=== PATIENT | male | born 1990 | race Caucasian/White ===

== ENCOUNTER → 2022-12-14 15:25 | Outpatient (BNVA) | payer OTHER, SELFPAY | PROVIDERS: PCP Internal Medicine; Visit Provider Physician Assistant Surgical ==

== ENCOUNTER 2023-01-20 13:54 | Outpatient (AMB) | payer OTHER, SELFPAY ==
--- NOTE | 2023-01-20 14:01 | A.OFFVIS_ITS ---
Intake VS Expanded 01/20/23 14:07 Height 5 ft 11 in Weight 618 lb 1.6 oz BMI 86.2 BP 170/102 H Blood Pressure Location Lt radial Blood Pressure Position Sitting Pulse 88 Pulse Source Pulse Oximeter Temp 98.2 F Temperature Source Temporal Artery Scan Pulse Oximetry 95 Oxygen Delivery Method Room Air Intake Visit Reasons: (OV) [employer] SWL BMI 86.9 Allergies diphenhydramine [From Benadryl] Allergy (Intermediate, Verified 01/20/23 14:13) UNKNOWN Medication List - Last Reconciled 01/20/23 by Cari Infante PA-C albuterol sulfate 90 mcg/actuation 2 inhalations inhalation Q6H PRN melatonin mg PO BEDTIME PRN omeprazole mg PO HPI HPI Comments History of Present Illness Details This is a 33 year old man who is here to start SWL program with SWL classes. His goal is to be to have a more active life. He reports first being concerned about her weight since childhood. He has tried multiple methods of weight loss including WW, [facility] SWL prgoram- lost weight with meds and then family issues had to stop program. He has a firend who just completed LSG with us. He lives with his mother. He works 5 days per week, 6 - 2:30 pm. Patient was seen at [facility] about 4 months ago due to excructing pain had CT - told he has umbillical hernia - which drain yellow fluid and blood at times. He wakes at: 5:15 am bed at 11pm - 12 am. Breakfast: Might have a Gatorade in the morning. 11:30 am - turkey and cheese wrap with cranberry juice. Lunch: 7-8 pm - no one at home cooks food. Chicken terriaki with mashed potatoes. Raw vegetables 2-3 d/ week. Clear Americans - 0 calorie seltzer. After dinner:pop tarts or granola Other snacks: states none Liquids: Soda off and on, Gatorade, Pineapple Cranberry juice, Energy drinks Alcohol intake: 2-3 times per week, sweetened seltzers 4-5, tobacco: none, marijuana: vapes throughout the day Exercise: has a foot stepper. no membership JARVIS: 1 ESS:5 GERD:9 QOL: 101 PFSH Surgical History H/O oral surgery Family History (Updated 12/14/22 @ 15:36 by Thuy Eid MA) Mother No problems noted. Father Diabetes Social History (Updated 12/14/22 @ 15:35 by Thuy Eid MA) Alcohol intake: current Alcohol intake frequency: a few times a month Patient Tobacco Use Status: Never used Tobacco Physical Exam Const General: cooperative, no acute distress and well developed Nutritional Appearance: obese Orientation/consciousness: patient oriented x3 HEENT Head: Yes normal to inspection Neck Neck: Yes normal visual inspection Thyroid: Thyroid normal Resp Effort & Inspection: normal respiratory effort Auscultation: clear to auscultation bilaterally Cardio Rate: regular rate Rhythm: regular rhythm Heart sounds: S1 normal heart sound present, S2 normal heart sound present and no murmurs GI Inspection: No distended, Yes Abdominal panniculus present and Yes obesity Palpation (GI): Soft to palpation, nontender, no guarding and Hernia present (umbillical hernia, draining yellow fluid on paper towel ) Skin General skin exam: no rashes or lesions noted and other (warm and dry) Wounds: no wounds Hair: normal Neuro General: patient oriented x3 Extrem General: Yes no pedal edema and Yes no calf tenderness Psych Attitude: cooperative Thought process: Normal thought process present Thought content: Normal thought content present Insight: Good insight present (Psych) Judgement: Good judgement present (Psych) Assessment & Plan Assessment & Plan (1) Morbid obesity: Code(s): E66.01 - Morbid (severe) obesity due to excess calories Plan: This is a 33 yo man with super morbid obesity, elevated BP and draining umbilliical hernia who will start SWL program to prepare for bariatric surgery. Blood work has been ordered. He is being scheduled for RD and BH initial consultations. He will start SWL classes and watch at 3 classes before her next appt with Nilda. Repeat BP 136/[address] chi also examined patient and will see him in follow up to discuss treatment for draining umbillical hernia once we have CT report [facility]. Sleep study for titration ordered, patient is not presently using his CPAP machine. 1. Adequate sleep of 7-8 hours per night discussed -MUST use CPAP nightly 2. Healthy meal plan - stop skipping meals and stop all sweetened drinks All meals/MR's need to take 20 minutes to complete 8am - 30 gram shake 11 am - 30 gram shake 2 pm- bar or yogurt 5pm -shake 7 pm- dinner of 6 oz lean protein, 8 oz vegetable, 1 serving fruit 10 pm - yogurt or bar Exercise - start with walking 15 minutes bid and PE sitting videos 4 d/ week. Pt will purchase body composition analyzer (recommended list given to patient) and weight herself weekly. Next appt with me in 3 weeks. Text me with any questions and weekly weights. Patient is morbidly obese and is not considered stable at this time.?I spent a total of 60 minutes reviewing/updating records, examining the patient and counse ling the patient on weight management as detailed above. (2) Asthma: Code(s): J45.909 - Unspecified asthma, uncomplicated (3) GERD (gastroesophageal reflux disease): Code(s): K21.9 - Gastro-esophageal reflux disease without esophagitis (4) Insomnia: Code(s): G47.00 - Insomnia, unspecified Orders: Orders Vitamin B12 and Folate Today E66.01 - Morbid (severe) obesity due to excess calories, K21.9 - Gastro-esophageal reflux disease without esophagitis, K42.9 - Umbilical hernia without obstruction or gangrene, R03.0 - Elevated blood- pressure reading, without diagnosis of hypertension Comprehensive Met. Panel Today E66.01 - Morbid (severe) obesity due to excess calories, K21.9 - Gastro-esophageal reflux disease without esophagitis, K42.9 - Umbilical hernia without obstruction or gangrene, R03.0 - Elevated blood- pressure reading, without diagnosis of hypertension C Reactive Protein Today E66.01 - Morbid (severe) obesity due to excess calories, K21.9 - Gastro-esophageal reflux disease without esophagitis, K42.9 - Umbilical hernia without obstruction or gangrene, R03.0 - Elevated blood-p ressure reading, without diagnosis of hypertension Ferritin Today E66.01 - Morbid (severe) obesity due to excess calories, K21.9 - Gastro-esophageal reflux disease without esophagitis, K42.9 - Umbilical hernia without obstruction or gangrene, R03.0 - Elevated blood-pressure reading, without diagnosis of hypertension Hemoglobin A1c Today E66.01 - Morbid (severe) obesity due to excess calories, K21.9 - Gastro-esophageal reflux disease without esophagitis, K42.9 - Umbilical hernia without obstruction or gangrene, R03.0 - Elevated blood-pressure reading, without diagnosis of hypertension Insulin Today E66.01 - Morbid (severe) obesity due to excess calories, K21.9 - Gastro-esophageal reflux disease without esophagitis, K42.9 - Umbilical hernia without obstruction or gangrene, R03.0 - Elevated blood-pressure reading, without diagnosis of hypertension IRON PROFILE Today E66.01 - Morbid (severe) obesity due to excess calories, K21.9 - Gastro-esophageal reflux disease without esophagitis, K42.9 - Umbilical hernia without obstruction or gangrene, R03.0 - Elevated blood-pressure reading, without diagnosis of hypertension Lipid Panel Today E66.01 - Morbid (severe) obesity due to excess calories, K21.9 - Gastro-esophageal reflux disease without esophagitis, K42.9 - Umbilical hernia without obstruction or gangrene, R03.0 - Elevated blood-pressure reading, without diagnosis of hypertension PTHI Today E66.01 - Morbid (severe) obesity due to excess calories, K21.9 - Gastro-esophageal reflux disease without esophagitis, K42.9 - Umbilical hernia without obstruction or gangrene, R03.0 - Elevated blood-pressure reading, without diagnosis of hypertension TSH reflex Free T4 Today E66.01 - Morbid (severe) obesity due to excess calories, K21.9 - Gastro-esophageal reflux disease without esophagitis, K42.9 - Umbilical hernia without obstruction or gangrene, R03.0 - Elevated blood- pressure reading, without diagnosis of hypertension Vitamin A Today E66.01 - Morbid (severe) obesity due to excess calories, K21.9 - Gastro-esophageal reflux disease without esophagitis, K42.9 - Umbilical hernia without obstruction or gangrene, R03.0 - Elevated blood-pressure reading, without diagnosis of hypertension Vitamin B1 Today E66.01 - Morbid (severe) obesity due to excess calories, K21.9 - Gastro-esophageal reflux disease without esophagitis, K42.9 - Umbilical hernia without obstruction or gangrene, R03.0 - Elevated blood-pressure reading, without diagnosis of hypertension Vitamin D 25-OH Total Today E66.01 - Morbid (severe) obesity due to excess calories, K21.9 - Gastro-esophageal reflux disease without esophagitis, K42.9 - Umbilical hernia without obstruction or gangrene, R03.0 - Elevated blood- pressure reading, without diagnosis of hypertension Zinc Today E66.01 - Morbid (severe) obesity due to excess calories, K21.9 - Gastro-esophageal reflux disease without esophagitis, K42.9 - Umbilical hernia without obstruction or gangrene, R03.0 - Elevated blood-pressure reading, without diagnosis of hypertension Complete Blood Count Auto Diff Today E66.01 - Morbid (severe) obesity due to excess calories, K21.9 - Gastro-esophageal reflux disease without esophagitis, K42.9 - Umbilical hernia without obstruction or gangrene, R03.0 - Elevated blood-pressure reading, without diagnosis of hypertension H Pylori Breath Test Today E66.01 - Morbid (severe) obesity due to excess calories, K21.9 - Gastro-esophageal reflux disease without esophagitis, K42.9 - Umbilical hernia without obstruction or gangrene, R03.0 - Elevated blood- pressure reading, without diagnosis of hypertension RT PSG in-lab sleep titration Today E66.01 - Morbid (severe) obesity due to excess calories, G47.30 - Sleep apnea, unspecified, K21.9 - Gastro-esophageal reflux disease without esophagitis, R03.0 - Elevated blood-pressure reading, without diagnosis of hypertension Referrals Behavioral Health Referral E66.01 - Morbid (severe) obesity due to excess calories, K21.9 - Gastro-esophageal reflux disease without esophagitis, K42.9 - Umbilical hernia without obstruction or gangrene, R03.0 - Elevated blood- pressure reading, without diagnosis of hypertension Nutrition/Dietitian Referral E66.01 - Morbid (severe) obesity due to excess calories, K21.9 - Gastro-esophageal reflux disease without esophagitis, K42.9 - Umbilical hernia without obstruction or gangrene, R03.0 - Elevated blood- pressure reading, without diagnosis of hypertension Coding Level of Care Code New Pt Level 5 (21604) Diagnoses Morbid obesity E66.01 Asthma J45.909 GERD (gastroesophageal reflux disease) K21.9 Insomnia G47.00
[2023-01-20 14:07] VITALS: BP 170/102; PULSE 88; TEMP 36.8; O2SAT 95; BMI 86.2
== END 2023-01-20 15:12 | disposition home or self-care (01) ==
PROVIDERS: PCP Internal Medicine; Visit Provider Physician Assistant
DX: E66.01 Morbid (severe) obesity due to excess calories (principal); Z68.45 Body mass index [BMI] 70 or greater, adult
CPT/HCPCS: 99205

== ENCOUNTER → 2023-01-20 13:54 | Outpatient (BNVA) | payer OTHER, SELFPAY | PROVIDERS: PCP Internal Medicine; Visit Provider Physician Assistant | DX: E66.01 Morbid (severe) obesity due to excess calories (principal); Z68.45 Body mass index [BMI] 70 or greater, adult; J45.909 Unspecified asthma, uncomplicated; K21.9 Gastro-esophageal reflux disease without esophagitis; G47.00 Insomnia, unspecified | CPT/HCPCS: 99202 ==

== ENCOUNTER 2023-02-08 14:48 | Outpatient (REF) | payer OTHER, SELFPAY ==
[2023-02-08 15:17] LABS: MANUAL DIFF FLAG NO
[2023-02-08 16:44] LABS: Basophils Absolute Auto 0.1 X10*3/uL (0.0-0.2); Basophils Percent Auto 0.7 % (0-2); Eosinophils Absolute Auto 0.3 X10*3/uL (0.0-0.4); Eosinophils Percent Auto 3.9 % (0-4); Hematocrit 46.5 % (42.0-52.0); Hemoglobin 15.5 g/dl (14.0-18.0); Imm Gran Abs Auto 0.01 X10*3/uL (0.00-0.03); Imm Gran Pct Auto 0.1 % (0.0-0.4); Lymphocytes Absolute Auto 2.1 X10*3/uL (1.2-4.9); Lymphocytes Percent Auto 29.3 % (20-40); Mean Corpuscular HGB Conc 33.3 g/dl (31.0-36.0); Mean Corpuscular Volume 90.1 fL (80.0-98.0); Monocytes Absolute Auto 0.8 X10*3/uL (0.1-1.2); Monocytes Percent Auto 10.5 % (2-11); Neutrophils Percent Auto 55.5 % (45-73); Platelet Count 372 X10*3/uL (160-400); Red Blood Count 5.16 X10*6/uL (4.60-5.80); Red Cell Distribution Width 13.9 % (11.0-16.0); White Blood Count 7.2 X10*3/uL (4.8-10.8)
[2023-02-08 16:56] LABS: Estimated Average Glucose 91 mg/dL; Hemoglobin A1c % 4.8 % (<6.0)
[2023-02-08 17:34] LABS: Alanine Aminotransferase 56 U/L (0-40); Albumin Level 4.3 g/dL (3.5-5.0); Alkaline Phosphatase 55 U/L (39-117); Anion Gap 14 (12-20); Aspartate Amino Transferase 38 U/L (5-37); Bilirubin Total 0.6 mg/dL (0.0-1.0); Blood Urea Nitrogen 15 mg/dL (9-16); C Reactive Protein 2.16 mg/dL (< or = 0.50); Calcium 9.9 mg/dL (8.4-10.2); Carbon Dioxide 25 mmol/L (22-29); Chloride 104 mmol/L (96-108); Cholesterol 120 mg/dL (<200); Estimated Glomerular Filt Rate > 60; Glucose Random 80 mg/dL (60-115); HDL Cholesterol 29 mg/dL (>40); Iron 47 mcg/dL (45-160); LDL Cholesterol Calculated 78 mg/dL (<100); Percent Iron Saturation 16 % (15-50); Potassium 4.1 mmol/L (3.3-5.1); Sodium 139 mmol/L (135-145); Total Iron Binding Capacity 289 mcg/dL (228-428); Total Protein 8.3 g/dL (6.5-8.0); Triglycerides 67 mg/dL (<150); Unsaturated Iron Binding 242 ug/dL
[2023-02-08 17:38] LABS: Ferritin 169 ng/mL (20-250); TSH reflex Free T4 3.03 uIU/mL (0.32-4.0); Vitamin D 25-OH Total 12.1 ng/mL (>30)
[2023-02-08 17:47] LABS: Folate 10.3 ng/mL (> or = 4.0); Vitamin B12 921 pg/mL (200-900)
[2023-02-08 19:07] LABS: Insulin 17 uU/mL (2-29)
[2023-02-09 16:14] LABS: Calcium (PTHI) 9.8 mg/dL (8.6-10.3); PTHI 52 pg/mL (16-77)
[2023-02-12 01:29] LABS: Zinc 72 mcg/dL (60-130)
[2023-02-13 20:15] LABS: Vitamin A 25 mcg/dL (38-98)
[2023-02-14 12:02] LABS: Vitamin B1 8 nmol/L (8-30)
== END 2023-02-08 14:49 | disposition home or self-care (01) ==
LOC: HO.LAB 14:48
PROVIDERS: Visit Provider Physician Assistant
DX: E66.01 Morbid (severe) obesity due to excess calories (principal); R03.0 Elevated blood-pressure reading, without diagnosis of hypertension; K42.9 Umbilical hernia without obstruction or gangrene; K21.9 Gastro-esophageal reflux disease without esophagitis
CPT/HCPCS: 36415; 80053; 80061; 82306; 82607; 82728; 82746; 83036; 83525; 83540; 83970; 84425; 84443; 84590; 84630; 85025; 86140

== ENCOUNTER 2023-02-25 13:58 | Outpatient (AMB) | payer OTHER, SELFPAY ==
--- NOTE | 2023-02-25 12:50 | MHC.OFFVISWM ---
Intake VS Expanded 02/25/23 14:12 BP 177/94 H Blood Pressure Location Rt brachial Blood Pressure Position Sitting Pulse 93 Pulse Source Pulse Oximeter Temp 96.1 F L Temperature Source Temporal Artery Scan Pulse Oximetry 96 Oxygen Delivery Method Room Air Height 5 ft 11 in Weight 560 lb BMI 78.1 Intake Visit Reasons: (OV) F/U SWL Allergies diphenhydramine [From Benadryl] Allergy (Intermediate, Verified 02/25/23 14:15) UNKNOWN HPI HPI Comments History of Present Illness Details This is the patients second appt for SWL. Starting weight was 618.1 lbs on 01/20/23. TBWL is 58.1 lbs or 9.4 % TBWL. Had exacerbation of his hernia pain - last week, emesis, had a wrap and was sick. Has not eaten solid food in 6 days. Has been having 2 shakes per day and water only. Leaking minimally now - but this is intermittent - leaked a lot a few days ago - not worse. Meal plan:before he was sick. 8:30 - Pure protein or Farilife or [employer] or Atkins 11:30 - another shake 2pm - Pure protein or Zone or Atkins bars or a yogurt. 5pm - shake or meal - 6 oz steak or chicken and 8 oz vegetables 10 pm -yogurt and a kiwi. Exercise plan: Tristan Ascencio - videos 3 d/ week. Walking Pre op work up completed as follows: SWL classes - 07/29 appts - 03/04 appts - follow up on 03/05 H pylori - not done yet - still taking omeprazole at [facility] Labs - vit A and D deficiencies CXR and ECG - not done yet ULS and UGI - not scheduled yet - 03/[address] report from [facility] - scanned on 01/28. Large abdominal wall hernia 15 x 9 cms, fascial defect about 5 cms. Fat containing hernia only. Reviewed with Dr Gatica and will obtain CD of the CT for his review. [facility] Surgical History H/O oral surgery Family History (Updated 12/14/22 @ 15:36 by Thuy Eid MA) Mother No problems noted. Father Diabetes Social History (Updated 12/14/22 @ 15:35 by Thuy Eid MA) Alcohol intake: current Alcohol intake frequency: a few times a month Patient Tobacco Use Status: Never used Tobacco Physical Exam GI Inspection: Yes visible herniation (non tender, not incarceration, no discoloration ) and Yes other (scant serous fluid on toilet tissue in umbillicus) Palpation (GI): Soft to palpation and nontender Assessment & Plan Assessment & Plan (1) Morbid obesity: Code(s): E66.01 - Morbid (severe) obesity due to excess calories Plan: Excellent weight loss of 58 lbs so far, stopped all sweetened drinks. He had another episode of what seems to be intermittent bowel obstruction, now resolved. We reviewed that if this occurs again to ONLY HAVE LIQUIDs (shakes and water until symptoms resolve), call our office or text me to let us know. IF he needs to come to ED - come to [facility] ED and let them know to contact us. Patient will obtain CD of the abd CT from [facility] and bring it with him to his appt with Dr Gatica on 03/29. meal plan: 3 shakes 1 meal 2 bars or yogurt per day. Exercise - 6 d/week - Tristan Ascencio alternate 30 and 45 minute videos. All upcoming appts reveiwed with patient. Will order ULS and UGI when approaching 500 lbs. Needs to get CXR and ECG now. Next appt with me in 3 weeks. I have encouraged patient to text me with questions and concerns. (can not weight himself at home) Patient is morbidly obese and is not considered stable at this time. I spent 45 minutes in total with patient reviewing/updating records, examining the patient and counseling the patient on weight management as detailed above. (2) Sleep apnea: Code(s): G47.30 - Sleep apnea, unspecified (3) Umbilical hernia: Code(s): K42.9 - Umbilical hernia without obstruction or gangrene Coding Level of Care Code Est Pt Level 4 (87805) Diagnoses Morbid obesity E66.01 Sleep apnea G47.30 Umbilical hernia K42.9
[2023-02-25 14:12] VITALS: BP 177/94; PULSE 93; TEMP 35.6; O2SAT 96; BMI 78.1
== END 2023-02-25 14:53 | disposition home or self-care (01) ==
PROVIDERS: PCP Internal Medicine; Visit Provider Physician Assistant
DX: E66.01 Morbid (severe) obesity due to excess calories (principal); Z68.45 Body mass index [BMI] 70 or greater, adult; G47.30 Sleep apnea, unspecified; K42.9 Umbilical hernia without obstruction or gangrene
CPT/HCPCS: 99214

== ENCOUNTER → 2023-02-25 13:58 | Outpatient (BNVA) | payer OTHER, SELFPAY | PROVIDERS: PCP Internal Medicine; Visit Provider Physician Assistant | DX: E66.01 Morbid (severe) obesity due to excess calories (principal); Z68.45 Body mass index [BMI] 70 or greater, adult; G47.30 Sleep apnea, unspecified; K42.9 Umbilical hernia without obstruction or gangrene | CPT/HCPCS: 99212 ==

== ENCOUNTER 2023-03-04 15:06 | Outpatient (AMB) | payer OTHER, SELFPAY ==
--- NOTE | 2023-03-04 15:05 | MHC.WMTHER ---
Intake Intake Visit Reasons: VIDEO BH Intake Allergies diphenhydramine [From Benadryl] Allergy (Intermediate, Verified 02/25/23 14:15) UNKNOWN [facility] Surgical History H/O oral surgery Family History Mother No problems noted. Father Diabetes Social History Alcohol intake: current Alcohol intake frequency: a few times a month Patient Tobacco Use Status: Never used Tobacco Behavioral Health Assessment Weight Management Therapy Therapy Notes Details Pt stated that he recently broke his foot falling through a deck that broke from under him. He then realized that he needed to do something about his weight. He is looking to have weight loss surgery to help improve his health and quality of life. Pt stated that he started therapy in 2014 at the [facility] in [place] however not currently since his therapist left the practice. Pt stated that he was seeking treatment for anxiety and depression. He reported being hospitalized in 2011 at [facility] for psychiatric reasons due to depression from a loss and breakup. Pt stated that he has never had a serious problem with drugs or alcohol however had used drugs and alcohol in the past. He reported that in middle school and high school he struggled with suicidal thoughts. Presenting Concerns Referral Source provider Reason for referral weight loss surgery evaluation Precipitating Event obesity Living Situation Current Living Situation Relative's/Guardian's Сергей At risk of losing current housing? No Satisfied with current living situation? Yes Comments Pt lives with his mother. Food/Weight/Diet Expectations of change weight loss and maintenance History/Relationship with food Pt stated that he would not eat all day but would drink soda and juices. Around 3 to 4 cans a day. He would eat around 7pm, pizza, microwavable food, fast food 2-3x's a month. History/Relationship with weight Pt stated that he has been overweight all of his life. He stated that it was just him and his mom growing up and he got to eat whatever he wanted. History/Relationship with dieting [facility] in 2015/2016 but then had significant family health issues in his immediate family. Binge Eating Do you frequently eat large amounts of food in short periods of time, not feeling physically hungry? Yes Do you feel out of control when you eat a large amount of food in a short period of time? No Do you eat large amounts of food rapidly and typically alone? No Night Eating Do you wake up at least once during the night to eat? No If you wake up in the night, do you find that it is necessary to eat something in order to fall back asleep? No Do you have little or no appetite in the morning and feel very hungry in the evening, often overeating between dinner and when you go to bed? Yes Social History Family history and relationship Pt was raised by his mother and stated that his father was never in his life. He has two sisters from his dad side. 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 2015 on probation for falsifying prescriptions Education Highest grade completed high school Preferred learning style Auditory, Verbal, Written, Learn by doing and Visual Currently enrolled in educational program? No Interested in further educational program? 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 No Meaningful activities some exercise, socializing with friends, watching football, games Financial Situation Describe current financial situation Occasional struggle Financial assistance? None Service Service? No Mental Health and Addiction Treatment Current/Past substance abuse? No Current/Past addictive behavior concerns? No Medical and Physical Health Summary Physical exam in the last year? Yes Pain Screening Current pain? No Pain in the last few months? No Medications Is the patient compliant with medications? Yes Does the patient have Schwartz Guardian in place? Not applicable Does the patient use complimentary health approaches? No Trauma/Abuse History History of trauma? Yes Questionnaires PHQ-9 Over the last 2 weeks, how often have you been bothered by any of the following problems? 1. Little interest or pleasure in doing things: not at all 2. Feeling down, depressed, or hopeless: not at all 3. Trouble falling or staying asleep, or sleeping too much: more than half the days 4. Feeling tired or having little energy: several days 5. Poor appetite or overeating: several days 6. Feeling bad about yourself - or that you are a failure or have let yourself or your family down: not at all 7. Trouble concentrating on things, such as reading the newspaper or watching television: not at all 8. Moving or speaking so slowly that other people could have noticed. Or the opposite - being so fidgety or restless that you have been moving around a lot more than usual: not at all 9. Thoughts that you would be better off or of hurting yourself in some way: not at all Total score: 4 Source: Developed by Drs. Hayden Thayer, Liat Grace, Uriel Chavis and colleagues, with an educational lisa from [employer]. Binge Eating Scale Group 1 A. I don't feel self-conscious about my wt. or body size when I'm with others. B. I feel concerned about how I look to others, but it normally does not make me fell disappointed with myself C. I do get self-conscious about my appearance and wt. which makes me feel disappointed in myself. D. I feel very self-conscious about my wt. and frequently I feel intense shame and disgust for myself. I try to avoid social contacts because of my self-consciousness. Response Group 1: D Group 2 A. I don't have any difficulty eating slowly in the proper manner. B. Although I seem to gobble down foods, I don't end up feeling stuffed because of eating to much. C. At times, I tend to eat quickly and then, I feel uncomfortably full afterwards. D. I have the habit of bolting down my food, without really chewing it. When this happens I usually feel uncomfortably stuffed because I've eaten to much. Response Group 2: A Group 3 A. I feel capable to control my eating urges when I want to. B. I feel like I have failed to control my eating more than the average person. C. I feel utterly helpless when it comes to feeling in control of my eating urges. D. Because I feel so helpless about controlling my eating I have become very desperate about trying to get control. Response Group 3: B Group 4 A. I don't have the habit of eating when I'm bored. B. I sometimes eat when I'm bored, but often I'm able to get busy and get my mind off food. C. I have a regular habit of eating when I'm bored, but occasionally, I can use some other activity to get my mind off eating. D. I have a strong habit of eating when I'm bored. Nothing seems to help me breath the habit. Response Group 4: C Group 5 A. I'm usually physically hungry when I eat something. B. Occasionally, I eat something on impulse even though I really am not hungry. C. I have the regular habit of eating foods, that I might not really enjoy, to satisfy a hungry feeling even though physically, I don't need the food. D. Although I'm not physically hungry, I get a hungry feeling in my mouth that only seems to be satisfied when I eat a food, like sandwich, that fills my mouth. Sometimes, when I eat the food to satisfy my mouth hunger, I then spit the food out so I won't gain weight. Response Group 5: B Group 6 A. I don't feel any guilt or self-hate after I overeat. B. After I overeat, occasionally I feel guilt or self-hate. C. Almost all the time I experience strong guilt or self-hate after I overeat. Response Group 6: B Group 7 A. I don't lose total control of my eating when dieting even after periods when I overeat. B. Sometimes when I eat a forbidden food on a diet, I feel like I blew it and eat even more. C. Frequently, I have the habit of saying to myself, I've blown it now, why not go all the way, when I overeat on a diet. When that happens I eat more. D. I have a regular habit of starting a strict diets for myself but I break the diets by going on an eating binge. My life seems to be either a feast or famine. Response Group 7: C Group 8 A. I rarely eat so much food that I feel uncomfortably stuffed afterwards. B. Usually about once a month, I each such a quantity of food, I end up feeling very stuffed. C. I have regular periods during the month when I eat large amounts of food, either at mealtime or at snacks. D. I eat so much food that I regularly feel quite uncomfortable after eating and sometimes a bit nauseous. Response Group 8: C Group 9 A. My level of calorie intake does not go up very high or go down very low on a regular basis. B. Sometimes after I overeat, I will try to reduce my caloric intake to almost nothing to compensate for the excess calories I've eaten. C. I have a regular habit of overeating during the night. It seems that my routine is not to be hungry in the morning but overeat in the evening. D. In my adult years, I have had week-long periods where I practically starve myself. This follows periods when I overeat. It seems I live a life of either feast or famine. Response Group 9: D Group 10 A. I usually am able to stop eating when I want to. I know when enough is enough. B. Every so often, I experience a compulsion to eat which I can't seem to control. C. Frequently, I experience strong urges to eat which I seem unable to control, but at other times I can control my eating urges. D. I feel incapable of controlling urges to eat. I have a fear of not being able to stop eating voluntarily. Response Group 10: C Group 11 A. I don't have any problem stopping eating when I feel full. B. I usually can stop eating when I feel full but occasionally overeat leaving me feeling uncomfortably stuffed. C. I have a problem stopping eating once I start and usually I feel uncomfortably stuffed after I eat a meal. D. Because I have a problem not being able to stop eating when I want, I sometimes have to induce vomiting to relieve my stuffed feeling. Response Group 11: B Group 12 A. I seem to eat just as much when I'm with others, Family social gatherings as when I'm by myself. B. Sometimes, when I'm with other persons, I don't eat as much as I want to eat because I'm self-conscious about my eating. C. Frequently, I eat only a small amount of food when others are present, because I'm very embarrassed about my eating. D. I feel so ashamed about overeating that I pick times to overeat when I know no one will see me. I feel like a closet eater. Response Group 12: C Group 13 A. I eat three meals a day with only an occasional between meal snack. B. I eat 3 meals a day, but I also normally snack between meals. C. When I am snacking heavily, I get in the habit of skipping regular meals. D. There are regular periods when I seem to be continually eating, with no planned meals. Response Group 13: D Group 14 A. I don't think much about trying to control unwanted eating urges. B. At least some of the time, I feel my thoughts are pre-occupied with trying to control my eating urges. C. I feel that frequently I spend much time thinking about how much I ate or about trying not to eat anymore. D. It seems to me that most of my waking hours are pre-occupied by thoughts about eating or not eating. I feel like I'm constantly struggling not to eat. Response Group 14: C Group 15 A. I don't think about food a great deal. B. I have strong craving for food but they last only for brief periods of time. C. I have days when I can't seem to think about anything else but food. D. Most of my days seem to be pre-occupied with thoughts about food. I feel like I live to eat. Response Group 15: A Group 16 A. I usually know whether or not I'm physically hungry. I take the right portion of food to satisfy me. B. Occasionally, I feel uncertain about knowing whether or not I'm physically hungry. A these times it's hard to know how much food I should take to satisfy me. C. Even though I might know how many calories I should eat, I don't have any idea what is a normal amount of food for me. Response Group 16: B Binge Eating Score: 26 Score less than 17 Minimal Risk Score between 18-26 Moderate Risk Score between 27-46 High Risk Assessment & Plan Assessment & Plan (1) SARIKA (generalized anxiety disorder): Code(s): F41.1 - Generalized anxiety disorder (2) Morbid obesity: Code(s): E66.01 - Morbid (severe) obesity due to excess calories Plan Pt is a pleasant 33 year old male who presents for evaluation due to seeking weight loss surgery. he reported some mental health struggles related to multiple losses in his life, his mother's ongoing medical concerns and never having his father in his life. Patient was in outpatient (and inpatient) treatment in the past but not currently. He will be seen again in office. Telehealth Telehealth Location of provider rendering services: other Location of patient: address on file Patient Identification confirmed using: Name, : Yes Telehealth method: voice only Patient verbally consented to treatment: Yes Patient verbally consented to billing insurance company: Yes Patient informed of any privacy concerns related to visit: Yes Minutes spent on Phone/Video with Pt.: 45 Coding Level of Care Code Tele Psy Diag Eval (51198) Diagnoses SARIKA (generalized anxiety disorder) F41.1 Morbid obesity E66.01 Time Spent (min) 45
== END 2023-03-04 15:31 | disposition home or self-care (01) ==
LOC: HO.HBST 15:06
PROVIDERS: PCP Internal Medicine; Referring Provider Physician Assistant; Visit Provider Counselor Mental Health
DX: F41.1 Generalized anxiety disorder (principal); E66.01 Morbid (severe) obesity due to excess calories
CPT/HCPCS: 90791

== ENCOUNTER → 2023-03-04 19:30 | Outpatient (REF) | payer OTHER, SELFPAY | LOC: HO.SL 19:30 | PROVIDERS: PCP Internal Medicine; Visit Provider Physician Assistant | DX: G47.33 Obstructive sleep apnea (adult) (pediatric) (principal); R06.83 Snoring | CPT/HCPCS: 95811 ==

== ENCOUNTER → 2023-03-04 22:48 | Outpatient (BNV) | payer OTHER, SELFPAY | PROVIDERS: PCP Internal Medicine; Visit Provider Internal Medicine | DX: G47.33 Obstructive sleep apnea (adult) (pediatric) (principal) | CPT/HCPCS: 95811 ==

== ENCOUNTER 2023-03-05 14:38 | Outpatient (AMB) | payer OTHER, SELFPAY ==
--- NOTE | 2023-03-05 14:35 | A.OFFVIS_ITS ---
Intake Intake Visit Reasons: VIDEO Initial Nutrition [facility] Piece Goods Clerk Required: No Allergies diphenhydramine [From Benadryl] Allergy (Intermediate, Verified 02/25/23 14:15) UNKNOWN HPI Nutrition Presentation Details Starting weight was 618.1 lbs on 01/20/23. Reason for consult elevated BMI Unstable SDH Reports use of SNAP (mother has) Diet Assmnt Details 3 shakes 1 meal - protein and veg, asking about a dding in rice, barley etc. 2 bars or yogurt per day. Prior to the above, had GI issues related to pre-existing condition. He was on an all liquid diet per Cari. When his symptoms resolved he resumed the above plan. [facility] online classes: his mother has been through 3 surgeries on her neck in 1 year. She did most of the cooking at home Previous weight loss methods attempted high school played football and went to the gym, was very active Dietary counseling reduction Who buys your food self and parent Who prepares/cooks your food self and parent Meal frequency regular: dinner (7pm ) and snacks, irregular: lunch and never: breakfast Lifestyle Eating out 1-3 times/week Food frequency Dairy: daily, Fruit: several times weekly, Vegetables: never (learning to eat more vegetables ), Grains/pasta/breads/cereal (carbs): daily, Meats/poultry/fish (protein): daily (usually avoids fish and seafood ), Processed foods/meats: several times weekly and Restaurants/fast foods: several times weekly Most Recent Diabetes Results: Cholesterol 120 mg/dL (<200) 02/08/23 HDL Cholesterol 29 mg/dL (>40) L 02/08/23 Triglycerides 67 mg/dL (<150) 02/08/23 Creatinine 0.85 mg/dL (0.5-1.4) 02/08/23 Blood Urea Nitrogen 15 mg/dL (9-16) 02/08/23 Sodium 139 mmol/L (135-145) 02/08/23 Potassium 4.1 mmol/L (3.3-5.1) 02/08/23 Chloride 104 mmol/L (96-108) 02/08/23 Carbon Dioxide 25 mmol/L (22-29) 02/08/23 Calcium 9.9 mg/dL (8.4-10.2) 02/08/23 AST 38 U/L (5-37) H 02/08/23 ALT 56 U/L (0-40) H 02/08/23 Total Protein 8.3 g/dL (6.5-8.0) H 02/08/23 Albumin 4.3 g/dL (3.5-5.0) 02/08/23 PFSH Surgical History H/O oral surgery Family History Mother No problems noted. Father Diabetes Social History Alcohol intake: current Alcohol intake frequency: a few times a month Patient Tobacco Use Status: Never used Tobacco Assessment & Plan Assessment & Plan (1) Morbid obesity: Code(s): E66.01 - Morbid (severe) obesity due to excess calories Patient Instructions: continue nutrition plan. educated on rationale for plan and post op nutrition. Patient will complete online classes and follow-up with me 04/07 at 02:30 Telehealth Telehealth Location of provider rendering services: practice address Location of patient: address on file Patient Identification confirmed using: Name, : Yes Telehealth method: video Patient verbally consented to treatment: Yes Patient verbally consented to billing insurance company: Yes Patient informed of any privacy concerns related to visit: Yes Minutes spent on Phone/Video with Pt.: 20 Coding Level of Care Code Nutr Indiv Intake (64649) Diagnoses Morbid obesity E66.01 Time Spent (min) 20
== END 2023-03-05 14:55 | disposition home or self-care (01) ==
LOC: HO.HBS 14:38
PROVIDERS: PCP Internal Medicine; Visit Provider Dietitian, Registered
DX: E66.01 Morbid (severe) obesity due to excess calories (principal)

== ENCOUNTER → 2023-03-05 14:38 | Outpatient (BNVA) | payer OTHER, SELFPAY | PROVIDERS: PCP Internal Medicine; Visit Provider Dietitian, Registered | DX: E66.01 Morbid (severe) obesity due to excess calories (principal) | CPT/HCPCS: 97802 ==

== ENCOUNTER 2023-03-29 14:02 | Outpatient (AMB) | payer OTHER, SELFPAY ==
--- NOTE | 2023-03-29 14:05 | A.OFFVIS_ITS ---
Intake VS Expanded 03/29/23 14:18 BP 178/87 H Blood Pressure Location Rt brachial Blood Pressure Position Sitting Pulse 81 Pulse Source Pulse Oximeter Temp 96.8 F Temperature Source Tympanic Pulse Oximetry 97 Oxygen Delivery Method Room Air Height 5 ft 11 in Weight 544 lb BMI 75.9 Body Fat % 56.7 Body Fat Mass 308.4 Fat Free Mass 235.4 Body Water % 34.6 Body Water Mass 188.2 Muscle Mass/Score 224.0 Basal Metabolic Rate/Score 3,728 Intake Visit Reasons: (OV) SWL (transfer [facility]) Machine Former Required: No Marine Operations Coordinator: Marine Operations Coordinator Present Allergies diphenhydramine [From Benadryl] Allergy (Intermediate, Verified 02/25/23 14:15) UNKNOWN Medication List - Last Reconciled 03/29/23 by Austin Gatica MD, FACS, FASS albuterol sulfate 90 mcg/actuation 2 inhalations inhalation Q6H PRN cholecalciferol (vitamin D3) 50 mcg PO DAILY melatonin mg PO BEDTIME PRN omeprazole mg PO vitamin A palmitate 3,000 mcg PO DAILY 2 weeks HPI HPI Comments History of Present Illness Details This is the patients second appt for SWL. Starting weight was 618.1 lbs on 01/20/23. TBWL is 58.1 lbs or 9.4 % TBWL. He is congratulated on his interval weight loss to 544.0/BMI 75.9 on today's visit. He is accompanied by his aunt and gave permission to discuss his health care in be examined in front of her. Patient reports interval improvement regarding the umbilical drainage and has been using a tissue to catch any fluid. He reports that the cramping has improved since losing weight. He denies any signs or symptoms of obstruction or incarceration and denies any abdominal operations. Meal plan:before he was sick. 8:30 - Pure protein or Farilife or Quest or Atkins 11:30 - another shake 2pm - Pure protein or Zone or Atkins bar s or a yogurt. 5pm - shake or meal - 6 oz steak or chi cken and 8 oz vegetables 10 pm -yogurt and a kiwi. Exercise plan: Tristan Ascencio - videos 3 d/ week. Walking Pre op work up completed as follows: SWL classes - 07/29 appts - 03/04 appts - follow up on 03/05 H pylori - not done yet - still taking omeprazole at [facility] Labs - vit A and D deficiencies CXR and ECG - not done yet ULS and UGI - not scheduled yet SS - 03/[address] report from [facility] - scanned on 11/27/21. Large abdominal wall hernia 15 x 9 cms, fascial defect about 5 cms. Fat containing hernia only. Images are unavailable. [facility] Surgical History H/O oral surgery Family History Mother No problems noted. Father Diabetes Social History Alcohol intake: current Alcohol intake frequency: a few times a month Patient Tobacco Use Status: Never used Tobacco Review of Systems Const All systems reviewed & are unremarkable except as noted in HPI and below Physical Exam Vital Signs: Last Vital Signs Temp 96.8 F 03/29/23 14:18 Pulse 81 03/29/23 14:18 BP 178/87 H 03/29/23 14:18 Pulse Ox 97 03/29/23 14:18 Oxygen Delivery Method Room Air 03/29/23 14:18 BMI result Body Mass Index 75.9 On exam, the patient is nontoxic He is in no respiratory distress Abdomen is obese and soft. Tissue was packed in around the umbilicus and there is no erythema, purulence, tenderness. Some general thickening in the subcutaneous tissue is noted. Results Reviewed Results Reviewed: CT report dated 11/27/2021 is reviewed and an umbilical hernia is noted. Labs dated 02/08/2023 Hemoglobin 15.5 with normochromic/normocytic indices; white blood cell count 7.2 with normal differential, platelet count 372 K TBili 0.6, AST elevated at 38, ALT elevated at 56 HbA1C 4.8, BUN 15, Cr 0.85 HDL low at 29, Vit A low at 25 Assessment & Plan Assessment & Plan (1) Umbilical hernia: Code(s): K42.9 - Umbilical hernia without obstruction or gangrene (2) Morbid obesity: Code(s): E66.01 - Morbid (severe) obesity due to excess calories (3) Asthma: Code(s): J45.909 - Unspecified asthma, uncomplicated (4) GERD (gastroesophageal reflux disease): Code(s): K21.9 - Gastro-esophageal reflux disease without esophagitis (5) Sleep apnea: Code(s): G47.30 - Sleep apnea, unspecified (6) SARIKA (generalized anxiety disorder): Code(s): F41.1 - Generalized anxiety disorder Plan The patient's physical exam is complicated by his body habitus and it is unclear whether not there is an open cutaneous fistula to the hernia sac which would require urgent intervention verses distortion of the umbilical skin, trapping of debris that is chronically becoming infected. A CT of the abdomen and pelvis has been ordered to help direct the patient's care. It is possible the patient has detritus/debris that is getting trapped in his umbilicus due to skin folds and causing a local cellulitis with malodorous drainage. We discussed the possibility then exam under anesthesia may be required but definitive treatment of the hernia would ideally be proceeded with weight loss. We also discussed that a chronically infected field would preclude placement of a mesh. We will have a greater, in-depth discussion after the CT is performed. No changes made to the patient's meal plan today. He has a follow-up with Cari Infante PA-C this week & will see me after the CT is performed. The pt's weight will require his CT be performed OSH since our table limit is 500 lbs & his current weight is 544 lbs. Orders: Orders CT abdomen pelvis wo IV con Today E66.01 - Morbid (severe) obesity due to excess calories, F41.1 - Generalized anxiety disorder, G47.30 - Sleep apnea, unspecified, J45.909 - Unspecified asthma, uncomplicated, K21.9 - Gastro- esophageal reflux disease without esophagitis, K42.9 - Umbilical hernia without obstruction or gangrene Coding Level of Care Code Est Pt Level 4 (44175) Diagnoses Umbilical hernia K42.9 Morbid obesity E66.01 Asthma J45.909 GERD (gastroesophageal reflux disease) K21.9 Sleep apnea G47.30 SARIKA (generalized anxiety disorder) F41.1
[2023-03-29 14:18] VITALS: BP 178/87; PULSE 81; TEMP 36; O2SAT 97; BMI 75.9
== END 2023-03-29 14:38 | disposition home or self-care (01) ==
PROVIDERS: PCP Internal Medicine; Visit Provider Surgery
DX: E66.01 Morbid (severe) obesity due to excess calories (principal); Z68.45 Body mass index [BMI] 70 or greater, adult; K42.9 Umbilical hernia without obstruction or gangrene; J45.909 Unspecified asthma, uncomplicated; K21.9 Gastro-esophageal reflux disease without esophagitis; G47.30 Sleep apnea, unspecified; F41.1 Generalized anxiety disorder
CPT/HCPCS: 99214

== ENCOUNTER → 2023-03-29 14:02 | Outpatient (BNVA) | payer OTHER, SELFPAY | PROVIDERS: PCP Internal Medicine; Visit Provider Counselor Mental Health | DX: E66.01 Morbid (severe) obesity due to excess calories (principal); Z68.45 Body mass index [BMI] 70 or greater, adult; K42.9 Umbilical hernia without obstruction or gangrene; K21.9 Gastro-esophageal reflux disease without esophagitis; J45.909 Unspecified asthma, uncomplicated; F41.1 Generalized anxiety disorder; G47.30 Sleep apnea, unspecified | CPT/HCPCS: 99212 ==

== ENCOUNTER 2023-03-31 15:00 | Outpatient (AMB) | payer OTHER, SELFPAY ==
--- NOTE | 2023-03-31 15:01 | A.OFFVIS_ITS ---
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 Affairs Required: No Director Sanitation Bureau: Director Sanitation Bureau offered & declined Accompanied by: Self / Same As Patient Allergies diphenhydramine [From Benadryl] Allergy (Intermediate, Verified 04/01/23 15:38) UNKNOWN Medication List - Last Reconciled 03/31/23 by Elissa Murrieta LPN albuterol sulfate 90 mcg/actuation 2 inhalations inhalation Q6H PRN cholecalciferol (vitamin D3) 50 mcg PO DAILY melatonin mg PO BEDTIME PRN omeprazole mg PO vitamin A palmitate 3,000 mcg PO DAILY 2 weeks HPI Obstructive sleep apnea 2 HPI0 Details Garo is a very pleasant 33 year old male, never smoker, with underlying history of asthma, GERD, and BMI 75. He was referred after sleep study revealed severe obstructive sleep apnea. He reported symptoms of morning headache, witnessed apneas, daytime fatigue and loud snoring. Sleep study revealed AHI of 52. He was previously on CPAP therapy years ago and would like to restart therapy. At this time, he denies any respiratory symptoms and states his asthma is well controlled with albuterol MDI. He denies any pertinent family history. Of note, he is currently under the care of medical weight management and has been doing well working towards weight loss. [facility] Medical History (Updated 03/30/23 @ 15:22 by Marcia Rothman PA-C) Obstructive sleep apnea (~2012) Morbid obesity Asthma GERD (gastroesophageal reflux disease) SARIKA (generalized anxiety disorder) Surgical History History of dental surgery (~1998) Family History Mother No problems noted. Father Diabetes Social History Alcohol intake: current Alcohol intake frequency: a few times a month Patient Tobacco Use Status: Never used Tobacco e-Cigarette/Vaping Use: Currently Using Review of Systems Const Denies chills, Denies excessive sweating, Denies fever(s) and Denies night sweats Eyes Denies dry eyes, Denies irritation and Denies itchy eyes ENT Reports Normal hearing present, Denies nasal congestion, Denies nasal discharge, Denies post nasal drip and Denies sore throat Card Denies chest pain, Denies chest pain at rest, Denies chest pain with activity, Denies claudication, Denies dyspnea, Denies dyspnea on exertion and Denies orthopnea Resp Denies chest congestion, Denies cough, Denies excessive phlegm production, Denies pain on inspiration, Denies pain with cough, Denies dyspnea, Denies dyspnea on exertion, Denies stridor and Denies wheezing Musc Denies myalgias Neuro Reports Normal hearing present Endo Denies excessive sweating Singh/Lymph Denies lymphadenopathy Aller/Immun Denies itchy eyes, Denies seasonal rhinorrhea and Denies wheezing Physical Exam Vital Signs: Last Vital Signs Pulse 85 03/31/23 15:05 BP 140/80 H 03/31/23 15:05 Pulse Ox 96 03/31/23 15:05 Const General: cooperative, healthy appearing, comfortable, no acute distress, well developed and alert Nutritional Appearance: obese Orientation/consciousness: patient oriented x3 Limitations: no limitations HEENT Head: Yes normal to inspection, Yes normocephalic and Yes atraumatic Ears: hearing grossly normal bilaterally and external ears normal Eyes General: appearance normal, both eyes and all related structures Eyelids: Yes eyelids normal Sclerae: sclerae normal EOM: EOMs intact bilaterally Neck Neck: Yes normal visual inspection and Yes no lymphadenopathy Lymphatic: no lymphadenopathy noted Chest Chest palpation & inspection: normal inspection of the chest Resp Effort & Inspection: normal respiratory effort, able to speak in complete sentences, no audible wheezes, no cough, no stridor, not tachypneic, no tripod positioning and no use of accessory muscles Auscultation: clear to auscultation bilaterally Cardio Jugular venous distension: no JVD Rate: regular rate Rhythm: regular rhythm Skin Other: warm, dry General skin exam: no rashes or lesions noted Neuro General: patient oriented x3 Cranial nerves: Yes Normal hearing present Cognition (Neuro): normal cognition Gait exam (Neuro): Normal gait present Extrem General: Yes normal to inspection, Yes capillary refill normal, Yes no clubbing, cyanosis or edema and Yes no pedal edema Psych Appearance: grossly normal and well kempt Speech and movement: Normal speech and movement present and Clear speech present Affect: normal affect Attitude: cooperative Thought process: Normal thought process present Thought content: Normal thought content present Insight: Good insight present (Psych) Judgement: Good judgement present (Psych) Results Reviewed Results Reviewed: Assessment & Plan Assessment & Plan (1) Obstructive sleep apnea: Onset Date: Comment: (Sleep Study: AHI 49.4 on 05/11/13; AHI 52.8 on 03/04/23) Code(s): G47.33 - Obstructive sleep apnea (adult) (pediatric) (2) Morbid obesity: Code(s): E66.01 - Morbid (severe) obesity due to excess calories (3) Asthma: Code(s): J45.909 - Unspecified asthma, uncomplicated Plan Reviewed sleep study results with patient which revealed an AHI of 52. Since patient is quite symptomatic, will start CPAP therapy. Will send in prescription for CPAP mode and pressure settings of 16 cm with close monitoring for compliance and benefits. Sleep hygiene education reviewed. He is aware if there are any issues with the mask or CPAP machine, he will call the office. All questions were answered and patient is in agreement of plan. Will follow up in 8 weeks. Coding Level of Care Code New Pt Level 3 (56480) Diagnoses Obstructive sleep apnea G47.33 Morbid obesity E66.01 Asthma J45.909
[2023-03-31 15:05] VITALS: BP 140/80; PULSE 85; O2SAT 96
== END 2023-03-31 15:34 | disposition home or self-care (01) ==
PROVIDERS: PCP Internal Medicine; Referring Provider Physician Assistant; Visit Provider Nurse Practitioner Family
DX: G47.33 Obstructive sleep apnea (adult) (pediatric) (principal); E66.01 Morbid (severe) obesity due to excess calories; J45.909 Unspecified asthma, uncomplicated
CPT/HCPCS: 99203

== ENCOUNTER → 2023-03-31 15:00 | Outpatient (BNVA) | payer OTHER, SELFPAY | PROVIDERS: PCP Internal Medicine; Referring Provider Physician Assistant; Visit Provider Nurse Practitioner Family | DX: G47.33 Obstructive sleep apnea (adult) (pediatric) (principal); J45.909 Unspecified asthma, uncomplicated; E66.01 Morbid (severe) obesity due to excess calories | CPT/HCPCS: 99202 ==

== ENCOUNTER 2023-04-01 | Outpatient (REF) | payer OTHER, SELFPAY ==
[2023-04-08 09:44] LABS: H Pylori Breath Test Negative (Negative)
== END 2023-04-01 00:01 | disposition home or self-care (01) ==
LOC: HO.LNP
PROVIDERS: Visit Provider Physician Assistant
DX: Z01.818 Encounter for other preprocedural examination (principal); E66.01 Morbid (severe) obesity due to excess calories; Z11.0 Encounter for screening for intestinal infectious diseases
CPT/HCPCS: 83013

== ENCOUNTER → 2023-04-01 14:25 | Outpatient (REF) | payer OTHER, SELFPAY ==
--- NOTE | ~2023-04-01 | XR_ITS ---
EXAMINATION: XR CHEST 2 VIEWS CLINICAL INFORMATION: Morbid obesity. COMPARISON: None. TECHNIQUE: Frontal and lateral views of the chest were obtained. FINDINGS: The heart, great vessels, pulmonary vasculature and mediastinum are normal. The lungs show no focal infiltrate, effusion or pneumothorax. There is no acute osseous abnormality. XR/XR chest 2V IMPRESSION: No active cardiopulmonary disease.
--- NOTE | 2023-04-01 14:30 | ECG_ITS ---
Test Reason : e66.01 Blood Pressure : / mmHG Vent. Rate : 076 BPM Atrial Rate : 076 BPM P-R Int : 118 ms QRS Dur : 094 ms QT Int : 372 ms P-R-T Axes : 011 010 023 degrees QTc Int : 418 ms Normal sinus rhythm Normal ECG No previous ECGs available Referred By: Jonah Nichols Electronically Signed By:
== END ==
LOC: HO.CARD 14:25
PROVIDERS: Visit Provider Physician Assistant Surgical
DX: Z01.818 Encounter for other preprocedural examination (principal); E66.01 Morbid (severe) obesity due to excess calories
CPT/HCPCS: 71046; 93005; 99211; 99212

== ENCOUNTER 2023-04-01 15:27 | Outpatient (AMB) | payer OTHER, SELFPAY ==
--- NOTE | 2023-04-01 14:04 | A.OFFVIS_ITS ---
Intake VS Expanded 04/01/23 15:35 BP 162/81 H Blood Pressure Location Rt brachial Blood Pressure Position Sitting Pulse 93 Pulse Source Pulse Oximeter Temp 96.5 F L Temperature Source Tympanic Pulse Oximetry 96 Oxygen Delivery Method Room Air Height 5 ft 11 in Weight 539 lb 9.6 oz BMI 75.3 Body Fat % 56.3 Body Fat Mass 308.8 Fat Free Mass 235.6 Body Water % 34.9 Body Water Mass 188.4 Muscle Mass/Score 224.2 Basal Metabolic Rate/Score 3,724 Intake Visit Reasons: (OV) F/U SWL Allergies diphenhydramine [From Benadryl] Allergy (Intermediate, Verified 04/01/23 15:38) UNKNOWN Medication List - Last Reconciled 04/01/23 by Cari Infante PA-C albuterol sulfate 90 mcg/actuation 2 inhalations inhalation Q6H PRN cholecalciferol (vitamin D3) 50 mcg PO DAILY melatonin mg PO BEDTIME PRN vitamin A palmitate 3,000 mcg PO DAILY 2 weeks HPI HPI Comments History of Present Illness Details [facility] followup, [employer] weight of 618.1, TBWL is 78.5 lbs or 12.7%. Pt had appt with Dr Gatica earlier this week regarding his umbillical drainage, C T abdoemn has been ordered to help determine if this is a draining fistula or chronically infected umbillicus. Schedudled for 04/08. CT from [facility] show 15 x 9 cm abd wall defect. Exercise - walks more at work no, enjoys it now. [place] 3-4 d/week. Beleives it over 1 mile - about an hour. Hernandez Ascencio sitting videos 2d/ week. TEam body project videos - 30 minutes Meal plan 8am - Fair[employer] or Pure protein shakes 11 am -shake 2pm - bar or yogurt with fresh fruit -1/ 4 cup 5pm -shake 7pm - cauliflower rice and turkey burger cottage cheese with fresh fruit Pre op work up completed as follows: [facility] classes - 12/29 appts - 03/04, needs to be scheduled RD appts - follow up on 04/07 H pylori - stopped omeprazole over 2 weeks ago - will do today Labs - vit A and D deficiencies CXR and ECG - both done today.ECG normal ULS and UGI - not scheduled yet SS - 03/04, severe RAMIRO, had pulm appt yesterday for CPAP, [employer] should becallinghim to set it up. [facility] Medical History (Updated 03/30/23 @ 15:22 by Marcia Rothman PA-C) Obstructive sleep apnea (~2012) Morbid obesity Asthma GERD (gastroesophageal reflux disease) SARIKA (generalized anxiety disorder) Surgical History History of dental surgery (~1998) Family History Mother No problems noted. Father Diabetes Social History Alcohol intake: current Alcohol intake frequency: a few times a month Patient Tobacco Use Status: Never used Tobacco e-Cigarette/Vaping Use: Currently Using Physical Exam Vital Signs: Last Vital Signs Temp 96.5 F L 04/01/23 15:35 Pulse 93 04/01/23 15:35 BP 162/81 H 04/01/23 15:35 Pulse Ox 96 04/01/23 15:35 Oxygen Delivery Method Room Air 04/01/23 15:35 BMI result Body Mass Index 75.3 Assessment & Plan Assessment & Plan (1) Morbid obesity: Code(s): E66.01 - Morbid (severe) obesity due to excess calories Plan: Excellent weight loss so far- will continue present meal plan and have followup with Annia later this month for more ideas. Will also have follow up with Gracia. No meal changes made today Exercise changes --TBP videos every other day. Alternate days - walk - and PE videos. Will text me infor on calroes and time for each of these by next week. h pylori today Will order UGI and ULS to do at [facility] when under 500 lbs. Next appt with me in 3 weeks in office. Patient is morbidly obese and is not considered stable at this time. I spent 30 minutes in total with patient reviewing/updating records, examining the patient and counseling the patient on weight management as detailed above. (2) Obstructive sleep apnea: Onset Date: ~2012 Comment: (Sleep Study: AHI 49.4 on 05/11/13; AHI 52.8 on 03/04/23) Code(s): G47.33 - Obstructive sleep apnea (adult) (pediatric) (3) GERD (gastroesophageal reflux disease): Code(s): K21.9 - Gastro-esophageal reflux disease without esophagitis (4) Umbilical hernia: Code(s): K42.9 - Umbilical hernia without obstruction or gangrene Coding Level of Care Code Est Pt Level 4 (93670) Diagnoses Morbid obesity E66.01 Obstructive sleep apnea G47.33 GERD (gastroesophageal reflux disease) K21.9 Umbilical hernia K42.9
[2023-04-01 15:35] VITALS: BP 162/81; PULSE 93; TEMP 35.8; O2SAT 96; BMI 75.3
== END 2023-04-01 16:06 | disposition home or self-care (01) ==
PROVIDERS: PCP Internal Medicine; Visit Provider Physician Assistant
DX: E66.01 Morbid (severe) obesity due to excess calories (principal); Z68.45 Body mass index [BMI] 70 or greater, adult; K21.9 Gastro-esophageal reflux disease without esophagitis; K42.9 Umbilical hernia without obstruction or gangrene
CPT/HCPCS: 99213

== ENCOUNTER 2023-04-07 15:07 | Outpatient (AMB) | payer OTHER, SELFPAY ==
--- NOTE | 2023-04-07 14:37 | MHC.AMNUTRGE ---
Intake Intake Visit Reasons: VIDEO F/U SWL Allergies diphenhydramine [From Benadryl] Allergy (Intermediate, Verified 04/01/23 15:38) UNKNOWN HPI Nutrition Presentation Details Starting weight was 618.1 lbs on 01/20/23. Current weight 539# = 79# lost Reason for consult elevated BMI Unstable SDH Reports use of SNAP (mother has) Diet Assmnt Details pt states he has been doing very well with his plan . We talked about the holidays and his plan . we tlked about recipes and preparing food. [facility] online classes: 12/29 reviewed shares his mother has been through 3 surgeries on her neck in 1 year. She did most of the cooking at home Previous weight loss methods attempted high school played football and went to the gym, was very active Dietary counseling reduction Diagnosis Nutrition problem #1 overweight/obesity As related to (etiology) #1 excess energy intake and physical inactivity As evidenced by (sign/symptom) #1 high BMI Monitoring/Goals Nutrition problem monitoring total energy intake, level of knowledge/skill, total PRO intake, total CHO intake and weight Outcome progress progressing Learning/Education Readiness to learn excellent Stages of change action Educational materials provided Yes Most Recent Diabetes Results: No Data to Display [facility] Medical History (Updated 03/30/23 @ 15:22 by Marcia Rothman PA-C) Obstructive sleep apnea (~2012) Morbid obesity Asthma GERD (gastroesophageal reflux disease) SARIKA (generalized anxiety disorder) Surgical History History of dental surgery (~1998) Family History Mother No problems noted. Father Diabetes Social History Alcohol intake: current Alcohol intake frequency: a few times a month Patient Tobacco Use Status: Never used Tobacco e-Cigarette/Vaping Use: Currently Using Assessment & Plan Assessment & Plan (1) Morbid obesity: Code(s): E66.01 - Morbid (severe) obesity due to excess calories Patient Instructions: Patient is cleared from a nutrition standpoint for bariatric surgery. Educational requirements have been completed. Reviewed vitamin supplementation and commitment to protein shake for several months post surgery. Encouraged communication with office as needed Telehealth Telehealth Location of provider rendering services: practice address Location of patient: address on file Patient Identification confirmed using: Name, : Yes Telehealth method: voice only Patient verbally consented to treatment: Yes Patient verbally consented to billing insurance company: Yes Patient informed of any privacy concerns related to visit: Yes Minutes spent on Phone/Video with Pt.: 20 Coding Level of Care Code Nutr Indiv Subseq (68612) Diagnoses Morbid obesity E66.01 Time Spent (min) 20
== END 2023-04-07 15:12 | disposition home or self-care (01) ==
LOC: HO.HBS 15:07
PROVIDERS: PCP Internal Medicine; Visit Provider Dietitian, Registered
DX: E66.01 Morbid (severe) obesity due to excess calories (principal)

== ENCOUNTER → 2023-04-07 15:07 | Outpatient (BNVA) | payer OTHER, SELFPAY | PROVIDERS: PCP Internal Medicine; Visit Provider Dietitian, Registered | DX: E66.01 Morbid (severe) obesity due to excess calories (principal) | CPT/HCPCS: 97803 ==

== ENCOUNTER 2023-04-28 13:49 | Outpatient (AMB) | payer OTHER, SELFPAY ==
--- NOTE | 2023-04-28 15:16 | A.OFFWM_ITS ---
Intake Intake Visit Reasons: (OV) F/U SWL Allergies diphenhydramine [From Benadryl] Allergy (Intermediate, Verified 04/28/23 14:03) UNKNOWN [facility] Medical History (Updated 03/30/23 @ 15:22 by Marcia Rothman PA-C) Obstructive sleep apnea (~2012) Morbid obesity Asthma GERD (gastroesophageal reflux disease) SARIKA (generalized anxiety disorder) Surgical History History of dental surgery (~1998) Family History Mother No problems noted. Father Diabetes Social History Alcohol intake: current Alcohol intake frequency: a few times a month Patient Tobacco Use Status: Never used Tobacco e-Cigarette/Vaping Use: Currently Using Behavioral Health Assessment Weight Management Therapy Therapy Notes Details He reported struggling with going through a stall. Patient talked about his relationship with his partner who lives with her childrens father, talked about his immediate family, work, struggles with transportation. Pt stated that he recently broke his foot falling through a deck that broke from under him. He then realized that he needed to do something about his weight. He is looking to have weight loss surgery to help improve his health and quality of life. Pt stated that he started therapy in 2014 at the [facility] in [place] however not currently since his therapist left the practice. Pt stated that he was seeking treatment for anxiety and depression. He reported being hospitalized in 2011 at [facility] for psychiatric reasons due to depression from a loss and breakup. Pt stated that he has never had a serious problem with drugs or alcohol however had used drugs and alcohol in the past. He reported that in middle school and high school he struggled with suicidal thoughts. Presenting Concerns Referral Source provider Reason for referral weight loss surgery evaluation Precipitating Event obesity Living Situation Current Living Situation Relative's/Guardian's Сергей At risk of losing current housing? No Satisfied with current living situation? Yes Comments Pt lives with his mother. Food/Weight/Diet Expectations of change weight loss and maintenance History/Relationship with food Pt stated that he would not eat all day but would drink soda and juices. Around 3 to 4 cans a day. He would eat around 7pm, pizza, microwavable food, fast food 2-3x's a month. History/Relationship with weight Pt stated that he has been overweight all of his life. He stated that it was just him and his mom growing up and he got to eat whatever he wanted. History/Relationship with dieting [facility] in 2015/2016 but then had significant family health issues in his immediate family. Binge Eating Do you frequently eat large amounts of food in short periods of time, not feeling physically hungry? Yes Do you feel out of control when you eat a large amount of food in a short period of time? No Do you eat large amounts of food rapidly and typically alone? No Night Eating Do you wake up at least once during the night to eat? No If you wake up in the night, do you find that it is necessary to eat something in order to fall back asleep? No Do you have little or no appetite in the morning and feel very hungry in the evening, often overeating between dinner and when you go to bed? Yes Social History Family history and relationship Pt was raised by his mother and stated that his father was never in his life. He has two sisters from his dad side. 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 2015 on probation for falsifying prescriptions Education Highest grade completed high school Preferred learning style Auditory, Verbal, Written, Learn by doing and Visual Currently enrolled in educational program? No Interested in further educational program? 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 No Meaningful activities some exercise, socializing with friends, watching football, games Financial Situation Describe current financial situation Occasional struggle Financial assistance? None Service Service? No Mental Health and Addiction Treatment Current/Past substance abuse? No Current/Past addictive behavior concerns? No Medical and Physical Health Summary Physical exam in the last year? Yes Pain Screening Current pain? No Pain in the last few months? No Medications Is the patient compliant with medications? Yes Does the patient have Schwartz Guardian in place? Not applicable Does the patient use complimentary health approaches? No Trauma/Abuse History History of trauma? Yes Questionnaires PHQ-9 Over the last 2 weeks, how often have you been bothered by any of the following problems? 1. Little interest or pleasure in doing things: not at all 2. Feeling down, depressed, or hopeless: not at all 3. Trouble falling or staying asleep, or sleeping too much: several days 4. Feeling tired or having little energy: not at all 5. Poor appetite or overeating: not at all 6. Feeling bad about yourself - or that you are a failure or have let yourself or your family down: not at all 7. Trouble concentrating on things, such as reading the newspaper or watching television: not at all 8. Moving or speaking so slowly that other people could have noticed. Or the opposite - being so fidgety or restless that you have been moving around a lot more than usual: not at all 9. Thoughts that you would be better off or of hurting yourself in some way: not at all Total score: 1 Source: Developed by Drs. Hayden Thayer, Liat Grace, Uriel Chavis and colleagues, with an educational lisa from [employer]. Assessment & Plan Assessment & Plan (1) SARIKA (generalized anxiety disorder): Code(s): F41.1 - Generalized anxiety disorder (2) Morbid obesity: Code(s): E66.01 - Morbid (severe) obesity due to excess calories Plan Pt is a pleasant 33 year old male who presents for evaluation due to seeking weight loss surgery. he reported some mental health struggles related to multiple losses in his life, his mother's ongoing medical concerns and never having his father in his life. Patient was in outpatient (and inpatient) treatment in the past but not currently. He is cleared for surgery when ready. Coding Level of Care Code Psytx 45 mins (17965) Diagnoses SARIKA (generalized anxiety disorder) F41.1 Morbid obesity E66.01 Time Spent (min) 40
--- NOTE | 2023-05-13 14:37 | MHC.WMTHER ---
Intake Intake Visit Reasons: (OV) F/U SWL Allergies diphenhydramine [From Benadryl] Allergy (Intermediate, Verified 06/02/23 15:55) UNKNOWN [facility] Medical History (Updated 03/30/23 @ 15:22 by Marcia Rothman PA-C) Obstructive sleep apnea (~2012) Morbid obesity Asthma GERD (gastroesophageal reflux disease) SARIKA (generalized anxiety disorder) Surgical History History of dental surgery (~1998) Family History Mother No problems noted. Father Diabetes Social History (Updated 06/02/23 @ 15:56 by Elissa Murrieta LPN) Alcohol intake: current Alcohol intake frequency: a few times a month Patient Tobacco Use Status: Never used Tobacco e-Cigarette/Vaping Use: Currently Using Behavioral Health Assessment Weight Management Therapy Therapy Notes Details He reported struggling with going through a stall. Patient talked about his relationship with his partner who lives with her childrens father, talked about his immediate family, work, struggles with transportation. Pt stated that he recently broke his foot falling through a deck that broke from under him. He then realized that he needed to do something about his weight. He is looking to have weight loss surgery to help improve his health and quality of life. Pt stated that he started therapy in 2014 at the [facility] in [place] however not currently since his therapist left the practice. Pt stated that he was seeking treatment for anxiety and depression. He reported being hospitalized in 2011 at [facility] for psychiatric reasons due to depression from a loss and breakup. Pt stated that he has never had a serious problem with drugs or alcohol however had used drugs and alcohol in the past. He reported that in middle school and high school he struggled with suicidal thoughts. Presenting Concerns Referral Source provider Reason for referral weight loss surgery evaluation Precipitating Event obesity Living Situation Current Living Situation Relative's/Guardian's Сергей At risk of losing current housing? No Satisfied with current living situation? Yes Comments Pt lives with his mother. Food/Weight/Diet Expectations of change weight loss and maintenance History/Relationship with food Pt stated that he would not eat all day but would drink soda and juices. Around 3 to 4 cans a day. He would eat around 7pm, pizza, microwavable food, fast food 2-3x's a month. History/Relationship with weight Pt stated that he has been overweight all of his life. He stated that it was just him and his mom growing up and he got to eat whatever he wanted. History/Relationship with dieting [facility] in 2015/2016 but then had significant family health issues in his immediate family. Binge Eating Do you frequently eat large amounts of food in short periods of time, not feeling physically hungry? Yes Do you feel out of control when you eat a large amount of food in a short period of time? No Do you eat large amounts of food rapidly and typically alone? No Night Eating Do you wake up at least once during the night to eat? No If you wake up in the night, do you find that it is necessary to eat something in order to fall back asleep? No Do you have little or no appetite in the morning and feel very hungry in the evening, often overeating between dinner and when you go to bed? Yes Social History Family history and relationship Pt was raised by his mother and stated that his father was never in his life. He has two sisters from his dad side. 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 2015 on probation for falsifying prescriptions Education Highest grade completed high school Preferred learning style Auditory, Verbal, Written, Learn by doing and Visual Currently enrolled in educational program? No Interested in further educational program? 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 No Meaningful activities some exercise, socializing with friends, watching football, games Financial Situation Describe current financial situation Occasional struggle Financial assistance? None Service Service? No Mental Health and Addiction Treatment Current/Past substance abuse? No Current/Past addictive behavior concerns? No Medical and Physical Health Summary Physical exam in the last year? Yes Pain Screening Current pain? No Pain in the last few months? No Medications Is the patient compliant with medications? Yes Does the patient have Schwartz Guardian in place? Not applicable Does the patient use complimentary health approaches? No Trauma/Abuse History History of trauma? Yes Questionnaires PHQ-9 Over the last 2 weeks, how often have you been bothered by any of the following problems? 1. Little interest or pleasure in doing things: not at all 2. Feeling down, depressed, or hopeless: not at all 3. Trouble falling or staying asleep, or sleeping too much: several days 4. Feeling tired or having little energy: not at all 5. Poor appetite or overeating: not at all 6. Feeling bad about yourself - or that you are a failure or have let yourself or your family down: not at all 7. Trouble concentrating on things, such as reading the newspaper or watching television: not at all 8. Moving or speaking so slowly that other people could have noticed. Or the opposite - being so fidgety or restless that you have been moving around a lot more than usual: not at all 9. Thoughts that you would be better off or of hurting yourself in some way: not at all Total score: 1 Source: Developed by Drs. Hayden Thayer, Liat Grace, Uriel Chavis and colleagues, with an educational lisa from [employer]. Assessment & Plan Assessment & Plan (1) SARIKA (generalized anxiety disorder): Code(s): F41.1 - Generalized anxiety disorder (2) Morbid obesity: Code(s): E66.01 - Morbid (severe) obesity due to excess calories Plan Pt is a pleasant 33 year old male who presents for evaluation due to seeking weight loss surgery. he reported some mental health struggles related to multiple losses in his life, his mother's ongoing medical concerns and never having his father in his life. Patient was in outpatient (and inpatient) treatment in the past but not currently. He is cleared for surgery when ready. Coding Level of Care Code Tele Psytx 45 mins (00672) Diagnoses SARIKA (generalized anxiety disorder) F41.1 Morbid obesity E66.01 Time Spent (min) 45
== END 2023-04-28 15:54 | disposition home or self-care (01) ==
PROVIDERS: PCP Internal Medicine; Visit Provider Counselor Mental Health
DX: F41.1 Generalized anxiety disorder (principal); E66.01 Morbid (severe) obesity due to excess calories
CPT/HCPCS: 90834

== ENCOUNTER 2023-04-28 13:49 | Outpatient (AMB) | payer OTHER, SELFPAY ==
--- NOTE | 2023-04-28 12:51 | A.OFFVIS_ITS ---
Intake VS Expanded 04/28/23 14:00 BP 148/70 H Blood Pressure Location Rt radial Blood Pressure Position Sitting Pulse 93 Pulse Source Pulse Oximeter Temp 96.5 F L Temperature Source Tympanic Pulse Oximetry 95 Oxygen Delivery Method Room Air Height 5 ft 11 in Weight 537 lb 12.8 oz BMI 75.0 Body Fat % 56.4 Body Fat Mass 303.4 Fat Free Mass 234.4 Body Water % 34.9 Body Water Mass 187.4 Muscle Mass/Score 223.2 Basal Metabolic Rate/Score 3,702 Intake Visit Reasons: (OV) F/U SWL Allergies diphenhydramine [From Benadryl] Allergy (Intermediate, Verified 04/28/23 14:03) UNKNOWN HPI HPI Comments History of Present Illness Details [facility] follow up, [employer] weight 618.1 01/20/23, TBWL is 80.3 lbs. Exercise - goes to gym with a friend, will have his own membership after the holidays. 3 d/week - treadmill - 70 calories fro 2 9 minutes. speed 2.2, incline 0 - 1.5. TBP - stand or sit - 2 d/ week Meal plan: 8am - [email or web address] shake 11 am - [employer] shake 2pm - yogurt or cottage cheese or bars 5pm - [employer] shake 7pm - cauliflower rice - 12 forks and 12 forks chicken and green beans 10pm - yogurt or cup of fruit Pre op work up completed as follows: [facility] classes - 12/29 appts - 03/04, follow up today RD appts - follow up, needs to be scheduled H pylori - negative Labs - vit A and D deficiencies CXR and ECG - both normal ULS and UGI - ordered today - david likely need to be done at [facility] - 03/04, severe RAMIRO, has CPAP now - will start tonight CT abd ordered by Dr Gatica on 04/09 -still waiting for appt to be scheduled. [facility] Medical History (Updated 03/30/23 @ 15:22 by Marcia Rothman PA-C) Obstructive sleep apnea (~2012) Morbid obesity Asthma GERD (gastroesophageal reflux disease) SARIKA (generalized anxiety disorder) Surgical History History of dental surgery (~1998) Family History Mother No problems noted. Father Diabetes Social History Alcohol intake: current Alcohol intake frequency: a few times a month Patient Tobacco Use Status: Never used Tobacco e-Cigarette/Vaping Use: Currently Using Assessment & Plan Assessment & Plan (1) Morbid obesity: Code(s): E66.01 - Morbid (severe) obesity due to excess calories Plan: Exercise - 7 days per week, goal 2,000 micheal/week 3 d/week - treadmill - speed 2.2, incline 1 - 5, change every 3 minutes - 300 calories TBP 4/d week- stand or sit Meal plan:stop and switch to powder 8am - shake - water or UAM 11 am - powdered shake 2pm - bars 5pm - powdered shake 7pm - cauliflower rice - 12 forks and 12 forks chicken and green beans, fruit with meal 10pm - bar UGI and ULs orderd, pt will call [facility] about CT scan scheduling. Still can not weigh himself at home, weight checks in office every 2 weeks. Appt with me in office in 3 weeks. Patient is morbidly obese and is not considered stable at this time. I spent 30 minutes in total with patient reviewing/updating records, examining the patient and counseling the patient on weight management as detailed above. (2) Obstructive sleep apnea: Onset Date: ~2012 Comment: (Sleep Study: AHI 49.4 on 05/11/13; AHI 52.8 on 03/04/23) Code(s): G47.33 - Obstructive sleep apnea (adult) (pediatric) Plan see above Orders: Orders US abdomen comp w elastography Today E66.01 - Morbid (severe) obesity due to excess calories, Z01.818 - Encounter for other preprocedural examination [place] upper GI series Today E66.01 - Morbid (severe) obesity due to excess calories , Z01.818 - Encounter for other preprocedural examination Coding Level of Care Code Est Pt Level 4 (44975) Diagnoses Morbid obesity E66.01 Obstructive sleep apnea G47.33
[2023-04-28 14:00] VITALS: BP 148/70; PULSE 93; TEMP 35.8; O2SAT 95; BMI 75.0
== END 2023-04-28 14:25 | disposition home or self-care (01) ==
PROVIDERS: PCP Internal Medicine; Visit Provider Physician Assistant
DX: E66.01 Morbid (severe) obesity due to excess calories (principal); Z68.45 Body mass index [BMI] 70 or greater, adult; G47.33 Obstructive sleep apnea (adult) (pediatric)
CPT/HCPCS: 99214

== ENCOUNTER → 2023-04-28 13:49 | Outpatient (BNVA) | payer OTHER, SELFPAY | PROVIDERS: PCP Internal Medicine; Visit Provider Physician Assistant | DX: E66.01 Morbid (severe) obesity due to excess calories (principal); F41.1 Generalized anxiety disorder; G47.33 Obstructive sleep apnea (adult) (pediatric); Z68.45 Body mass index [BMI] 70 or greater, adult | CPT/HCPCS: 99212 ==

== ENCOUNTER 2023-05-05 15:09 | Outpatient (AMB) | payer OTHER, SELFPAY ==
--- NOTE | 2023-05-05 15:03 | A.OFFVIS_ITS ---
Intake Intake Visit Reasons: VIDEO F/U SWL Allergies diphenhydramine [From Benadryl] Allergy (Intermediate, Verified 04/28/23 14:03) UNKNOWN HPI Nutrition Presentation Details Starting weight was 618.1 lbs on 01/20/23. Current weight 537# = 81# lost Reason for consult elevated BMI Unstable SDH Reports use of SNAP (mother has) Diet Assmnt Details Pt states he is doing great with his nutrition plan, likes the shakes plan . not hungry at all. Notices the desire to eat of out boredom but being mindful and doing great 8am -Celebrate or Premier powder shake - water or UAM 11 am - powdered shake 2pm - bars 5pm - powdered shake 7pm - cauliflower rice - 12 forks and 12 forks chicken and green beans, fruit with meal 10pm - bar SWL online classes: 12/29 reviewed shares his mother has been through 3 surgeries on her neck in 1 year. She did most of the cooking at home Exercise: going to the gym with his cousin. But due to time conflicts, he is planning to purchase his own membership Previous weight loss methods attempted high school played football and went to the gym, was very active Dietary counseling reduction Diagnosis Nutrition problem #1 overweight/obesity As related to (etiology) #1 excess energy intake and physical inactivity As evidenced by (sign/symptom) #1 high BMI Monitoring/Goals Nutrition problem monitoring total energy intake, level of knowledge/skill, total PRO intake, total CHO intake and weight Outcome progress progressing Learning/Education Readiness to learn excellent Stages of change action Educational materials provided Yes Most Recent Diabetes Results: No Data to Display [facility] Medical History (Updated 03/30/23 @ 15:22 by Marcia Rothman PA-C) Obstructive sleep apnea (~2012) Morbid obesity Asthma GERD (gastroesophageal reflux disease) SARIKA (generalized anxiety disorder) Surgical History History of dental surgery (~1998) Family History Mother No problems noted. Father Diabetes Social History Alcohol intake: current Alcohol intake frequency: a few times a month Patient Tobacco Use Status: Never used Tobacco e-Cigarette/Vaping Use: Currently Using Assessment & Plan Assessment & Plan (1) Morbid obesity: Code(s): E66.01 - Morbid (severe) obesity due to excess calories Plan Patient is cleared from a nutrition standpoint for bariatric surgery. Pt seems to be very engaged and committed to change. Telehealth Telehealth Location of provider rendering services: practice address Location of patient: other (in his car, parked) Patient Identification confirmed using: Name, : Yes Telehealth method: video Patient verbally consented to treatment: Yes Patient verbally consented to billing insurance company: Yes Patient informed of any privacy concerns related to visit: Yes Minutes spent on Phone/Video with Pt.: 10 Coding Level of Care Code Nutr Indiv Subseq (42083) Diagnoses Morbid obesity E66.01 Time Spent (min) 10
== END 2023-05-05 15:12 | disposition home or self-care (01) ==
LOC: HO.HBS 15:09
PROVIDERS: PCP Internal Medicine; Visit Provider Dietitian, Registered
DX: E66.01 Morbid (severe) obesity due to excess calories (principal)

== ENCOUNTER → 2023-05-05 15:09 | Outpatient (BNVA) | payer OTHER, SELFPAY | PROVIDERS: PCP Internal Medicine; Visit Provider Dietitian, Registered | DX: E66.01 Morbid (severe) obesity due to excess calories (principal) | CPT/HCPCS: 97803 ==

== ENCOUNTER 2023-06-02 15:40 | Outpatient (AMB) | payer OTHER, SELFPAY ==
[2023-06-02 15:49] VITALS: BP 140/70; PULSE 74; O2SAT 97
--- NOTE | 2023-06-02 15:49 | A.OFFVIS_ITS ---
Intake Vital Signs 06/02/23 15:49 Height 5 ft 11 in BP 140/70 H Blood Pressure Location Lt radial Position Sitting Pulse 74 Pulse Source Pulse Oximeter Pulse Oximetry (%) 97 Oxygen Delivery Method Room Air Intake Visit Reasons: lve : 8 week f/u Copy Cutter Required: Yes Manager Convention: Manager Convention offered & declined Accompanied by: Self / Same As Patient Allergies diphenhydramine [From Benadryl] Allergy (Intermediate, Verified 06/02/23 15:55) UNKNOWN Medication List - Last Reconciled 06/02/23 by Elissa Murrieta LPN albuterol sulfate 90 mcg/actuation 2 inhalations inhalation Q6H PRN cholecalciferol (vitamin D3) 50 mcg PO DAILY melatonin mg PO BEDTIME PRN vitamin A palmitate 3,000 mcg PO DAILY 2 weeks HPI lve : 8 week f/u HPI Details Garo is a very pleasant 33 year old male, never smoker, with underlying history of asthma, GERD, and BMI 75. He was referred after sleep study revealed severe obstructive sleep apnea, AHI of 52. At the last visit, he was started on CPAP therapy which he receives from [facility]. He has had some difficulties adjusting but is motivated to be more compliant. He recently had an exacerbation of asthma secondary to a viral infection so did not use for a week or two. At this time, he denies any respiratory symptoms and states his asthma controlled on current regimen. [facility] Medical History (Updated 03/30/23 @ 15:22 by Marcia Rothman PA-C) Obstructive sleep apnea (~2012) Morbid obesity Asthma GERD (gastroesophageal reflux disease) SARIKA (generalized anxiety disorder) Surgical History History of dental surgery (~1998) Family History Mother No problems noted. Father Diabetes Social History (Updated 06/02/23 @ 15:56 by Elissa Murrieta LPN) Alcohol intake: current Alcohol intake frequency: a few times a month Patient Tobacco Use Status: Never used Tobacco e-Cigarette/Vaping Use: Currently Using Review of Systems Const Denies chills, Denies excessive sweating, Denies fever(s) and Denies night sweats Eyes Denies dry eyes, Denies irritation and Denies itchy eyes ENT Reports Normal hearing present, Denies nasal congestion, Denies nasal discharge, Denies post nasal drip and Denies sore throat Card Denies chest pain, Denies chest pain at rest, Denies chest pain with activity, Denies claudication, Denies dyspnea, Denies dyspnea on exertion and Denies orthopnea Resp Denies chest congestion, Denies cough, Denies excessive phlegm production, Denies pain on inspiration, Denies pain with cough, Denies dyspnea, Denies dys pnea on exertion, Denies stridor and Denies wheezing Musc Denies myalgias Neuro Reports Normal hearing present Endo Denies excessive sweating Singh/Lymph Denies lymphadenopathy Aller/Immun Denies itchy eyes, Denies seasonal rhinorrhea and Denies wheezing Physical Exam Vital Signs: Last Vital Signs Pulse 74 06/02/23 15:49 BP 140/70 H 06/02/23 15:49 Pulse Ox 97 06/02/23 15:49 Oxygen Delivery Method Room Air 06/02/23 15:49 Const General: cooperative, healthy appearing, comfortable, no acute distress, well developed and alert Nutritional Appearance: obese Orientation/consciousness: patient oriented x3 Limitations: no limitations HEENT Head: Yes normal to inspection, Yes normocephalic and Yes atraumatic Ears: hearing grossly normal bilaterally and external ears normal Eyes General: appearance normal, both eyes and all related structures Eyelids: Yes eyelids normal Sclerae: sclerae normal EOM: EOMs intact bilaterally Neck Neck: Yes normal visual inspection and Yes no lymphadenopathy Lymphatic: no lymphadenopathy noted Chest Chest palpation & inspection: normal inspection of the chest Resp Effort & Inspection: normal respiratory effort, able to speak in complete sentences, no audible wheezes, no cough, no stridor, not tachypneic, no tripod positioning and no use of accessory muscles Auscultation: clear to auscultation bilaterally Cardio Jugular venous distension: no JVD Rate: regular rate Rhythm: regular rhythm Skin Other: warm, dry General skin exam: no rashes or lesions noted Neuro General: patient oriented x3 Cranial nerves: Yes Normal hearing present Cognition (Neuro): normal cognition Gait exam (Neuro): Normal gait present Extrem General: Yes normal to inspection, Yes capillary refill normal, Yes no clubbing, cyanosis or edema and Yes no pedal edema Psych Appearance: grossly normal and well kempt Speech and movement: Normal speech and movement present and Clear speech present Affect: normal affect Attitude: cooperative Thought process: Normal thought process present Thought content: Normal thought content present Insight: Good insight present (Psych) Judgement: Good judgement present (Psych) Assessment & Plan Assessment & Plan (1) Obstructive sleep apnea: Onset Date: ~2012 Comment: (Sleep Study: AHI 49.4 on 05/11/13; AHI 52.8 on 03/04/23) Code(s): G47.33 - Obstructive sleep apnea (adult) (pediatric) (2) Morbid obesity: Code(s): E66.01 - Morbid (severe) obesity due to excess calories (3) Asthma: Code(s): J45.909 - Unspecified asthma, uncomplicated Plan Discussed need for compliance and patient is agreeable. Unable to obtain compliance report today. Will reach out to Lilian to gain access. He is aware if there are any issues with the mask or CPAP machine, he will call the office. All questions were answered and patient is in agreement of plan. Will follow up in 2-3 months to review compliance or sooner if needed. Coding Level of Care Code Est Pt Level 3 (79606) Diagnoses Obstructive sleep apnea G47.33 Morbid obesity E66.01 Asthma J45.909
== END 2023-06-02 16:29 | disposition home or self-care (01) ==
PROVIDERS: PCP Internal Medicine; Visit Provider Nurse Practitioner Family
DX: G47.33 Obstructive sleep apnea (adult) (pediatric) (principal); E66.01 Morbid (severe) obesity due to excess calories; J45.909 Unspecified asthma, uncomplicated
CPT/HCPCS: 99213

== ENCOUNTER → 2023-06-02 15:40 | Outpatient (BNVA) | payer OTHER, SELFPAY | PROVIDERS: PCP Internal Medicine; Visit Provider Nurse Practitioner Family | DX: G47.33 Obstructive sleep apnea (adult) (pediatric) (principal); J45.909 Unspecified asthma, uncomplicated; E66.01 Morbid (severe) obesity due to excess calories | CPT/HCPCS: 99212 ==

== ENCOUNTER 2023-06-04 14:00 | Outpatient (AMB) | payer OTHER, SELFPAY ==
--- NOTE | 2023-06-04 13:56 | MHC.OFFVISWM ---
Intake Intake Visit Reasons: VIDEO F/U SWL Allergies diphenhydramine [From Benadryl] Allergy (Intermediate, Verified 06/02/23 15:55) UNKNOWN HPI HPI Comments History of Present Illness Details SWL follow up. 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 Has been ill an d not eating well. Has not notified by [facility] yet about s cheduling CT, UGI or ULS. Just finis hed antibiotics fo r URI after COVID. Meal plan - 8 am - REbuild with UAM 11 am - REbuil d or Premeir 2pm- PP or Zone bar 5pm - Rebuild shake 6 :30 pm - 12 forks each of mashed cau liflower and grill ed chicken 9pm - 2 -3 baby carrots E xercise -Treadmill - incline 6 ->0 c hanging 5 minutes, speed 2.2 - 200 c alories in 32 min utes. Pre op wor k up completed as follows: SWL class es - 12/29 appts - 03/04, follow up Jun 07 appts - follow up , cleared H pylori - negative Labs - vit A and D defic iencies CXR and EC G - both normal U LS and UGI - , david like ly need to be done at [facility] SS - 03/04 , severe RAMIRO, has CPAP now CT abd o rdered by Dr Gatica on 04/09 -still w aiting for appt to be scheduled. [facility] Medical History (Updated 03/30/23 @ 15:22 by Marcia Rothman PA-C) Obstructive sleep apnea (~2012) Morbid obesity Asthma GERD (gastroesophageal reflux disease) SARIKA (generalized anxiety disorder) Surgical History History of dental surgery (~1998) Family History Mother No problems noted. Father Diabetes Social History (Updated 06/02/23 @ 15:56 by Elissa Murrieta LPN) Alcohol intake: current Alcohol intake frequency: a few times a month Patient Tobacco Use Status: Never used Tobacco e-Cigarette/Vaping Use: Currently Using Assessment & Plan Assessment & Plan (1) Morbid obesity: Code(s): E66.01 - Morbid (severe) obesity due to excess calories Plan: No weight today - will come in for weight check on 06/07 . I will text him any changes at that time. No change to meal plan. Treadmill speed 2.5, incline 2 - 7 (change 3 minutes) until courtney 350 calories 6 days per week at 3:30 pm Will discuss adding weights once he has a better cardio routine. He is being scheduled for UGI, ULS and CT scans at [facility]. Next appt with me in 3 weeks. Patient is still morbidly obese and is not considered stable at this time. I spent 28 minutes in total speaking with the patient via video conference counseling , reviewing records and charting in patients chart. . (2) Obstructive sleep apnea: Onset Date: ~2012 Comment: (Sleep Study: AHI 49.4 on 05/11/13; AHI 52.8 on 03/04/23) Code(s): G47.33 - Obstructive sleep apnea (adult) (pediatric) Plan: now using CPAP (3) Umbilical hernia: Code(s): K42.9 - Umbilical hernia without obstruction or gangrene Plan: CT scan ordered Telehealth Telehealth Location of provider rendering services: practice address Location of patient: address on file Patient Identification confirmed using: Name, : Yes Telehealth method: video Patient verbally consented to treatment: Yes Patient verbally consented to billing insurance company: Yes Patient informed of any privacy concerns related to visit: Yes Coding Level of Care Code Tele Est Pt Level 4 (02805) Diagnoses Morbid obesity E66.01 Obstructive sleep apnea G47.33 Umbilical hernia K42.9
== END 2023-06-04 14:40 | disposition home or self-care (01) ==
LOC: HO.HBS 14:29
PROVIDERS: PCP Internal Medicine; Visit Provider Physician Assistant
DX: E66.01 Morbid (severe) obesity due to excess calories (principal); G47.33 Obstructive sleep apnea (adult) (pediatric); K42.9 Umbilical hernia without obstruction or gangrene
CPT/HCPCS: 99214

== ENCOUNTER → 2023-06-04 14:00 | Outpatient (BNVA) | payer OTHER, SELFPAY | PROVIDERS: PCP Internal Medicine; Visit Provider Physician Assistant | DX: E66.01 Morbid (severe) obesity due to excess calories (principal); Z01.818 Encounter for other preprocedural examination; G47.33 Obstructive sleep apnea (adult) (pediatric); K42.9 Umbilical hernia without obstruction or gangrene ==

== ENCOUNTER 2023-06-07 13:54 | Outpatient (AMB) | payer OTHER, SELFPAY ==
--- NOTE | 2023-06-07 14:33 | A.OFFWM_ITS ---
Intake Intake Visit Reasons: (OV) F/U SWL Allergies diphenhydramine [From Benadryl] Allergy (Intermediate, Verified 06/02/23 15:55) UNKNOWN [facility] Medical History (Updated 03/30/23 @ 15:22 by Marcia Rothman PA-C) Obstructive sleep apnea (~2012) Morbid obesity Asthma GERD (gastroesophageal reflux disease) SARIKA (generalized anxiety disorder) Surgical History History of dental surgery (~1998) Family History Mother No problems noted. Father Diabetes Social History (Updated 06/02/23 @ 15:56 by Elissa Murrieta LPN) Alcohol intake: current Alcohol intake frequency: a few times a month Patient Tobacco Use Status: Never used Tobacco e-Cigarette/Vaping Use: Currently Using Behavioral Health Assessment Weight Management Therapy Therapy Notes Details Patient reported having difficulty past two months, He was sick for a few weeks however did not fall off track completely. He also spoke with his PCP who has started him on anxiety medication. motivational interviewing, positive reinforcement, challenge questions and cognitive restructuring all used. Pt stated that he recently broke his foot falling through a deck that broke from under him. He then realized that he needed to do something about his weight. He is looking to have weight loss surgery to help improve his health and quality of life. Pt stated that he started therapy in 2014 at the [facility] in [place] however not currently since his therapist left the practice. Pt stated that he was seeking treatment for anxiety and depression. He reported being hospitalized in 2011 at [facility] for psychiatric reasons due to depression from a loss and breakup. Pt stated that he has never had a serious problem with drugs or alcohol however had used drugs and alcohol in the past. He reported that in middle school and high school he struggled with suicidal thoughts. Presenting Concerns Referral Source provider Reason for referral weight loss surgery evaluation Precipitating Event obesity Living Situation Current Living Situation Relative's/Guardian's Сергей At risk of losing current housing? No Satisfied with current living situation? Yes Comments Pt lives with his mother. Food/Weight/Diet Expectations of change weight loss and maintenance History/Relationship with food Pt stated that he would not eat all day but would drink soda and juices. Around 3 to 4 cans a day. He would eat around 7pm, pizza, microwavable food, fast food 2-3x's a month. History/Relationship with weight Pt stated that he has been overweight all of his life. He stated that it was just him and his mom growing up and he got to eat whatever he wanted. History/Relationship with dieting [facility] in 2015/2016 but then had significant family health issues in his immediate family. Binge Eating Do you frequently eat large amounts of food in short periods of time, not feeli ng physically hungry? Yes Do you feel out of control when you eat a large amount of food in a short period of time? No Do you eat large amounts of food rapidly and typically alone? No Night Eating Do you wake up at least once during the night to eat? No If you wake up in the night, do you find that it is necessary to eat something in order to fall back asleep? No Do you have little or no appetite in the morning and feel very hungry in the evening, often overeating between dinner and when you go to bed? Yes Social History Family history and relationship Pt was raised by his mother and stated that his father was never in his life. He has two sisters from his dad side. Parental/Familial polygraph examiner obligations no issues Developmental history and status no issues Social support best friend who recently had weight loss surgery Cultural/Ethnic information Legal Involvement and History Current or historical involvement with the legal system? 2015 on probation for falsifying prescriptions Education Highest grade completed high school Preferred learning style Auditory, Verbal, Written, Learn by doing and Visual Currently enrolled in educational program? No Interested in further educational program? 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 Employment Employment Status [employer] Wants help to find employment? No Meaningful activities some exercise, socializing with friends, watching football, games Financial Situation Describe current financial situation Occasional struggle Financial assistance? None Service Service? No Mental Health and Addiction Treatment Current/Past substance abuse? No Current/Past addictive behavior concerns? No Medical and Physical Health Summary Physical exam in the last year? Yes Pain Screening Current pain? No Pain in the last few months? No Medications Is the patient compliant with medications? Yes Does the patient have Schwartz Guardian in place? Not applicable Does the patient use complimentary health approaches? No Trauma/Abuse History History of trauma? Yes Questionnaires PHQ-9 Over the last 2 weeks, how often have you been bothered by any of the following problems? 1. Little interest or pleasure in doing things: not at all 2. Feeling down, depressed, or hopeless: not at all 3. Trouble falling or staying asleep, or sleeping too much: several days 4. Feeling tired or having little energy: several days 5. Poor appetite or overeating: several days 6. Feeling bad about yourself - or that you are a failure or have let yourself or your family down: not at all 7. Trouble concentrating on things, such as reading the newspaper or watching television: not at all 8. Moving or speaking so slowly that other people could have noticed. Or the opposite - being so fidgety or restless that you have been moving around a lot more than usual: not at all 9. Thoughts that you would be better off or of hurting yourself in some way: not at all Total score: 3 Depression Screening Interpretation: Negative Depression Screening Done: Yes Source: Developed by Drs. Hayden Thayer, Liat Grace, Uriel Chavis and colleagues, with an educational lisa from [employer]. Assessment & Plan Assessment & Plan (1) SARIKA (generalized anxiety disorder): Code(s): F41.1 - Generalized anxiety disorder (2) Morbid obesity: Code(s): E66.01 - Morbid (severe) obesity due to excess calories Plan Pt is a pleasant 33 year old male who presents for evaluation due to seeking weight loss surgery. he reported some mental health struggles related to multiple losses in his life, his mother's ongoing medical concerns and never having his father in his life. Patient was in outpatient (and inpatient) treatment in the past but not currently. He is cleared for surgery when ready. He was recently started on anxiety medication by his PCP, started 3 days ago. Coding Level of Care Code Psytx 45 mins (97624) Diagnoses SARIKA (generalized anxiety disorder) F41.1 Morbid obesity E66.01 Time Spent (min) 40
== END 2023-06-07 16:25 | disposition home or self-care (01) ==
PROVIDERS: PCP Internal Medicine; Visit Provider Counselor Mental Health
DX: F41.1 Generalized anxiety disorder (principal); E66.01 Morbid (severe) obesity due to excess calories
CPT/HCPCS: 90834

== ENCOUNTER → 2023-06-07 13:54 | Outpatient (BNVA) | payer OTHER, SELFPAY | PROVIDERS: PCP Internal Medicine; Visit Provider Counselor Mental Health ==

== ENCOUNTER 2023-06-24 15:30 | Outpatient (AMB) | payer OTHER, SELFPAY ==
--- NOTE | 2023-06-24 14:57 | MHC.OFFVISWM ---
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 TBWL is 103 lbs or 16,7 %. [place] [facility] [place]. Meal plan - 8am - REbuild with UAM 11 am - REbuild or Premeir 2pm- PP or Zone bar 5pm - Rebuild shake 6:30 pm - 12 forks each of mashed cauliflower and grilled chicken 9pm - 2-3 baby carrots or proten bar Exercise - 6d/ week. Treadmill - incline 2.5 -8 changing 5 minutes, speed 2.5 - 2. 400 calories in 32 minutes. Then free weights Pre op work up completed as follows: SWL classes - 12/29 [facility] appts - 03/04, follow up Jun 07, cleared RD appts - follow up, cleared H pylori - negative Labs - vit A and D deficiencies CXR and ECG - both normal ULS and UGI -Still trying to ambreen authorization from his insurance SS - 03/04, severe RAMIRO, has CPAP now CT abd ordered by Dr Gatica on 04/09 -will not schedule for now [facility] Medical History (Updated 03/30/23 @ 15:22 by Marcia Rothman PA-C) Obstructive sleep apnea (~2012) Morbid obesity Asthma GERD (gastroesophageal reflux disease) SARIKA (generalized anxiety disorder) Surgical History History of dental surgery (~1998) Family History Mother No problems noted. Father Diabetes Social History (Updated 06/02/23 @ 15:56 by Elissa Murrieta LPN) Alcohol intake: current Alcohol intake frequency: a few times a month Patient Tobacco Use Status: Never used Tobacco e-Cigarette/Vaping Use: Currently Using Assessment & Plan Assessment & Plan (1) Morbid obesity: Code(s): E66.01 - Morbid (severe) obesity due to excess calories Plan: Great weight loss of 100 lbs so far. 16%, [place] [facility] [place] 500 [place]. Willl have weigh in on 2/ in office. Recommended he purchase Donna Touch scale now. No changes to meal plan Treadmill 6 d/week - speed 2.8, incline 1 - 9 (every 3 minutes) - 450 calories. Weights- UE - 3 machine - 40 lbs 3 sets of 15, ABd -40 lbs, 2 machines. Next appt with me in 3 weeks. Patient is still morbidly obese and is not considered stable at this time. I spent 24 minutes in total speaking with the patient via video conference counseling , reviewing records and charting in patients chart. . (2) Obstructive sleep apnea: Onset Date: ~2012 Comment: (Sleep Study: AHI 49.4 on 05/11/13; AHI 52.8 on 03/04/23) Code(s): G47.33 - Obstructive sleep apnea (adult) (pediatric) Plan see above Coding Level of Care Code Tele Est Pt Level 4 (69024) Diagnoses Morbid obesity E66.01 Obstructive sleep apnea G47.33
== END 2023-06-24 15:51 | disposition home or self-care (01) ==
LOC: HO.HBS 15:51
PROVIDERS: PCP Internal Medicine; Visit Provider Physician Assistant
DX: E66.01 Morbid (severe) obesity due to excess calories (principal); G47.33 Obstructive sleep apnea (adult) (pediatric)
CPT/HCPCS: 99214

== ENCOUNTER → 2023-06-24 15:30 | Outpatient (BNVA) | payer OTHER, SELFPAY | PROVIDERS: PCP Internal Medicine; Visit Provider Physician Assistant | DX: E66.01 Morbid (severe) obesity due to excess calories (principal); Z01.818 Encounter for other preprocedural examination; G47.33 Obstructive sleep apnea (adult) (pediatric); K42.9 Umbilical hernia without obstruction or gangrene ==

== ENCOUNTER 2023-06-28 14:15 | Outpatient (AMB) | payer OTHER, SELFPAY ==
--- NOTE | 2023-06-28 14:33 | A.OFFWM_ITS ---
Intake Intake Visit Reasons: VIDEO F/U SWL Allergies diphenhydramine [From Benadryl] Allergy (Intermediate, Verified 06/02/23 15:55) UNKNOWN [facility] Medical History (Updated 03/30/23 @ 15:22 by Marcia Rothman PA-C) Obstructive sleep apnea (~2012) Morbid obesity Asthma GERD (gastroesophageal reflux disease) SARIKA (generalized anxiety disorder) Surgical History History of dental surgery (~1998) Family History Mother No problems noted. Father Diabetes Social History (Updated 06/02/23 @ 15:56 by Elissa Murrieta LPN) Alcohol intake: current Alcohol intake frequency: a few times a month Patient Tobacco Use Status: Never used Tobacco e-Cigarette/Vaping Use: Currently Using Behavioral Health Assessment Weight Management Therapy Therapy Notes Details Patient is doing well, has lost over 100lbs. Struggles with thoughts of not being able to continue or failing. Also does not see any physical changes in his body however does have more energy and can do more at the gym. Assessment & Plan Assessment & Plan (1) SARIKA (generalized anxiety disorder): Code(s): F41.1 - Generalized anxiety disorder (2) Morbid obesity: Code(s): E66.01 - Morbid (severe) obesity due to excess calories Plan Pt is a pleasant 33 year old male who presents for evaluation due to seeking weight loss surgery. he reported some mental health struggles related to multiple losses in his life, his mother's ongoing medical concerns and never having his father in his life. Patient was in outpatient (and inpatient) treatment in the past but not currently. He is cleared for surgery when ready. He was recently started on anxiety medication by his PCP.. Telehealth Telehealth Location of provider rendering services: other Location of patient: other Patient Identification confirmed using: Name, : Yes Telehealth method: voice only Patient verbally consented to treatment: Yes Patient verbally consented to billing insurance company: Yes Patient informed of any privacy concerns related to visit: Yes Minutes spent on Phone/Video with Pt.: 25 Coding Level of Care Code Tele Psytx 30 mins (83836) Diagnoses SARIKA (generalized anxiety disorder) F41.1 Morbid obesity E66.01 Time Spent (min) 25
== END 2023-06-28 14:32 | disposition home or self-care (01) ==
LOC: HO.HBST 14:15
PROVIDERS: PCP Internal Medicine; Visit Provider Counselor Mental Health
DX: F41.1 Generalized anxiety disorder (principal); E66.01 Morbid (severe) obesity due to excess calories
CPT/HCPCS: 90832

== ENCOUNTER → 2023-06-28 14:15 | Outpatient (BNVA) | payer OTHER, SELFPAY | PROVIDERS: PCP Internal Medicine; Visit Provider Counselor Mental Health ==

== ENCOUNTER 2023-07-19 13:58 | Outpatient (AMB) | payer OTHER, SELFPAY ==
--- NOTE | 2023-07-19 13:17 | A.OFFVIS_ITS ---
Intake VS Expanded 07/19/23 14:13 BP 163/82 H Blood Pressure Location Lt brachial Blood Pressure Position Sitting Pulse 66 Pulse Source Pulse Oximeter Temp 97.6 F Temperature Source Tympanic Pulse Oximetry 95 Oxygen Delivery Method Room Air Height 5 ft 11 in Weight 507 lb 3.2 oz BMI 70.7 Body Fat % 54.6 Body Fat Mass 277.0 Fat Free Mass 230.2 Visceral Fat Rating 50.0 Body Water % 36.3 Body Water Mass 184.0 Muscle Mass/Score 219.2 Basal Metabolic Rate/Score 3,589 Intake Visit Reasons: (OV) F/U SWL Allergies diphenhydramine [From Benadryl] Allergy (Intermediate, Verified 07/19/23 14:16) UNKNOWN HPI HPI Comments History of Present Illness 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 Meal plan: wakes at 5- 5:30am 7:30 - Rebuild with UAM 11 am - another shake 2pm - Premier or Celebrate bars 5pm - dinner - has been eating 12 forks breaded fish and 6 forks cauliflower rice and 6 forks another vegetable 9pm - bar Feels hungrier on weekends when not at work. Exercise - gym 6 d/wk. treadmill - 2.5 with asthma, normally 2.8, incline 1 -11 (3 minutes) 450 calories in 24 minutes. Pre op work up completed as follows: [facility] classes - 12/29 appts - 03/04, follow up Jun 07, cleared RD appts - follow up, cleared H pylori - negative Labs - vit A and D deficiencies CXR and ECG - both normal ULS and UGI -Still trying to ambreen authorization from his insurance SS - 03/04, severe RAMIRO, has CPAP now CT abd ordered by Dr Gatica regarding drainage from umbilical hernia on 04/09 - will not schedule for now [facility] Medical History (Updated 03/30/23 @ 15:22 by Marcia Rothman PA-C) Obstructive sleep apnea (~2012) Morbid obesity Asthma GERD (gastroesophageal reflux disease) SARIKA (generalized anxiety disorder) Surgical History History of dental surgery (~1998) Family History Mother No problems noted. Father Diabetes Social History Alcohol intake: current Alcohol intake frequency: a few times a month Patient Tobacco Use Status: Never used Tobacco e-Cigarette/Vaping Use: Currently Using Physical Exam Vital Signs: Last Vital Signs Temp 97.6 F 07/19/23 14:13 Pulse 66 07/19/23 14:13 BP 163/82 H 07/19/23 14:13 Pulse Ox 95 07/19/23 14:13 Oxygen Delivery Method Room Air 07/19/23 14:13 BMI result Body Mass Index 70.7 Assessment & Plan Assessment & Plan (1) Morbid obesity: Code(s): E66.01 - Morbid (severe) obesity due to excess calories Plan: SWL follow up with 1110 lb weight loss so far. Exercise - Treadmill for 550 calories, 3d/week. And treadmill 450 calories with rowing machine for 200 calories 3d/week. Add another bar or shake on weekends. Will schedule ULS and UGI now. Next appt with me in 3 weeks. Patient is morbidly obese and is not considered stable at this time. I spent 30 minutes in total with patient reviewing/updating records, examining the patient and counseling the patient on weight management as detailed above. Coding Level of Care Code Est Pt Level 4 (86234) Diagnoses Morbid obesity E66.01
[2023-07-19 14:13] VITALS: BP 163/82; PULSE 66; TEMP 36.4; O2SAT 95; BMI 70.7
== END 2023-07-19 15:06 | disposition home or self-care (01) ==
PROVIDERS: PCP Internal Medicine; Visit Provider Physician Assistant
DX: E66.01 Morbid (severe) obesity due to excess calories (principal)
CPT/HCPCS: 99214

== ENCOUNTER 2023-07-19 13:58 | Outpatient (AMB) | payer OTHER, SELFPAY ==
--- NOTE | 2023-07-19 14:47 | MHC.WMTHER ---
Intake Intake Visit Reasons: (OV) F/U SWL Allergies diphenhydramine [From Benadryl] Allergy (Intermediate, Verified 07/19/23 14:16) UNKNOWN COUNTS INCLUDE 234 BEDS AT THE [facility] Medical History (Updated 03/30/23 @ 15:22 by Marcia Rothman PA-C) Obstructive sleep apnea (~2012) Morbid obesity Asthma GERD (gastroesophageal reflux disease) SARIKA (generalized anxiety disorder) Surgical History History of dental surgery (~1998) Family History Mother No problems noted. Father Diabetes Social History Alcohol intake: current Alcohol intake frequency: a few times a month Patient Tobacco Use Status: Never used Tobacco e-Cigarette/Vaping Use: Currently Using Behavioral Health Assessment Weight Management Therapy Therapy Notes Details Patient is doing well, has lost over 100lbs. Struggles with thoughts of not being able to continue or failing. Also does not see any physical changes in his body however does have more energy and can do more at the gym. Feeling defeated this past month due to not loosing more weight. He was sick for some time and did not work out. Has his best friend for support who had surgery here and doing well. Assessment & Plan Assessment & Plan (1) SARIKA (generalized anxiety disorder): Code(s): F41.1 - Generalized anxiety disorder (2) Morbid obesity: Code(s): E66.01 - Morbid (severe) obesity due to excess calories Plan Pt is a pleasant 33 year old male who presents for evaluation due to seeking weight loss surgery. he reported some mental health struggles related to multiple losses in his life, his mother's ongoing medical concerns and never having his father in his life. Patient was in outpatient (and inpatient) treatment in the past but not currently. He is cleared for surgery when ready. He was recently started on anxiety medication by his PCP.. Coding Level of Care Code Psytx 30 mins (31673) Diagnoses SARIKA (generalized anxiety disorder) F41.1 Morbid obesity E66.01 Time Spent (min) 30
== END 2023-07-19 14:46 | disposition home or self-care (01) ==
PROVIDERS: PCP Internal Medicine; Visit Provider Counselor Mental Health
DX: F41.1 Generalized anxiety disorder (principal); E66.01 Morbid (severe) obesity due to excess calories
CPT/HCPCS: 90832

== ENCOUNTER → 2023-07-19 13:58 | Outpatient (BNVA) | payer OTHER, SELFPAY | PROVIDERS: PCP Internal Medicine; Visit Provider Counselor Mental Health | DX: E66.01 Morbid (severe) obesity due to excess calories (principal); Z68.45 Body mass index [BMI] 70 or greater, adult | CPT/HCPCS: 99212 ==

== ENCOUNTER 2023-08-09 13:29 | Outpatient (AMB) | payer OTHER, SELFPAY ==
--- NOTE | 2023-12-22 15:15 | MHC.WMTHER ---
Intake Intake Visit Reasons: (OV) F/U BH Allergies diphenhydramine [From Benadryl] Allergy (Intermediate, Verified 12/08/23 14:59) UNKNOWN doxycycline Allergy (Verified 12/08/23 14:59) Itching PFSH Medical History Obstructive sleep apnea (~2012) Morbid obesity Asthma GERD (gastroesophageal reflux disease) SARIKA (generalized anxiety disorder) Surgical History History of dental surgery (~1998) Family History Mother No problems noted. Father Diabetes Social History Alcohol intake: current Alcohol intake frequency: a few times a month Patient Tobacco Use Status: Never used Tobacco e-Cigarette/Vaping Use: Currently Using Behavioral Health Assessment Weight Management Therapy Therapy Notes Details Patient is doing well, has lost over 100lbs. Dealing with family loss. Continues to try and push himself in the gym. Assessment & Plan Assessment & Plan (1) SARIKA (generalized anxiety disorder): Code(s): F41.1 - Generalized anxiety disorder (2) Morbid obesity: Code(s): E66.01 - Morbid (severe) obesity due to excess calories Plan Pt is a pleasant 33 year old male who presents for evaluation due to seeking weight loss surgery. he reported some mental health struggles related to multiple losses in his life, his mother's ongoing medical concerns and never having his father in his life. Patient was in outpatient (and inpatient) treatment in the past but not currently. He is cleared for surgery when ready. He was recently started on anxiety medication by his PCP.. Coding Level of Care Code Psytx 45 mins (27394) Diagnoses SARIKA (generalized anxiety disorder) F41.1 Morbid obesity E66.01 Time Spent (min) 45
== END 2023-08-09 14:30 | disposition home or self-care (01) ==
PROVIDERS: PCP Internal Medicine; Visit Provider Counselor Mental Health
DX: F41.1 Generalized anxiety disorder (principal); E66.01 Morbid (severe) obesity due to excess calories
CPT/HCPCS: 99499

== ENCOUNTER 2023-08-09 13:29 | Outpatient (AMB) | payer OTHER, SELFPAY ==
--- NOTE | 2023-08-09 13:31 | MHC.OFFVISWM ---
Intake VS Expanded 08/09/23 13:42 BP 161/86 H Blood Pressure Location Rt brachial Blood Pressure Position Sitting Pulse 75 Pulse Source Pulse Oximeter Temp 97.7 F Temperature Source Temporal Artery Scan Pulse Oximetry 96 Oxygen Delivery Method Room Air Height 5 ft 11 in Weight 499 lb 9.6 oz BMI 69.7 Body Fat % 49.4 Body Fat Mass 246.6 Fat Free Mass 252.8 Body Water % 36.3 Body Water Mass 181.2 Muscle Mass/Score 240.4 Basal Metabolic Rate/Score 3,912 Intake Visit Reasons: (OV) F/U SWL Allergies diphenhydramine [From Benadryl] Allergy (Intermediate, Verified 08/09/23 13:36) UNKNOWN HPI HPI Comments History of Present Illness Details 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 Pt had some significant stressors in his life recently and chose exercise to deal with this effectively. Will need to find new insurance by September 13. Occasional clear drainage only from umbilicus. Exercise - 6 d/week gym. 550 calories treadmill daily. Speed 2.5 - 2.8, incline 12 and then goes down. incline Abds daily. Chest press, weights - 3d/wk. Meal plan: 8am - REbuild with UAm 11 am- same shake 2pm - Celebrate, Quest or PP bar 5pm -another bar 6:30 - meal of 12 forks of protein and vegetable. 1 serving fruit 9:30 pm - another bar - skips it 3-4 d Pre op work up completed as follows: SW classes - 12/29 appts - 03/04, follow up Jun 07, cleared RD appts - follow up, cleared H pylori - negative Labs - vit A and D deficiencies CXR and ECG - both normal ULS and UGI - 09/13 and 09/15 SS - 03/04, severe RAMIRO, has CPAP now CT abd ordered by Dr Gatica regarding drainage from umbilical hernia on 04/09 -will not schedule for now [facility] Medical History (Updated 03/30/23 @ 15:22 by Marcia Rothman PA-C) Obstructive sleep apnea (~2012) Morbid obesity Asthma GERD (gastroesophageal reflux disease) SARIKA (generalized anxiety disorder) Surgical History History of dental surgery (~1998) Family History Mother No problems noted. Father Diabetes Social History Alcohol intake: current Alcohol intake frequency: a few times a month Patient Tobacco Use Status: Never used Tobacco e-Cigarette/Vaping Use: Currently Using Assessment & Plan Assessment & Plan (1) Morbid obesity: Code(s): E66.01 - Morbid (severe) obesity due to excess calories Plan: Make sure to have 2 shakes per day, even if wakes up late. No other changes. Exercise - treadmill alternate 3d of speed 2.8 - incline 6- 12 (3min) and 3d speed 3.0 incline - 3-8. Calories 550- 650. ST each body 3d/wk Has UGI and ULS scheduled at [facility] in August Next appt with Dr Harrison in 3 weeks, Mariela made aware. Patient is morbidly obese and is not considered stable at this time. I spent 30 minutes in total with patient reviewing/updating records, examining the patient and counseling the patient on weight management as detailed above. (2) Umbilical hernia: Code(s): K42.9 - Umbilical hernia without obstruction or gangrene Plan: Pt understands that this is not causing him difficultly now and will be addressed further by bariatric surgeons. Coding Level of Care Code Est Pt Level 4 (20156) Diagnoses Morbid obesity E66.01 Umbilical hernia K42.9
[2023-08-09 13:42] VITALS: BP 161/86; PULSE 75; TEMP 36.5; O2SAT 96; BMI 69.7
== END 2023-08-09 14:07 | disposition home or self-care (01) ==
PROVIDERS: PCP Internal Medicine; Visit Provider Physician Assistant
DX: E66.01 Morbid (severe) obesity due to excess calories (principal); Z68.44 Body mass index [BMI] 60.0-69.9, adult; K42.9 Umbilical hernia without obstruction or gangrene
CPT/HCPCS: 99214

== ENCOUNTER → 2023-08-09 13:29 | Outpatient (BNVA) | payer OTHER, SELFPAY | PROVIDERS: PCP Internal Medicine; Visit Provider Physician Assistant | DX: E66.01 Morbid (severe) obesity due to excess calories (principal); K42.9 Umbilical hernia without obstruction or gangrene | CPT/HCPCS: 99212 ==

== ENCOUNTER 2023-08-11 15:32 | Outpatient (AMB) | payer OTHER, SELFPAY ==
--- NOTE | 2023-08-11 15:36 | A.OFFVIS_ITS ---
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 Educational Sign Language Interpreter: Educational Sign Language Interpreter offered & declined Accompanied by: Self / Same As Patient Allergies diphenhydramine [From Benadryl] Allergy (Intermediate, Verified 08/11/23 15:38) UNKNOWN Medication List - Last Reconciled 08/11/23 by Elissa Murrieta LPN albuterol sulfate 90 mcg/actuation 2 inhalations inhalation Q6H PRN cholecalciferol (vitamin D3) 50 mcg PO DAILY melatonin mg PO BEDTIME PRN vitamin A palmitate 3,000 mcg PO DAILY 2 weeks HPI lev: 3 month f/u HPI Details Garo is a very pleasant 33 year old male, never smoker, with underlying history of asthma, GERD, and BMI 69. He was referred after sleep study revealed severe obstructive sleep apnea, AHI of 52. He was started on CPAP therapy but has had issues with compliance. Prior he had an exacerbation of asthma secondary to a viral infection so did not use for a week or two. Recently, he has developed a significant dental infection and could not tolerate the mask due to pain. He has a dentist appointment tomorrow for evaluation. He is motivated to be compliant after his dental pain resolves.At this time, he denies any respiratory symptoms and states his asthma controlled on current regimen [facility] Medical History (Updated 03/30/23 @ 15:22 by Marcia Rothman PA-C) Obstructive sleep apnea (~2012) Morbid obesity Asthma GERD (gastroesophageal reflux disease) SARIKA (generalized anxiety disorder) Surgical History History of dental surgery (~1998) Family History Mother No problems noted. Father Diabetes Social History (Updated 08/11/23 @ 15:39 by Elissa Murrieta LPN) Alcohol intake: current Alcohol intake frequency: a few times a month Patient Tobacco Use Status: Never used Tobacco e-Cigarette/Vaping Use: Currently Using Review of Systems Const Denies chills, Denies excessive sweating, Denies fever(s) and Denies night sweats Eyes Denies dry eyes, Denies irritation and Denies itchy eyes ENT Reports Normal hearing present, Denies nasal congestion, Denies nasal discharge, Denies post nasal drip and Denies sore throat Card Denies chest pain, Denies chest pain at rest, Denies chest pain with activity, Denies claudication, Denies dyspnea, Denies dyspnea on exertion and Denies orthopnea Resp Denies chest congestion, Denies cough, Denies excessive phlegm production, Denies pain on inspiration, Denies pain with cough, Denies dyspnea, Denies dyspnea on exertion, Denies stridor and Denies wheezing Musc Denies myalgias Neuro Reports Normal hearing present Endo Denies excessive sweating Singh/Lymph Denies lymphadenopathy Aller/Immun Denies itchy eyes, Denies seasonal rhinorrhea and Denies wheezing Physical Exam Vital Signs: Last Vital Signs Pulse 68 08/11/23 15:37 BP 146/80 H 08/11/23 15:37 Pulse Ox 98 08/11/23 15:37 Oxygen Delivery Method Room Air 08/11/23 15:37 Const General: cooperative, healthy appearing, no acute distress, well developed and alert Nutritional Appearance: obese Orientation/consciousness: patient oriented x3 Limitations: no limitations HEENT Other: left sided facial swelling Head: Yes normal to inspection, Yes normocephalic and Yes atraumatic Ears: hearing grossly normal bilaterally and external ears normal Eyes General: appearance normal, both eyes and all related structures Eyelids: Yes eyelids normal Sclerae: sclerae normal EOM: EOMs intact bilaterally Neck Neck: Yes normal visual inspection and Yes no lymphadenopathy Lymphatic: no lymphadenopathy noted Chest Chest palpation & inspection: normal inspection of the chest Resp Effort & Inspection: normal respiratory effort, able to speak in complete sentences, no audible wheezes, no cough, no stridor, not tachypneic, no tripod positioning and no use of accessory muscles Auscultation: clear to auscultation bilaterally Cardio Jugular venous distension: no JVD Rate: regular rate Rhythm: regular rhythm Skin Other: warm, dry General skin exam: no rashes or lesions noted Neuro General: patient oriented x3 Cranial nerves: Yes Normal hearing present Cognition (Neuro): normal cognition Gait exam (Neuro): Normal gait present Extrem General: Yes normal to inspection, Yes capillary refill normal, Yes no clubbing, cyanosis or edema and Yes no pedal edema Psych Appearance: grossly normal and well kempt Speech and movement: Normal speech and movement present and Clear speech present Affect: normal affect Attitude: cooperative Thought process: Normal thought process present Thought content: Normal thought content present Insight: Good insight present (Psych) Judgement: Good judgement present (Psych) Assessment & Plan Assessment & Plan (1) Obstructive sleep apnea: Onset Date: ~2012 Comment: (Sleep Study: AHI 49.4 on 05/11/13; AHI 52.8 on 03/04/23) Code(s): G47.33 - Obstructive sleep apnea (adult) (pediatric) (2) Morbid obesity: Code(s): E66.01 - Morbid (severe) obesity due to excess calories (3) Asthma: Code(s): J45.909 - Unspecified asthma, uncomplicated Plan Discussed need for compliance and patient is agreeable, once dental pain resolves. Compliance report reviewed today with minimal adherence. He is aware if there are any issues with the mask or CPAP machine, he will reach out to [employer] or call the office. All questions were answered and patient is in agreement of plan. Will follow up in 6 months or sooner if needed. Coding Level of Care Code Est Pt Level 3 (23199) Diagnoses Obstructive sleep apnea G47.33 Morbid obesity E66.01 Asthma J45.909
[2023-08-11 15:37] VITALS: BP 146/80; PULSE 68; O2SAT 98
== END 2023-08-11 15:51 | disposition home or self-care (01) ==
PROVIDERS: PCP Internal Medicine; Visit Provider Nurse Practitioner Family
DX: G47.33 Obstructive sleep apnea (adult) (pediatric) (principal); E66.01 Morbid (severe) obesity due to excess calories; J45.909 Unspecified asthma, uncomplicated
CPT/HCPCS: 99213

== ENCOUNTER → 2023-08-11 15:32 | Outpatient (BNVA) | payer OTHER, SELFPAY | PROVIDERS: PCP Internal Medicine; Visit Provider Nurse Practitioner Family | DX: G47.33 Obstructive sleep apnea (adult) (pediatric) (principal); J45.909 Unspecified asthma, uncomplicated; E66.01 Morbid (severe) obesity due to excess calories; Z68.44 Body mass index [BMI] 60.0-69.9, adult | CPT/HCPCS: 99212 ==

== ENCOUNTER 2023-08-30 13:56 | Emergency (ER) | payer OTHER, SELFPAY ==
--- NOTE | ~2023-08-30 | CT_ITS ---
EXAMINATION: CT ABDOMEN AND PELVIS WITH CONTRAST CLINICAL INFORMATION: Incarcerated hernia COMPARISON: None available. TECHNIQUE: Multidetector volumetric images were obtained from the superior aspect of the liver through the pubic symphysis following administration 100 mL of Omnipaque 350 intravenous contrast. Sagittal and coronal reformatted images were obtained on the technologist's workstation. Oral contrast: No This CT examination was performed using dose optimization techniques as appropriate, variously including the following: *Automated exposure control *Adjustment of mA and/or kV according to patient size (this includes techniques or standardized protocols for targeted exams where dose is matched to indication/reason for exam; i.e. extremities or head) *Use of iterative reconstruction technique DLP: 1783 mGy-cm FINDINGS: LUNG BASES: The visualized lung bases are unremarkable. LIVER, GALLBLADDER, AND BILIARY TREE: The liver is normal in size, shape, and attenuation. No focal hepatic lesion or biliary ductal dilatation is present. The gallbladder is unremarkable with no evidence of radiopaque gallstones, gallbladder wall thickening, or obvious pericholecystic inflammatory changes. PANCREAS: Unremarkable. SPLEEN: Unremarkable. ADRENAL GLANDS: Unremarkable. KIDNEYS AND URETERS: The kidneys are normal in size, shape, and attenuation. No hydronephrosis, hydroureter, or calculi seen. No perinephric stranding. BLADDER: Unremarkable. GASTROINTESTINAL TRACT: The stomach is unremarkable. A loop of distal small bowel is contained in an anterior abdominal wall hernia. There is wall thickening and free fluid surrounding this loop of bowel. No obstruction at this point given that there is air and stool distally within the terminal ileum and colon. ABDOMINAL WALL: There is a lower anterior abdominal wall hernia containing a loop of distal small bowel which is thickened and has surrounding inflammatory changes/free fluid. There is also mesenteric fat within the hernia. The hernia sac itself measures approximately 14 x 7 x 9.8 x 8.0 cm. The hernia neck measures 5.6 cm. LYMPH NODES: Multiple prominent periportal lymph nodes and mesenteric lymph nodes. VASCULAR: Unremarkable. PELVIC VISCERA: Unremarkable. OSSEOUS STRUCTURES: Unremarkable. CT/CT abdomen pelvis w IV con IMPRESSION: 1. Lower anterior abdominal wall incarcerated and strangulated hernia containing a loop of distal small bowel which is thickened and has surrounding inflammatory changes/free fluid. The hernia sac itself measures 7 x 9.8 x 8.0 cm. The hernia neck measures 5.6 cm. 2. Multiple prominent periportal and mesenteric lymph nodes may be reactive. Fleischner guidelines were followed. Findings were discussed with Dr. Nichols at 8:50pm.
[2023-08-30 14:38] VITALS: BP 149/72; PULSE 89; RESP 20; TEMP 36.6; O2SAT 97; BMI 69.4
--- NOTE | 2023-08-30 14:47 | ED.GENADULT ---
HPI - General Adult General Chief complaint: Abdominal Pain Stated complaint: hernia pain Time Seen by Provider: 08/30/23 19:44 Source: patient, family and old records reviewed Mode of arrival: ambulatory Limitations: no limitations History of Present Illness HPI narrative: 33 yo male with PMH of severe obesity, anxiety, RAMIRO who is seeing Cari Ayala from bariatric surgery has known ventral hernia reports it has become harder and will not go back in since Wednesday. He has been having n/v abd increased pain. He has no flatus but states he is just passing liquids from his rectum but no flatus. He came today due to severe pain and unable to tolerate anything by mouth. MD complaint: n/v and pain. Onset (ago): day(s) (several) Location: abdomen Severity: severe Quality: aching and constant Pain Consistency: constant Relieving factors: none Exacerbating factors: eating and movement Associated symptoms: loss of appetite, malaise and nausea/vomiting Treatments prior to arrival: none Related Data Home Medications ?Medication ?Instructions ?Recorded ?Confirmed albuterol sulfate 90 mcg/actuation 2 inh inhalation Q6H PRN 01/20/23 08/11/23 breath activated powder inhaler melatonin 5 mg capsule mg PO BEDTIME PRN 01/20/23 08/11/23 Previous Rx's ?Medication ?Instructions ?Recorded cholecalciferol (vitamin D3) 50 50 mcg PO DAILY #30 caps 02/09/23 mcg (2,000 unit) capsule vitamin A palmitate 3,000 mcg 3,000 mcg PO DAILY 2 weeks #14 tabs 02/15/23 (10,000 unit) tablet Allergies Allergy/AdvReac Type Severity Reaction Status Date / Time diphenhydramine Allergy Intermediate UNKNOWN Verified 08/30/23 14:44 [From Benadryl] doxycycline Allergy Itching Verified 08/30/23 14:44 Review of Systems Review of Systems: Constitutional : No Weight loss, No Fever, No Chills ENT/Mouth : No sore throat, No Rhinorrhea Eyes: No Swelling, No Redness Cardiovascular : No Chest Pain, No SOB, NoEdema Respiratory : No Cough, No Sputum, No Wheezing Gastrointestinal : Positive Nausea, Positive Vomiting, no Diarrhea, positive abdominal Pain, No Hematochezia, No Melena Genitourinary : No Dysuria, No Urinary Frequency, No Hematuria, No Urgency Musculoskeletal : No joint pain, No Myalgias, No Joint Swelling Skin : No Skin Lesions, No rash Neuro : No Weakness, No Numbness, No Dizziness, No Headache Psych : No Anxiety/Panic, No Depression All other systems reviewed and are negative. [facility] Past Medical History Attestation statement: The following information was validated with the patient. Source: old records reviewed Medical History Obstructive sleep apnea (~2012) Morbid obesity Asthma GERD (gastroesophageal reflux disease) SARIKA (generalized anxiety disorder) Surgical History History of dental surgery (~1998) Family History Family History Mother No problems noted. Father Diabetes Social History Social History Alcohol intake: current Alcohol intake frequency: a few times a month Patient Tobacco Use Status: Never used Tobacco Smoked in Last 30 Days: No e-Cigarette/Vaping Use: Currently Using Use of substances other than those prescribed or required for medical reasons: No Advance Directives: No Advance Directives Information Provided: No Physical Exam ED Vital Signs: Vital Signs - 24 hr 08/30/23 14:38 08/30/23 19:49 08/30/23 21:57 Temperature 97.8 F 98.3 F 97.9 F Pulse Rate 89 80 82 Respiratory Rate 20 16 14 Blood Pressure 149/72 H 143/83 H 144/82 H Pulse Oximetry 97 95 97 Oxygen Delivery Method Room Air Room Air Room Air BMI result Body Mass Index 69.4 Appearance: Alert. Oriented X3. No acute distress. Eyes: Pupils equal, round and reactive to light. ENT: Pharynx normal. Neck: Normal inspection. Neck supple. CVS: Normal heart rate and rhythm. Pulses normal. Respiratory: No respiratory distress. Breath sounds normal. Abdomen: Soft but ventral hernia noted and very ttp feels firm and I cannot reduce it with gentle pressure Skin: Skin warm and dry. Normal skin color. Normal skin turgor. Extremities: No lower extremity edema. No calf ttp Neuro: Oriented X 3. No motor deficit. No sensory deficit. Course Course Course Narrative: RME: 33-year-old male presents to the ED for abdominal pain due to hernia. Positive for umbilcal hernia labs, lactic acid, and cT scan abdomen ordered Reevaluation(s) Reevaluation #1: Magdalena SOLIS involved - following up repeat calls and conversation pending review of radiology as well 845pm Medications Administered Discontinued Medications Generic Name Dose Route Start Last Admin Trade Name Lila PRN Reason Stop Dose Admin Sodium Chloride 1,000 mls @ 999 mls/hr 08/30/23 20:00 08/30/23 21:10 Ns IV 08/30/23 21:00 Infused .Q1H1M MIGDALIA Infusion Iohexol 100 ml 08/30/23 19:28 08/30/23 19:29 Iohexol 350 Mg/Ml 100 Ml Infus..Btl IV 08/30/23 19:29 100 ml ONCE ONE Administration Morphine Sulfate 4 mg 08/30/23 19:48 08/30/23 20:07 Morphine Sulfate 4 Mg/Ml Cartridge IVPUSH 08/30/23 19:49 4 mg ONCE ONE Administration Protocol Ondansetron HCl 4 mg 08/30/23 19:48 08/30/23 20:08 Ondansetron Hcl 4 Mg/2 Ml Vial IVPUSH 08/30/23 19:49 4 mg ONCE ONE Administration Medical Decision Making Medical Decision Making [facility] Narrative: 33 yo male with PMH of severe obesity, anxiety, RAMIRO here with c/o hernia feels bigger n/v and no flatus and just passing liquid from rectum at this time labs, IVF, IV morphine for pain. CT scan for obstruction/incarceration ordered. I cannot reduce hernia at bedside with patient allowing significant pressure and attempts. Differential Diagnosis Differential Diagnoses: The differential diagnosis associated with the presentation includes hernia, incarcerated hernia, enteritis, obstruction Admission/Observation Consideration of admission/observation: Escalation of care including admission/observation considered needs surgery attempting to find appropriate center given his co-morbidity Consult Healthcare Provider Management of the patient was discussed with: Skoog Machine Operator 807pm message sent to Magdalena SOILS would refer to general surgery both general surgery and bariatric surgery refer out and state patient needs to be transferred [facility] will try to make a spot for patient he reports pain is controlled on morphine at this time if no bed will call [facility] Lab Attestation statement: I reviewed the patient's lab results. 08/30/23 15:05 08/30/23 15:05 Labs: Lab Results 08/30/23 Range/Units 15:05 WBC 9.6 (4.8-10.8) X10*3/uL RBC 5.61 (4.60-5.80) X10*6/uL Hgb 16.8 (14.0-18.0) g/dl Hct 49.9 (42.0-52.0) % MCV 88.9 (80.0-98.0) fL MCH 29.9 (27.0-33.0) pg MCHC 33.7 (31.0-36.0) g/dl RDW 13.5 (11.0-16.0) % Plt Count 351 (160-400) X10*3/uL MPV 9.7 (9.4-12.4) fL Immature Gran % (Auto) 0.3 (0.0-0.4) % Neut % (Auto) 68.9 (45-73) % Lymph % (Auto) 20.9 (20-40) % Rains % (Auto) 7.7 (2-11) % Eos % (Auto) 1.6 (0-4) % Baso % (Auto) 0.6 (0-2) % Lymph # (Auto) 2.0 (1.2-4.9) X10*3/uL Rains # (Auto) 0.7 (0.1-1.2) X10*3/uL Eos # (Auto) 0.2 (0.0-0.4) X10*3/uL Baso # (Auto) 0.1 (0.0-0.2) X10*3/uL Abs Immat Gran (auto) 0.03 (0.00-0.03) X10*3/uL Absolute Neuts (auto) 6.6 (2.0-8.3) x10*3/uL Absolute Nucleated RBC 0.000 (0.0-0.012) X10*3/uL Nucleated RBC % (auto) 0.0 (0.0-0.2) /100WBC Sodium 141 (135-145) mmol/L Potassium 4.6 (3.3-5.1) mmol/L Chloride 104 (96-108) mmol/L Carbon Dioxide 28 (22-29) mmol/L Anion Gap 14 (12-20) BUN 18 H (9-16) mg/dL Creatinine 0.99 (0.5-1.4) mg/dL Estim Creat Clear Calc 207.2 Estimated GFR > 60 Random Glucose 83 (60-115) mg/dL Lactic Acid 0.8 (0.5-2.0) mmol/L Calcium 10.0 (8.4-10.2) mg/dL Total Bilirubin 1.0 (0.0-1.0) mg/dL AST 30 (5-37) U/L ALT 31 (0-40) U/L Alkaline Phosphatase 70 (39-117) U/L Total Protein 8.8 H (6.5-8.0) g/dL Albumin 4.5 (3.5-5.0) g/dL Independent Interpretation I performed an independent interpretation of an: CT Scan Radiology Impression Discussion of test interpretation with radiology: I have reviewed the radiologist's reading. Independent Historian Clinical information obtained from an independent historian. History obtained from or confirmed by: Parent External Record Review External record reviewed: Office record Critical Care Time Critical Care Time Critical Care Time: Yes Total Critical Care Time: 60 Attestation: review of records, multiple calls to consultants, IV morphine improved pain, transfer coordination I attest to this time spent taking care of the patient Discharge Plan Discharge Clinical Impression: Strangulated ventral hernia Abdominal pain Qualifiers: Abdominal location: periumbilical Qualified Code(s): R10.33 - Periumbilical pain Patient Disposition: Still a Patient Prescriptions: No Action cholecalciferol (vitamin D3) 50 mcg (2,000 unit) capsule 50 mcg PO DAILY Qty: 30 5RF vitamin A palmitate 3,000 mcg (10,000 unit) tablet 3,000 mcg PO DAILY 14 Days Qty: 14 0RF albuterol sulfate 90 mcg/actuation aerosol powdr breath activated 2 inh inhalation Q6H PRN melatonin 5 mg capsule PO BEDTIME PRN Print Language: Maltese
[2023-08-30 15:10] LABS: MANUAL DIFF FLAG NO
[2023-08-30 15:11] LABS: Basophils Absolute Auto 0.1 X10*3/uL (0.0-0.2); Basophils Percent Auto 0.6 % (0-2); Eosinophils Absolute Auto 0.2 X10*3/uL (0.0-0.4); Eosinophils Percent Auto 1.6 % (0-4); Hematocrit 49.9 % (42.0-52.0); Hemoglobin 16.8 g/dl (14.0-18.0); Imm Gran Abs Auto 0.03 X10*3/uL (0.00-0.03); Imm Gran Pct Auto 0.3 % (0.0-0.4); Lymphocytes Percent Auto 20.9 % (20-40); Mean Corpuscular HGB Conc 33.7 g/dl (31.0-36.0); Mean Corpuscular Hemoglobin 29.9 pg (27.0-33.0); Mean Corpuscular Volume 88.9 fL (80.0-98.0); Mean Platelet Volume 9.7 fL (9.4-12.4); Monocytes Absolute Auto 0.7 X10*3/uL (0.1-1.2); Monocytes Percent Auto 7.7 % (2-11); Neutrophils Absolute Auto 6.6 x10*3/uL (2.0-8.3); Neutrophils Percent Auto 68.9 % (45-73); Platelet Count 351 X10*3/uL (160-400); Red Blood Count 5.61 X10*6/uL (4.60-5.80); Red Cell Distribution Width 13.5 % (11.0-16.0); White Blood Count 9.6 X10*3/uL (4.8-10.8)
[2023-08-30 15:23] LABS: Lactic Acid 0.8 mmol/L (0.5-2.0)
[2023-08-30 15:27] LABS: Alanine Aminotransferase 31 U/L (0-40); Albumin Level 4.5 g/dL (3.5-5.0); Alkaline Phosphatase 70 U/L (39-117); Anion Gap 14 (12-20); Aspartate Amino Transferase 30 U/L (5-37); Blood Urea Nitrogen 18 mg/dL (9-16); Carbon Dioxide 28 mmol/L (22-29); Chloride 104 mmol/L (96-108); Creatinine Clr Calc Pharmacy 207.2; Estimated Glomerular Filt Rate > 60; Glucose Random 83 mg/dL (60-115); Potassium 4.6 mmol/L (3.3-5.1); Sodium 141 mmol/L (135-145); Total Protein 8.8 g/dL (6.5-8.0)
[2023-08-30] MEDS: iohexoL 350 MG/ML 100 ML INFUS..BTL IV (19:29)
[2023-08-30 19:49] VITALS: BP 143/83; PULSE 80; RESP 16; TEMP 36.8; O2SAT 95
[2023-08-30] MEDS: Morphine Sulfate 4 MG/ML CARTRIDGE IVPUSH (20:07)
[2023-08-30] MEDS: 0.9 % Sodium Chloride 1,000 ML 999 ML IV (20:08)
[2023-08-30] MEDS: ondansetron HCL 4 MG/2 ML VIAL IVPUSH (20:08)
[2023-08-30 21:57] VITALS: BP 144/82; PULSE 82; RESP 14; TEMP 36.6; O2SAT 97
[2023-08-30 23:15] LABS: Basophils Absolute Auto 0.1 X10*3/uL (0.0-0.2); Basophils Percent Auto 0.7 % (0-2); Eosinophils Absolute Auto 0.2 X10*3/uL (0.0-0.4); Hematocrit 45.7 % (42.0-52.0); Hemoglobin 15.2 g/dl (14.0-18.0); Imm Gran Abs Auto 0.02 X10*3/uL (0.00-0.03); Imm Gran Pct Auto 0.3 % (0.0-0.4); Lymphocytes Absolute Auto 2.4 X10*3/uL (1.2-4.9); Lymphocytes Percent Auto 31.6 % (20-40); MANUAL DIFF FLAG NO; Mean Corpuscular HGB Conc 33.3 g/dl (31.0-36.0); Mean Corpuscular Hemoglobin 29.8 pg (27.0-33.0); Mean Corpuscular Volume 89.6 fL (80.0-98.0); Mean Platelet Volume 9.6 fL (9.4-12.4); Monocytes Absolute Auto 0.7 X10*3/uL (0.1-1.2); Monocytes Percent Auto 9.4 % (2-11); Neutrophils Absolute Auto 4.2 x10*3/uL (2.0-8.3); Platelet Count 330 X10*3/uL (160-400); Red Cell Distribution Width 13.7 % (11.0-16.0); White Blood Count 7.6 X10*3/uL (4.8-10.8)
[2023-08-30 23:26] LABS: Lactic Acid 0.7 mmol/L (0.5-2.0)
[2023-08-30 23:28] LABS: Anion Gap 14 (12-20); Blood Urea Nitrogen 16 mg/dL (9-16); Calcium 9.4 mg/dL (8.4-10.2); Carbon Dioxide 26 mmol/L (22-29); Chloride 106 mmol/L (96-108); Creatinine Clr Calc Pharmacy 250.2; Estimated Glomerular Filt Rate > 60; Glucose Random 78 mg/dL (60-115); Sodium 142 mmol/L (135-145)
== END 2023-08-31 01:44 | disposition still patient (30) ==
PROVIDERS: Emergency Medicine; Physician Assistant; Emergency Provider Emergency Medicine; PCP Internal Medicine
DX: K43.6 Other and unspecified ventral hernia with obstruction, without gangrene (principal); J45.909 Unspecified asthma, uncomplicated
CPT/HCPCS: 36415; 74177; 80048; 80053; 83605; 85025; 96361; 96374; 96375; 99284; J2270; J2405; Q9967

== ENCOUNTER → 2023-09-06 11:00 | Outpatient (BNVA) | payer OTHER, SELFPAY | PROVIDERS: PCP Internal Medicine; Visit Provider Surgery ==

== ENCOUNTER 2023-09-20 15:20 | Outpatient (AMB) | payer OTHER, SELFPAY ==
--- NOTE | 2023-09-20 16:05 | MHC.WMTHER ---
Intake Intake Visit Reasons: (TV) F/U BH Allergies diphenhydramine [From Benadryl] Allergy (Intermediate, Verified 09/06/23 14:48) UNKNOWN doxycycline Allergy (Verified 09/06/23 09:30) [facility]ching [facility] Medical History Obstructive sleep apnea (~2012) Morbid obesity Asthma GERD (gastroesophageal reflux disease) SARIKA (generalized anxiety disorder) Surgical History History of dental surgery (~1998) Family History Mother No problems noted. Father Diabetes Social History Alcohol intake: current Alcohol intake frequency: a few times a month Patient Tobacco Use Status: Never used Tobacco e-Cigarette/Vaping Use: Currently Using Behavioral Health Assessment Weight Management Therapy Therapy Notes Details Patient discussed recent health struggles due to hernia and ended up at the hospital. Also ongoing goal of buying a house, and getting a car. He has made every appointment despite some transportation issues. He has supportive family and friends. Will be returning back to the gym tomorrow. Motivational interviewing, positive reinforcement, solution focused, active and supportive listening used. Assessment & Plan Assessment & Plan (1) SARIKA (generalized anxiety disorder): Code(s): F41.1 - Generalized anxiety disorder (2) Morbid obesity: Code(s): E66.01 - Morbid (severe) obesity due to excess calories Plan Pt is a pleasant 33 year old male who presents for evaluation due to seeking weight loss surgery. he reported some mental health struggles related to multiple losses in his life, his mother's ongoing medical concerns and never having his father in his life. Patient was in outpatient (and inpatient) treatment in the past but not currently. He is cleared for surgery when ready. Garo has been dedicated, never misses appointments, and works hard toward his goals. Coding Level of Care Code Tele Psytx 30 mins (77904) Diagnoses SARIKA (generalized anxiety disorder) F41.1 Morbid obesity E66.01 Time Spent (min) 30
== END 2023-09-20 16:10 | disposition home or self-care (01) ==
LOC: HO.HBST 15:20
PROVIDERS: PCP Internal Medicine; Visit Provider Counselor Mental Health
DX: F41.1 Generalized anxiety disorder (principal); E66.01 Morbid (severe) obesity due to excess calories
CPT/HCPCS: 90832

== ENCOUNTER → 2023-09-20 15:20 | Outpatient (BNVA) | payer OTHER, SELFPAY | PROVIDERS: PCP Internal Medicine; Visit Provider Counselor Mental Health ==

== ENCOUNTER → 2023-09-21 14:54 | Outpatient (BNVA) | payer OTHER, SELFPAY | PROVIDERS: PCP Internal Medicine; Visit Provider Physician Assistant Surgical ==

== ENCOUNTER 2023-10-08 08:05 | Outpatient (REF) | payer OTHER, SELFPAY ==
--- NOTE | ~2023-10-08 | FL_ITS ---
EXAMINATION: XR FLUOROSCOPY UPPER GI WITH AIR CLINICAL INFORMATION: Preop evaluation prior to bariatric surgery COMPARISON: None TECHNIQUE: Fluoroscopic air contrast upper GI examination was performed utilizing standard techniques with thin and thick barium and effervescent granules. Numerous spot images were obtained. FINDINGS: Dual and single contrast images of the esophagus demonstrate normal caliber and contour. There is felinization of the mid esophageal mucosa. No stricture, mass, or ulcerations are identified. Esophageal peristalsis was normal. A small type I hiatal hernia is present. Nonobstructing Schatzki's ring present. Normal GE junction otherwise. No significant gastroesophageal reflux was seen during the course of the examination and on reflux views. Dual contrast and single contrast images of the stomach demonstrated normal contour and mucosal pattern without evidence of mass, ulceration, or other abnormality. Contrast freely passed into the gastric antrum and duodenal bulb without delay. Single and air-contrast images of the duodenal bulb demonstrate no abnormality. The duodenal sweep has a normal appearance, course, and mucosal fold appearance. No malrotation. The imaged proximal jejunum has a normal fold pattern and caliber. FLUOROSCOPY TIME: 3 minutes 7 second Number of Spot Images: 5 Number of Cine: 11 DOSE AREA PRODUCT: 2373 uGy-m2 (microgray-meter squared) FL/FL upper GI series IMPRESSION: 1. Felinization of the mid esophageal mucosa. This is a benign finding associated with gastroesophageal reflux. While gastroesophageal reflux was not seen during the examination, suspect at least moderate reflux given this mucosal appearance and the presence of a sliding type I hiatal hernia. 2. Small type I hiatal hernia. 3. Nonobstructing Schatzki's ring. This procedure was performed by Jaime Cox PA-C, and supervised by Dr. Cid
--- NOTE | ~2023-10-08 | US_ITS ---
EXAMINATION: US COMPLETE ABDOMEN WITH LIVER ELASTOGRAPHY CLINICAL INFORMATION: Obesity. COMPARISON: CT abdomen and pelvis dated 09/11/2023; abdominal ultrasound dated 10/15/2021. TECHNIQUE: Real-time imaging of the abdominal viscera. Noninvasive ultrasound liver fibrosis assessment is performed using Josh ElastPQ point quantification shear wave elastography (2D-SWE) with a C5-2 MHz transducer. Multiple elastography samples are obtained. FINDINGS: PANCREAS: Normal. The visualized pancreatic head and body are normal in appearance. The remainder of the pancreas is obscured from visualization by the overlying bowel gas. ABDOMINAL AORTA: The proximal, middle, and distal aortic segments are normal in caliber. INFERIOR VENA CAVA: Visualized portions are normal. LIVER: The liver is enlarged and shows normal contour and increased echogenicity. No focal lesion or intrahepatic biliary duct dilatation. The right lobe measures 20.7 cm in length. The left lobe measures 14.9 cm in length. Portal flow is towards the liver (hepatopetal). Shear wave liver elastography median stiffness is 1.82 m/s (reference: normal median stiffness is 1.3 m/s or less). IQR/median stiffness to assess sampling precision is 0.15 (reference: good quality data set is IQR/median stiffness of 0.15 or less). GALLBLADDER: Multiple gallstones are seen, without sludge, polyps, wall thickening or pericholecystic fluid. COMMON BILE DUCT: Normal in caliber measuring 0.5 cm in diameter. RIGHT KIDNEY: Normal. No hydronephrosis. No renal calculi or focal parenchymal lesions. The kidney measures 13.6 cm in maximum dimension. LEFT KIDNEY: Normal. No hydronephrosis. No renal calculi or focal parenchymal lesions. The kidney measures 13.2 cm in maximum dimension. SPLEEN: Normal. The spleen measures 12.3 cm in maximum dimension. FREE FLUID: None. US/US abdomen comp w elastography IMPRESSION: 1. There is generalized increase in hepatic echotexture, consistent with fatty infiltration or hepatocellular disease. Please correlate clinically. No focal hepatic mass or intrahepatic biliary dilatation is seen. 2. There is hepatomegaly. 3. Liver elastography: Measurements are suggestive of compensated advanced chronic liver disease but need further test for confirmation. REFERENCE: Society of Radiologists in Ultrasound Liver Stiffness Thresholds (2020): LIVER STIFFNESS THRESHOLDS: *Liver Stiffness equal or less than 1.3 m/s: High probability of being normal. *Liver Stiffness less than 1.7 m/s: In the absence of other known clinical signs, rules out compensated advanced chronic liver disease. *Liver Stiffness 1.7-2.1 m/s: Suggestive of compensated advanced chronic liver disease but need further test for confirmation. *Liver Stiffness over 2.1 m/s: Rules in compensated advanced chronic liver disease. *Liver Stiffness over 2.4 m/s: Suggestive of clinically significant portal hypertension. QUALITY OF DATA SET: *IQR/Median value equal or less than 0.15 implies a quality data set. *IQR/Median value over 0.15 implies a poor quality data set. SIGNIFICANT CHANGE FROM PRIOR EXAM: Significant change if liver stiffness measurement is 10% or greater from prior exam. OTHER CONSIDERATIONS: The stage of liver fibrosis may be overestimated in the setting of acute hepatitis, liver inflammation, elevated liver function tests, hepatic vascular congestion, obstructive cholestasis, non-fasting state, and infiltrative diseases such as amyloidosis and lymphoma. In some patients with NAFLD, the liver stiffness thresholds for compensated advanced chronic liver disease may be lower. In causes other than viral hepatitis and NAFLD, liver stiffness thresholds are not well established.
== END 2023-10-08 08:06 | disposition home or self-care (01) ==
LOC: HO.US 08:05
PROVIDERS: PCP Internal Medicine; Visit Provider Physician Assistant
DX: Z01.818 Encounter for other preprocedural examination (principal); E66.01 Morbid (severe) obesity due to excess calories
CPT/HCPCS: 74240; 76700; 76981

== ENCOUNTER → 2023-10-08 08:07 | Outpatient (BNV) | payer OTHER, SELFPAY | PROVIDERS: PCP Internal Medicine; Visit Provider Physician Assistant Surgical | DX: E66.01 Morbid (severe) obesity due to excess calories (principal); Z01.818 Encounter for other preprocedural examination | CPT/HCPCS: 74246 ==

== ENCOUNTER → 2023-10-21 15:10 | Outpatient (BNVA) | payer OTHER, SELFPAY | PROVIDERS: PCP Internal Medicine; Visit Provider Physician Assistant Surgical ==

== ENCOUNTER 2023-12-08 14:42 | Outpatient (AMB) | payer OTHER, SELFPAY ==
--- NOTE | 2023-12-08 14:50 | MHC.OFFVISWM ---
VS Expanded 12/08/23 14:57 BP 152/80 H Blood Pressure Location Rt brachial Blood Pressure Position Sitting Pulse 68 Pulse Source Pulse Oximeter Temp 96.8 F Temperature Source Tympanic Pulse Oximetry 94 Oxygen Delivery Method Room Air Height 5 ft 11 in Weight 507 lb 3.2 oz BMI 70.7 Body Fat % 49.3 Body Fat Mass 249.8 Fat Free Mass 257.2 Body Water % 36.4 Body Water Mass 184.6 Muscle Mass/Score 244.4 Basal Metabolic Rate/Score 3,992 Intake Visit Reasons: SWL follow up Allergies diphenhydramine [From Benadryl] Allergy (Intermediate, Verified 12/08/23 14:59) UNKNOWN doxycycline Allergy (Verified 12/08/23 14:59) Itching HPI Comments Details: Patient is a 33-year-old male who returns to the office today in follow-up. He began the surgical weight loss program 01/20/2023 with a weight of 618.1 lb and a BMI of 86.2. Weight today is 507.2 lb with a BMI of 70.8. He has lost 110.9 lb or 17.9% total body weight. He states he has had increased hunger at 11-12 MN. STates he has not been following the meal plan exactly with increased food between shakes and bars Meal plan: 3 Celebrate Rebuild protein shakes (2 scoops in 8oz almond milk), 2 Celebrate protein bars and one meal (12 forks of protein and 12 forks of salad or vegetables) Drinking 32-48 oz Exercise plan: Treadmill speed 2, incline 12, 400 caloires, 4 days per week [facility] Medical History Obstructive sleep apnea (~2012) Morbid obesity Asthma GERD (gastroesophageal reflux disease) SARIKA (generalized anxiety disorder) Surgical History History of dental surgery (~1998) Family History Mother No problems noted. Father Diabetes Social History Alcohol intake: current Alcohol intake frequency: a few times a month Patient Tobacco Use Status: Never used Tobacco e-Cigarette/Vaping Use: Currently Using Physical Exam Const General: healthy appearing and no acute distress Resp Effort & Inspection: normal respiratory effort Auscultation: clear to auscultation bilaterally Cardio Rate: regular rate Rhythm: regular rhythm GI Auscultation: normal bowel sounds Extrem General: Yes normal to inspection Assessment & Plan Assessment & Plan (1) Morbid obesity: Code(s): E66.01 - Morbid (severe) obesity due to excess calories Category: Medical Plan: Patient will follow meal plan as listed above exactly for 1 week. He will text me with any questions or concerns. Should he have any issues with hunger he will text. Additionally encouraged to increase water intake to 64 oz daily. He will continue exercise as he has been doing although certainly may increase calories burned. Plan on follow-up with weight check in 2 weeks and follow-up in office in 1 month
[2023-12-08 14:57] VITALS: BP 152/80; PULSE 68; TEMP 36; O2SAT 94; BMI 70.7
== END 2023-12-08 15:21 | disposition home or self-care (01) ==
PROVIDERS: PCP Internal Medicine; Visit Provider Physician Assistant Surgical
DX: E66.01 Morbid (severe) obesity due to excess calories (principal)
CPT/HCPCS: 99213

== ENCOUNTER → 2023-12-08 14:42 | Outpatient (BNVA) | payer OTHER, SELFPAY | PROVIDERS: PCP Internal Medicine; Visit Provider Physician Assistant Surgical | DX: E66.01 Morbid (severe) obesity due to excess calories (principal); Z68.45 Body mass index [BMI] 70 or greater, adult | CPT/HCPCS: 99212 ==

== ENCOUNTER → 2023-12-22 15:09 | Outpatient (BNVA) | payer OTHER, SELFPAY | PROVIDERS: PCP Internal Medicine; Visit Provider Physician Assistant Surgical ==

== ENCOUNTER 2024-01-05 15:15 | Outpatient (AMB) | payer OTHER, SELFPAY ==
--- NOTE | 2024-01-05 15:18 | MHC.OFFVISWM ---
VS Expanded 01/05/24 15:25 BP 142/75 H Blood Pressure Location Rt brachial Blood Pressure Position Sitting Pulse 79 Pulse Source Pulse Oximeter Temp 95.7 F L Temperature Source Temporal Artery Scan Pulse Oximetry 96 Oxygen Delivery Method Room Air Height 5 ft 11 in Weight 499 lb 6.4 oz BMI 69.6 Body Fat % 54.3 Body Fat Mass 271.2 Fat Free Mass 228.2 Visceral Fat Rating 49.0 Body Water % 36.6 Body Water Mass 182.6 Muscle Mass/Score 217.2 Basal Metabolic Rate/Score 3,547 Intake Visit Reasons: SWL follow up Family Service Worker Required: No Allergies diphenhydramine [From Benadryl] Allergy (Intermediate, Verified 01/05/24 15:19) UNKNOWN doxycycline Allergy (Verified 01/05/24 15:19) Itching Medication List - Last Reconciled 01/05/24 by IRMA Price No Known Home Meds HPI Comments Details: Patient is a 33-year-old male who returns to the office today in follow-up. He began the surgical weight loss program 01/20/2023 with a weight of 618.1 lb and a BMI of 86.2. Weight today is 499.4 lb with a BMI of 69.7. He has lost 118.7 lb or 19.2% total body weight. He states he has been much more consistent with his meal plan and going to the gym. He is not complaining of any significant hunger as he is now spacing out his shakes and bars. He is satisfied with his weight loss now as he did gain significant weight but has then lost it again. He is completely committed and is excited about the progress he has made. Meal plan: 3 Celebrate Rebuild protein shakes (2 scoops in 8oz almond milk), 2 Celebrate protein bars and one meal (12 forks of protein and 12 forks of salad or vegetables) Drinking 32-48 oz Exercise plan: Treadmill speed 2, incline 12, 500 caloires, 5-6 days per week [facility] Medical History Obstructive sleep apnea (~2012) Morbid obesity Asthma GERD (gastroesophageal reflux disease) SARIKA (generalized anxiety disorder) Surgical History History of dental surgery (~1998) Family History Mother No problems noted. Father Diabetes Social History Alcohol intake: current Alcohol intake frequency: a few times a month Patient Tobacco Use Status: Never used Tobacco e-Cigarette/Vaping Use: Currently Using Physical Exam Const General: healthy appearing and no acute distress Resp Effort & Inspection: normal respiratory effort Auscultation: clear to auscultation bilaterally Cardio Rate: regular rate Rhythm: regular rhythm GI Auscultation: normal bowel sounds Extrem General: Yes normal to inspection Assessment & Plan Assessment & Plan (1) Morbid obesity: Code(s): E66.01 - Morbid (severe) obesity due to excess calories Category: Medical Plan: Patient is making good progress at this point now that he is consistently following the meal plan and exercising. He will continue and follow-up in the office in approximately 1 month. Will text me weekly as well with any questions or concerns.
[2024-01-05 15:25] VITALS: BP 142/75; PULSE 79; TEMP 35.4; O2SAT 96; BMI 69.6
== END 2024-01-05 15:52 | disposition home or self-care (01) ==
PROVIDERS: PCP Internal Medicine; Visit Provider Physician Assistant Surgical
DX: E66.01 Morbid (severe) obesity due to excess calories (principal)
CPT/HCPCS: 99213

== ENCOUNTER → 2024-01-05 15:15 | Outpatient (BNVA) | payer OTHER, SELFPAY | PROVIDERS: PCP Internal Medicine; Visit Provider Physician Assistant Surgical | DX: E66.01 Morbid (severe) obesity due to excess calories (principal); Z71.3 Dietary counseling and surveillance; Z68.44 Body mass index [BMI] 60.0-69.9, adult | CPT/HCPCS: 99212 ==

== ENCOUNTER 2024-02-04 14:55 | Outpatient (AMB) | payer OTHER, SELFPAY ==
--- NOTE | 2024-02-04 14:56 | A.OFFVIS_ITS ---
VS Expanded 02/04/24 15:03 BP 141/82 H Blood Pressure Location Rt brachial Blood Pressure Position Sitting Pulse 86 Pulse Source Pulse Oximeter Temp 95.5 F L Temperature Source Temporal Artery Scan Pulse Oximetry 93 Oxygen Delivery Method Room Air Height 5 ft 11 in Weight 494 lb BMI 68.9 Body Fat % 53.8 Body Fat Mass 265.6 Fat Free Mass 228.2 Visceral Fat Rating 48.0 Body Water % 37.0 Body Water Mass 182.6 Muscle Mass/Score 217.2 Basal Metabolic Rate/Score 3,535 Intake Visit Reasons: (OV) F/U SWL Field Evidence Technician Required: No Allergies diphenhydramine [From Benadryl] Allergy (Intermediate, Verified 02/04/24 15:05) UNKNOWN doxycycline Allergy (Verified 02/04/24 15:05) Itching Medication List - Last Reconciled 02/04/24 by IRMA Price No Known Home Meds HPI Comments Details: Patient is a 33-year-old male who returns to the office today in follow-up. He began the surgical weight loss program 01/20/2023 with a weight of 618.1 lb and a BMI of 86.2. Weight today is 494 lb with a BMI of 68.9. He has lost 124.1 lb or 20% total body weight. He states he has been much more consistent with his meal plan and going to the gym. He did have a 4 day period where he couldn't do much due to hernia pain. He is not complaining of any significant hunger as he is now spacing out his shakes and bars. He is satisfied with his weight loss now as he did gain significant weight but has then lost it again. He is completely committed and is excited about the progress he has made. Meal plan: 3 Celebrate Rebuild protein shakes (2 scoops in 8oz almond milk), 2 Celebrate protein bars and one meal (12 forks of protein and 12 forks of salad or vegetables) Drinking 50-60 oz water Exercise plan: Treadmill speed 2, incline 12-0, 500 caloires, 5 days per week [facility] Medical History Obstructive sleep apnea (~2012) Morbid obesity Asthma GERD (gastroesophageal reflux disease) SARIKA (generalized anxiety disorder) Surgical History History of dental surgery (~1998) Family History Mother No problems noted. Father Diabetes Social History Alcohol intake: current Alcohol intake frequency: a few times a month Patient Tobacco Use Status: Never used Tobacco e-Cigarette/Vaping Use: Currently Using Physical Exam Const General: healthy appearing and no acute distress Resp Effort & Inspection: normal respiratory effort Auscultation: clear to auscultation bilaterally Cardio Rate: regular rate Rhythm: regular rhythm GI Auscultation: normal bowel sounds Extrem General: Yes normal to inspection Assessment & Plan Assessment & Plan (1) Morbid obesity: Code(s): E66.01 - Morbid (severe) obesity due to excess calories Category: Medical Plan: Patient is making good progress. He has lost 124.1 lb to date. 20% total body weight loss. I did suggest increasing his exercise from 5 days to 6 days if he is able. He will continue current meal plan. Follow-up in the office in 3-4 weeks.
[2024-02-04 15:03] VITALS: BP 141/82; PULSE 86; TEMP 35.3; O2SAT 93; BMI 68.9
== END 2024-02-04 15:19 | disposition home or self-care (01) ==
PROVIDERS: PCP Internal Medicine; Visit Provider Physician Assistant Surgical
DX: E66.01 Morbid (severe) obesity due to excess calories (principal)
CPT/HCPCS: 99213

== ENCOUNTER → 2024-02-04 14:55 | Outpatient (BNVA) | payer OTHER, SELFPAY | PROVIDERS: PCP Internal Medicine; Visit Provider Physician Assistant Surgical | DX: E66.01 Morbid (severe) obesity due to excess calories (principal); Z71.3 Dietary counseling and surveillance; Z68.44 Body mass index [BMI] 60.0-69.9, adult | CPT/HCPCS: 99212 ==

== ENCOUNTER 2024-02-11 11:49 | Outpatient (AMB) | payer OTHER, SELFPAY ==
--- NOTE | 2024-02-11 11:53 | MHC.OFFVISWM ---
VS Expanded 02/11/24 12:03 BP 182/99 H Blood Pressure Location Rt brachial Blood Pressure Position Sitting Pulse 74 Pulse Source Pulse Oximeter Temp 96.4 F L Temperature Source Temporal Artery Scan Pulse Oximetry 95 Height 5 ft 11 in Weight 493 lb 3.2 oz BMI 68.8 Body Fat % 53.8 Body Fat Mass 265.4 Fat Free Mass 227.8 Visceral Fat Rating 48.0 Body Water % 36.9 Body Water Mass 182.2 Muscle Mass/Score 216.8 Basal Metabolic Rate/Score 3,528 Comment bp repeated 160/87 Intake Visit Reasons: OV Consult / Transfer Jonah (per Dr. Harrison) Allergies diphenhydramine [From Benadryl] Allergy (Intermediate, Verified 02/11/24 11:58) UNKNOWN doxycycline Allergy (Verified 02/11/24 11:58) Itching HPI Comments Details: Overall weight loss: 125.7lbs, or 20.3% TBWL Has not lost any weight since August Does not follow the meal plan correctly Exercise: Gym x5/week doing 400 calories on treadmill and 100 calories at the bike Reviewed CT from 08/2023: no significant hiatal hernia. There is a large incarcerated umbilical hernia containing omentum and small bowel loops. [facility] Medical History Obstructive sleep apnea (~2012) Morbid obesity Asthma GERD (gastroesophageal reflux disease) SARIKA (generalized anxiety disorder) Surgical History History of dental surgery (~1998) Family History Mother No problems noted. Father Diabetes Social History (Updated 02/11/24 @ 11:59 by Nighat Crandall CMA) Alcohol intake: current Alcohol intake frequency: a few times a month Patient Tobacco Use Status: Never used Tobacco e-Cigarette/Vaping Use: Former Use Physical Exam Vital Signs: Last Vital Signs Temp 96.4 F L 02/11/24 12:03 Pulse 74 02/11/24 12:03 BP 182/99 H 02/11/24 12:03 Pulse Ox 95 02/11/24 12:03 BMI result Body Mass Index 68.8 GI Inspection: Yes normal to inspection (Very android) and Yes obesity (extreme obesity) Palpation (GI): Firmness to palpation present (GI), Hernia present (large incarcerated umbilical hernia with skin changes) and Other GI palpation findings present (large abdominal pannus with significant swelling and skin changes) Extrem Right lower extremity: edema (significant edema) Left lower extremity: edema (significant edema) Assessment & Plan Assessment & Plan (1) Morbid obesity: Code(s): E66.01 - Morbid (severe) obesity due to excess calories Category: Medical Plan: 1. We had a long discussion. It is imperative to make more progress quickly because there is a high risk of incarceration of the umbilical hernia that may need urgent operation which will be high risk. At the same time, proceeding with the sleeve gastrectomy at this time under the present weight will be extremely risky and it may not be possible to be able to manipulate the laparoscopic instruments. We discussed and agreed to work and communicate closely the next few weeks to achieve better and more consistent weight loss. 2. Change nutritional plan to one Celebrate Rebuild protein shake with TWO scoops in 10oz low fat Fairlife milk at 8-10am, Celebrate protein bar 11am-1pm, lunch at 2pm (10 forks of meat and 10 forks of salad or vegetables), Celebrate bar at 4pm-6pm, dinner at 7pm (10 forks of meat and 10 forks of salad or vegetables) and one Celebrate Rebuild protein shake with TWO scoops in 10oz low fat Fairlife milk at 8-10pm 3. Continue present exercise plan of Gym x5/week doing 400 calories on treadmill and 100 calories at the bike 4. Send me weight measurements at least every other week and communicate directly with me
[2024-02-11 12:03] VITALS: BP 182/99; PULSE 74; TEMP 35.8; O2SAT 95; BMI 68.8
== END 2024-02-11 12:56 | disposition home or self-care (01) ==
PROVIDERS: PCP Internal Medicine; Visit Provider Surgery
DX: E66.01 Morbid (severe) obesity due to excess calories (principal)
CPT/HCPCS: 99214

== ENCOUNTER → 2024-02-11 11:49 | Outpatient (BNVA) | payer OTHER, SELFPAY | PROVIDERS: PCP Internal Medicine; Visit Provider Surgery | DX: E66.01 Morbid (severe) obesity due to excess calories (principal); Z68.44 Body mass index [BMI] 60.0-69.9, adult | CPT/HCPCS: 99212 ==

== ENCOUNTER 2024-03-10 15:09 | Outpatient (AMB) | payer OTHER, SELFPAY ==
--- NOTE | 2024-03-10 15:19 | MHC.OFFVISWM ---
VS Expanded 03/10/24 15:29 BP 128/94 H Blood Pressure Location Rt brachial Blood Pressure Position Sitting Pulse 80 Pulse Source Pulse Oximeter Temp 98.4 F Temperature Source Temporal Artery Scan Pulse Oximetry 97 Oxygen Delivery Method Room Air Height 5 ft 11 in Weight 494 lb 3.2 oz BMI 68.9 Body Fat % 53.9 Body Fat Mass 266.4 Fat Free Mass 227.8 Visceral Fat Rating 48.0 Body Water % 36.9 Body Water Mass 182.2 Muscle Mass/Score 216.8 Basal Metabolic Rate/Score 3,529 Intake Visit Reasons: (OV) F/U SWL Allergies diphenhydramine [From Benadryl] Allergy (Intermediate, Verified 03/10/24 15:20) UNKNOWN doxycycline Allergy (Verified 03/10/24 15:20) Itching HPI Comments Details: Patient is a 33-year-old male who returns to the office today in follow-up. He began the surgical weight loss program 01/20/2023 with a weight of 618.1 lb and a BMI of 86.2. Weight today is 494.2 lb with a BMI of 68.9. He has lost 123.9 lb or 20% total body weight. He states he has been much more consistent with his meal plan and going to the gym. He did have a 4 day period where he couldn't do much due to hernia pain. He is not complaining of any significant hunger as he is now spacing out his shakes and bars. He is satisfied with his weight loss now as he did gain significant weight but has then lost it again. He is completely committed and is excited about the progress he has made. States he is skipping his last shake 6 of 7 days due to forgetting to have it, and not counting the forks at mealtimes. Celebrate Rebuild protein shake with TWO scoops in 10oz low fat Fairlife milk at 8-10am, Celebrate protein bar 11am-1pm, lunch at 2pm (10 forks of meat and 10 forks of salad or vegetables) Celebrate bar at 4pm-6pm, dinner at 7pm (10 forks of meat and 10 forks of salad or vegetables) Celebrate Rebuild protein shake with TWO scoops in 10oz low fat Fairlife milk at 8-10pm drinking 80-96 oz water exercise plan: treadmill 5oo calories 5-6 days per week stationary bike 2-3 x per week 100 micheal [facility] Medical History Obstructive sleep apnea (~2012) Morbid obesity Asthma GERD (gastroesophageal reflux disease) SARIKA (generalized anxiety disorder) Surgical History History of dental surgery (~1998) Family History Mother No problems noted. Father Diabetes Social History Alcohol intake: current Alcohol intake frequency: a few times a month Patient Tobacco Use Status: Never used Tobacco e-Cigarette/Vaping Use: Former Use Assessment & Plan Assessment & Plan (1) Morbid obesity: Code(s): E66.01 - Morbid (severe) obesity due to excess calories Category: Medical Plan: Discussed the importance of following the plan exactly. Discussed how this impacts his weight loss. He was congratulated on his current weight loss of over 100 lb but certainly much more to go. He is very dedicated with his exercise plan discussed strategies to help him remember about his meal plan including setting alarms on his phone. He states that he is absolutely interested in continuing our program and we will follow the meal plan as directed. We will have him return to the office in approximately 1 month.
[2024-03-10 15:29] VITALS: BP 128/94; PULSE 80; TEMP 36.9; O2SAT 97; BMI 68.9
== END 2024-03-10 15:56 | disposition home or self-care (01) ==
PROVIDERS: PCP Internal Medicine; Visit Provider Physician Assistant Surgical
DX: E66.01 Morbid (severe) obesity due to excess calories (principal)
CPT/HCPCS: 99213

== ENCOUNTER → 2024-03-10 15:09 | Outpatient (BNVA) | payer OTHER, SELFPAY | PROVIDERS: PCP Internal Medicine; Visit Provider Physician Assistant Surgical | DX: E66.01 Morbid (severe) obesity due to excess calories (principal); Z68.44 Body mass index [BMI] 60.0-69.9, adult | CPT/HCPCS: 99212 ==

== ENCOUNTER 2024-04-17 11:43 | Inpatient (IN) | payer OTHER, SELFPAY ==
--- NOTE | ~2024-04-17 | XR_ITS ---
EXAMINATION: XR CHEST CLINICAL INFORMATION: Cough COMPARISON: Chest x-ray April 01, 2023 TECHNIQUE: Frontal portable view of the chest was obtained. 1:45 PM FINDINGS: No significant abnormality is noted involving the heart, lungs, mediastinum, bony thorax or soft tissues. XR/XR chest 1V IMPRESSION: Unremarkable examination. Electronically signed by: Manuel Fuentes MD 04/17/2024 03:56 PM EST
[2024-04-17 11:51] VITALS: BP 151/87; PULSE 80; RESP 18; TEMP 37; O2SAT 94; BMI 68.4
--- NOTE | 2024-04-17 12:02 | ED.GENADULT ---
HPI - General Adult General Chief complaint: Abdominal Pain Stated complaint: lower abd bright red in pain Time Seen by Provider: 04/17/24 13:02 Source: patient and family Mode of arrival: ambulatory Limitations: no limitations History of Present Illness ED Provider: DR. Núñez HPI narrative: 34-year-old male morbidly obese presented with for days of chills, subjective fever, generalized weakness, patient was seen at [facility] yesterday was told WBCs is high and was sent home, returned today for feeling redness, hotness on the abdominal wall. No intra-abdominal pain, normal bowel movement, no dysuria, no frequency urination. Related Data Home Medications ?Medication ?Instructions ?Recorded ?Confirmed No Known Home Meds 01/05/24 04/17/24 Allergies Allergy/AdvReac Type Severity Reaction Status Date / Time diphenhydramine Allergy Intermediate UNKNOWN Verified 04/17/24 11:55 [From Benadryl] doxycycline Allergy Itching Verified 04/17/24 11:55 Review of Systems Review of Systems: All other systems are reviewed and are negative Constitutional: Reports as per HPI and Reports no additional constitutional complaints Eyes: Reports as per HPI and Reports no additional eye complaints Reports system reviewed and no additional complaints, except as documented Cardiovascular: Reports as per HPI and Reports no additional cardiovascular complaints Respiratory: Reports as per HPI and Reports no additional respiratory complaints Gastrointestinal: Reports as per HPI and Reports no additional gastrointestinal complaints Genitourinary: Reports no additional female genitourinary complaints Musculoskeletal: Reports no additional musculoskeletal complaints Skin/Breast: Reports system reviewed and no additional complaints, except as docu Psychiatric: Reports no additional psychiatric complaints Endocrine: Reports no additional endocrine complaints Hematologic/Lymphatic: Reports no additional hematologic/lymphatic complaints Allergic/Immunologic: Reports no additional allergic/immunologic complaints Reports system reviewed and no additional complaints, except as documented and Reports Abnormal speech present [facility] Past Medical History Medical History Obstructive sleep apnea (~2012) Morbid obesity Asthma GERD (gastroesophageal reflux disease) SARIKA (generalized anxiety disorder) Surgical History History of dental surgery (~1998) Family History Family History Mother No problems noted. Father Diabetes Social History Social History Alcohol intake: current Alcohol intake frequency: a few times a month Patient Tobacco Use Status: Never used Tobacco Smoked in Last 30 Days: No e-Cigarette/Vaping Use: Former Use Use of substances other than those prescribed or required for medical reasons: No Advance Directives: No Advance Directives Information Provided: Yes Do you have a plan to hurt others: No Plan Physical Exam ED Vital Signs: Vital Signs - 24 hr 04/17/24 11:51 04/17/24 13:11 04/17/24 14:15 Temperature 98.6 F 98.1 F 97.9 F Pulse Rate 80 84 88 Respiratory Rate 18 16 16 Blood Pressure 151/87 H 100/43 L 113/54 L Pulse Oximetry 94 99 96 Oxygen Delivery Method Room Air Room Air Room Air BMI result Body Mass Index 68.4 Vital signs have been reviewed and appear to be correct. Blood pressure elevated. Heart rate normal. Respiratory rate normal. Temperature normal. Oxygen saturation normal. Appearance: Alert. Oriented X3. No acute distress. Head: Normal external exam. Normocephalic. Atraumatic. No Summers signs noted. No raccoon eyes noted Eyes: PERRLA. EOMI. Conjunctiva and sclera normal. Eyelids normal. ENT: TM's Normal. Pharynx normal. Uvula midline. Moist mucous membranes. No trismus noted. No drooling noted. No muffled voice noted. Neck: Normal inspection. Neck supple. FROM. No adenopathy. Thyroid Normal. No meningeal signs. No neck mass noted. CVS: Normal heart rate and rhythm. Heart sound normal. No murmurs noted. Pulses normal throughout. Respiratory: No respiratory distress. Painless inspiration. Breath sounds normal. No wheezes/rales/rhonchi noted. Chest nontender. No accessory muscle usage noted or decreased air movement noted. Abdomen: Soft and nontender. Very obese, large area of redness, hotness, a superficial tenderness on the skin involving the umbilicus. exam: No scrotal cellulitis, no redness in the groin area, no suspicion for necrotizing fasciitis. Back: No CVA tenderness. Full range of motion noted. Skin: Skin warm and dry. Normal skin color. Normal skin turgor. No rashes/lesions/lacerations noted. Extremities: No lower extremity edema. Extremities exhibit normal range of motion. Extremities nontender. Neuro: Oriented X 3. Cranial nerve exam: II-XII are grossly intact No motor deficit. No sensory deficit. Reflexes normal. Course Course Course Narrative: RME performed by Patsy Rose PA-C. Patient is a 34 year old assigned male at presenting to the emergency department with abdominal pain. Patient states there is now a large area of redness to his abdomen that is new since he was examined at [facility]. Detailed physical exam and review of systems are deferred to the metallurgist process. Labs ordered. Patient placed back in the waiting room pending room availability and results. Reevaluation(s) Reevaluation #1: . Abdominal wall cellulitis will start the patient on Zosyn and vancomycin. Time: 15:00 Medications Administered Generic Name Dose Route Start Last Admin Trade Name Freq PRN Reason Stop Dose Admin Vancomycin HCl 2,000 mg in 500 mls @ 250 mls/hr 04/17/24 13:08 04/17/24 14:04 Vancomycin/Ns IV 04/17/24 15:07 250 mls/hr ONCE ONE Administration Discontinued Medications Generic Name Dose Route Start Last Admin Trade Name Freq PRN Reason Stop Dose Admin Sodium Chloride 1,000 mls @ 999 mls/hr 04/17/24 13:08 04/17/24 13:27 Ns IV 04/17/24 14:08 999 mls/hr .Q1H1M ONE Administration Piperacillin Sod/Tazobactam 100 mls @ 200 mls/hr 04/17/24 13:08 04/17/24 14:04 Sod 4.5 gm/ Sodium Chloride IV 04/17/24 13:37 Infused ONCE ONE Infusion Medical Decision Making Differential Diagnosis Differential Diagnoses: The differential diagnosis associated with the presentation includes ( cellulitis, pneumonia, intra-abdominal pathology, UTI, electrolyte derangement, severe anemia, sepsis. necrotizing fasciitis.) Admission/Observation Consideration of admission/observation: Escalation of care including admission/observation considered Consult Healthcare Provider Management of the patient was discussed with: Hospitalist Lab Data MDM Lab Attestation statement: I reviewed the patient's lab results. 04/17/24 12:04 04/17/24 12:04 Labs: Lab Results 11/25/24 11/25/24 11/25/24 Range/Units 12:04 13:05 13:26 WBC 9.5 (4.8-10.8) X10*3/uL RBC 4.48 L (4.60-5.80) X10*6/uL Hgb 13.7 L (14.0-18.0) g/dl Hct 40.0 L (42.0-52.0) % MCV 89.3 (80.0-98.0) fL MCH 30.6 (27.0-33.0) pg MCHC 34.3 (31.0-36.0) g/dl RDW 14.2 (11.0-16.0) % Plt Count 262 (160-400) X10*3/uL MPV 9.3 L (9.4-12.4) fL Immature Gran % (Auto) 0.5 H (0.0-0.4) % Neut % (Auto) 76.7 H (45-73) % Lymph % (Auto) 11.7 L (20-40) % [place] % (Auto) 10.6 (2-11) % Eos % (Auto) 0.1 (0-4) % Baso % (Auto) 0.4 (0-2) % Lymph # (Auto) 1.1 L (1.2-4.9) X10*3/uL [place] # (Auto) 1.0 (0.1-1.2) X10*3/uL Eos # (Auto) 0.0 (0.0-0.4) X10*3/uL Baso # (Auto) 0.0 (0.0-0.2) X10*3/uL Abs Immat Gran (auto) 0.05 H (0.00-0.03) X10*3/uL Absolute Neuts (auto) 7.3 (2.0-8.3) x10*3/uL Absolute Nucleated RBC 0.000 (0.0-0.012) X10*3/uL Nucleated RBC % (auto) 0.0 (0.0-0.2) /100WBC ESR 75 H (0-15) MM/HR Sodium 135 (135-145) mmol/L Potassium 3.7 (3.3-5.1) mmol/L Chloride 101 (96-108) mmol/L Carbon Dioxide 25 (22-29) mmol/L Anion Gap 13 (12-20) BUN 11 (9-16) mg/dL Creatinine 0.74 (0.5-1.4) mg/dL Estim Creat Clear Calc 271.9 Estimated GFR > 60 Random Glucose 108 (60-115) mg/dL Lactic Acid 1.2 (0.5-2.0) mmol/L Calcium 9.0 (8.4-10.2) mg/dL Total Bilirubin 0.8 (0.0-1.0) mg/dL AST 37 (5-37) U/L ALT 56 H (0-40) U/L Alkaline Phosphatase 117 (39-117) U/L C-Reactive Protein 35.67 H (< or = 0.50) mg/dL Total Protein 7.1 (6.5-8.0) g/dL Albumin 3.3 L (3.5-5.0) g/dL Discharge Plan Discharge Clinical Impression: Abdominal wall cellulitis, Morbid obesity Patient Disposition: Admitted As Inpatient Print Language: [place]
[2024-04-17 12:10] LABS: MANUAL DIFF FLAG NO
[2024-04-17 12:13] LABS: Basophils Percent Auto 0.4 % (0-2); Eosinophils Percent Auto 0.1 % (0-4); Hemoglobin 13.7 g/dl (14.0-18.0); Imm Gran Abs Auto 0.05 X10*3/uL (0.00-0.03); Imm Gran Pct Auto 0.5 % (0.0-0.4); Lymphocytes Absolute Auto 1.1 X10*3/uL (1.2-4.9); Lymphocytes Percent Auto 11.7 % (20-40); Mean Corpuscular HGB Conc 34.3 g/dl (31.0-36.0); Mean Corpuscular Hemoglobin 30.6 pg (27.0-33.0); Mean Corpuscular Volume 89.3 fL (80.0-98.0); Mean Platelet Volume 9.3 fL (9.4-12.4); Monocytes Percent Auto 10.6 % (2-11); Neutrophils Absolute Auto 7.3 x10*3/uL (2.0-8.3); Neutrophils Percent Auto 76.7 % (45-73); Platelet Count 262 X10*3/uL (160-400); Red Blood Count 4.48 X10*6/uL (4.60-5.80); Red Cell Distribution Width 14.2 % (11.0-16.0); White Blood Count 9.5 X10*3/uL (4.8-10.8)
[2024-04-17 12:36] LABS: Alanine Aminotransferase 56 U/L (0-40); Albumin Level 3.3 g/dL (3.5-5.0); Alkaline Phosphatase 117 U/L (39-117); Anion Gap 13 (12-20); Aspartate Amino Transferase 37 U/L (5-37); Bilirubin Total 0.8 mg/dL (0.0-1.0); Blood Urea Nitrogen 11 mg/dL (9-16); C Reactive Protein 35.67 mg/dL (< or = 0.50); Carbon Dioxide 25 mmol/L (22-29); Chloride 101 mmol/L (96-108); Creatinine Clr Calc Pharmacy 271.9; Estimated Glomerular Filt Rate > 60; Glucose Random 108 mg/dL (60-115); Potassium 3.7 mmol/L (3.3-5.1); Sodium 135 mmol/L (135-145); Total Protein 7.1 g/dL (6.5-8.0)
[2024-04-17 13:11] VITALS: BP 100/43; PULSE 84; RESP 16; TEMP 36.7; O2SAT 99
[2024-04-17] MEDS: 0.9 % Sodium Chloride 1,000 ML 999 ML IV (13:27)
[2024-04-17] MEDS: Piperacillin Sodium/Tazobactam 4.5 GM in 0.9 % Sodium Chloride 100 ML IV ×2 (13:27→21:21)
[2024-04-17 13:53] LABS: Lactic Acid 1.2 mmol/L (0.5-2.0)
[2024-04-17 14:01] LABS: Erythrocyte Sedimentation Rate 75 MM/HR (0-15)
[2024-04-17] MEDS: vancomycin/NS 2,000 MG/500 ML PLAST..BAG 250 MG IV (14:04)
[2024-04-17 14:15] VITALS: BP 113/54; PULSE 88; RESP 16; TEMP 36.6; O2SAT 96
--- NOTE | 2024-04-17 14:39 | PHA.MEDREC ---
Addendum entered by Sammy Frye 04/17/24 14:44: reviewed Original Note: Pharmacy Consult ? Medication Reconciliation Pharmacy has completed the medication reconciliation. Spoke with patient and he confirmed he is not taking anything right now for medications.
--- NOTE | 2024-04-17 14:40 | PC.NURSE ---
Pt presents to ED from home, reports he has been sick since with N/V, chills. Went to [facility] yesterday and was told he has high WBC. Today he noticed redness, heat and hard area to lower ABD and feeling worse. Alert and oriented, breathing even and unlabored, skin warm. Area to lower ABD noted to be hot to touch, very red and hard from belly button down. Does not extend past lower ABD.
--- NOTE | 2024-04-17 15:05 | PM.IMHP ---
History of Present Illness Date of Service: 04/17/24 Attending physician on admission: [facility] Chief Complaint: chills, abdominal wall redness This is a 34 year old male who presents to the ED with several days of chills. Patient reports associated generalized weakness for the past several days. He was seen at [facility] yesterday and was told that he had elevated white blood cell count but no source of infection seemed to be identified at that time. Today he noticed that his lower abdomen appeared hot and on exam he sought redness across his whole lower abdomen. He came to the emergency department for evaluation and was noted to have large area of abdominal wall cellulitis. He was afebrile, leukocytosis within normal range. He received IV vancomycin and IV zosyn and due to the large area affected, he will be admitted for further management. Review of Systems Review of Systems: Yes all other systems are reviewed and are negative Constitutional: Constitutional: Denies chills and Denies fever(s) Cardiovascular: Cardiovascular: Denies chest pain and Denies palpitations Respiratory: Respiratory: Denies cough Endocrine: Endocrine: Denies palpitations [facility] Medical History Obstructive sleep apnea (~2012) Morbid obesity Asthma GERD (gastroesophageal reflux disease) SARIKA (generalized anxiety disorder) Family History Mother No problems noted. Father Diabetes Surgical History History of dental surgery (~1998) Social History Household Members: Spouse, Family and Children Housing: Apartment Do you presently have visiting nurse or other home services: No Alcohol intake: current Alcohol intake frequency: a few times a month Patient Tobacco Use Status: Never used Tobacco Smoked in Last 30 Days: No e-Cigarette/Vaping Use: Former Use Use of substances other than those prescribed or required for medical reasons: No Substance Use Type: Marijuana Substance Use Frequency: Occasionally Last Used Substance: Weeks (ago) Currently Displaying Signs/Symptoms of Drug Intoxication Withdrawal: No Any prior treatment program specific to substance use: No Do you feel safe in your current relationship?: Yes Advance Directives: No Advance Directives Information Provided: Yes Do you have a plan to hurt others: No Plan Recently lost weight without trying: No Nutrition Risks: No Nutritional Risk Meds Allergies Allergy/AdvReac Type Severity Reaction Status Date / Time diphenhydramine Allergy Intermediate UNKNOWN Verified 04/17/24 11:55 [From Benadryl] doxycycline Allergy Itching Verified 04/17/24 11:55 Active Medications: Current Medications Acetaminophen (Acetaminophen 325 Mg Tablet) 650 mg PO Q6H PRN PRN Reason: Pain, Mild (Pain Scale 1-3), fever or headache Calcium Carbonate (Calcium Carbonate 750 Mg Tab.Chew) 750 mg PO Q4H PRN PRN Reason: Heartburn Enoxaparin Sodium (Enoxaparin Sodium 40 Mg/0.4 Ml Syringe) 40 mg SUBCUT Q24H MIGDALIA Vancomycin HCl (Vancomycin/Ns) 2,000 mg in 500 mls @ 250 mls/hr IV ONCE ONE Stop: 04/17/24 15:07 Last Admin: 04/17/24 14:04 Dose: 250 mls/hr Magnesium Hydroxide (Milk Of Magnesia 30 Ml Oral.Susp) 30 ml PO DAILY PRN PRN Reason: Constipation Melatonin (Melatonin 3 Mg Tablet) 6 mg PO BEDTIME PRN PRN Reason: Insomnia Oxycodone HCl (Oxycodone Hcl Immed Release 5 Mg Tablet) 5 mg PO Q6H PRN PRN Reason: Pain, Moderate(Pain Scale 4-6) Sodium Chloride (0.9 % Sodium Chloride Flush 3 Ml Syringe) [facility] Home Medications ?Medication ?Instructions ?Recorded ?Confirmed ?Last Taken ?Type No Known Home Meds 01/05/24 04/17/24 Unknown History Physical Exam Vital Signs and Narrative: Vital Signs: Last Vital Signs Temp 97.9 F 04/17/24 14:15 Pulse 88 04/17/24 14:15 Resp 16 04/17/24 14:15 BP 113/54 L 04/17/24 14:15 Pulse Ox 96 04/17/24 14:15 O2 Del Method Room Air 04/17/24 14:15 BMI result Body Mass Index 68.4 Const: General: cooperative, no acute distress, alert and awake Nutritional Appearance: obese Orientation/consciousness: patient oriented x3 Resp: Other: diminished Effort & Inspection: normal respiratory effort, able to speak in complete sentences, no respiratory distress and no use of accessory muscles Cardio: Rate: regular rate GI: Other: large area of abdominal wall erythema with warmth; thickened skin. no fluctuance. see below; umbilical hernia Inspection: Yes Abdominal panniculus present Skin: Other: erythema with warmth, peeling skin Neuro: General: patient oriented x3, moves all extremities and CN's II-XI intact bilaterally Results Labs 04/17/24 12:04 04/17/24 12:04 Labs: Laboratory Results - last 24 hr 04/17/24 04/17/24 04/17/24 12:04 13:05 13:26 MCV 89.3 MCH 30.6 MCHC 34.3 RDW 14.2 Plt Count 262 MPV 9.3 L Immature Gran % (Auto) 0.5 H Neut % (Auto) 76.7 H Lymph % (Auto) 11.7 L [place] % (Auto) 10.6 Eos % (Auto) 0.1 Baso % (Auto) 0.4 Lymph # (Auto) 1.1 L [place] # (Auto) 1.0 Eos # (Auto) 0.0 Baso # (Auto) 0.0 Abs Immat Gran (auto) 0.05 H Absolute Neuts (auto) 7.3 Absolute Nucleated RBC 0.000 Nucleated RBC % (auto) 0.0 ESR 75 H Anion Gap 13 Estim Creat Clear Calc 271.9 Estimated GFR > 60 Random Glucose 108 Lactic Acid 1.2 Calcium 9.0 Total Bilirubin 0.8 AST 37 ALT 56 H Alkaline Phosphatase 117 C-Reactive Protein 35.67 H Total Protein 7.1 Albumin 3.3 L Assessment and Plan (1) Abdominal wall cellulitis: Status: Acute Plan This is a 34 year old male with history of morbid obesity, RAMIRO noncompliant with CPAP who presents to the emergency department with abdominal wall cellulitis Abdominal wall cellulitis Extensive skin involvement No evidence of sepsis IV vancomycin, Zosyn Blood cultures pending RAMIRO Noncompliant with CPAP, we will order CPAP in-house morbid obesity bmi 68.4 follows in weight loss clinic and has lost over 100 lbs since december 2022 med rec pending at the time of admission DVT prophylaxis-Lovenox Code status full code Patient will likely require 2 midnight stay in the hospital due to extensive nature of abdominal wall cellulitis requiring IV antibiotics and close monitoring to prevent decompensation/worsening infection Quality Stroke Does the patient have a stroke diagnosis?: No VTE Prior VTE?: No VTE Risk Level:: Medical - moderate - high VTE Device Contraindication: N/A - Device Ordered VTE Drug Contraindication: N/A - Med Ordered
[2024-04-17] MEDS: Enoxaparin Sodium 40 MG/0.4 ML SYRINGE SUBCUT (15:34)
[2024-04-17 16:03] VITALS: BP 114/60; PULSE 89; RESP 16; TEMP 36.9; O2SAT 99
--- NOTE | 2024-04-17 16:06 | PHA.PROG ---
Admission Date/Time: April 17, 2024 15:01 Indication: skin Weight in k.5 kg Adjusted body weight in Kg: [place] body weight in Kg: Obesity Dosing Indication % IBW: Serum Creatinine - Last 168 Hours 04/17/24 12:04 Creatinine 0.74 Estimated CrCl and GFR - Last 168 Hours 04/17/24 12:04 Estim Creat Clear Calc 271.9 Estimated GFR > 60 Vancomycin Loading Dose: 2000mg x 1 Current Vancomycin Dosing Regimen: 1500mg Q8H Vancomycin Monitoring using AUC goal of 400 - 600 range with trough as surrogate marker: 498 mg/L Date and Time for next Vancomycin Level to be drawn: 04/18 @1200 Pharmacist Comments on Vancomycin Plan: Patient's BMI= 68.4kg beware of dose dumping. Predicted trough of 15mg/L Vancomycin dosing will take advantage of [employer] as a clinical decision support tool that uses Bayesian modeling to calculate individual patient's pharmacokinetic parameters and forecast the patient's drug concentration time course with the target goal AUC 24 range of 400 - 600 mg/L/hr.
[2024-04-17 16:23] VITALS: BP 140/73; PULSE 93; RESP 16; TEMP 37.6; O2SAT 98
[2024-04-17] MEDS: Acetaminophen 325 MG TABLET 650 MG PO (17:13)
[2024-04-17] MEDS: Flu Vacc TS2024-25(6mos up)/PF 0.5 ML SYRINGE IM (17:14)
[2024-04-17 17:31] LABS: Appearance Urine Clear; Color Urine Dark Yellow; Glucose Urine UA Negative (Negative); Leukocyte Esterase Urine Trace (Negative); Nitrite Urine Negative (Negative); Specific Gravity - Urine >= 1.030 (1.005-1.025); UMIC TRIGGER UACC YES; Urine Blood Negative (Negative); Urine Ketones Trace mg/dL (Negative); Urine Protein 30 (1+) mg/dL (Neg-Trace)
[2024-04-17 17:40] LABS: Bacteria Urine Trace (None Seen); Hyaline Casts Urine 0-2 /LPF (0-2); RBC Urine 0-2 /HPF (0-2); WBC Urine 0-5 /HPF (0-5)
--- NOTE | 2024-04-17 18:16 | HO.SKINPHOTO ---
Addendum entered by Taylor Youssef RN 04/17/24 18:36: Redness outlined, timed, and dated with skin maker. Original Note: Abd: Warm, red, peeling. Brad applied. Wound care nurse consulted.
[2024-04-17 19:13] VITALS: BP 140/78; PULSE 91; RESP 16; TEMP 35.6; O2SAT 94
[2024-04-17] MEDS: vancomycin HCL 1,500 MG in 0.9 % Sodium Chloride 500 ML 333.33 MG IV (22:08)
[2024-04-17] MEDS: 0.9 % Sodium Chloride Flush 3 ML SYRINGE IVFLUSH (23:46)
[2024-04-18 03:30] VITALS: BP 146/70; PULSE 90; RESP 16; TEMP 38.1; O2SAT 95
[2024-04-18] MEDS: Acetaminophen 325 MG TABLET 650 MG PO ×2 (03:37→21:18)
[2024-04-18 05:02] VITALS: TEMP 36.7
[2024-04-18] MEDS: Piperacillin Sodium/Tazobactam 4.5 GM in 0.9 % Sodium Chloride 100 ML IV ×3 (05:03→21:05)
[2024-04-18 06:18] LABS: Anion Gap 13 (12-20); Blood Urea Nitrogen 6 mg/dL (9-16); Calcium 8.3 mg/dL (8.4-10.2); Carbon Dioxide 25 mmol/L (22-29); Chloride 99 mmol/L (96-108); Creatinine Clr Calc Pharmacy 291.6; Estimated Glomerular Filt Rate > 60; Glucose Random 98 mg/dL (60-115); Potassium 3.2 mmol/L (3.3-5.1); Sodium 134 mmol/L (135-145)
[2024-04-18] MEDS: vancomycin HCL 1,500 MG in 0.9 % Sodium Chloride 500 ML 333.33 MG IV (06:26)
[2024-04-18 07:53] VITALS: BP 156/81; PULSE 80; RESP 20; TEMP 36.1; O2SAT 96
[2024-04-18] MEDS: Potassium Chloride ER 20 MEQ TAB.ER.PRT 40 MEQ PO (09:02)
--- NOTE | 2024-04-18 10:52 | MHC.CM.PN ---
PATIENT LIVES IN A HOME W/ MOTHER AND GIRLFRIEND. FUNCTIONALLY INDEPENDENT. HAS CPAP, BUT ISN'T CURRENTLY USING, SUPPLIES VIA [employer]. STATES HE WAS ACTIVE W/ WILLIAM VILLALTA DO FOR PCP. HOWEVER, HE REPORTS HIS INSURANCE RECENTLY CHANGED AND DR VILLALTA DOES NOT ACCEPT HIS INSURANCE. HE IS WORKING ON SETTING UP APPT W/ NEW PCP. NO HCP. CM PROVIDED EDUCATION AND OFFERED ASSISTANCE. PATIENT DECLINED. DP: GOAL IS HOME SELF CARE, MOTHER TO TRANSPORT. CM WILL CONTINUE TO FOLLOW.
--- NOTE | 2024-04-18 12:09 | HO.WOUND ---
Wound Consult: Initial 34yr old?male admitted [place] [facility] [place] - See progress notes and H&P for detailed history.? Wound consult placed for Abdominal Cellulitis.? Patient agreeable to assessment and photo documentation.? Patient reports he had interdry in place but did not like the product in that location so removed it. He reports he has drainage from the umbilicus area which he gets on occasion. He reports his oupt bariatric provider is aware of this and there is not treatment for it. He reports they attribute the drainage on occasion to the hernias he has in this location. He reports he is actively under their care in hopes of bariatric surgery, he currently is working to loose weight to qualify. His umbillicus area was assessed and probed no open areas note - no tunneling no wound noted - there is maceration and friction noted to the area. Dry gauze placed at patient request did not want to use interdry to the area. Once swelling decreased drainage will likely decrease and healing likely to occur as is the normal course for this area according to the patient. The left inferior area of the pannus abdomen was assessed he has what appears to be Papillomatous Plaques which are common in chronic swelling / lymphedema patients. They are benign round bumps on the skin surface. The inferior aspect is noted for white macerated tissue surrounded by dry flaking tissue. The patient was advised to cover the area while is it draining he was agreeable to this and ABD pad was taped in place. The area continues to be red but appears to be receding as it is below the skin marking. Per pt statement he feels area is less red in color as well, he reports feeling improved since admission. Abdomen Etiology: MASD Wound Bed: moist white epidermal layer Drainage / Odor: clear no odor serous fluid Edges: ? irregular [place] wound: Red swelling ?noted Pain: denies Goals of Treatment: ? Moisture management with ABD pads, Brad spray to protect skin from moisture and friciton Bariatric bed in use. Recommendations: 1. Umbilicus and Pannus abdomen - Cleanse with Brad [place], pay dry. Apply dry gauze and ABD pad to oozing area on inferior aspect of abdomen. May place dry gauze in umbilicus if oozing is noted. Change Daily and PRN. Re-consult wound care Nurse for wound deterioration or wound changes.
[2024-04-18 13:07] LABS: Vancomycin Random 9.5 mcg/mL (15-20)
[2024-04-18] MEDS: vancomycin/NS 2,000 MG/500 ML PLAST..BAG 250 MG IV ×2 (14:14→22:06)
--- NOTE | 2024-04-18 15:45 | P.PNIM_ITS ---
Subjective Subjective Date of Service: 04/18/24 Interval History: seen and examined this morning follow up for abdominal wall cellulitis no overnight events Physical Exam 2 Vital Signs: Vital Signs: Last Vital Signs Temp 96.9 F 04/18/24 07:53 Pulse 80 04/18/24 07:53 Resp 20 04/18/24 07:53 BP 156/81 H 04/18/24 07:53 Pulse Ox 96 04/18/24 07:53 O2 Del Method Room Air 04/18/24 07:53 BMI result Body Mass Index 68.4 Const: General: cooperative, no acute distress, alert and awake Nutritional Appearance: obese Orientation/consciousness: patient oriented x3 Resp: Other: diminished Effort & Inspection: normal respiratory effort, able to speak in complete sentences, no respiratory distress and no use of accessory muscles Cardio: Rate: regular rate GI: Other: large area of abdominal wall erythema with warmth; thickened skin. no fluctuance. see below; umbilical hernia Inspection: Yes Abdominal panniculus present Skin: Other: remains with diffuse erythema, has not spread outside demarcation line; dry flaking tissue Neuro: General: patient oriented x3, moves all extremities and CN's II-XI intact bilaterally Extrem: General: Yes no pedal edema Objective Data Active Medications Acetaminophen (Acetaminophen 325 Mg Tablet) 650 mg PO Q6H PRN PRN Reason: Pain, Mild (Pain Scale 1-3), fever or headache Last Admin: 04/18/24 03:37 Dose: 650 mg Documented By: JANIE Calcium Carbonate (Calcium Carbonate 750 Mg Tab.Chew) 750 mg PO Q4H PRN PRN Reason: Heartburn Enoxaparin Sodium (Enoxaparin Sodium 40 Mg/0.4 Ml Syringe) 40 mg SUBCUT Q24H [facility] Last Admin: 04/17/24 15:34 Dose: 40 mg Documented By: ROSELINE Piperacillin Sod/Tazobactam (Sod 4.5 gm/ Sodium Chloride) 100 mls @ 200 mls/hr IV Q8H [facility] Last Infusion: 04/18/24 14:14 Dose: Infused Documented By: ELENA Vancomycin HCl (Vancomycin/Ns) 2,000 mg in 500 mls @ 250 mls/hr IV Q8H [facility] Last Admin: 04/18/24 14:14 Dose: 250 mls/hr Documented By: ELENA Magnesium Hydroxide (Milk Of Magnesia 30 Ml Oral.Susp) 30 ml PO DAILY PRN PRN Reason: Constipation Melatonin (Melatonin 3 Mg Tablet) 6 mg PO BEDTIME PRN PRN Reason: Insomnia Oxycodone HCl (Oxycodone Hcl Immed Release 5 Mg Tablet) 5 mg PO Q6H PRN PRN Reason: Pain, Moderate(Pain Scale 4-6) Pharmacy Consult (Consult Rx Vancomycin Dosing) 1 each MISCELLANE DAILY PRN PRN Reason: Consult order Sodium Chloride (0.9 % Sodium Chloride Flush 3 Ml Syringe) [facility] Last Admin: 04/18/24 15:40 Dose: Not Given Documented By: ELENA Non-Admin Reason: IV Running Labs 04/17/24 12:04 04/18/24 05:23 Labs: Laboratory Results - last 24 hr 04/17/24 04/18/24 04/18/24 17:10 05:23 12:22 Hold Purple Top SEE NOTE Anion Gap 13 Estim Creat Clear Calc 291.6 Estimated GFR > 60 Random Glucose 98 Calcium 8.3 L D Urine Color Dark Yellow Urine Appearance Clear Urine pH 6.0 Ur Specific [place] >= 1.030 H Urine Protein 30 (1+) H Urine Glucose (UA) Negative Urine Ketones Trace Urine Blood Negative Urine Nitrite Negative Ur Leukocyte Esterase Trace H Urine RBC 0-2 Urine WBC 0-5 Ur Squamous Epith Cells 3-5 Urine Bacteria Trace Hyaline Casts 0-2 Random Vancomycin 9.5 L Microbiology Microbiology Results: Microbiology 04/17/24 13:26 Blood Culture - Preliminary Blood - Venous No growth after 24 hours. 04/17/24 13:15 Blood Culture - Preliminary Blood - Venous No growth after 24 hours. Assessment and Plan (1) Abdominal wall cellulitis: Status: Acute Plan This is a 34 year old male with history of morbid obesity, RAMIRO noncompliant with CPAP who presents to the emergency department with abdominal wall cellulitis Abdominal wall cellulitis Extensive skin involvement No evidence of sepsis continue IV vancomycin, Zosyn Blood cultures negative to date monitor renal function while on vanco acute hypokalemia likely due to decreased po intake over the past several days po replacement ordered follow BMP RAMIRO Noncompliant with CPAP, continue in-house morbid obesity bmi 68.4 follows in weight loss clinic and has lost over 100 lbs since december 2022 working toward surgical intervention asthma, unspecified no acute exacerbation no meds on med rec DVT prophylaxis-Lovenox Code status full code requires ongoing inpatient stay due to extensive nature of abdominal wall cellulitis requiring IV antibiotics and close monitoring to prevent decompensation/worsening infection Quality Stroke Does the patient have a stroke diagnosis?: No VTE Prior VTE?: No VTE Risk Level:: Medical - moderate - high VTE Device Contraindication: N/A - Device Ordered VTE Drug Contraindication: N/A - Med Ordered
[2024-04-18 16:00] VITALS: BP 135/68; PULSE 82; RESP 20; TEMP 36.5; O2SAT 99
[2024-04-18] MEDS: Enoxaparin Sodium 40 MG/0.4 ML SYRINGE SUBCUT (16:09)
[2024-04-18 19:40] VITALS: BP 130/59; PULSE 83; RESP 20; TEMP 36.6; O2SAT 98
[2024-04-18] MEDS: 0.9 % Sodium Chloride Flush 3 ML SYRINGE IVFLUSH (21:05)
[2024-04-18] MEDS: guaiFEN/Codeine SF 200/20/10ML 10 ML LIQUID 5 ML PO (21:19)
--- NOTE | 2024-04-18 21:21 | MHC.PIE ---
p; pt c/o cough asking for cough med i; dr mosher notified; new order robitussin ac q6 prn e; will cont to monitor
[2024-04-19] MEDS: Melatonin 3 MG TABLET 6 MG PO ×2 (01:44→20:41)
[2024-04-19] MEDS: oxyCODONE HCl Immed Release 5 MG TABLET PO (01:44)
[2024-04-19 04:00] VITALS: BP 140/76; PULSE 85; RESP 16; TEMP 37; O2SAT 92
[2024-04-19] MEDS: Piperacillin Sodium/Tazobactam 4.5 GM in 0.9 % Sodium Chloride 100 ML IV ×3 (04:13→20:40)
--- NOTE | 2024-04-19 04:38 | MHC.PIE ---
p; vanco trough low 13.0. note; next scheduled vanco on hold per previous shift pharmacist. i; overnight pharmacy notified, ? no note from pharmacist from previous shift? cont to hold till AM e; will cont to moniotor
--- NOTE | 2024-04-19 06:18 | HE.PHANOTE ---
Re: Mariyao Pt has good renal function. Trough returned at 13.0, pt is therapeutic. Continue dose at 2,000mg q8h. Next trough in 24 hours, 04/20 @ 0500.
[2024-04-19] MEDS: vancomycin/NS 2,000 MG/500 ML PLAST..BAG 250 MG IV ×2 (06:27→15:58)
[2024-04-19 07:46] VITALS: BP 139/90; PULSE 86; RESP 18; TEMP 37.8; O2SAT 93
[2024-04-19 10:20] LABS: Hematocrit 35.5 % (42.0-52.0); Mean Corpuscular HGB Conc 33.8 g/dl (31.0-36.0); Mean Corpuscular Hemoglobin 30.5 pg (27.0-33.0); Mean Corpuscular Volume 90.1 fL (80.0-98.0); Mean Platelet Volume 9.3 fL (9.4-12.4); Platelet Count 291 X10*3/uL (160-400); Red Blood Count 3.94 X10*6/uL (4.60-5.80); Red Cell Distribution Width 14.4 % (11.0-16.0); White Blood Count 9.3 X10*3/uL (4.8-10.8)
--- NOTE | 2024-04-19 10:31 | MHC.CM.PN ---
Patient not medically cleared for dc. CM will continue to follow.
[2024-04-19 10:36] LABS: Anion Gap 11 (12-20); Blood Urea Nitrogen 5 mg/dL (9-16); Calcium 8.2 mg/dL (8.4-10.2); Carbon Dioxide 28 mmol/L (22-29); Chloride 100 mmol/L (96-108); Creatinine Clr Calc Pharmacy 287.5; Estimated Glomerular Filt Rate > 60; Glucose Random 153 mg/dL (60-115); Potassium 3.1 mmol/L (3.3-5.1); Sodium 136 mmol/L (135-145)
--- NOTE | 2024-04-19 14:02 | HO.PM.IMPN ---
Subjective Subjective Date of Service: 04/19/24 Interval History: No acute issues overnight. Tolerating therapies Review of Systems Denies chest pain Denies shortness of breath Denies nausea vomiting diarrhea Denies fever chills Physical Exam Vital Signs: Vital Signs: Last Vital Signs Temp 100.1 F 04/19/24 07:46 Pulse 86 04/19/24 07:46 Resp 18 04/19/24 07:46 BP 139/90 H 04/19/24 07:46 Pulse Ox 93 04/19/24 07:46 O2 Del Method Room Air 04/19/24 07:46 BMI result Body Mass Index 68.4 Const: Other: Awake alert no acute distress Resp: Other: Clear to auscultation bilaterally no rales rhonchi or wheezes Cardio: Other: No S4; positive S1-S2; no S3 murmurs rubs or gallops GI: Other: Soft nontender nondistended normoactive bowel sounds; obese Skin: Other: Erythema persistent approximately 5 cm above umbilicus across entire lower abdomen. Initial line drawn on admission; essentially no improvement noted. Erythema extending to demarcated line Extrem: Other: No edema bilateral Objective Data Active Medications Acetaminophen (Acetaminophen 325 Mg Tablet) 650 mg PO Q6H PRN PRN Reason: Pain, Mild (Pain Scale 1-3), fever or headache Last Admin: 04/18/24 21:18 Dose: 650 mg Documented By: ROBBIN Calcium Carbonate (Calcium Carbonate 750 Mg Tab.Chew) 750 mg PO Q4H PRN PRN Reason: Heartburn Enoxaparin Sodium (Enoxaparin Sodium 40 Mg/0.4 Ml Syringe) 40 mg SUBCUT Q24H [facility] Last Admin: 04/18/24 16:09 Dose: 40 mg Documented By: ELENA Guaifenesin/Codeine Phosphate (Guaifen/Codeine Sf 200/20/10ml 10 Ml Liquid) 5 ml PO Q6H PRN PRN Reason: Cough Last Admin: 04/18/24 21:19 Dose: 5 ml Documented By: ROBBIN Piperacillin Sod/Tazobactam (Sod 4.5 gm/ Sodium Chloride) 100 mls @ 200 mls/hr IV Q8H [facility] Last Infusion: 04/19/24 13:57 Dose: Infused Documented By: DARCY Vancomycin HCl (Vancomycin/Ns) 2,000 mg in 500 mls @ 250 mls/hr IV Q8H [facility] Last Admin: 04/19/24 06:30 Dose: Not Given Documented By: ROBBIN Non-Admin Reason: Previously Administered Comments: duplicate? vanco 2g given under older order, pharmacy notified and aware Magnesium Hydroxide (Milk Of Magnesia 30 Ml Oral.Susp) 30 ml PO DAILY PRN PRN Reason: Constipation Melatonin (Melatonin 3 Mg Tablet) 6 mg PO BEDTIME PRN PRN Reason: Insomnia Last Admin: 04/19/24 01:44 Dose: 6 mg Documented By: ROBBIN Oxycodone HCl (Oxycodone Hcl Immed Release 5 Mg Tablet) 5 mg PO Q6H PRN PRN Reason: Pain, Moderate(Pain Scale 4-6) Last Admin: 04/19/24 01:44 Dose: 5 mg Documented By: ROBBIN Pharmacy Consult (Consult Rx Vancomycin Dosing) 1 each MISCELLANE DAILY PRN PRN Reason: Consult order Sodium Chloride (0.9 % Sodium Chloride Flush 3 Ml Syringe) 3 ml IVFLUSH QSHIFT [facility] Last Admin: 04/19/24 10:46 Dose: Not Given Documented By: DARCY Non-Admin Reason: Previously Administered Labs 04/19/24 10:08 04/19/24 10:08 Labs: Laboratory Results - last 24 hr 04/19/24 04/19/24 04:05 10:08 MCV 90.1 MCH 30.5 MCHC 33.8 RDW 14.4 Plt Count 291 MPV 9.3 L Absolute Nucleated RBC 0.000 Nucleated RBC % (auto) 0.0 Anion Gap 11 L Estim Creat Clear Calc 287.5 Estimated GFR > 60 Random Glucose 153 H Calcium 8.2 L Random Vancomycin 13.0 L Microbiology Microbiology Results: Microbiology 04/17/24 13:26 Blood Culture - Preliminary Blood - Venous No growth after 24 hours. 04/17/24 13:15 Blood Culture - Preliminary Blood - Venous No growth after 24 hours. Assessment and Plan (1) Abdominal wall cellulitis: Status: Acute Plan This is a 34 year old male with history of morbid obesity, RAMIRO noncompliant with CPAP who presents to the emergency department with abdominal wall cellulitis 1.Abdominal wall cellulitis -minimal improvement since admission -vancomycin/ Zosyn (3) -blood cultures negative x 24hrs 2.Acute hypokalemia -essentially no response to p.o. therapies -re-dose 40 mEq b.i.d. x4 doses -follow renal/divalents 3.RAMIRO -CPAP as ordered Lovenox Full code Requires ongoing inpatient stay due to extensive nature of abdominal wall cellulitis requiring IV antibiotics and minimal response to therapies Quality Stroke Does the patient have a stroke diagnosis?: No VTE Prior VTE?: No VTE Risk Level:: Medical - moderate - high VTE Device Contraindication: N/A - Device Ordered VTE Drug Contraindication: N/A - Med Ordered
[2024-04-19] MEDS: Potassium Chloride Packet 20 MEQ PACKET 40 MEQ PO ×2 (15:10→20:41)
[2024-04-19] MEDS: Enoxaparin Sodium 40 MG/0.4 ML SYRINGE SUBCUT (15:10)
[2024-04-19 15:21] VITALS: BP 142/75; PULSE 87; RESP 18; TEMP 36.1; O2SAT 97
[2024-04-19] MEDS: 0.9 % Sodium Chloride Flush 3 ML SYRINGE IVFLUSH ×2 (15:59→20:41)
[2024-04-19 19:09] VITALS: BP 138/70; PULSE 89; RESP 18; TEMP 36.4; O2SAT 97
[2024-04-19] MEDS: Acetaminophen 325 MG TABLET 650 MG PO (19:40)
[2024-04-19] MEDS: Albuterol/Iprat 2.5/0.5MG 3 ML AMPUL.NEB INHALE (20:45)
[2024-04-19 20:48] VITALS: PULSE 81; O2SAT 97
[2024-04-19 21:38] LABS: Vancomycin Random 15.7 mcg/mL (15-20)
[2024-04-19] MEDS: vancomycin HCL 1,500 MG in 0.9 % Sodium Chloride 500 ML 333.33 MG IV (22:46)
[2024-04-20 03:25] VITALS: BP 142/67; PULSE 89; RESP 18; TEMP 36.3; O2SAT 94
[2024-04-20] MEDS: Piperacillin Sodium/Tazobactam 4.5 GM in 0.9 % Sodium Chloride 100 ML IV ×3 (04:52→20:58)
[2024-04-20 05:26] LABS: Basophils Absolute Auto 0.1 X10*3/uL (0.0-0.2); Basophils Percent Auto 0.8 % (0-2); Eosinophils Absolute Auto 0.6 X10*3/uL (0.0-0.4); Eosinophils Percent Auto 5.6 % (0-4); Hematocrit 35.5 % (42.0-52.0); Imm Gran Abs Auto 0.48 X10*3/uL (0.00-0.03); Imm Gran Pct Auto 4.7 % (0.0-0.4); Lymphocytes Absolute Auto 2.1 X10*3/uL (1.2-4.9); Lymphocytes Percent Auto 20.4 % (20-40); MANUAL DIFF FLAG SCAN; Mean Corpuscular HGB Conc 33.8 g/dl (31.0-36.0); Mean Corpuscular Hemoglobin 30.2 pg (27.0-33.0); Mean Corpuscular Volume 89.2 fL (80.0-98.0); Mean Platelet Volume 9.2 fL (9.4-12.4); Monocytes Absolute Auto 1.1 X10*3/uL (0.1-1.2); Monocytes Percent Auto 10.6 % (2-11); Neutrophils Absolute Auto 5.9 x10*3/uL (2.0-8.3); Neutrophils Percent Auto 57.9 % (45-73); Platelet Count 375 X10*3/uL (160-400); Red Blood Count 3.98 X10*6/uL (4.60-5.80); Red Cell Distribution Width 14.5 % (11.0-16.0); SCAN SMEAR FLAG 1; White Blood Count 10.1 X10*3/uL (4.8-10.8)
[2024-04-20 05:40] LABS: Alanine Aminotransferase 35 U/L (0-40); Albumin Level 2.9 g/dL (3.5-5.0); Alkaline Phosphatase 103 U/L (39-117); Anion Gap 14 (12-20); Aspartate Amino Transferase 28 U/L (5-37); Bilirubin Total 0.6 mg/dL (0.0-1.0); Blood Urea Nitrogen 5 mg/dL (9-16); Calcium 8.5 mg/dL (8.4-10.2); Carbon Dioxide 29 mmol/L (22-29); Chloride 100 mmol/L (96-108); Creatinine Clr Calc Pharmacy 271.9; Estimated Glomerular Filt Rate > 60; Glucose Fasting 122 mg/dL (60-99); Potassium 3.6 mmol/L (3.3-5.1); Sodium 139 mmol/L (135-145); Total Protein 6.8 g/dL (6.5-8.0)
[2024-04-20 05:45] LABS: SLIDE REVIEW VERIFIED
[2024-04-20] MEDS: vancomycin HCL 1,500 MG in 0.9 % Sodium Chloride 500 ML 333.33 MG IV (06:43)
[2024-04-20 07:39] VITALS: BP 149/81; PULSE 88; RESP 19; TEMP 37.5; O2SAT 95
[2024-04-20] MEDS: Potassium Chloride Packet 20 MEQ PACKET 40 MEQ PO ×3 (08:23→20:58)
[2024-04-20] MEDS: Acetaminophen 325 MG TABLET 650 MG PO ×2 (08:45→23:06)
[2024-04-20 09:11] VITALS: PULSE 78; RESP 18; O2SAT 99
[2024-04-20] MEDS: Albuterol/Iprat 2.5/0.5MG 3 ML AMPUL.NEB INHALE ×2 (09:11→19:34)
[2024-04-20 13:37] LABS: Vancomycin Random 12.1 mcg/mL (15-20)
--- NOTE | 2024-04-20 13:38 | P.PNIM_ITS ---
Subjective Subjective Date of Service: 04/20/24 Interval History: No acute issues overnight. Remains tolerant of therapy Review of Systems Denies chest pain Denies shortness of breath Denies nausea vomiting diarrhea Denies fever chills Physical Exam 2 Vital Signs: Vital Signs: Last Vital Signs Temp 99.5 F 04/20/24 07:39 Pulse 78 04/20/24 09:11 Resp 18 04/20/24 09:11 BP 149/81 H 04/20/24 07:39 Pulse Ox 95 04/20/24 07:39 O2 Del Method Room Air 04/20/24 07:39 BMI result Body Mass Index 68.4 Const: Other: Awake alert no acute distress Resp: Other: Clear to auscultation bilaterally no rales rhonchi or wheezes Cardio: Other: No S4; positive S1-S2; no S3 murmurs rubs or gallops GI: Other: Soft nontender nondistended normoactive bowel sounds; obese Skin: Other: Erythema persistent approximately 5 cm above umbilicus across entire lower abdomen. Initial line drawn on admission; essentially no improvement noted. Erythema extending to demarcated line Extrem: Other: No edema bilateral Objective Data Active Medications Acetaminophen (Acetaminophen 325 Mg Tablet) 650 mg PO Q6H PRN PRN Reason: Pain, Mild (Pain Scale 1-3), fever or headache Last Admin: 04/20/24 08:45 Dose: 650 mg Documented By: JASKARAN Albuterol/Ipratropium (Albuterol/Iprat 2.5/0.5mg 3 Ml Ampul.Neb) 3 ml INHALE RQ4H WHILE AWAKE PRN PRN Reason: Shortness of Breath/Wheezing Last Admin: 04/20/24 09:11 Dose: 3 ml Documented By: LA Calcium Carbonate (Calcium Carbonate 750 Mg Tab.Chew) 750 mg PO Q4H PRN PRN Reason: Heartburn Enoxaparin Sodium (Enoxaparin Sodium 40 Mg/0.4 Ml Syringe) 40 mg SUBCUT Q24H [facility] Last Admin: 04/19/24 15:10 Dose: 40 mg Documented By: DARCY Guaifenesin/Codeine Phosphate (Guaifen/Codeine Sf 200/20/10ml 10 Ml Liquid) 5 ml PO Q6H PRN PRN Reason: Cough Last Admin: 04/18/24 21:19 Dose: 5 ml Documented By: ROBBIN Piperacillin Sod/Tazobactam (Sod 4.5 gm/ Sodium Chloride) 100 mls @ 200 mls/hr IV Q8H [facility] Last Admin: 04/20/24 13:34 Dose: 200 mls/hr Documented By: JASKARAN Vancomycin HCl 1,500 mg/ (Sodium Chloride) 500 mls @ 333.333 mls/hr IV Q8H [facility] Last Infusion: 04/20/24 08:16 Dose: Infused Documented By: JASKARAN Magnesium Hydroxide (Milk Of Magnesia 30 Ml Oral.Susp) 30 ml PO DAILY PRN PRN Reason: Constipation Melatonin (Melatonin 3 Mg Tablet) 6 mg PO BEDTIME PRN PRN Reason: Insomnia Last Admin: 04/19/24 20:41 Dose: 6 mg Documented By: ODRISMarlee Oxycodone HCl (Oxycodone Hcl Immed Release 5 Mg Tablet) 5 mg PO Q6H PRN PRN Reason: Pain, Moderate(Pain Scale 4-6) Last Admin: 04/19/24 01:44 Dose: 5 mg Documented By: ROBBIN Pharmacy Consult (Consult Rx Vancomycin Dosing) 1 each MISCELLANE DAILY PRN PRN Reason: Consult order Potassium Chloride (Potassium Chloride Packet 20 Meq Packet) 40 meq PO BID [facility] Stop: 04/20/24 21:01 Last Admin: 04/20/24 08:23 Dose: 40 meq Documented By: JASKARAN Sodium Chloride (0.9 % Sodium Chloride Flush 3 Ml Syringe) 3 ml IVFLUSH QSHIFT [facility] Last Admin: 04/20/24 08:17 Dose: Not Given Documented By: JASKARAN Non-Admin Reason: IV Running Labs 04/20/24 05:03 04/20/24 05:03 Labs: Laboratory Results - last 24 hr 04/19/24 04/20/24 04/20/24 21:03 05:03 13:12 MCV 89.2 MCH 30.2 MCHC 33.8 RDW 14.5 Plt Count 375 D MPV 9.2 L Immature Gran % (Auto) 4.7 H Neut % (Auto) 57.9 Lymph % (Auto) 20.4 [place] % (Auto) 10.6 Eos % (Auto) 5.6 H Baso % (Auto) 0.8 Lymph # (Auto) 2.1 [place] # (Auto) 1.1 Eos # (Auto) 0.6 H Baso # (Auto) 0.1 Abs Immat Gran (auto) 0.48 H Absolute Neuts (auto) 5.9 Absolute Nucleated RBC 0.000 Nucleated RBC % (auto) 0.0 Smear Tech's Comments VERIFIED Anion Gap 14 Estim Creat Clear Calc 271.9 Estimated GFR > 60 Fasting Glucose 122 H Calcium 8.5 Total Bilirubin 0.6 AST 28 ALT 35 Alkaline Phosphatase 103 Total Protein 6.8 Albumin 2.9 L Random Vancomycin 15.7 12.1 L Microbiology Microbiology Results: Microbiology 04/17/24 13:26 Blood Culture - Preliminary Blood - Venous No growth after 48 hours. 04/17/24 13:15 Blood Culture - Preliminary Blood - Venous No growth after 48 hours. Assessment and Plan (1) Abdominal wall cellulitis: Status: Acute Plan This is a 34 year old male with history of morbid obesity, RAMIRO noncompliant with CPAP who presents to the emergency department with abdominal wall cellulitis 1.Abdominal wall cellulitis -minimal improvement since admission but slightly improved since yesterday -vancomycin/ Zosyn (4) -blood cultures negative x 48hrs 2.Acute hypokalemia -some response to p.o. therapies -re-dose 40 mEq b.i.d. x4 additional doses -follow renal/divalents 3.RAMIRO -CPAP as ordered Lovenox Full code Requires ongoing inpatient stay due to extensive nature of abdominal wall cellulitis requiring IV antibiotics and minimal response to therapies Quality Stroke Does the patient have a stroke diagnosis?: No VTE Prior VTE?: No VTE Risk Level:: Medical - moderate - high VTE Device Contraindication: N/A - Device Ordered VTE Drug Contraindication: N/A - Med Ordered
--- NOTE | 2024-04-20 13:46 | HE.PHANOTE ---
Re: Mariyao Stable renal function. Trough returned at 12.1. Current dose is predicted to low with AUC. Dose increased to 1750mg q8h, with predicted AUC 434, predicted trough 11.8. Next trough 04/21 @ 1300.
[2024-04-20] MEDS: vancomycin HCL 1,000 MG, vancomycin HCL 750 MG in 0.9 % Sodium Chloride 500 ML 267.5 MG IV ×2 (14:46→23:06)
[2024-04-20 15:13] VITALS: BP 143/75; PULSE 91; RESP 17; TEMP 36.8; O2SAT 97
[2024-04-20] MEDS: 0.9 % Sodium Chloride Flush 3 ML SYRINGE IVFLUSH ×2 (16:55→20:58)
[2024-04-20] MEDS: Enoxaparin Sodium 40 MG/0.4 ML SYRINGE SUBCUT (16:56)
[2024-04-20 19:31] VITALS: BP 129/81; PULSE 91; RESP 18; TEMP 37; O2SAT 100; O2SAT 97
[2024-04-20] MEDS: Melatonin 3 MG TABLET 6 MG PO (23:06)
[2024-04-21 03:49] VITALS: BP 146/87; PULSE 87; RESP 16; TEMP 36.1; O2SAT 98
[2024-04-21] MEDS: Piperacillin Sodium/Tazobactam 4.5 GM in 0.9 % Sodium Chloride 100 ML IV (04:48)
[2024-04-21] MEDS: Acetaminophen 325 MG TABLET 650 MG PO (04:57)
[2024-04-21] MEDS: vancomycin HCL 1,000 MG, vancomycin HCL 750 MG in 0.9 % Sodium Chloride 500 ML 267.5 MG IV (06:38)
[2024-04-21 07:32] LABS: MANUAL DIFF FLAG NO
[2024-04-21 07:36] LABS: Basophils Absolute Auto 0.1 X10*3/uL (0.0-0.2); Basophils Percent Auto 0.6 % (0-2); Eosinophils Absolute Auto 0.4 X10*3/uL (0.0-0.4); Eosinophils Percent Auto 4.1 % (0-4); Hematocrit 32.7 % (42.0-52.0); Imm Gran Abs Auto 0.37 X10*3/uL (0.00-0.03); Imm Gran Pct Auto 3.6 % (0.0-0.4); Lymphocytes Absolute Auto 2.3 X10*3/uL (1.2-4.9); Mean Corpuscular HGB Conc 33.6 g/dl (31.0-36.0); Mean Corpuscular Volume 89.1 fL (80.0-98.0); Mean Platelet Volume 9.6 fL (9.4-12.4); Monocytes Absolute Auto 1.4 X10*3/uL (0.1-1.2); Monocytes Percent Auto 13.4 % (2-11); Neutrophils Absolute Auto 5.8 x10*3/uL (2.0-8.3); Neutrophils Percent Auto 56.3 % (45-73); Platelet Count 437 X10*3/uL (160-400); Red Blood Count 3.67 X10*6/uL (4.60-5.80); Red Cell Distribution Width 14.5 % (11.0-16.0); White Blood Count 10.3 X10*3/uL (4.8-10.8)
[2024-04-21 07:47] VITALS: BP 132/58; PULSE 79; RESP 18; TEMP 36.6; O2SAT 95
[2024-04-21 07:57] LABS: Alanine Aminotransferase 35 U/L (0-40); Albumin Level 2.7 g/dL (3.5-5.0); Alkaline Phosphatase 80 U/L (39-117); Anion Gap 14 (12-20); Aspartate Amino Transferase 29 U/L (5-37); Bilirubin Total 0.6 mg/dL (0.0-1.0); Blood Urea Nitrogen 6 mg/dL (9-16); Calcium 8.2 mg/dL (8.4-10.2); Carbon Dioxide 26 mmol/L (22-29); Chloride 104 mmol/L (96-108); Creatinine Clr Calc Pharmacy 268.3; Estimated Glomerular Filt Rate > 60; Glucose Fasting 105 mg/dL (60-99); Potassium 3.3 mmol/L (3.3-5.1); Sodium 141 mmol/L (135-145); Total Protein 6.7 g/dL (6.5-8.0)
[2024-04-21] MEDS: Potassium Chloride Packet 20 MEQ PACKET 40 MEQ PO (08:20)
--- NOTE | 2024-04-21 12:25 | PM.DS ---
DS: Providers Provider Date of Service: 04/21/24 Date of admission: 04/17/24 15:01 Date of discharge: 04/21/24 Primary care physician: Gio Pacheco DO, MD Consults: 04/17/24 18:51 Consult to Wound Care Routine Reason for consultation: panniculitis DS: Diagnosis Discharge Diagnosis (1) Abdominal wall cellulitis: Status: Acute DS: Summary Hospital Course Hospital Course: 34 year old male who presents to the ED with several days of chills. Patient reports associated generalized weakness for the past several days. He was seen at [facility] yesterday and was told that he had elevated white blood cell count but no source of infection seemed to be identified at that time. Today he noticed that his lower abdomen appeared hot and on exam he sought redness across his whole lower abdomen. He came to the emergency department for evaluation and was noted to have large area of abdominal wall cellulitis. He was afebrile, leukocytosis within normal range. He received IV vancomycin and IV zosyn and due to the large area affected, he will be admitted for further management. Hosptial Course Patient was admitted to general medical floor and started on Zosyn IV. His response was slow initially and required ongoing antibiotics. He remained hospitalized secondary to high risk of outpatient failure. On the day of discharge his abdominal wall erythema was markedly improved at this point he is medically acceptable for discharge. He will complete a course of Augmentin and follow up with his PCP next available Time Attestation Discharge Coordination Time (in mins): 35 Quality: Safe Use of Opioids Does Pt have an Active Cancer Diagnosis on the Problem List?: No Quality: Stroke Does the patient have a stroke diagnosis?: No Physical Exam Vital Signs: Vital Signs: Last Vital Signs Temp 97.8 F 04/21/24 07:47 Pulse 79 04/21/24 07:47 Resp 18 04/21/24 07:47 BP 132/58 L 04/21/24 07:47 Pulse Ox 95 04/21/24 07:47 O2 Del Method Room Air 04/21/24 07:47 BMI result Body Mass Index 68.4 Const: Other: Awake alert no acute distress Resp: Other: Clear to auscultation bilaterally no rales rhonchi or wheezes Cardio: Other: No S4; positive S1-S2; no S3 murmurs rubs or gallops GI: Other: Soft nontender nondistended normoactive bowel sounds; obese Skin: Other: Minimal erythema over abdomen Extrem: Other: No edema bilateral DS: Data Data Completed and Pending Labs on day of discharge: Laboratory Results - last 24 hr 04/20/24 04/21/24 13:12 05:47 WBC 10.3 RBC 3.67 L Hgb 11.0 L Hct 32.7 L MCV 89.1 MCH 30.0 MCHC 33.6 RDW 14.5 Plt Count 437 H MPV 9.6 Immature Gran % (Auto) 3.6 H Neut % (Auto) 56.3 Lymph % (Auto) 22.0 [place] % (Auto) 13.4 H Eos % (Auto) 4.1 H Baso % (Auto) 0.6 Lymph # (Auto) 2.3 [place] # (Auto) 1.4 H Eos # (Auto) 0.4 Baso # (Auto) 0.1 Abs Immat Gran (auto) 0.37 H Absolute Neuts (auto) 5.8 Absolute Nucleated RBC 0.000 Nucleated RBC % (auto) 0.0 Sodium 141 Potassium 3.3 Chloride 104 Carbon Dioxide 26 Anion Gap 14 BUN 6 L Creatinine 0.75 Estim Creat Clear Calc 268.3 Estimated GFR > 60 Fasting Glucose 105 H Calcium 8.2 L Total Bilirubin 0.6 AST 29 ALT 35 Alkaline Phosphatase 80 Total Protein 6.7 Albumin 2.7 L Random Vancomycin 12.1 L Preliminary micro results at discharge 04/17/24 13:26 Blood Culture - Preliminary Blood - Venous No growth after 48 hours. 04/17/24 13:15 Blood Culture - Preliminary Blood - Venous No growth after 48 hours. Discharge Plan Discharge Anticipated Discharge Date/Time: 04/21/24 12:21 Patient Disposition: Home, Self-Care Discharge Diagnosis: Abdominal wall cellulitis Referrals: Gio Pacheco DO, MD [Primary Care Provider] - 1 Week Discharge Medications: New amoxicillin-pot clavulanate 875-125 mg tablet 1 tab PO BID Qty: 20 0RF Discharge Orders: Discharge Order (Routine); Ordered 04/21/24 Ordered By: Coleman Lemon Diet: Advance to usual diet Activity on Discharge: As tolerated Stand Alone Forms: Patient Portal Discharge page Print Language: Wolof Care Plan Goals: Augmentin 875 twice a day times 10 days has been prescribed complete your therapy for abdominal wall cellulitis Health Concerns: Resume all other meds and therapies as prior to the hospital Plan of Treatment: Follow up with PCP next available Assessment: See discharge summary
--- NOTE | 2024-04-21 12:32 | MHC.CM.PN ---
PT WILL DC HOME TODAY WITH NO SERVICES VIA PRIVATE TRANSPORT
== END 2024-04-21 13:50 | disposition home or self-care (01) | DRG 383 ==
LOC: HO.ED 13:17 → HO.EDOVER 15:05 → HO.S3 15:29
PROVIDERS: Physician Assistant Medical; Admitting Provider Physician Assistant Medical; Emergency Provider Emergency Medicine; PCP Internal Medicine; Visit Provider Hospitalist
DX: L03.311 Cellulitis of abdominal wall (principal); Z68.44 Body mass index [BMI] 60.0-69.9, adult; E66.01 Morbid (severe) obesity due to excess calories; G47.33 Obstructive sleep apnea (adult) (pediatric); Z91.199 Patient's noncompliance with other medical treatment and regimen due to unspecified reason; E87.6 Hypokalemia; K42.9 Umbilical hernia without obstruction or gangrene; Z23 Encounter for immunization; Z79.899 Other long term (current) drug therapy
CPT/HCPCS: 36415; 71045; 80048; 80053; 80202; 81001; 83605; 85025; 85027; 85652; 86140; 87040; 90656; 94640; 99221; 99285; J1650; J2543; J3370; J3371

== ENCOUNTER → 2024-04-17 15:01 | Outpatient (BNV) | payer OTHER, SELFPAY | PROVIDERS: Admitting Provider Physician Assistant Medical; Emergency Provider Emergency Medicine; PCP Internal Medicine; Visit Provider Physician Assistant Medical | DX: L03.311 Cellulitis of abdominal wall (principal) | CPT/HCPCS: 99232; 99239 ==

== ENCOUNTER 2024-04-28 15:21 | Outpatient (AMB) | payer OTHER, SELFPAY ==
--- NOTE | 2024-04-28 15:28 | MHC.OFFVISWM ---
VS Expanded 04/28/24 15:35 BP 172/82 H Blood Pressure Location Rt brachial Blood Pressure Position Sitting Pulse 90 Pulse Source Pulse Oximeter Temp 96.4 F L Temperature Source Temporal Artery Scan Pulse Oximetry 97 Oxygen Delivery Method Room Air Height 5 ft 11 in Weight 472 lb 6.4 oz BMI 65.9 Body Fat % 52.3 Body Fat Mass 247.0 Fat Free Mass 225.4 Visceral Fat Rating 45.0 Body Water % 38.2 Body Water Mass 180.4 Muscle Mass/Score 214.6 Basal Metabolic Rate/Score 3,458 Intake Visit Reasons: (OV) F/U SWL [place] [employer] Required: No Allergies diphenhydramine [From Benadryl] Allergy (Intermediate, Verified 04/28/24 15:47) UNKNOWN doxycycline Allergy (Verified 04/28/24 15:47) Itching Medication List - Last Reconciled 04/28/24 by IRMA Price albuterol sulfate 5 mg inhalation QID PRN amoxicillin-pot clavulanate 875-125 mg 1 tab PO BID ondansetron 4 mg PO Q8H PRN HPI Comments Details: Patient is a 33-year-old male who returns to the office today in follow-up. He began the surgical weight loss program 01/20/2023 with a weight of 618.1 lb and a BMI of 86.2. Weight today is 472.4 lb with a BMI of 65.9. He has lost 145.7 lb or 23.5% total body weight. He states he has been much more consistent with his meal plan and going to the gym. He did have a 4 day period where he couldn't do much due to hernia pain. He is not complaining of any significant hunger as he is now spacing out his shakes and bars. He is satisfied with his weight loss now as he did gain significant weight but has then lost it again. He is completely committed and is excited about the progress he has made. States he is skipping his last shake 6 of 7 days due to forgetting to have it, and not counting the forks at mealtimes. He was hospitalized in March, towards the end of the month for abdominal wall cellulitis requiring several days of IV antibiotics followed by completion of course of outpatient oral Augmentin. He continues taking the outpatient antibiotic and reports the redness of his abdomen has improved. He has however had exacerbation of underlying asthma for which he has been using updraft treatments. 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, I called the office and his new appointment with Dr Lawler 05/04/24 at 1315 pm Celebrate Rebuild protein shake with TWO scoops in 10oz low fat Fairlife milk at 8-10am, Celebrate protein bar 11am-1pm, lunch at 2pm (10 forks of meat and 10 forks of salad or vegetables) Celebrate bar at 4pm-6pm, dinner at 7pm (10 forks of meat and 10 forks of salad or vegetables) Celebrate Rebuild protein shake with TWO scoops in 10oz low fat Fairlife milk at 8-10pm drinking 80-96 oz water exercise plan: treadmill 5oo calories 5-6 days per week stationary bike 2-3 x per week 100 micheal [facility] Medical History Obstructive sleep apnea (~2012) Morbid obesity Asthma GERD (gastroesophageal reflux disease) SARIKA (generalized anxiety disorder) Surgical History History of dental surgery (~1998) Family History Mother No problems noted. Father Diabetes Social History Household Members: Spouse, Family and Children Housing: Apartment Do you presently have visiting nurse or other home services: No Alcohol intake: current Alcohol intake frequency: a few times a month Patient Tobacco Use Status: Never used Tobacco e-Cigarette/Vaping Use: Former Use Substance Use Type: Marijuana service: No Physical Exam Resp Other: Coarse breath sounds left base right relatively clear, no wheezing Skin Other: Fading brawny erythema of the lower abdomen Assessment & Plan Assessment & Plan (1) Morbid obesity: Code(s): E66.01 - Morbid (severe) obesity due to excess calories Category: Medical Plan: Given patient's recent hospitalization, he has been unable to exercise. He will return to the meal plan as he had loss of appetite while he was ill, he has since now recovering and we will returned to the meal plan. Additionally, he will resume exercise as his physical strength returns as well. He is completely engaged in the weight loss program and very committed to the process. We will have him return to the office in approximately 1 month.
[2024-04-28 15:35] VITALS: BP 172/82; PULSE 90; TEMP 35.8; O2SAT 97; BMI 65.9
== END 2024-04-28 15:52 | disposition home or self-care (01) ==
PROVIDERS: PCP Internal Medicine; Visit Provider Physician Assistant Surgical
DX: E66.01 Morbid (severe) obesity due to excess calories (principal)
CPT/HCPCS: 99213; G2211

== ENCOUNTER → 2024-04-28 15:21 | Outpatient (BNVA) | payer OTHER, SELFPAY | PROVIDERS: PCP Internal Medicine; Visit Provider Physician Assistant Surgical | DX: E66.01 Morbid (severe) obesity due to excess calories (principal); Z71.3 Dietary counseling and surveillance; Z68.44 Body mass index [BMI] 60.0-69.9, adult | CPT/HCPCS: 99212 ==

== ENCOUNTER 2024-05-04 13:11 | Outpatient (AMB) | payer OTHER, SELFPAY ==
--- NOTE | 2024-05-04 13:13 | A.OFFPC_ITS ---
Vital Signs 05/04/24 13:22 05/04/24 14:03 Height 5 ft 11 in Weight 479 lb BMI 66.8 BP 182/106 H 126/82 Blood Pressure Location Rt brachial Rt brachial Position Sitting Sitting Respiration 16 Pulse 86 Pulse Source Pulse Oximeter Temp 97.0 F Temp Source Temporal Artery Scan Pulse Oximetry (%) 97 Oxygen Delivery Method Room Air Intake Visit Reasons: [employer] // PE Request Intake Note: patient here for new patient visit. Manager Union Required: No Allergies diphenhydramine [From Benadryl] Allergy (Intermediate, Verified 05/04/24 13:31) UNKNOWN doxycycline Allergy (Verified 05/04/24 13:31) Itching Medication List - Last Reconciled 05/04/24 by Sparkle Lawler CNP albuterol sulfate 5 mg inhalation QID PRN amoxicillin-pot clavulanate 875-125 mg 1 tab PO BID ondansetron 4 mg PO Q8H PRN Tobacco use date assessed: 05/04/24 Dental Screening Dental Screen Date: 05/04/24 Did you have a dental visit in the last 12 months?: Yes Did you have a dental problem in the last 6 months where you did not have access to dental care?: No Was dental information given to patient?: Patient has dentist HPI HPI Comments History of Present Illness Details New patient Prior PCP:?Dr. Junior Danielle Last office visit: Early 2023 Last CPE: Late 2022 The patient is a 34-year-old male presenting for a new patient visit to [facility]. He was recently hospitalized from April 17 to April 21 at [place] for abdominal wall cellulitis. During his hospitalization, he was treated with intravenous antibiotics and subsequently prescribed Augmentin, which he completed on the Wednesday of the week of this visit. The cellulitis has mostly resolved, with only dry skin remaining. While hospitalized, he developed pulmonary symptoms, attributed possibly to prolonged bed rest. He started nebulization therapy during the hospital stay and continued using his nebulizer at home for approximately two and a half weeks post-discharge. Though his condition is improving, he reports persistent cough and variable vocal quality. His asthma and obstructive sleep apnea are ongoing conditions; he uses an albuterol inhaler as needed and a CPAP machine. His sleep was affected when his CPAP was not in use. The patient also has a history of GERD, morbid obesity, anxiety, and depression. He is not currently on his anxiety medication due to prescription renewal issues and uses melatonin for sleep. He reports improvement in mood and well-being post-hospitalization. Medication - Albuterol sulfate 5mg QID PRN - Albuterol updraft - Ondansetron 4 mg Q8H PRN - Melatonin 5-10 mg QHS Health Maintenance - Flu vaccine administered during recent hospitalization - Discussion about possible tetanus vacc ine update due to lack of recent record - Last eye exam was 1-2 years ago. Refer ral for annual eye examination recommended. - Encouraged continuation of exercise an d healthy diet as part of weight management and mental health support. - Last dental visit was in July or 2023 Social History - Occasional alcohol use: four to six dr inks once a month - Recreational marijuana use: one to two blunts one to two times weekly - Nonsmoker - Experiences anxiety, which affects lif estyle and weight management - Engaged in a weight loss program PMHx: Asthma, RAMIRO (on cpap), GERD, morbid obesity, anxiety, and depression SurgHx: Tonsillectomy FHx: Mom: Neck cancer. Dad: Diabetes. MGM: Alcohol abuse, multiple cancer, including lung and thyroid Eye exam: 1-2 years ago. Will refer to ophthlamology [facility] Medical History (Updated 05/04/24 @ 14:29 by Sparkle Lawler CNP) Depression Anxiety Obstructive sleep apnea (~2012) Morbid obesity Asthma GERD (gastroesophageal reflux disease) SARIKA (generalized anxiety disorder) Surgical History History of dental surgery (~1998) Family History (Updated 05/04/24 @ 13:32 by Nabila Cruz) Mother FH: mental illness Cancer Father Diabetes Maternal Grandmother Alcohol abuse Cancer Sister FH: mental illness Diabetes Social History Household Members: Spouse, Family and Children Housing: Apartment Do you presently have visiting nurse or other home services: No Alcohol intake: current Alcohol intake frequency: a few times a month Patient Tobacco Use Status: Never used Tobacco e-Cigarette/Vaping Use: Former Use Substance Use Type: Marijuana service: No Cognitive needs: No Hearing needs: No Vision needs: No Questionnaire PHQ-9 Over the last 2 weeks, how often have you been bothered by any of the following problems? 1. Little interest or pleasure in doing things: not at all 2. Feeling down, depressed, or hopeless: not at all 3. Trouble falling or staying asleep, or sleeping too much: several days 4. Feeling tired or having little energy: several days 5. Poor appetite or overeating: not at all 6. Feeling bad about yourself - or that you are a failure or have let yourself or your family down: not at all 7. Trouble concentrating on things, such as reading the newspaper or watching television: not at all 8. Moving or speaking so slowly that other people could have noticed. Or the opposite - being so fidgety or restless that you have been moving around a lot more than usual: not at all 9. Thoughts that you would be better off or of hurting yourself in some way: not at all Total score: 2 Depression Screening Interpretation: Negative Depression Screening Done: Yes 11960 - PHQ-9 Billing: Yes Source: Developed by Drs. Hayden Thayer, Liat Grace, Uriel Chavis and colleagues, with an educational lisa from [employer]. Thrive Questionnaire Date Thrive assessed: 05/04/24 I am a: Patient What is your living situation today?: I have a steady place to live Within the past 12 months, did the food you bought not last and you didn't have the money to get more?: I choose not to answer this question Within the past 12 months, did you worry whether your food would run out before you got money to buy more?: Never true Do you have trouble paying for medicines?: No Do you have trouble getting transportation to medical appointments?: No Do you have trouble paying your heating and electricity bill?: No Do you have trouble taking care of your child, family member or friend?: No Do you have trouble with day-to-day activities such as bathing, preparing meals, shopping, managing finances, etc.?: No Are you currently unemployed and looking for a job?: No Are you interested in more education?: No Please select the resources that you would like help with: None Currently or been in a relationship where the following occur: No concerns reported THRIVE Score: 0 AUDIT C Alcohol Use Questionnaire (AUDIT-C) 1. How often do you have a drink containing alcohol?: Monthly or less 2. How many drinks containing alcohol do you have on a typical day when you are drinking?: 3 or 4 3. How often do you have six or more drinks on one occasion?: Less than monthly Total Score: 3 SARIKA-7 AMB Questionnaire SARIKA-7 Date SARIKA - 7 assessed: 05/04/24 Feeling nervous, anxious, or on edge: 0 = Not at all Not being able to stop or control worryin = Not at all Worrying too much about different things: 1 = Several days Trouble relaxin = Not at all Being so restless that it is hard to sit still: 0 = Not at all Becoming easily annoyed or irritable: 1 = Several days Feeling afraid as if something awful might happen: 0 = Not at all Total SARIKA-7 score (0-4 normal; 5-9 mild; 10-14 moderate; 15-21 severe): 2 Source: Developed by Drs. Hayden Thayer, Liat Grace, Uriel Chavis and colleagues, with an educational lisa from [employer]. SARIKA-7 Assessment Billing SARIKA-7 Assessment Tool: SARIKA-7 Assessment 35288 ACT Questionnaire In the past 4 weeks, how much of the time did your asthma keep you from getting as much done at work, school or at home?: Some of the time During the past 4 weeks, how often have you had shortness of breath?: More than once a day During the past 4 weeks, how often did your asthma symptoms wake you up at night or earlier than usual in the morning?: 4 or more nights a week During the past 4 weeks, how often have you had to use your rescue inhaler or nebulizer medication?: More than 3 times per day How would you rate your asthma control during the past 4 weeks?: Somewhat controlled Score: 9 Review of Systems Const Details: Denies chills, Denies fatigue, Denies fever(s), Denies headache(s) and Denies weakness HEENT Denies change in vision, Denies dizziness, Denies headache(s), Denies hearing loss, Denies nasal congestion, Denies sinus pain, Denies sinus pressure and Denies sore throat Card Denies chest pain, Denies lightheadedness, Denies dyspnea and Denies other (palpitations) Resp Denies cough, Denies dyspnea and Denies wheezing GI Denies abdominal pain, Denies melena, Denies hematochezia, Denies change in bowel habits, Denies dyspepsia and Denies nausea Denies hematuria and Denies dysuria Musc Denies abnormal gait, Denies myalgias, Denies arthralgias, Denies numbness and Denies tingling Skin/Breast Denies rash, Denies unusual bruising and Denies wounds Neuro Denies abnormal gait, Denies dizziness, Denies headache(s), Denies memory loss, Denies numbness, Denies Sensory deficit (Neuro), Denies tingling and Denies weakness Psych Denies anxiety, Denies depression and Denies memory loss Endo Denies cold intolerance, Denies fatigue, Denies heat intolerance, Denies polydipsia and Denies polyuria Singh/Lymph Denies easy bleeding and Denies easy bruising Aller/Immun Denies wheezing Physical exam (Primary Care) Vital Signs: Last Vital Signs Temp 97.0 F 05/04/24 13:22 Pulse 86 05/04/24 13:22 Resp 16 05/04/24 13:22 BP 126/82 05/04/24 14:03 Pulse Ox 97 05/04/24 13:22 Oxygen Delivery Method Room Air 05/04/24 13:22 BMI result Body Mass Index 66.8 Tobacco/Smoking Status: Tobacco use Status Tobacco use date assessed 05/04/24 05/04/24 13:33 Patient Tobacco Use Status Never used Tobacco 05/04/24 13:18 e-Cigarette/Vaping Use Former Use 05/04/24 13:18 PHQ-9: PHQ-9 Score PHQ-9: Total score 2 05/04/24 13:55 Depression Screening Interpretation: Negative Thrive Assessment: Date of Thrive Assessment Date Thrive assessed 05/04/24 05/04/24 13:18 Currently or been in a relationship where the following occur: No concerns reported Const Other: General: no acute distress, well developed, alert and awake Nutritional Appearance: well nourished Orientation/consciousness: patient oriented x3 HENMT Head: Yes normocephalic and Yes atraumatic Ears: hearing grossly normal bilaterally and TM's normal bilaterally General nose exam: Normal external nose present and Normal nares present Mouth: Normal oral and palatal mucosa present and moist mucous membranes Teeth and gingiva: dentition normal Throat: Yes oropharynx normal Eyes Pupils: Equal, round and reactive pupils present and Pupil accommodation reflex normal EOM: EOMs intact bilaterally Neck Neck: Yes normal visual inspection, Yes no lymphadenopathy and Yes trachea midline Thyroid: Thyroid normal Carotids: no bruits Lymphatic: no lymphadenopathy noted Chest Chest palpation & inspection: normal inspection of the chest Resp Effort & Inspection: normal respiratory effort Auscultation: clear to auscultation bilaterally Cardio Rate: regular rate Rhythm: regular rhythm Heart sounds: S1 normal heart sound present, S2 normal heart sound present, no gallops, no murmurs and no rubs Bruits: no abdominal aortic bruits and no carotid bruits GI Palpation (GI): No Abdominal aortic bruit present, Soft to palpation, nontender, No hepatosplenomegaly present and No Rebound tenderness present Auscultation: normal bowel sounds General: Yes no CVA tenderness Back/Spine/Pelvis Back: no CVA tenderness Cervical Spine: cervical ROM normal and No Cervical spine tenderness Thoracic/Lumbar Spine: thoraco-lumbar ROM normal, No pain with thoraco-lumbar ROM, No thoracic spinal tenderness and No lumbar spinal tenderness Skin General: warm and dry. Normal skin color. Normal skin turgor Lesions: no lesions Rashes: no rashes Trauma: no lacerations or abrasions Wounds: no wounds Nails: normal Neuro General: patient oriented x3, gait normal and CN's II-XI intact bilaterally Cranial nerves: Yes Equal, round and reactive pupils present Cognition (Neuro): normal cognition Gait exam (Neuro): Normal gait present Motor exam (neuro): 5/5 motor strength present throughout Sensory Exam: No Sensory deficit (Neuro) Deep tendon reflexes (DTR's): Right patellar reflex intensity grade: 2+ and Left patellar reflex intensity grade: 2+ Extrem General: Yes normal to inspection, No edema and No calf tenderness Psych Appearance: grossly normal Affect: normal affect Attitude: cooperative Thought process: Normal thought process present Coding Level of Care Code New Pt Prev Care 18-39yr(16110 Diagnoses Normal physical examination, routine Z00.00 Depression F32.A Anxiety F41.9 Asthma J45.909 Obstructive sleep apnea G47.33 Morbid obesity with BMI of 60.0-69.9, adult E66.01; Z68.44 Eye exam, routine Z01.00 Laboratory tests ordered as part of a complete physical exam (CPE) Z00.00 Additional Codes SARIKA-7 Assessment Billing - SARIKA-7 Assessment Tool: SARIKA-7 Assessment 01786 ([id number]) PHQ-9 - 21447 - PHQ-9 Billing: Yes ([id number]) Assessment & Plan Assessment & Plan (1) Normal physical examination, routine: Code(s): Z00.00 - Encounter for general adult medical examination without abnormal findings Category: Medical Plan: No significant functional limitation noted. (2) Depression: Code(s): F32.A - Depression, unspecified Category: Medical Plan: Manage anxiety and depression with emphasis on lifestyle modifications; assist with medication renewal if needed (3) Anxiety: Code(s): F41.9 - Anxiety disorder, unspecified Category: Medical Plan: Plan as above (4) Asthma: Code(s): J45.909 - Unspecified asthma, uncomplicated Category: Medical Plan: Continue asthma management with albuterol inhaler and nebulizer as needed and CPAP for sleep apnea. Follow up with pulmonology as planned. (5) Obstructive sleep apnea: Onset Date: ~2012 Comment: (Sleep Study: AHI 49.4 on 05/11/13; AHI 52.8 on 03/04/23) Code(s): G47.33 - Obstructive sleep apnea (adult) (pediatric) Category: Medical (6) Morbid obesity with BMI of 60.0-69.9, adult: Code(s): E66.01 - Morbid (severe) obesity due to excess calories; Z68.44 - Body mass index [BMI] 60.0-69.9, adult Category: Medical Plan: Healthy diet and routine exercise encouraged. Follow-up with [facility] [place] as planned for weight management. (7) Eye exam, routine: Code(s): Z01.00 - Encounter for examination of eyes and vision without abnormal findings Category: Medical Plan: Referred to Ophthalmology. (8) Laboratory tests ordered as part of a complete physical exam (CPE): Code(s): Z00.00 - Encounter for general adult medical examination without abnormal findings Category: Medical Plan During this visit, I discussed the continuation of management for his asthma, recommending adherence to the current treatment using albuterol as needed. I advised him to maintain follow-ups with the pulmonology department concerning asthma and obstructive sleep apnea and reassured him about returning to his exercise routine gradually, emphasizing its benefit for both weight management and mental health. I also recommended labs to assess post-hospital health, specifically mentioning cholesterol and thyroid evaluation. Additionally, the discussion included encouragement on the patient's progress with lifestyle changes and mental health, offering support for prescription renewal if required. Orders: Orders Complete Blood Count Auto Diff Today Z00.00 - Encounter for general adult medical examination without abnormal findings Lipid Panel Today Z00.00 - Encounter for general adult medical examination without abnormal findings UA CC w/rflx Micro + Cult Today Z00.00 - Encounter for general adult medical examination without abnormal findings Comprehensive [place]. Panel Fast Today Z00.00 - Encounter for general adult medical examination without abnormal findings TSH reflex Free T4 Today Z00.00 - Encounter for general adult medical examination without abnormal findings Referrals Ophthalmology Referral Z01.00 - Encounter for examination of eyes and vision without abnormal findings Patient Instructions: - Continue using albuterol inhaler as needed for asthma symptoms. - Follow up with pulmonology for sleep apnea management. - Re-engage with the weight loss program and exercise cautiously. - Fast for 10-12 hours before lab work and drink only water; complete lab work b efore next scheduled visit. - Contact the office for any worsening anxiety or depression symptoms, and if needing assistance with anxiety medication. - Return for follow-up visit in 2-3 weeks to review lab results. Patient was informed and verbally consented to the use of an ambient scribe for clinic note documentation during this visit.
[2024-05-04 13:22] VITALS: BP 182/106; PULSE 86; RESP 16; TEMP 36.1; O2SAT 97; BMI 66.8
[2024-05-04 14:03] VITALS: BP 126/82
== END 2024-05-04 14:10 | disposition home or self-care (01) ==
PROVIDERS: PCP Nurse Practitioner Family; Visit Provider Nurse Practitioner Family
DX: Z00.00 Encounter for general adult medical examination without abnormal findings (principal); F32.A Depression, unspecified; E66.01 Morbid (severe) obesity due to excess calories; Z68.44 Body mass index [BMI] 60.0-69.9, adult; F41.9 Anxiety disorder, unspecified; J45.909 Unspecified asthma, uncomplicated; G47.33 Obstructive sleep apnea (adult) (pediatric)

== ENCOUNTER → 2024-05-04 13:11 | Outpatient (BNVA) | payer OTHER, SELFPAY | PROVIDERS: PCP Nurse Practitioner Family; Visit Provider Nurse Practitioner Family | DX: Z00.00 Encounter for general adult medical examination without abnormal findings (principal); F32.A Depression, unspecified; F41.9 Anxiety disorder, unspecified; J45.909 Unspecified asthma, uncomplicated; G47.33 Obstructive sleep apnea (adult) (pediatric); E66.01 Morbid (severe) obesity due to excess calories; Z68.44 Body mass index [BMI] 60.0-69.9, adult | CPT/HCPCS: 96127; 99385 ==

== ENCOUNTER 2024-05-10 18:26 | Inpatient (IN) | payer OTHER, SELFPAY ==
--- NOTE | ~2024-05-10 | XR_ITS ---
EXAMINATION: XR CHEST CLINICAL INFORMATION: pain COMPARISON: None available. TECHNIQUE: 2 views of the chest were obtained. FINDINGS: No significant abnormality is noted involving the heart, lungs, mediastinum, bony thorax or soft tissues. XR/XR chest 2V IMPRESSION: Unremarkable examination. Electronically signed by: Bienvenido Pace DO 05/10/2024 09:54 PM [facility]
[2024-05-10 18:39] VITALS: BP 159/82; PULSE 146; RESP 18; TEMP 37.1; O2SAT 99; BMI 66.2
--- NOTE | 2024-05-10 18:40 | ED.GENADULT ---
HPI - General Adult General Chief complaint: Headache Stated complaint: chills/shakes/happens monthly since about Kylie Time Seen by Provider: 05/10/24 18:51 Source: patient Limitations: no limitations History of Present Illness ED Provider: Carlene bazan PA-C HPI narrative: 34-year-old male with history of morbid obesity, RAMIRO, asthma, GERD,anxiety, with recent admission for abdominal wall cellulitis 04/17/2024, presents with fever and chills that acutely began today. Associated nausea, vomiting and dry cough. Denies abdominal pain, diarrhea, sick contacts with same symptoms. Following his hospital admission, patient was discharged on Augmentin, he states he completed the antibiotic. He states his abdominal wall infection minimally improved, it is still painful and red. Related Data Home Medications ?Medication ?Instructions ?Recorded ?Confirmed ondansetron 4 mg disintegrating 4 mg PO Q8H PRN 04/28/24 05/04/24 tablet Previous Rx's ?Medication ?Instructions ?Recorded albuterol sulfate 2.5 mg/0.5 mL 5 mg inhalation QID PRN shortness 04/21/24 solution for nebulization of breath or wheezing #30 ea amoxicillin 875 mg-potassium 1 tab PO BID #20 tabs 04/21/24 clavulanate 125 mg tablet Allergies Allergy/AdvReac Type Severity Reaction Status Date / Time diphenhydramine Allergy Intermediate UNKNOWN Verified 05/10/24 18:40 [From Benadryl] doxycycline Allergy Itching Verified 05/10/24 18:40 Review of Systems Review of Systems: Yes all other systems are reviewed and are negative Constitutional: Constitutional: Reports chills, Reports fatigue, Reports fever(s) and Reports malaise Cardiovascular: Cardiovascular: Denies chest pain and Denies dyspnea Respiratory: Respiratory: Reports cough, Denies dyspnea and Denies wheezing Gastrointestinal: Gastrointestinal: Reports abdominal pain, Denies diarrhea, Reports nausea and Reports vomiting Endocrine: Endocrine: Reports fatigue Allergic/Immunologic: Allergic/Immunologic: Denies wheezing PMFSH Past Medical History Attestation statement: The following information was validated with the patient. Medical History (Updated 05/11/24 @ 01:10 by IRMA Nugent) Depression Anxiety Obstructive sleep apnea (~2012) Morbid obesity Asthma GERD (gastroesophageal reflux disease) SARIKA (generalized anxiety disorder) Surgical History History of dental surgery (~1998) Family History Family History (Updated 05/04/24 @ 13:32 by Nabila Cruz) Mother FH: mental illness Cancer Father Diabetes Maternal Grandmother Alcohol abuse Cancer Sister FH: mental illness Diabetes Social History Social History Household Members: Spouse, Family and Children Housing: Apartment Do you presently have visiting nurse or other home services: No Alcohol intake: current Alcohol intake frequency: a few times a month Alcohol type: hard liquor Patient Tobacco Use Status: Never used Tobacco e-Cigarette/Vaping Use: Former Use Use of substances other than those prescribed or required for medical reasons: Yes Substance Use Type: Marijuana Substance Use Frequency: Occasionally Advance Directives: No Advance Directives Information Provided: No Do you have a plan to hurt others: No Plan service: No Cognitive needs: No Hearing needs: No Vision needs: No Physical Exam ED Vital Signs: Vital Signs - 24 hr 05/10/24 18:39 05/10/24 19:33 05/10/24 20:41 Temperature 98.7 F 103.7 F H Pulse Rate 146 H 136 H 132 H Respiratory Rate 18 20 20 Blood Pressure 159/82 H 121/46 L 115/42 L Pulse Oximetry 99 98 97 Oxygen Delivery Method Room Air Room Air Room Air 05/10/24 21:52 05/10/24 22:05 05/10/24 23:36 Temperature 104 F H 102.6 F H Pulse Rate 135 H 140 H 117 H Respiratory Rate 18 21 H 17 Blood Pressure 109/48 L 119/38 L 112/54 L Pulse Oximetry 100 94 92 Oxygen Delivery Method Room Air Room Air Room Air 05/11/24 00:52 Temperature 102.7 F H Pulse Rate 119 H Respiratory Rate 24 H Blood Pressure 126/55 L Pulse Oximetry 98 Oxygen Delivery Method Room Air BMI result Body Mass Index 66.2 Const Other: Alert, actively vomiting, diaphoretic Orientation/consciousness: patient oriented x3 Resp Other: Nonlabored respirations, lungs clear to auscultation, dry active cough, no wheezing Cardio Other: Normal peripheral perfusion GI Other: With deep palpation no pain elicited within the abdomen, his pannus is tender to palpation, diffusely erythematous, Skin Other: pannus is tender to palpation, diffusely erythematous, Neuro General: patient oriented x3, no focal motor deficits and CN's II-XI intact bilaterally Psych Other: Cooperative Course Course Course Narrative: RME, this is a rapid medical exam performed by Valdemar Ordoñez please refer to primary provider for complete H&P- 34-year-old male past medical history significant for morbid obesity, sleep apnea, GERD, asthma, anxiety presents for evaluation of subjective fevers and chills. Symptoms started a couple of hours ago today. He was recently admitted here for abdominal wall cellulitis and has some mild lower abdominal wall pain. He reports with the redness is not as bad as it was when he was admitted. Plan for labs including blood cultures, lactic, chest x-ray as he also has a cough and viral swabs. Patient found to be tachycardic to 140 in triage. Plan for EKG Reevaluation(s) Reevaluation #1: Recognizing signs of sepsis with the patient, he is tachycardic, febrile to 103 rectally, blood cultures and lactic acid already obtained. His pressures are stable, he does not require weight based IV fluid at this time, we will give 1 L of normal saline, I am starting clindamycin given it is suspect that he still has refractory cellulitis of the pannus. Time: 19:13 Reevaluation #2: Patient remains tachy, he is still febrile, I am seeing PVCs on the monitor, his Mag is subtly low, we will give 2 g IV Medications Administered Generic Name Dose Route Start Last Admin Trade Name Freq PRN Reason Stop Dose Admin Magnesium Sulfate 2 gm in 50 mls @ 25 mls/hr 05/10/24 23:31 05/10/24 23:45 Magnesium Sulfate/H2o IV 05/11/24 01:30 25 mls/hr ONCE ONE Administration Discontinued Medications Generic Name Dose Route Start Last Admin Trade Name Freq PRN Reason Stop Dose Admin Clindamycin Phosphate 600 mg in 50 mls @ 100 mls/hr 05/10/24 19:13 05/10/24 20:15 Cleocin IV 05/10/24 19:42 Infused ONCE ONE Infusion Sodium Chloride 1,000 mls @ 999 mls/hr 05/10/24 19:45 05/10/24 21:51 Ns IV 05/10/24 20:45 Infused .Q1H1M MIGDALIA Infusion Sodium Chloride 1,000 mls @ 999 mls/hr 05/10/24 20:45 05/10/24 22:45 Ns IV 05/10/24 21:45 Infused .Q1H1M MIGDALIA Infusion Acetaminophen 1,000 mg in 100 mls @ 400 mls/hr 05/10/24 20:41 05/10/24 22:30 Ofirmev IV 05/10/24 20:55 Infused ONCE ONE Infusion Ketorolac Tromethamine 15 mg 05/10/24 19:13 05/10/24 19:29 Ketorolac Tromethamine 15 Mg/Ml Vial IVPUSH 05/10/24 19:14 15 mg ONCE ONE Administration Ondansetron HCl 4 mg 05/10/24 19:13 05/10/24 19:30 Ondansetron Hcl 4 Mg/2 Ml Vial IVPUSH 05/10/24 19:14 4 mg ONCE ONE Administration Medical Decision Making Medical Decision Making MDM Narrative: 34-year-old male with history of morbid obesity, RAMIRO, asthma, GERD,anxiety, with recent admission for abdominal wall cellulitis 04/17/2024, presents with fever and chills that acutely began today. Associated nausea, vomiting and dry cough. Denies abdominal pain, diarrhea, sick contacts with same symptoms. Following his hospital admission, patient was discharged on Augmentin, he states he completed the antibiotic. He states his abdominal wall infection minimally improved, it is still painful and red. Problem: Morbid obesity, asthma History: Per patient I have considered the following differential diagnoses: Cellulitis, viral syndrome, pneumonia, viral gastroenteritis, sepsis Plan: I am concerned for sepsis, screening labs including blood cultures and lactic acid were already obtained. We are also obtaining a urinalysis chest x-ray and viral panel. The patient does not require weight based IV fluid resuscitation at a rate of 30 mL/kg, his blood pressures are stable. I suspect that the pannus cellulitis has not resolved, I am starting clindamycin. I do not feel he requires imaging of the abdomen, with deep palpation I am not getting any focal regions of pain, it is the pannus that is uncomfortable. I have independently reviewed the following tests: Labs: No leukocytosis, but left shift noted, not anemic, no electrolyte abnormality, magnesium subtly low at 1.7, lactic acid 1, urine not infected, viral panel positive for RSV Chest x-ray: XR/XR chest 2V IMPRESSION: Unremarkable examination. Lab Data 05/10/24 19:00 05/10/24 19:00 Labs: Lab Results 05/10/24 05/10/24 Range/Units 19:00 22:11 WBC 10.4 (4.8-10.8) X10*3/uL RBC 4.82 D (4.60-5.80) X10*6/uL Hgb 14.3 D (14.0-18.0) g/dl Hct 42.9 D (42.0-52.0) % MCV 89.0 (80.0-98.0) fL MCH 29.7 (27.0-33.0) pg MCHC 33.3 (31.0-36.0) g/dl RDW 13.4 (11.0-16.0) % Plt Count 384 (160-400) X10*3/uL MPV 9.4 (9.4-12.4) fL Immature Gran % (Auto) 1.0 H (0.0-0.4) % Neut % (Auto) 82.2 H (45-73) % Lymph % (Auto) 9.9 L (20-40) % [place] % (Auto) 3.7 (2-11) % Eos % (Auto) 2.9 (0-4) % Baso % (Auto) 0.3 (0-2) % Lymph # (Auto) 1.0 L (1.2-4.9) X10*3/uL [place] # (Auto) 0.4 (0.1-1.2) X10*3/uL Eos # (Auto) 0.3 (0.0-0.4) X10*3/uL Baso # (Auto) 0.0 (0.0-0.2) X10*3/uL Abs Immat Gran (auto) 0.10 H (0.00-0.03) X10*3/uL Absolute Neuts (auto) 8.5 H (2.0-8.3) x10*3/uL Absolute Nucleated RBC 0.000 (0.0-0.012) X10*3/uL Nucleated RBC % (auto) 0.0 (0.0-0.2) /100WBC Sodium 137 (135-145) mmol/L Potassium 4.0 D (3.3-5.1) mmol/L Chloride 102 (96-108) mmol/L Carbon Dioxide 29 (22-29) mmol/L Anion Gap 10 L (12-20) BUN 19 H (9-16) mg/dL Creatinine 0.88 (0.5-1.4) mg/dL Estim Creat Clear Calc 223.9 Estimated GFR > 60 Random Glucose 86 (60-115) mg/dL Lactic Acid 1.0 (0.5-2.0) mmol/L Calcium 10.2 D (8.4-10.2) mg/dL Magnesium 1.7 (1.6-2.6) mg/dL Total Bilirubin 0.6 (0.0-1.0) mg/dL AST 30 (5-37) U/L ALT 26 (0-40) U/L Alkaline Phosphatase 64 (39-117) U/L Total Protein 9.4 H (6.5-8.0) g/dL Albumin 4.1 (3.5-5.0) g/dL Lipase 27 (8-78) U/L TSH 1.76 (0.32-4.0) uIU/mL Urine Color Yellow Urine Appearance Clear Urine pH 7.5 (5.0-9.0) Ur Specific [place] 1.020 (1.005-1.025) Urine Protein Negative (Neg-Trace) mg/dL Urine Glucose (UA) Negative (Negative) mg/dL Urine Ketones Negative (Negative) mg/dL Urine Blood Negative (Negative) Urine Nitrite Negative (Negative) Ur Leukocyte Esterase Trace H (Negative) Urine RBC 0-2 (0-2) /HPF Urine WBC 0-5 (0-5) /HPF Ur Squamous Epith Cells 0-2 (0-2) /HPF Urine Bacteria None Seen (None Seen) Hyaline Casts 0-2 (0-2) /LPF Influenza Type A (PCR) NEGATIVE (Negative) Influenza Type B (PCR) NEGATIVE (Negative) RSV RNA Qual (PCR) POSITIVE A (Negative) SARS-CoV-2 RNA (RT-PCR) NEGATIVE (Negative) Discharge Plan Discharge Clinical Impression: Abdominal wall cellulitis, Respiratory syncytial virus (RSV) Patient Disposition: Admitted As Inpatient Prescriptions: No Action amoxicillin-pot clavulanate 875-125 mg tablet 1 tab PO BID Qty: 20 0RF albuterol sulfate 2.5 mg/0.5 mL solution for nebulization 5 mg inhalation QID PRN (Reason: shortness of breath or wheezing) Qty: 30 1RF ondansetron 4 mg tablet,disintegrating 4 mg PO Q8H PRN Print Language: Maori
--- NOTE | 2024-05-10 18:44 | ECG_ITS ---
Test Reason : TACHYCARDIA Blood Pressure : / mmHG Vent. Rate : 137 BPM Atrial Rate : 137 BPM P-R Int : 120 ms QRS Dur : 084 ms QT Int : 282 ms P-R-T Axes : 046 002 035 degrees QTc Int : 425 ms Sinus tachycardia Otherwise normal ECG No previous ECGs available Referred By: Jaime Ordoñez Electronically Signed By:KALLI DAVIS
[2024-05-10 19:06] LABS: MANUAL DIFF FLAG NO
[2024-05-10] MEDS: Ketorolac Tromethamine 15 MG/ML VIAL IVPUSH (19:29)
[2024-05-10] MEDS: ondansetron HCL 4 MG/2 ML VIAL IVPUSH (19:30)
[2024-05-10 19:33] VITALS: BP 121/46; PULSE 136; RESP 20; TEMP 39.8; O2SAT 98
[2024-05-10 19:33] LABS: Alanine Aminotransferase 26 U/L (0-40); Albumin Level 4.1 g/dL (3.5-5.0); Alkaline Phosphatase 64 U/L (39-117); Anion Gap 10 (12-20); Aspartate Amino Transferase 30 U/L (5-37); Bilirubin Total 0.6 mg/dL (0.0-1.0); Blood Urea Nitrogen 19 mg/dL (9-16); Calcium 10.2 mg/dL (8.4-10.2); Carbon Dioxide 29 mmol/L (22-29); Chloride 102 mmol/L (96-108); Creatinine Clr Calc Pharmacy 223.9; Estimated Glomerular Filt Rate > 60; Glucose Random 86 mg/dL (60-115); Lipase 27 U/L (8-78); Sodium 137 mmol/L (135-145); Total Protein 9.4 g/dL (6.5-8.0)
[2024-05-10 19:36] LABS: Basophils Percent Auto 0.3 % (0-2); Eosinophils Absolute Auto 0.3 X10*3/uL (0.0-0.4); Eosinophils Percent Auto 2.9 % (0-4); Hematocrit 42.9 % (42.0-52.0); Hemoglobin 14.3 g/dl (14.0-18.0); Lymphocytes Percent Auto 9.9 % (20-40); Mean Corpuscular HGB Conc 33.3 g/dl (31.0-36.0); Mean Corpuscular Hemoglobin 29.7 pg (27.0-33.0); Mean Platelet Volume 9.4 fL (9.4-12.4); Monocytes Absolute Auto 0.4 X10*3/uL (0.1-1.2); Monocytes Percent Auto 3.7 % (2-11); Neutrophils Absolute Auto 8.5 x10*3/uL (2.0-8.3); Neutrophils Percent Auto 82.2 % (45-73); Platelet Count 384 X10*3/uL (160-400); Red Blood Count 4.82 X10*6/uL (4.60-5.80); Red Cell Distribution Width 13.4 % (11.0-16.0); White Blood Count 10.4 X10*3/uL (4.8-10.8)
--- NOTE | 2024-05-10 19:36 | ED_ITS ---
HPI - Nausea/Vomiting/Diarrhea General Chief complaint: Headache Stated complaint: chills/shakes/happens monthly since about November Time Seen by Provider: 05/10/24 18:51 Related Data Home Medications ?Medication ?Instructions ?Recorded ?Confirmed ondansetron 4 mg disintegrating 4 mg PO Q8H PRN 04/28/24 05/04/24 tablet Previous Rx's ?Medication ?Instructions ?Recorded albuterol sulfate 2.5 mg/0.5 mL 5 mg inhalation QID PRN shortness 04/21/24 solution for nebulization of breath or wheezing #30 ea amoxicillin 875 mg-potassium 1 tab PO BID #20 tabs 04/21/24 clavulanate 125 mg tablet Allergies Allergy/AdvReac Type Severity Reaction Status Date / Time diphenhydramine Allergy Intermediate UNKNOWN Verified 05/10/24 18:40 [From Benadryl] doxycycline Allergy Itching Verified 05/10/24 18:40 PMFSH Past Medical History Medical History (Updated 05/11/24 @ 01:10 by IRMA Nugent) Depression Anxiety Obstructive sleep apnea (~2012) Morbid obesity Asthma GERD (gastroesophageal reflux disease) SARIKA (generalized anxiety disorder) Surgical History History of dental surgery (~1998) Family History Family History (Updated 05/04/24 @ 13:32 by Nabila Cruz) Mother FH: mental illness Cancer Father Diabetes Maternal Grandmother Alcohol abuse Cancer Sister FH: mental illness Diabetes Social History Social History Household Members: Spouse, Family and Children Housing: Apartment Do you presently have visiting nurse or other home services: No Alcohol intake: current Alcohol intake frequency: a few times a month Alcohol type: hard liquor Patient Tobacco Use Status: Never used Tobacco e-Cigarette/Vaping Use: Former Use Use of substances other than those prescribed or required for medical reasons: Yes Substance Use Type: Marijuana Substance Use Frequency: Occasionally Advance Directives: No Advance Directives Information Provided: No Do you have a plan to hurt others: No Plan service: No Cognitive needs: No Hearing needs: No Vision needs: No Physical Exam 2 Vital Signs: Vital Signs: Last Vital Signs Temp 102.7 F H 05/11/24 00:52 Pulse 119 H 05/11/24 00:52 Resp 24 H 05/11/24 00:52 BP 126/55 L 05/11/24 00:52 Pulse Ox 98 05/11/24 00:52 O2 Del Method Room Air 05/11/24 00:52 BMI result Body Mass Index 66.2 Course Reevaluation(s) Reevaluation #1: Sepsis identified, the patient has a rectal temp of 103.7?, blood cultures, lactic acid and screening labs were already obtained. I already initiated clindamycin therapy for his pannus cellulitis. He also received an antipyretic he received Toradol. I am giving 1 L of normal saline, he does not require the weight based 30 mL/kilogram of IV fluid resuscitation as his blood pressure is stable. Time: 19:36 Medications Administered Discontinued Medications Generic Name Dose Route Start Last Admin Trade Name Freq PRN Reason Stop Dose Admin Clindamycin Phosphate 600 mg in 50 mls @ 100 mls/hr 05/10/24 19:13 05/10/24 20:15 Cleocin IV 05/10/24 19:42 Infused ONCE ONE Infusion Sodium Chloride 1,000 mls @ 999 mls/hr 05/10/24 19:45 05/10/24 21:51 Ns IV 05/10/24 20:45 Infused .Q1H1M MIGDALIA Infusion Sodium Chloride 1,000 mls @ 999 mls/hr 05/10/24 20:45 05/10/24 22:45 Ns IV 05/10/24 21:45 Infused .Q1H1M MIGDALIA Infusion Acetaminophen 1,000 mg in 100 mls @ 400 mls/hr 05/10/24 20:41 05/10/24 22:30 Ofirmev IV 05/10/24 20:55 Infused ONCE ONE Infusion Magnesium Sulfate 2 gm in 50 mls @ 25 mls/hr 05/10/24 23:31 05/10/24 23:45 Magnesium Sulfate/H2o IV 05/11/24 01:30 25 mls/hr ONCE ONE Administration Ketorolac Tromethamine 15 mg 05/10/24 19:13 05/10/24 19:29 Ketorolac Tromethamine 15 Mg/Ml Vial IVPUSH 05/10/24 19:14 15 mg ONCE ONE Administration Ondansetron HCl 4 mg 05/10/24 19:13 05/10/24 19:30 Ondansetron Hcl 4 Mg/2 Ml Vial IVPUSH 05/10/24 19:14 4 mg ONCE ONE Administration Medical Decision Making Lab Data 05/10/24 19:00 05/10/24 19:00 Labs: Lab Results 05/10/24 05/10/24 Range/Units 19:00 22:11 WBC 10.4 (4.8-10.8) X10*3/uL RBC 4.82 D (4.60-5.80) X10*6/uL Hgb 14.3 D (14.0-18.0) g/dl Hct 42.9 D (42.0-52.0) % MCV 89.0 (80.0-98.0) fL MCH 29.7 (27.0-33.0) pg MCHC 33.3 (31.0-36.0) g/dl RDW 13.4 (11.0-16.0) % Plt Count 384 (160-400) X10*3/uL MPV 9.4 (9.4-12.4) fL Immature Gran % (Auto) 1.0 H (0.0-0.4) % Neut % (Auto) 82.2 H (45-73) % Lymph % (Auto) 9.9 L (20-40) % [place] % (Auto) 3.7 (2-11) % Eos % (Auto) 2.9 (0-4) % Baso % (Auto) 0.3 (0-2) % Lymph # (Auto) 1.0 L (1.2-4.9) X10*3/uL [place] # (Auto) 0.4 (0.1-1.2) X10*3/uL Eos # (Auto) 0.3 (0.0-0.4) X10*3/uL Baso # (Auto) 0.0 (0.0-0.2) X10*3/uL Abs Immat Gran (auto) 0.10 H (0.00-0.03) X10*3/uL Absolute Neuts (auto) 8.5 H (2.0-8.3) x10*3/uL Absolute Nucleated RBC 0.000 (0.0-0.012) X10*3/uL Nucleated RBC % (auto) 0.0 (0.0-0.2) /100WBC Sodium 137 (135-145) mmol/L Potassium 4.0 D (3.3-5.1) mmol/L Chloride 102 (96-108) mmol/L Carbon Dioxide 29 (22-29) mmol/L Anion Gap 10 L (12-20) BUN 19 H (9-16) mg/dL Creatinine 0.88 (0.5-1.4) mg/dL Estim Creat Clear Calc 223.9 Estimated GFR > 60 Random Glucose 86 (60-115) mg/dL Lactic Acid 1.0 (0.5-2.0) mmol/L Calcium 10.2 D (8.4-10.2) mg/dL Magnesium 1.7 (1.6-2.6) mg/dL Total Bilirubin 0.6 (0.0-1.0) mg/dL AST 30 (5-37) U/L ALT 26 (0-40) U/L Alkaline Phosphatase 64 (39-117) U/L Total Protein 9.4 H (6.5-8.0) g/dL Albumin 4.1 (3.5-5.0) g/dL Lipase 27 (8-78) U/L TSH 1.76 (0.32-4.0) uIU/mL Urine Color Yellow Urine Appearance Clear Urine pH 7.5 (5.0-9.0) Ur Specific [place] 1.020 (1.005-1.025) Urine Protein Negative (Neg-Trace) mg/dL Urine Glucose (UA) Negative (Negative) mg/dL Urine Ketones Negative (Negative) mg/dL Urine Blood Negative (Negative) Urine Nitrite Negative (Negative) Ur Leukocyte Esterase Trace H (Negative) Urine RBC 0-2 (0-2) /HPF Urine WBC 0-5 (0-5) /HPF Ur Squamous Epith Cells 0-2 (0-2) /HPF Urine Bacteria None Seen (None Seen) Hyaline Casts 0-2 (0-2) /LPF Influenza Type A (PCR) NEGATIVE (Negative) Influenza Type B (PCR) NEGATIVE (Negative) RSV RNA Qual (PCR) POSITIVE A (Negative) SARS-CoV-2 RNA (RT-PCR) NEGATIVE (Negative) Discharge Plan Discharge Clinical Impression: Abdominal wall cellulitis, Respiratory syncytial virus (RSV) Patient Disposition: Admitted As Inpatient Print Language: Syriac
[2024-05-10 19:39] LABS: Magnesium 1.7 mg/dL (1.6-2.6)
[2024-05-10] MEDS: Clindamycin Phosphate/D5W 600 MG/50 ML PIGGYBACK 100 MG IV (19:40)
[2024-05-10] MEDS: 0.9 % Sodium Chloride 1,000 ML 999 ML IV ×2 (19:53→21:30)
[2024-05-10 19:54] LABS: TSH reflex Free T4 1.76 uIU/mL (0.32-4.0)
[2024-05-10 19:57] LABS: Influenza A PCR NEGATIVE (Negative); Influenza B PCR NEGATIVE (Negative); Resp Syncy Virus RNA Qual PCR POSITIVE (Negative); SARS COV2 PCR INHOUSE NEGATIVE (Negative)
--- NOTE | 2024-05-10 20:23 | MHC.EDTECH ---
Assumed care of Pt at 1900.
[2024-05-10 20:41] VITALS: BP 115/42; PULSE 132; RESP 20; O2SAT 97
[2024-05-10] MEDS: Acetaminophen 1,000 MG/100 ML PIGGYBACK 400 MG IV (21:30)
[2024-05-10 21:52] VITALS: BP 109/48; PULSE 135; RESP 18; TEMP 40; O2SAT 100
[2024-05-10 22:05] VITALS: BP 119/38; PULSE 140; RESP 21; O2SAT 94
[2024-05-10 22:18] LABS: Appearance Urine Clear; Color Urine Yellow; Glucose Urine UA Negative (Negative); Leukocyte Esterase Urine Trace (Negative); Nitrite Urine Negative (Negative); PH 7.5 (5.0-9.0); UMIC TRIGGER UACC YES; Urine Blood Negative (Negative); Urine Ketones Negative (Negative); Urine Protein Negative (Neg-Trace)
[2024-05-10 22:21] LABS: Bacteria Urine None Seen (None Seen); Hyaline Casts Urine 0-2 /LPF (0-2); RBC Urine 0-2 /HPF (0-2); Squamous Epithelial Cell Urine 0-2 /HPF (0-2); WBC Urine 0-5 /HPF (0-5)
[2024-05-10 23:36] VITALS: BP 112/54; PULSE 117; RESP 17; TEMP 39.2; O2SAT 92
[2024-05-10] MEDS: Magnesium Sulfate/H2O 2 GM/50 ML PIGGYBACK IV (23:45)
[2024-05-11] VITALS (7 sets, daily range): BP systolic 123–144; BP diastolic 55–77; PULSE 109–128; RESP 16–24; TEMP 36.6–39.4; O2SAT 93–98; BMI 67.0
[2024-05-11] MEDS: vancomycin/NS 2,000 MG/500 ML PLAST..BAG 250 MG IV (02:04)
[2024-05-11] MEDS: ondansetron HCL 4 MG/2 ML VIAL IVPUSH (02:04)
--- NOTE | 2024-05-11 02:07 | P.HPHOSP_ITS ---
History of Present Illness Date of Service: 05/11/24 Attending physician on admission: Dian Crowe Chief Complaint: nausea, vomiting, chillds Patient is a 36-year-old male with a past medical history significant for morbid obesity, RAMIRO, GERD, GERD, umbilical hernia, anxiety, depression, MRSA+, and recent admission for abdominal wall cellulitis, discharged 04/21/2024 with Augmentin 875 b.i.d. times 10 days, who presented to the ED today with fever, chills, nausea, vomiting and dry cough. He reports that he has coughing spells which cause vomiting as well as vomiting due to nausea.. The patient reports that he completed the treatment however the cellulitis is back. It is not as significant as previous but still uncomfortable. No drainage. Review of Systems 2 Constitutional: Constitutional: Denies fatigue, Reports fever(s) and Reports headache(s) Eyes: Eyes: Denies change in vision ENT: Reports headache(s), Denies nasal congestion, Denies nasal discharge and Denies sore throat Cardiovascular: Cardiovascular: Denies chest pain, Denies rapid heart rate, Denies leg edema and Denies dyspnea Respiratory: Respiratory: Reports cough, Denies dyspnea and Denies wheezing Gastrointestinal: Gastrointestinal: Denies constipation, Denies diarrhea, Reports nausea, Reports vomiting and Denies hematemesis Genitourinary: Genitourinary: Denies dysuria and Denies urinary urgency Musculoskeletal: Musculoskeletal: Denies arthralgias Integumentary/Breasts: Skin/Breast: Reports as per HPI and Reports rash Neurologic: Denies confusion and Reports headache(s) Psychiatric: Psychiatric: Denies confusion Endocrine: Endocrine: Denies fatigue Hematologic/Lymphatic: Hematologic/Lymphatic: Denies easy bleeding Allergic/Immunologic: Allergic/Immunologic: Denies wheezing [facility] Medical History (Updated 05/11/24 @ 02:19 by Patti Figueredo PA-C) Depression Anxiety Obstructive sleep apnea (~2012) Morbid obesity Asthma GERD (gastroesophageal reflux disease) SARIKA (generalized anxiety disorder) Functional capacity: independent ambulation Family History (Updated 05/04/24 @ 13:32 by Nabila Cruz) Mother FH: mental illness Cancer Father Diabetes Maternal Grandmother Alcohol abuse Cancer Sister FH: mental illness Diabetes Surgical History History of dental surgery (~1998) Social History Household Members: Spouse, Family and Children Housing: Apartment Do you presently have visiting nurse or other home services: No Alcohol intake: current Alcohol intake frequency: a few times a month Alcohol type: hard liquor Patient Tobacco Use Status: Never used Tobacco e-Cigarette/Vaping Use: Former Use Use of substances other than those prescribed or required for medical reasons: Yes Substance Use Type: Marijuana Substance Use Frequency: Occasionally Advance Directives: No Advance Directives Information Provided: No Do you have a plan to hurt others: No Plan service: No Cognitive needs: No Hearing needs: No Vision needs: No Narrative: Rare social alcohol, no smoking, no drug use Meds Allergies Allergy/AdvReac Type Severity Reaction Status Date / Time diphenhydramine Allergy Intermediate UNKNOWN Verified 05/10/24 18:40 [From Benadryl] doxycycline Allergy Itching Verified 05/10/24 18:40 Active Medications: Current Medications Acetaminophen (Acetaminophen 325 Mg Tablet) 650 mg PO Q6H PRN PRN Reason: Pain, Mild (Pain Scale 1-3), fever or headache Calcium Carbonate (Calcium Carbonate 750 Mg Tab.Chew) 750 mg PO Q4H PRN PRN Reason: Heartburn Enoxaparin Sodium (Enoxaparin Sodium 40 Mg/0.4 Ml Syringe) 40 mg SUBCUT Q12H MIGDALIA Vancomycin HCl (Vancomycin/Ns) 2,000 mg in 500 mls @ 250 mls/hr IV ONCE ONE Stop: 05/11/24 03:47 Last Admin: 05/11/24 02:04 Dose: 250 mls/hr Magnesium Hydroxide (Milk Of Magnesia 30 Ml Oral.Susp) 30 ml PO DAILY PRN PRN Reason: Constipation Melatonin (Melatonin 3 Mg Tablet) 6 mg PO BEDTIME PRN PRN Reason: Insomnia Ondansetron HCl (Ondansetron Hcl 4 Mg/2 Ml Vial) 4 mg IVPUSH Q8H PRN PRN Reason: Nausea and Vomiting Last Admin: 05/11/24 02:04 Dose: 4 mg Pharmacy Consult (Consult Rx Vancomycin Dosing) 1 each MISCELLANE DAILY PRN PRN Reason: Consult order Sodium Chloride (0.9 % Sodium Chloride Flush 3 Ml Syringe) [facility] Medications ?Medication ?Instructions ?Recorded ?Confirmed ?Last Taken ?Type ondansetron 4 mg disintegrating 4 mg PO Q8H PRN 04/28/24 05/04/24 Unknown History tablet Physical Exam 2 Vital Signs and Narrative: Vital Signs: Last Vital Signs Temp 102.7 F H 05/11/24 00:52 Pulse 119 H 05/11/24 00:52 Resp 24 H 05/11/24 00:52 BP 126/55 L 05/11/24 00:52 Pulse Ox 98 05/11/24 00:52 O2 Del Method Room Air 05/11/24 00:52 BMI result Body Mass Index 66.2 General: AOx3, no acute distress, had to leave exam room to O2 restroom and vomit Resp: CTA bilaterally, no wheezing CVS: Tachycardic, no murmur, normal capillary refill GI: +BS, tender with palpation of pannus, no distention Skin: Warm, dry, erythema and warmth on pannus, appears better than previous admission however still cellulitic Neuro: Cranial nerves II-XII grossly intact bilaterally. Motor grossly intact bilaterally Extremities: No lower extremity edema Psych: Appropriate affect Sepsis focused exam normal Const: General: No confusion Orientation/consciousness: No confusion Neuro: General: No confusion Results Labs 05/10/24 19:00 05/10/24 19:00 Labs: Laboratory Results - last 24 hr 05/10/24 05/10/24 19:00 22:11 MCV 89.0 MCH 29.7 MCHC 33.3 RDW 13.4 Plt Count 384 MPV 9.4 Immature Gran % (Auto) 1.0 H Neut % (Auto) 82.2 H Lymph % (Auto) 9.9 L [place] % (Auto) 3.7 Eos % (Auto) 2.9 Baso % (Auto) 0.3 Lymph # (Auto) 1.0 L [place] # (Auto) 0.4 Eos # (Auto) 0.3 Baso # (Auto) 0.0 Abs Immat Gran (auto) 0.10 H Absolute Neuts (auto) 8.5 H Absolute Nucleated RBC 0.000 Nucleated RBC % (auto) 0.0 Anion Gap 10 L Estim Creat Clear Calc 223.9 Estimated GFR > 60 Random Glucose 86 Lactic Acid 1.0 Calcium 10.2 D Magnesium 1.7 Total Bilirubin 0.6 AST 30 ALT 26 Alkaline Phosphatase 64 Total Protein 9.4 H Albumin 4.1 Lipase 27 TSH 1.76 Urine Color Yellow Urine Appearance Clear Urine pH 7.5 Ur Specific [place] 1.020 Urine Protein Negative Urine Glucose (UA) Negative Urine Ketones Negative Urine Blood Negative Urine Nitrite Negative Ur Leukocyte Esterase Trace H Urine RBC 0-2 Urine WBC 0-5 Ur Squamous Epith Cells 0-2 Urine Bacteria None Seen Hyaline Casts 0-2 Influenza Type A (PCR) NEGATIVE Influenza Type B (PCR) NEGATIVE RSV RNA Qual (PCR) POSITIVE A SARS-CoV-2 RNA (RT-PCR) NEGATIVE Imaging Radiologist's Impressions: Impressions Chest X-Ray 05/10/24 19:20 IMPRESSION: Unremarkable examination. Electronically signed by: Bienvenido Pace DO 05/10/2024 09:54 PM [facility] Assessment and Plan (1) Abdominal wall cellulitis: Status: Acute (2) Sepsis: Status: Acute (3) Respiratory syncytial virus (RSV): Status: Acute (4) Morbid obesity with BMI of 60.0-69.9, adult: Status: Acute Plan Patient is a 36-year-old male with a past medical history significant for morbid obesity, RAMIRO, GERD, GERD, umbilical hernia, anxiety, depression, MRSA+, and recent admission for abdominal wall cellulitis, discharged 04/21/2024 with Augmentin 875 b.i.d. times 10 days, who presented to the ED today with fever, chills, nausea, vomiting and dry cough. Sepsis secondary to abdominal wall cellulitis - WBC 10.4, tachycardic in the 140s, temp 101.3 degrees, lactic acid normal, blood cultures x2 pending, not severe sepsis - positive for RSV. COVID and flu negative - chest x-ray negative - history of MRSA - started on clindamycin in ED, we will transition to vancomycin - monitor CBC and BMP RAMIRO - patient noncompliant with CPAP, we will order CPAP in-house Morbid obesity - BMI 66.2 - follows and weight loss clinic and has lost over 100 lb since December 2022 Med rec pending at time of admission Full code VTE prophylaxis: Lovenox Patient with sepsis secondary to recurrent abdominal wall cellulitis with failed outpatient treatment requiring admission for at least 2 midnights stay for IV antibiotics. Quality Stroke Does the patient have a stroke diagnosis?: No VTE Prior VTE?: No VTE Risk Level:: Medical - moderate - high VTE Device Contraindication: Treatment Not Indicated VTE Drug Contraindication: N/A - Med Ordered
[2024-05-11 06:04] LABS: Basophils Percent Auto 0.1 % (0-2); Hematocrit 37.1 % (42.0-52.0); Hemoglobin 12.7 g/dl (14.0-18.0); Imm Gran Abs Auto 0.07 X10*3/uL (0.00-0.03); Imm Gran Pct Auto 0.5 % (0.0-0.4); Lymphocytes Absolute Auto 0.5 X10*3/uL (1.2-4.9); Lymphocytes Percent Auto 3.7 % (20-40); MANUAL DIFF FLAG SCAN; Mean Corpuscular HGB Conc 34.2 g/dl (31.0-36.0); Mean Corpuscular Volume 87.7 fL (80.0-98.0); Mean Platelet Volume 9.2 fL (9.4-12.4); Monocytes Absolute Auto 0.5 X10*3/uL (0.1-1.2); Monocytes Percent Auto 3.4 % (2-11); Neutrophils Absolute Auto 12.7 x10*3/uL (2.0-8.3); Neutrophils Percent Auto 92.3 % (45-73); Platelet Count 282 X10*3/uL (160-400); Red Blood Count 4.23 X10*6/uL (4.60-5.80); Red Cell Distribution Width 13.9 % (11.0-16.0); SCAN SMEAR FLAG 1; White Blood Count 13.7 X10*3/uL (4.8-10.8)
[2024-05-11 06:23] LABS: Anion Gap 13 (12-20); Blood Urea Nitrogen 16 mg/dL (9-16); Calcium 8.8 mg/dL (8.4-10.2); Carbon Dioxide 24 mmol/L (22-29); Chloride 104 mmol/L (96-108); Creatinine Clr Calc Pharmacy 226.4; Estimated Glomerular Filt Rate > 60; Glucose Random 101 mg/dL (60-115); Potassium 4.1 mmol/L (3.3-5.1); Sodium 137 mmol/L (135-145)
[2024-05-11 06:37] LABS: SLIDE REVIEW VERIFIED
--- NOTE | 2024-05-11 07:22 | PHA.PROG ---
Admission Date/Time: May 11, 2024 01:48 Indication: SEPSIS Weight in k.456 kg Adjusted body weight in Kg: [place] body weight in Kg: Obesity Dosing Indication % IBW: Serum Creatinine - Last 168 Hours 05/10/24 05/11/24 19:00 05:56 Creatinine 0.88 0.87 Estimated CrCl and GFR - Last 168 Hours 05/10/24 05/11/24 19:00 05:56 Estim Creat Clear Calc 223.9 226.4 Estimated GFR > 60 > 60 Vancomycin Loading Dose: 2000 MG Current Vancomycin Dosing Regimen: 1500 MG Q8H Vancomycin Monitoring using AUC goal of 400 - 600 range with trough as surrogate marker: ECA=603 TROUGH=18.1 Date and Time for next Vancomycin Level to be drawn: 05/11/24 @2100 Pharmacist Comments on Vancomycin Plan: Vancomycin dosing will take advantage of [employer] as a clinical decision support tool that uses Bayesian modeling to calculate individual patient's pharmacokinetic parameters and forecast the patient's drug concentration time course with the target goal AUC 24 range of 400 - 600 mg/L/hr.
[2024-05-11] MEDS: vancomycin HCL 1,500 MG in 0.9 % Sodium Chloride 500 ML 333.33 MG IV ×3 (07:56→23:52)
[2024-05-11] MEDS: Enoxaparin Sodium 40 MG/0.4 ML SYRINGE SUBCUT ×2 (08:03→21:26)
[2024-05-11] MEDS: Piperacillin Sodium/Tazobactam 3.375 GM in 0.9 % Sodium Chloride 50 ML IV ×3 (12:14→23:14)
--- NOTE | 2024-05-11 12:52 | MHC.CM.PN ---
Patient lives in a home w/ mother, girlfriend and 2 young children. Functionally independent. Has CPAP - supplies via [employer]. 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 CM provided education and offered assistance. Patient declined. DP: Goal is home self care. Girlfriend to transport. CM will continue to follow.
--- NOTE | 2024-05-11 13:39 | PHA.MEDREC ---
Addendum entered by Errol Reyna RP 05/11/24 13:45: med rec checked by [facility] Original Note: Pharmacy Consult ? Medication Reconciliation Pharmacy has completed the medication reconciliation. Spoke to patients girlfriend to confirm med list.
[2024-05-11] MEDS: 0.9 % Sodium Chloride Flush 3 ML SYRINGE IVFLUSH ×2 (15:07→23:17)
--- NOTE | 2024-05-11 15:54 | PM.EVENT ---
Event Note Date of Service: 05/11/24 Event Note: seen and examined this morning follow up for RSV, abdominal wall cellulitis abdominal wall pain, feeling tired no sob; no wheezing on exam Sepsis secondary to abdominal wall cellulitis vs viral sepsis due to RSV WBC up to 13.7, remains tachycardic but HR improving, fever resolved. no severe features. continue vanco, will add zosyn for gram negative coverage blood cultures pending RSV positive for RSV chest x-ray negative, no hypoxia supportive care RAMIRO - patient noncompliant with CPAP, we will order CPAP in-house Morbid obesity - BMI 66.2 - follows and weight loss clinic and has lost over 100 lb since December 2022 remained of care per admission H&P Time Spent With Patient Time: Total time managing care of this patient today ____ minutes.
--- NOTE | 2024-05-11 15:57 | HO.WOUND ---
Wound Consult: Initial 34yr old?male admitted to [facility] on 05/11/24 - See progress notes and H&P for detailed history.? Wound consult placed for Abdominal Cellulitis.? Patient agreeable to assessment and photo documentation.? Patient is known to this junior copywriter from previous admission. He reports there are no open wounds and no weeping noted at this time. Patient instrcuted given swelling and cellulitis under the pannus concern for friction and skin stripping. We discussed Interdry vs Brad spray to donate layer of dimethicone. He reports he prefers Brad spray and not interdry. Recommend twice daily application. Patient reports feeling unwell at this time - agreeable to begin tomorrow. Bariatric bed in use. Recommendations: 1. Pannus abdomen - Cleanse with Brad Brickeys, pay dry with soft cloth. twice daily. Re-consult wound care Nurse for wound deterioration or wound changes.
[2024-05-11] MEDS: Acetaminophen 325 MG TABLET 650 MG PO (18:25)
[2024-05-11 21:13] LABS: Vancomycin Random 13.1 mcg/mL (15-20)
--- NOTE | 2024-05-11 21:51 | HE.PHANOTE ---
TOMA Leaving dose at 1500mg Q8H for at least another 2 doses to see how patient does on dose as BMI is very high and predictions in obese model are matching well with actual trough. Predicted trough 15.4, AUC 501 for current dosing. Next trough to be pulled 05/12 @1400 and to be adjusted based on levels and renal function.
[2024-05-12 03:34] VITALS: BP 118/57; PULSE 100; RESP 18; TEMP 37.7; O2SAT 96
[2024-05-12] MEDS: Acetaminophen 325 MG TABLET 650 MG PO (04:36)
[2024-05-12] MEDS: Piperacillin Sodium/Tazobactam 3.375 GM in 0.9 % Sodium Chloride 50 ML IV ×4 (05:11→23:22)
[2024-05-12 05:50] VITALS: TEMP 37.2
[2024-05-12 06:36] LABS: Estimated Glomerular Filt Rate > 60
[2024-05-12 07:21] VITALS: BP 169/77; PULSE 97; RESP 18; TEMP 37; O2SAT 96
[2024-05-12] MEDS: Butalb/Acetamin/Caff 50/325/40 TABLET 1 TAB PO (08:44)
[2024-05-12] MEDS: vancomycin HCL 1,500 MG in 0.9 % Sodium Chloride 500 ML 333.33 MG IV ×2 (08:46→15:55)
[2024-05-12] MEDS: Enoxaparin Sodium 40 MG/0.4 ML SYRINGE SUBCUT ×2 (08:47→20:38)
[2024-05-12 09:09] LABS: C Reactive Protein 10.05 mg/dL (< or = 0.50)
--- NOTE | 2024-05-12 12:55 | MHC.CM.PN ---
Per MD rounds patient not medically cleared for dc. CM will continue to follow.
[2024-05-12 14:47] LABS: Vancomycin Random 13.4 mcg/mL (15-20)
[2024-05-12 15:40] VITALS: BP 129/79; PULSE 86; RESP 16; TEMP 36.4; O2SAT 97
--- NOTE | 2024-05-12 15:40 | HO.PM.IMPN ---
Subjective Subjective Date of Service: 05/12/24 Interval History: fever resolved mild cough, no dyspnea abdominal wall pain/redness improved Review of Systems Review of Systems: Yes all other systems are reviewed and are negative Physical Exam Vital Signs: Vital Signs: Last Vital Signs Temp 98.6 F 05/12/24 07:21 Pulse 97 05/12/24 07:21 Resp 18 05/12/24 07:21 BP 169/77 H 05/12/24 07:21 Pulse Ox 96 05/12/24 07:21 O2 Del Method Room Air 05/12/24 07:21 BMI result Body Mass Index 67.0 Gen: in no acute distress HEENT: sclera anicteric, moist mucus membranes Neck: supple Lungs: clear to auscultation bilaterally Heart: regular rate and rhythm, no murmurs Abd: soft, obese, large pannus with erythema/induration but no purulence Ext: no edema Skin: warm/well-perfused Neuro: alert and oriented x3, no focal findings Psych: appropriate affect Objective Data Active Medications Acetaminophen (Acetaminophen 325 Mg Tablet) 650 mg PO Q6H PRN PRN Reason: Pain, Mild (Pain Scale 1-3), fever or headache Last Admin: 05/12/24 04:36 Dose: 650 mg Documented By: JANIE Acetaminophen/Butalbital/Caffeine (Butalb/Acetamin/Caff 50/325/40 Tablet) 1 tab PO Q4H PRN PRN Reason: Headache Last Admin: 05/12/24 08:44 Dose: 1 tab Documented By: BIBI Albuterol Sulfate (Albuterol Sulfate (0.083%) 2.5 Mg/3 Ml Vial.Neb) 5 mg INHALE QID PRN PRN Reason: shortness of breath or wheezing Benzonatate (Benzonatate 100 Mg Capsule) 200 mg PO TID PRN PRN Reason: Cough Calcium Carbonate (Calcium Carbonate 750 Mg Tab.Chew) 750 mg PO Q4H PRN PRN Reason: Heartburn Enoxaparin Sodium (Enoxaparin Sodium 40 Mg/0.4 Ml Syringe) 40 mg SUBCUT Q12H COUNT INCLUDES THE [facility] Last Admin: 05/12/24 08:47 Dose: 40 mg Documented By: BIBI Vancomycin HCl 1,500 mg/ (Sodium Chloride) 500 mls @ 333.333 mls/hr IV Q8H COUNT INCLUDES THE [facility] Last Infusion: 05/12/24 10:22 Dose: Infused Documented By: BIBI Piperacillin Sod/Tazobactam (Sod 3.375 gm/ Sodium Chloride) 50 mls @ 100 mls/hr IV Q6H COUNT INCLUDES THE [facility] Last Infusion: 05/12/24 13:48 Dose: Infused Documented By: BIBI Magnesium Hydroxide (Milk Of Magnesia 30 Ml Oral.Susp) 30 ml PO DAILY PRN PRN Reason: Constipation Melatonin (Melatonin 3 Mg Tablet) 6 mg PO BEDTIME PRN PRN Reason: Insomnia Ondansetron HCl (Ondansetron Hcl 4 Mg/2 Ml Vial) 4 mg IVPUSH Q8H PRN PRN Reason: Nausea and Vomiting Last Admin: 05/11/24 02:04 Dose: 4 mg Documented By: CLYDE Comments: early admin approved by [facility] Consult (Consult Rx Vancomycin Dosing) 1 each MISCELLANE DAILY PRN PRN Reason: Consult order Sodium Chloride (0.9 % Sodium Chloride Flush 3 Ml Syringe) 3 ml IVFLUSH QSHIFT COUNT INCLUDES THE [facility] Last Admin: 05/12/24 08:51 Dose: Not Given Documented By: BIBI Non-Admin Reason: IV Running Labs 05/11/24 05:56 05/12/24 05:49 Labs: Laboratory Results - last 24 hr 05/11/24 05/11/24 05/12/24 05:56 20:47 05:49 Hold Purple Top SEE NOTE Estim Creat Clear Calc 245.0 Estimated GFR > 60 C-Reactive Protein 10.05 H Random Vancomycin 13.1 L 05/12/24 14:04 Hold Purple Top Estim Creat Clear Calc Estimated GFR C-Reactive Protein Random Vancomycin 13.4 L Microbiology Microbiology Results: Microbiology 05/10/24 19:35 Blood Culture - Preliminary Blood - Venous No growth after 24 hours. 05/10/24 19:00 Blood Culture - Preliminary Blood - Venous No growth after 24 hours. Assessment and Plan (1) Abdominal wall cellulitis: Status: Acute Plan d2 for 36yo M with morbid obesity, RAMIRO, GERD, umbilical hernia, anxiety, depression, recent abdominal wall cellulitis for which he was discharged home on 04/21/24 with amoxicillin-clavulanate for 10 days re-admitted for sepsis sepsis due to abdominal wall cellulitis - 05/11- vanco + pip-maureen, follow BCx RSV - not hypoxic; continue droplet precautions RAMIRO - CPAP at night morbid obesity - diet/exercise counseling VTE prophylaxis - enoxaparin dispo - eventual home In my clinical judgment, the patient requires continued inpatient hospitalization for the following reasons: IV ABX Total time managing care of this patient today: 35 minutes. Quality Stroke Does the patient have a stroke diagnosis?: No VTE Prior VTE?: No VTE Risk Level:: Medical - moderate - high VTE Device Contraindication: Treatment Not Indicated VTE Drug Contraindication: N/A - Med Ordered
[2024-05-12] MEDS: 0.9 % Sodium Chloride Flush 3 ML SYRINGE IVFLUSH ×2 (16:01→23:22)
[2024-05-12 19:32] VITALS: BP 133/85; PULSE 95; RESP 18; TEMP 36; O2SAT 99
[2024-05-12] MEDS: Melatonin 3 MG TABLET 6 MG PO (23:54)
[2024-05-13] MEDS: vancomycin HCL 1,500 MG in 0.9 % Sodium Chloride 500 ML 333.33 MG IV ×3 (00:06→16:08)
[2024-05-13 03:19] VITALS: BP 122/72; PULSE 80; RESP 18; TEMP 36.7; O2SAT 93
[2024-05-13] MEDS: Piperacillin Sodium/Tazobactam 3.375 GM in 0.9 % Sodium Chloride 50 ML IV ×4 (05:29→23:33)
[2024-05-13 06:33] LABS: Hematocrit 32.5 % (42.0-52.0); Hemoglobin 10.7 g/dl (14.0-18.0); Mean Corpuscular HGB Conc 32.9 g/dl (31.0-36.0); Mean Corpuscular Hemoglobin 29.1 pg (27.0-33.0); Mean Corpuscular Volume 88.3 fL (80.0-98.0); Mean Platelet Volume 10.1 fL (9.4-12.4); Platelet Count 242 X10*3/uL (160-400); Red Blood Count 3.68 X10*6/uL (4.60-5.80); Red Cell Distribution Width 13.9 % (11.0-16.0); White Blood Count 6.1 X10*3/uL (4.8-10.8)
[2024-05-13 06:49] LABS: Anion Gap 13 (12-20); Blood Urea Nitrogen 11 mg/dL (9-16); Calcium 8.5 mg/dL (8.4-10.2); Carbon Dioxide 23 mmol/L (22-29); Chloride 107 mmol/L (96-108); Creatinine Clr Calc Pharmacy 248.1; Estimated Glomerular Filt Rate > 60; Glucose Random 105 mg/dL (60-115); Potassium 3.8 mmol/L (3.3-5.1); Sodium 139 mmol/L (135-145)
[2024-05-13 08:00] VITALS: BP 156/94; PULSE 73; RESP 18; TEMP 36.2; O2SAT 94
[2024-05-13] MEDS: Enoxaparin Sodium 40 MG/0.4 ML SYRINGE SUBCUT ×2 (08:22→20:56)
[2024-05-13] MEDS: 0.9 % Sodium Chloride Flush 3 ML SYRINGE IVFLUSH ×3 (08:30→20:57)
[2024-05-13] MEDS: Butalb/Acetamin/Caff 50/325/40 TABLET 1 TAB PO (08:30)
[2024-05-13] MEDS: Clindamycin Phosphate/D5W 600 MG/50 ML PIGGYBACK 100 MG IV ×2 (10:26→18:27)
--- NOTE | 2024-05-13 10:58 | HO.PM.IMPN ---
Subjective Subjective Date of Service: 05/13/24 Interval History: redness about the same coughing no fever Review of Systems Review of Systems: Yes all other systems are reviewed and are negative Physical Exam Vital Signs: Vital Signs: Last Vital Signs Temp 97.2 F 05/13/24 08:00 Pulse 73 05/13/24 08:00 Resp 18 05/13/24 08:00 BP 156/94 H 05/13/24 08:00 Pulse Ox 94 05/13/24 08:00 O2 Del Method Room Air 05/13/24 08:00 BMI result Body Mass Index 67.0 Gen: in no acute distress HEENT: sclera anicteric, moist mucus membranes Neck: supple Lungs: clear to auscultation bilaterally Heart: regular rate and rhythm, no murmurs Abd: soft, obese, large pannus with erythema/induration but no purulence Ext: no edema Skin: warm/well-perfused Neuro: alert and oriented x3, no focal findings Psych: appropriate affect Objective Data Active Medications Acetaminophen (Acetaminophen 325 Mg Tablet) 650 mg PO Q6H PRN PRN Reason: Pain, Mild (Pain Scale 1-3), fever or headache Last Admin: 05/12/24 04:36 Dose: 650 mg Documented By: JANIE Acetaminophen/Butalbital/Caffeine (Butalb/Acetamin/Caff 50/325/40 Tablet) 1 tab PO Q4H PRN PRN Reason: Headache Last Admin: 05/13/24 08:30 Dose: 1 tab Documented By: DOMINIK Albuterol Sulfate (Albuterol Sulfate (0.083%) 2.5 Mg/3 Ml Vial.Neb) 5 mg INHALE QID PRN PRN Reason: shortness of breath or wheezing Benzonatate (Benzonatate 100 Mg Capsule) 200 mg PO TID PRN PRN Reason: Cough Calcium Carbonate (Calcium Carbonate 750 Mg Tab.Chew) 750 mg PO Q4H PRN PRN Reason: Heartburn Enoxaparin Sodium (Enoxaparin Sodium 40 Mg/0.4 Ml Syringe) 40 mg SUBCUT Q12H [facility] Last Admin: 05/13/24 08:22 Dose: 40 mg Documented By: DOMINIK Vancomycin HCl 1,500 mg/ (Sodium Chloride) 500 mls @ 333.333 mls/hr IV Q8H [facility] Last Infusion: 12/21/24 09:59 Dose: Infused Documented By: DOMINIK Piperacillin Sod/Tazobactam (Sod 3.375 gm/ Sodium Chloride) 50 mls @ 100 mls/hr IV Q6H [facility] Last Infusion: 05/13/24 06:04 Dose: Infused Documented By: SATISH Clindamycin Phosphate (Cleocin) 600 mg in 50 mls @ 100 mls/hr IV Q8H [facility] Last Infusion: 05/13/24 10:56 Dose: Infused Documented By: DOMINIK Magnesium Hydroxide (Milk Of Magnesia 30 Ml Oral.Susp) 30 ml PO DAILY PRN PRN Reason: Constipation Melatonin (Melatonin 3 Mg Tablet) 6 mg PO BEDTIME PRN PRN Reason: Insomnia Last Admin: 05/12/24 23:54 Dose: 6 mg Documented By: SATISH Ondansetron HCl (Ondansetron Hcl 4 Mg/2 Ml Vial) 4 mg IVPUSH Q8H PRN PRN Reason: Nausea and Vomiting Last Admin: 05/11/24 02:04 Dose: 4 mg Documented By: CLYDE Comments: early admin approved by [facility] Consult (Consult Rx Vancomycin Dosing) 1 each MISCELLANE DAILY PRN PRN Reason: Consult order Sodium Chloride (0.9 % Sodium Chloride Flush 3 Ml Syringe) 3 ml IVFLUSH QSHIFT [facility] Last Admin: 05/13/24 08:30 Dose: 3 ml Documented By: DOMINIK Labs 05/13/24 05:18 05/13/24 05:18 Labs: Laboratory Results - last 24 hr 05/12/24 05/13/24 14:04 05:18 MCV 88.3 MCH 29.1 MCHC 32.9 RDW 13.9 Plt Count 242 MPV 10.1 Absolute Nucleated RBC 0.000 Nucleated RBC % (auto) 0.0 Anion Gap 13 Estim Creat Clear Calc 248.1 Estimated GFR > 60 Random Glucose 105 Calcium 8.5 Random Vancomycin 13.4 L Microbiology Microbiology Results: Microbiology 05/10/24 19:35 Blood Culture - Preliminary Blood - Venous No growth after 48 hours. 05/10/24 19:00 Blood Culture - Preliminary Blood - Venous No growth after 48 hours. Assessment and Plan (1) Abdominal wall cellulitis: Status: Acute Plan d3 for 36yo M with morbid obesity, RAMIRO, GERD, umbilical hernia, anxiety, depression, recent abdominal wall cellulitis for which he was discharged home on 04/21/24 with amoxicillin-clavulanate for 10 days re-admitted for sepsis sepsis due to abdominal wall cellulitis - 05/11- vanco + pip-maureen, will add clindamycin to shut off toxin production, BCx negative RSV - not hypoxic; continue droplet precautions RAMIRO - CPAP at night morbid obesity - diet/exercise counseling VTE prophylaxis - enoxaparin dispo - eventual home In my clinical judgment, the patient requires continued inpatient hospitalization for the following reasons: IV ABX Total time managing care of this patient today: 35 minutes. Quality Stroke Does the patient have a stroke diagnosis?: No VTE Prior VTE?: No VTE Risk Level:: Medical - moderate - high VTE Device Contraindication: Treatment Not Indicated VTE Drug Contraindication: N/A - Med Ordered
[2024-05-13 14:53] LABS: Vancomycin Random 16.6 mcg/mL (15-20)
[2024-05-13 16:00] VITALS: BP 133/92; PULSE 99; RESP 16; TEMP 36.7; O2SAT 99
[2024-05-13 16:41] VITALS: BP 121/62; PULSE 86; RESP 16; TEMP 37.1; O2SAT 99
[2024-05-13 20:00] VITALS: BP 146/81; PULSE 81; RESP 18; TEMP 35.7; O2SAT 98
[2024-05-14] MEDS: vancomycin HCL 1,500 MG in 0.9 % Sodium Chloride 500 ML 333.33 MG IV ×2 (00:01→08:02)
[2024-05-14] MEDS: Clindamycin Phosphate/D5W 600 MG/50 ML PIGGYBACK 100 MG IV ×2 (01:38→09:48)
[2024-05-14 03:31] VITALS: BP 152/86; PULSE 75; RESP 18; TEMP 36.1; O2SAT 97
[2024-05-14] MEDS: Piperacillin Sodium/Tazobactam 3.375 GM in 0.9 % Sodium Chloride 50 ML IV ×2 (05:36→11:20)
[2024-05-14 06:03] LABS: MANUAL DIFF FLAG NO
[2024-05-14 06:11] LABS: Basophils Percent Auto 0.5 % (0-2); Eosinophils Absolute Auto 0.3 X10*3/uL (0.0-0.4); Hematocrit 35.5 % (42.0-52.0); Hemoglobin 11.2 g/dl (14.0-18.0); Imm Gran Abs Auto 0.02 X10*3/uL (0.00-0.03); Imm Gran Pct Auto 0.4 % (0.0-0.4); Lymphocytes Absolute Auto 1.8 X10*3/uL (1.2-4.9); Mean Corpuscular HGB Conc 31.5 g/dl (31.0-36.0); Mean Corpuscular Hemoglobin 28.7 pg (27.0-33.0); Monocytes Absolute Auto 0.8 X10*3/uL (0.1-1.2); Monocytes Percent Auto 14.4 % (2-11); Neutrophils Absolute Auto 2.7 x10*3/uL (2.0-8.3); Neutrophils Percent Auto 47.7 % (45-73); Platelet Count 283 X10*3/uL (160-400); Red Cell Distribution Width 13.9 % (11.0-16.0); White Blood Count 5.7 X10*3/uL (4.8-10.8)
[2024-05-14 06:23] LABS: Creatinine Clr Calc Pharmacy 236.3; Estimated Glomerular Filt Rate > 60
[2024-05-14 08:00] VITALS: BP 159/90; PULSE 80; RESP 18; TEMP 36.8; O2SAT 97
[2024-05-14] MEDS: Enoxaparin Sodium 40 MG/0.4 ML SYRINGE SUBCUT (08:03)
[2024-05-14] MEDS: Butalb/Acetamin/Caff 50/325/40 TABLET 1 TAB PO (08:10)
[2024-05-14] MEDS: 0.9 % Sodium Chloride Flush 3 ML SYRINGE IVFLUSH (08:11)
--- NOTE | 2024-05-14 11:50 | P.DS_ITS ---
DS: Providers Provider Date of Service: 05/14/24 Date of admission: 05/11/24 01:48 Date of discharge: 05/14/24 Primary care physician: Sparkle Lawler CNP Consults: 05/11/24 10:38 Consult to Wound Care Routine Reason for consultation: abd wall cellulitis Has provider been notified: Yes DS: Diagnosis Discharge Diagnosis (1) Abdominal wall cellulitis: Status: Acute (2) Respiratory syncytial virus (RSV): Status: Acute (3) Morbid obesity: Status: Chronic DS: Summary Hospital Course Hospital Course: From the history and physical by the admitting hospitalist, IRMA Ochoa, 05/11/24: Patient is a 36-year-old male with a past medical history significant for morbid obesity, RAMIRO, GERD, GERD, umbilical hernia, anxiety, depression, MRSA+, and recent admission for abdominal wall cellulitis, discharged 04/21/2024 with Augmentin 875 b.i.d. times 10 days, who presented to the ED today with fever, chills, nausea, vomiting and dry cough. He reports that he has coughing spells which cause vomiting as well as vomiting due to nausea.. The patient reports that he completed the treatment however the cellulitis is back. It is not as significant as previous but still uncomfortable. No drainage. 36yo M with morbid obesity, RAMIRO, GERD, umbilical hernia, anxiety, depression, recent abdominal wall cellulitis for which he was discharged home on 04/21/24 with amoxicillin-clavulanate for 10 days re-admitted for sepsis from abdominal wall cellulitis. He was admitted to the medical-surgical unit and treated with IV vancomycin and piperacillin-tazobactam, then clindamycin. Blood cultures negative. Redness and swelling improved and he was discharged on clindamycin. He was found to have RSV infection without any hypoxia. He was discharged home with instructions to follow up with his primary care doctor in 1 week. Time Attestation Discharge Coordination Time (in mins): 40 Quality: Safe Use of Opioids Does Pt have an Active Cancer Diagnosis on the Problem List?: No Quality: Stroke Does the patient have a stroke diagnosis?: No Physical Exam Vital Signs: Vital Signs: Last Vital Signs Temp 98.3 F 05/14/24 08:00 Pulse 80 05/14/24 08:00 Resp 18 05/14/24 08:00 BP 159/90 H 05/14/24 08:00 Pulse Ox 97 05/14/24 08:00 O2 Del Method Room Air 05/14/24 08:00 BMI result Body Mass Index 67.0 Gen: in no acute distress HEENT: sclera anicteric, moist mucus membranes Neck: supple Lungs: clear to auscultation bilaterally Heart: regular rate and rhythm, no murmurs Abd: soft, obese, large pannus with faint erythema improved from yesterday; no purulent or fluctuant areas Ext: no edema Skin: warm/well-perfused Neuro: alert and oriented x3, no focal findings Psych: appropriate affect DS: Data Data Completed and Pending Completed studies during hospitalization [Text1]: Laboratory Results WBC 5.7 X10*3/uL (4.8-10.8) 05/14/24 05:15 RBC 3.90 X10*6/uL (4.60-5.80) L 05/14/24 05:15 Hgb 11.2 g/dl (14.0-18.0) L 05/14/24 05:15 Hct 35.5 % (42.0-52.0) L 05/14/24 05:15 MCV 91.0 fL (80.0-98.0) 05/14/24 05:15 MCH 28.7 pg (27.0-33.0) 05/14/24 05:15 MCHC 31.5 g/dl (31.0-36.0) 05/14/24 05:15 RDW 13.9 % (11.0-16.0) 05/14/24 05:15 Plt Count 283 X10*3/uL (160-400) 05/14/24 05:15 MPV 10.0 fL (9.4-12.4) 05/14/24 05:15 Immature Gran % (Auto) 0.4 % (0.0-0.4) 05/14/24 05:15 Neut % (Auto) 47.7 % (45-73) 05/14/24 05:15 Lymph % (Auto) 31.0 % (20-40) 05/14/24 05:15 [place] % (Auto) 14.4 % (2-11) H 05/14/24 05:15 Eos % (Auto) 6.0 % (0-4) H 05/14/24 05:15 Baso % (Auto) 0.5 % (0-2) 05/14/24 05:15 Lymph # (Auto) 1.8 X10*3/uL (1.2-4.9) 05/14/24 05:15 [place] # (Auto) 0.8 X10*3/uL (0.1-1.2) 05/14/24 05:15 Eos # (Auto) 0.3 X10*3/uL (0.0-0.4) 05/14/24 05:15 Baso # (Auto) 0.0 X10*3/uL (0.0-0.2) 05/14/24 05:15 Abs Immat Gran (auto) 0.02 X10*3/uL (0.00-0.03) 05/14/24 05:15 Absolute Neuts (auto) 2.7 x10*3/uL (2.0-8.3) 05/14/24 05:15 Absolute Nucleated RBC 0.000 X10*3/uL (0.0-0.012) 05/14/24 05:15 Nucleated RBC % (auto) 0.0 /100WBC (0.0-0.2) 05/14/24 05:15 Smear Tech's Comments VERIFIED 05/11/24 05:56 Hold Purple Top SEE NOTE 05/12/24 05:49 Sodium 139 mmol/L (135-145) 05/13/24 05:18 Potassium 3.8 mmol/L (3.3-5.1) 05/13/24 05:18 Chloride 107 mmol/L (96-108) 05/13/24 05:18 Carbon Dioxide 23 mmol/L (22-29) 05/13/24 05:18 Anion Gap 13 (12-20) 05/13/24 05:18 BUN 11 mg/dL (9-16) 05/13/24 05:18 Creatinine 0.84 mg/dL (0.5-1.4) 05/14/24 05:15 Estim Creat Clear Calc 236.3 05/14/24 05:15 Estimated GFR > 60 05/14/24 05:15 Random Glucose 105 mg/dL (60-115) 05/13/24 05:18 Lactic Acid 1.0 mmol/L (0.5-2.0) 05/10/24 19:00 Calcium 8.5 mg/dL (8.4-10.2) 05/13/24 05:18 Magnesium 1.7 mg/dL (1.6-2.6) 05/10/24 19:00 Total Bilirubin 0.6 mg/dL (0.0-1.0) 05/10/24 19:00 AST 30 U/L (5-37) 05/10/24 19:00 ALT 26 U/L (0-40) 05/10/24 19:00 Alkaline Phosphatase 64 U/L (39-117) 05/10/24 19:00 C-Reactive Protein 16.90 mg/dL (< or = 0.50) H 05/14/24 05:15 Total Protein 9.4 g/dL (6.5-8.0) H 05/10/24 19:00 Albumin 4.1 g/dL (3.5-5.0) 05/10/24 19:00 Lipase 27 U/L (8-78) 05/10/24 19:00 TSH 1.76 uIU/mL (0.32-4.0) 05/10/24 19:00 Urine Color Yellow 05/10/24 22:11 Urine Appearance Clear 05/10/24 22:11 Urine pH 7.5 (5.0-9.0) 05/10/24 22:11 Ur Specific [place] 1.020 (1.005-1.025) 05/10/24 22:11 Urine Protein Negative mg/dL (Neg-Trace) 05/10/24 22:11 Urine Glucose (UA) Negative mg/dL (Negative) 05/10/24 22:11 Urine Ketones Negative mg/dL (Negative) 05/10/24 22:11 Urine Blood Negative (Negative) 05/10/24 22:11 Urine Nitrite Negative (Negative) 05/10/24 22:11 Ur Leukocyte Esterase Trace (Negative) H 05/10/24 22:11 Urine RBC 0-2 /HPF (0-2) 05/10/24 22:11 Urine WBC 0-5 /HPF (0-5) 05/10/24 22:11 Ur Squamous Epith Cells 0-2 /HPF (0-2) 05/10/24 22:11 Urine Bacteria None Seen (None Seen) 05/10/24 22:11 Hyaline Casts 0-2 /LPF (0-2) 05/10/24 22:11 Random Vancomycin 16.6 mcg/mL (15-20) 05/13/24 14:19 Influenza Type A (PCR) NEGATIVE (Negative) 05/10/24 19:00 Influenza Type B (PCR) NEGATIVE (Negative) 05/10/24 19:00 RSV RNA Qual (PCR) POSITIVE (Negative) A 05/10/24 19:00 SARS-CoV-2 RNA (RT-PCR) NEGATIVE (Negative) 05/10/24 19:00 Impressions Chest X-Ray 05/10/24 19:20 IMPRESSION: Unremarkable examination. Electronically signed by: Bienvenido Pace DO 05/10/2024 09:54 PM EST Discharge Plan Discharge Anticipated Discharge Date/Time: 05/14/24 11:46 Patient Disposition: Home, Self-Care Discharge Diagnosis: abdominal wall cellulitis RSV infection Referrals: Sparkle Lawler SUGAR REFINER [Primary Care Provider] - 1 Week Discharge Medications: New clindamycin HCl 300 mg capsule 600 mg PO TID Qty: 24 0RF Continued albuterol sulfate 2.5 mg/0.5 mL solution for nebulization 5 mg inhalation QID PRN (Reason: shortness of breath or wheezing) Qty: 30 1RF ondansetron 4 mg tablet,disintegrating 4 mg PO Q8H PRN (Reason: Nausea And Vomiting) Discharge Orders: Discharge Order (Routine); Ordered 05/14/24 Ordered By: Domenica Mehta Diet: Advance to usual diet Activity on Discharge: As tolerated Stand Alone Forms: Patient Portal Discharge page Print Language: Georgian Care Plan Goals: cure of infection Health Concerns: abdominal wall cellulitis RSV infection Plan of Treatment: take clindamycin 600 mg 3x a day for 4 days Please follow up with your primary care doctor within 1 week. Return to the hospital if you experience recurrent or worsening symptoms. Assessment: See Discharge Summary.
--- NOTE | 2024-05-14 12:08 | MHC.CM.PN ---
PT TO DC HOME TODAY WITH NO SERVICES VIA PRIVATE TRANSPORT
== END 2024-05-14 12:40 | disposition home or self-care (01) | DRG 720 ==
LOC: HO.ED 05-11 01:10 → HO.EDOVER 05-11 01:53 → HO.S3 05-11 07:41
PROVIDERS: Physician Assistant; Admitting Provider Student in an Organized Health Care Education/Training Program; Emergency Provider Emergency Medicine Emergency Medical Services; PCP Nurse Practitioner Family; Visit Provider Family Medicine
DX: A41.9 Sepsis, unspecified organism (principal); B97.4 Respiratory syncytial virus as the cause of diseases classified elsewhere; L03.311 Cellulitis of abdominal wall; Z68.44 Body mass index [BMI] 60.0-69.9, adult; G47.33 Obstructive sleep apnea (adult) (pediatric); E66.01 Morbid (severe) obesity due to excess calories; Z71.3 Dietary counseling and surveillance; Z20.822 Contact with and (suspected) exposure to COVID-19; Z91.199 Patient's noncompliance with other medical treatment and regimen due to unspecified reason; Z86.14 Personal history of Methicillin resistant Staphylococcus aureus infection
CPT/HCPCS: 0241U; 36415; 71046; 80048; 80053; 80202; 81001; 82565; 83605; 83690; 83735; 84443; 85025; 85027; 86140; 87040; 93005; 99285; J0131; J0736; J1650; J1885; J2405; J2543; J3370; J3371; J3475

== ENCOUNTER → 2024-05-10 18:44 | Outpatient (BNV) | payer OTHER, SELFPAY | PROVIDERS: Admitting Provider Student in an Organized Health Care Education/Training Program; Emergency Provider Emergency Medicine Emergency Medical Services; PCP Nurse Practitioner Family; Visit Provider Internal Medicine | DX: R00.0 Tachycardia, unspecified (principal) | CPT/HCPCS: 93010 ==

== ENCOUNTER → 2024-05-11 01:48 | Outpatient (BNV) | payer OTHER, SELFPAY | PROVIDERS: Admitting Provider Student in an Organized Health Care Education/Training Program; Emergency Provider Emergency Medicine Emergency Medical Services; PCP Nurse Practitioner Family; Visit Provider Physician Assistant | DX: A41.9 Sepsis, unspecified organism (principal); L03.311 Cellulitis of abdominal wall | CPT/HCPCS: 99223; 99232; 99239; 99499 ==

== ENCOUNTER 2024-05-18 08:44 | Outpatient (REF) | payer OTHER, SELFPAY ==
[2024-05-18 10:04] LABS: MANUAL DIFF FLAG NO
[2024-05-18 10:09] LABS: Basophils Absolute Auto 0.1 X10*3/uL (0.0-0.2); Basophils Percent Auto 0.7 % (0-2); Eosinophils Absolute Auto 0.5 X10*3/uL (0.0-0.4); Eosinophils Percent Auto 6.1 % (0-4); Hematocrit 37.1 % (42.0-52.0); Imm Gran Abs Auto 0.06 X10*3/uL (0.00-0.03); Imm Gran Pct Auto 0.8 % (0.0-0.4); Lymphocytes Absolute Auto 2.7 X10*3/uL (1.2-4.9); Lymphocytes Percent Auto 35.7 % (20-40); Mean Corpuscular HGB Conc 32.3 g/dl (31.0-36.0); Mean Corpuscular Volume 89.6 fL (80.0-98.0); Mean Platelet Volume 9.5 fL (9.4-12.4); Monocytes Absolute Auto 0.6 X10*3/uL (0.1-1.2); Monocytes Percent Auto 8.5 % (2-11); Neutrophils Absolute Auto 3.6 x10*3/uL (2.0-8.3); Neutrophils Percent Auto 48.2 % (45-73); Platelet Count 412 X10*3/uL (160-400); Red Blood Count 4.14 X10*6/uL (4.60-5.80); Red Cell Distribution Width 13.6 % (11.0-16.0); White Blood Count 7.4 X10*3/uL (4.8-10.8)
[2024-05-18 10:22] LABS: Alanine Aminotransferase 18 U/L (0-40); Albumin Level 3.3 g/dL (3.5-5.0); Alkaline Phosphatase 49 U/L (39-117); Anion Gap 8 (12-20); Aspartate Amino Transferase 35 U/L (5-37); Bilirubin Total 0.4 mg/dL (0.0-1.0); Blood Urea Nitrogen 11 mg/dL (9-16); Calcium 9.4 mg/dL (8.4-10.2); Carbon Dioxide 31 mmol/L (22-29); Chloride 106 mmol/L (96-108); Cholesterol 132 mg/dL (<200); Estimated Glomerular Filt Rate > 60; Glucose Fasting 98 mg/dL (60-99); HDL Cholesterol 27 mg/dL (>40); LDL Cholesterol Calculated 81 mg/dL (<100); Sodium 141 mmol/L (135-145); Total Protein 8.1 g/dL (6.5-8.0); Triglycerides 123 mg/dL (<150)
== END 2024-05-18 08:45 | disposition home or self-care (01) ==
LOC: HO.HMGCLDS 08:44
PROVIDERS: PCP Nurse Practitioner Family; Visit Provider Nurse Practitioner Family
DX: Z00.00 Encounter for general adult medical examination without abnormal findings (principal)
CPT/HCPCS: 36415; 80053; 80061; 84443; 85025

== ENCOUNTER 2024-05-19 14:54 | Outpatient (AMB) | payer OTHER, SELFPAY ==
--- NOTE | 2024-05-19 15:04 | A.OFFPC_ITS ---
Vital Signs 05/19/24 15:09 Height 6 ft Weight 489 lb 2 oz BMI 66.3 BP 184/104 H Blood Pressure Location Lt radial Position Sitting Respiration 16 Pulse 69 Pulse Source Pulse Oximeter Temp 97.3 F Temp Source Oral Pulse Oximetry (%) 97 Oxygen Delivery Method Room Air Intake Visit Reasons: [facility] Intake Note: patient here for [facility] Allergies diphenhydramine [From Benadryl] Allergy (Intermediate, Verified 05/19/24 15:07) UNKNOWN doxycycline Allergy (Verified 05/19/24 15:07) Itching Tobacco use date assessed: 05/19/24 Dental Screening Dental Screen Date: 05/19/24 Did you have a dental visit in the last 12 months?: Yes Did you have a dental problem in the last 6 months where you did not have access to dental care?: No Was dental information given to patient?: Patient has dentist HPI HPI Comments History of Present Illness Details 34-year old male, accompanied by his gir lfriend, presents for transitional care management. He was hospitalized and treated for abdominal wall cellulitis at [facility] between 05/11/2024 and 05/14/2024. He reports significant improvement of his cellulitis symptoms. He denies abdominal wall pain, discomfort, or redness. Denies fever or chills. He recently completed a course of clindamycin. He was also diagnosed with RSV while hospitalized recently. His symptoms have significantly improved. He continue to have runny nose and intermittent nonproductive cough. No fever, chills, fatigue, body aches. He has a follow-up appointment with weight management clinic next week. DS: Summary Hospital Course Hospital Course: From the history and physical by the admitting hospitalist, IRMA Ochoa, 05/11/24: Patient is a 36-year-old male with a past medical history significant for m orbid obesity, RAMIRO, GERD, GERD, umbilical hernia, anxiety, depression, MRSA+, and recent admission for abdominal wall cellulitis, discharged 04/21/2024 with Augmentin 875 b.i.d. times 10 days, who presented to the ED today with fever, chills, nausea, vomiting and dry cough. He reports that he has coughing spells which cause vomiting as well as vomiting due to nausea.. The patient reports that he completed the treatment however the cellulitis is back. It is not as significant as previous but still uncomfortable. No drainage. 36yo M with morbid obesity, RAMIRO, GERD, u mbilical hernia, anxiety, depression, recent abdominal wall cellulitis for which he was discharged home on 04/21/24 with amoxicillin-clavulanate for 10 days re-admitted for sepsis from abdominal wall cellulitis. He was admitted to the medical-surgical unit and treated with IV vancomycin and piperacillin-tazobactam, then clindamycin. Blood cultures negative. Redness and swelling improved and he was discharged on clindamycin. He was found to have RSV infection without any hypoxia. He was discharged home with instructions to follow up with his primary care doctor in 1 week. [facility] Medical History (Updated 05/19/24 @ 15:58 by Sparkle Lawler CNP) Depression Anxiety Obstructive sleep apnea (~2012) Morbid obesity Asthma GERD (gastroesophageal reflux disease) SARIKA (generalized anxiety disorder) Surgical History History of dental surgery (~1998) Family History (Updated 05/04/24 @ 13:32 by Nabila Cruz) Mother FH: mental illness Cancer Father Diabetes Maternal Grandmother Alcohol abuse Cancer Sister FH: mental illness Diabetes Social History Household Members: Significant Other Housing: Apartment Do you presently have visiting nurse or other home services: No Alcohol intake: current Alcohol intake frequency: a few times a month Alcohol type: hard liquor Patient Tobacco Use Status: Never used Tobacco e-Cigarette/Vaping Use: Former Use Second Hand Smoke Exposure: No Substance Use Type: Marijuana service: No Cognitive needs: No Hearing needs: No Vision needs: No Questionnaire Thrive Questionnaire Date Thrive assessed: 05/04/24 I am a: Patient What is your living situation today?: I have a steady place to live Within the past 12 months, did the food you bought not last and you didn't have the money to get more?: I choose not to answer this question Within the past 12 months, did you worry whether your food would run out before you got money to buy more?: Never true Do you have trouble paying for medicines?: No Do you have trouble getting transportation to medical appointments?: No Do you have trouble paying your heating and electricity bill?: No Do you have trouble taking care of your child, family member or friend?: No Do you have trouble with day-to-day activities such as bathing, preparing meals, shopping, managing finances, etc.?: No Are you currently unemployed and looking for a job?: No Are you interested in more education?: No Please select the resources that you would like help with: None Currently or been in a relationship where the following occur: No concerns reported THRIVE Score: 0 AUDIT C Alcohol Use Questionnaire (AUDIT-C) 1. How often do you have a drink containing alcohol?: Monthly or less 2. How many drinks containing alcohol do you have on a typical day when you are drinking?: 3 or 4 (4-5) 3. How often do you have six or more drinks on one occasion?: Less than monthly Total Score: 3 Score Reviewed/Action Taken: Yes SARIKA-7 AMB Questionnaire SARIKA-7 Date SARIKA - 7 assessed: 05/04/24 Source: Developed by Drs. Hayden Thayer, Liat Grace, Uriel Chavis and colleagues, with an educational lisa from [employer]. Review of Systems Const Details: Const Denies chills, Denies fatigue, Denies fever(s), Denies headache(s) and Denies weakness ENT Denies dizziness and Denies headache(s) Card Denies chest pain, Denies lightheadedness, Denies dyspnea and Denies other (Palpitations) Resp Denies cough, Denies dyspnea, Denies wheezing and Denies other ( shortness of breath) GI Denies abdominal pain, Denies melena, Denies hematochezia, Denies change in bowel habits, Denies dyspepsia and Denies nausea Denies hematuria and Denies dysuria Musc Denies abnormal gait, Denies myalgias, Denies arthralgias, Denies numbness and Denies tingling Skin/Breast Denies rash, Denies unusual bruising and Denies wounds Neuro Denies abnormal gait, Denies dizziness, Denies headache(s), Denies memory loss, Denies numbness, Denies Sensory deficit (Neuro), Denies tingling and Denies weakness Psych Denies anxiety, Denies depression, Denies memory loss Endo Denies cold intolerance, Denies fatigue, Denies heat intolerance, Denies polydipsia and Denies polyuria Aller/Immun Denies wheezing Physical exam (Primary Care) Vital Signs: Last Vital Signs Temp 97.3 F 05/19/24 15:09 Pulse 69 05/19/24 15:09 Resp 16 05/19/24 15:09 BP 184/104 H 05/19/24 15:09 Pulse Ox 97 05/19/24 15:09 Oxygen Delivery Method Room Air 05/19/24 15:09 BMI result Body Mass Index 66.3 Tobacco/Smoking Status: Tobacco use Status Tobacco use date assessed 05/19/24 05/19/24 15:15 Patient Tobacco Use Status Never used Tobacco 05/19/24 15:06 e-Cigarette/Vaping Use Former Use 05/19/24 15:06 Thrive Assessment: Date of Thrive Assessment Date Thrive assessed 05/04/24 05/19/24 15:06 Currently or been in a relationship where the following occur: No concerns reported Const Other: General: no acute distress and well developed Nutritional Appearance: well nourished Orientation/consciousness: patient oriented x3 HENMT Head: Yes normocephalic and Yes atraumatic Eyes General: appearance normal, both eyes and all related structures Pupils: Equal, round and reactive pupils present EOM: EOMs intact bilaterally Resp Effort & Inspection: normal respiratory effort Auscultation: clear to auscultation bilaterally Cardio Rate: regular rate Rhythm: regular rhythm Heart sounds: S1 normal heart sound present, S2 normal heart sound present, no gallops, no murmurs and no rubs GI Palpation (GI): No Abdominal aortic bruit present, Soft to palpation, nontender, No hepatosplenomegaly present and No Rebound tenderness present Auscultation: normal bowel sounds General: Yes no CVA tenderness Back/Spine/Pelvis Back: no CVA tenderness Cervical Spine: cervical ROM normal and No Cervical spine tenderness Thoracic/Lumbar Spine: thoraco-lumbar ROM normal, No pain with thoraco-lumbar ROM, No thoracic spinal tenderness and No lumbar spinal tenderness Extrem General: Yes normal to inspection, No edema and No calf tenderness Skin General: warm and dry. Normal skin color. Normal skin turgor Lesions: no lesions Rashes: no rashes Trauma: no lacerations or abrasions Wounds: no wounds Nails: normal Neuro General: patient oriented x3, gait normal and no focal neuro deficit Cranial nerves: Yes Equal, round and reactive pupils present Cognition (Neuro): normal cognition Gait exam (Neuro): Normal gait present Sensory Exam: No Sensory deficit (Neuro) Psych Appearance: grossly normal Affect: normal affect Attitude: cooperative Thought process: Normal thought process present Coding Level of Care Code TCM Mod MDM <= 7 Days Diagnoses Abdominal wall cellulitis L03.311 Anemia D64.9 Low HDL (under 40) E78.6 Thrombocytosis D75.839 Viral upper respiratory illness J06.9 Elevated blood-pressure reading without diagnosis of hypertension R03.0 Assessment & Plan Assessment & Plan (1) Abdominal wall cellulitis: Code(s): L03.311 - Cellulitis of abdominal wall Category: Medical Plan: No acute symptoms. The abdominal wall slight erythema. No inflammation, wound, or drainage. Advised to schedule his next physical no sooner that on 05/04/2025. Perform repeat labs done as instructed. Return with symptoms or concerns. Verbalized understanding and agreed with the plan. His blood pressure is elevated; he will follow-up next week for nurse visit for blood pressure check. (2) Anemia: Code(s): D64.9 - Anemia, unspecified Category: Medical Plan: Recent RBC and H&H are slightly low, 4.1 and 12.0/37.1 respectively. Likely due to recent abdominal wall cellulitis. Will recheck CBC, iron level, and B12/folate levels. Will make changes as needed. Advised to get blood work done after her current respiratory illness completely resolved. Will review results and make changes as needed. Verbalized understanding and agreed with the plan. (3) Low HDL (under 40): Code(s): E78.6 - Lipoprotein deficiency Category: Medical Plan: Recent HDL level is low, 27; triglycerides, total cholesterol, and LDL levels are normal. Advised to limit foods high in saturated fat and avoid foods high in trans fat. Routine exercise encouraged. Will monitor lipid panel levels periodically. Verbalized understanding and agreed with the plan. (4) Thrombocytosis: Code(s): D75.839 - Thrombocytosis, unspecified Category: Medical Plan: Recent platelet level is slightly elevated, 412. Will repeat CBC and make changes as needed. (5) Viral upper respiratory illness: Code(s): J06.9 - Acute upper respiratory infection, unspecified Category: Medical Plan: Recent the diagnosed with RSV. Symptoms significantly improved with continue to experience runny nose and nonproductive cough. Viral illness There is no antibiotic medication for viruses.? They must run their course.? Most average 5-7 days but 7-10 days is not uncommon and up to 14 days is still possible.? A cough is often the last symptom to resolve and this can last for weeks in some cases. Rest Hydrate well -? Drink plenty of fluids.? Especially water. Tylenol or ibuprofen for muscle aches, headache, fever/discomfort Return for new or worsening symptoms Verbalized understanding and agreed with treatment plan. (6) Elevated blood-pressure reading without diagnosis of hypertension: Code(s): R03.0 - Elevated blood-pressure reading, without diagnosis of hypertension Category: Medical Plan: Blood pressure is usually controlled at home but elevated at doctor's visit. Blood pressure is 184/104. Asymptomatic. Advised to follow-up for nurse visit for blood pressure check next week. Verbalized understanding and agreed with the plan. Orders: Orders Complete Blood Count Auto Diff Today D64.9 - Anemia, unspecified, D75.839 - Thrombocytosis, unspecified IRON PROFILE Today D64.9 - Anemia, unspecified Vitamin B12 and Folate Today D64.9 - Anemia, unspecified
[2024-05-19 15:09] VITALS: BP 184/104; PULSE 69; RESP 16; TEMP 36.3; O2SAT 97; BMI 66.3
== END 2024-05-19 15:42 | disposition home or self-care (01) ==
PROVIDERS: PCP Nurse Practitioner Family; Visit Provider Nurse Practitioner Family
DX: L03.311 Cellulitis of abdominal wall (principal); D64.9 Anemia, unspecified; E78.6 Lipoprotein deficiency; D75.839 Thrombocytosis, unspecified; J06.9 Acute upper respiratory infection, unspecified; R03.0 Elevated blood-pressure reading, without diagnosis of hypertension

== ENCOUNTER → 2024-05-19 14:54 | Outpatient (BNVA) | payer OTHER, SELFPAY | PROVIDERS: PCP Nurse Practitioner Family; Visit Provider Nurse Practitioner Family | DX: L03.311 Cellulitis of abdominal wall (principal); D64.9 Anemia, unspecified; E78.6 Lipoprotein deficiency; D75.839 Thrombocytosis, unspecified; J06.9 Acute upper respiratory infection, unspecified; R03.0 Elevated blood-pressure reading, without diagnosis of hypertension | CPT/HCPCS: 99495 ==

== ENCOUNTER 2024-05-25 15:15 | Outpatient (AMB) | payer OTHER, SELFPAY ==
--- NOTE | 2024-05-25 15:19 | A.OFFVIS_ITS ---
VS Expanded 05/25/24 15:25 Blood Pressure Location Lt brachial Blood Pressure Position Sitting Pulse 76 Pulse Source Pulse Oximeter Temp 97.0 F Temperature Source Temporal Artery Scan Pulse Oximetry 98 Oxygen Delivery Method Room Air Height 5 ft 11 in Weight 482 lb BMI 67.2 Body Fat % 53.1 Body Fat Mass 256.0 Fat Free Mass 226.0 Visceral Fat Rating 47.0 Body Water % 37.5 Body Water Mass 180.8 Muscle Mass/Score 215.0 Basal Metabolic Rate/Score 3,484 Intake Visit Reasons: (OV) F/U SWL Allergies diphenhydramine [From Benadryl] Allergy (Intermediate, Verified 05/25/24 15:32) UNKNOWN doxycycline Allergy (Verified 05/25/24 15:32) Itching HPI Comments Details: Patient is a 33-year-old male who returns to the office today in follow-up. He began the surgical weight loss program 01/20/2023 with a weight of 618.1 lb and a BMI of 86.2. Weight today is 482 lb with a BMI of 67.2. He has lost 136.1 lb or 22% total body weight. He states he has been much more consistent with his meal plan and going to the gym. He did have a 4 day period where he couldn't do much due to hernia pain. He is not complaining of any significant hunger as he is now spacing out his shakes and bars. He is satisfied with his weight loss now as he did gain significant weight but has then lost it again. He is completely committed and is excited about the progress he has made. States he is skipping his last shake 6 of 7 days due to forgetting to have it, and not counting the forks at mealtimes. He was hospitalized in March, towards the end of the month for abdominal wall cellulitis requiring several days of IV antibiotics followed by completion of course of outpatient oral Augmentin. He he was rehospitalized in late April for approximately 5 days with sepsis, recurrent cellulitis and RSV. He has since recovered, followed up with his primary care physician and is planning to return to the gym. He was not able to go to the gym as he has recently been sick, but now as he has improved, he is looking forward to returning. Celebrate Rebuild protein shake with TWO scoops in 10oz low fat Fairlife milk at 8-10am, Celebrate protein bar 11am-1pm, lunch at 2pm (10 forks of meat and 10 forks of salad or vegetables) Celebrate bar at 4pm-6pm, dinner at 7pm (10 forks of meat and 10 forks of salad or vegetables) Celebrate Rebuild protein shake with TWO scoops in 10oz low fat Fairlife milk at 8-10pm drinking 80-96 oz water exercise plan: previously treadmill 5oo calories 5-6 days per week stationary bike 2-3 x per week [address] [facility] Medical History Morbid obesity with BMI of 60.0-69.9, adult Depression Anxiety Obstructive sleep apnea (~2012) Morbid obesity Asthma GERD (gastroesophageal reflux disease) SARIKA (generalized anxiety disorder) Surgical History History of dental surgery (~1998) Family History Mother FH: mental illness Cancer Father Diabetes Maternal Grandmother Alcohol abuse Cancer Sister FH: mental illness Diabetes Social History Household Members: Significant Other Housing: Apartment Do you presently have visiting nurse or other home services: No Alcohol intake: current Alcohol intake frequency: a few times a month Alcohol type: hard liquor Patient Tobacco Use Status: Never used Tobacco e-Cigarette/Vaping Use: Former Use Second Hand Smoke Exposure: No Substance Use Type: Marijuana service: No Cognitive needs: No Hearing needs: No Vision needs: No Physical Exam Vital Signs: Last Vital Signs Temp 97.0 F 05/25/24 15:25 Pulse 76 05/25/24 15:25 Pulse Ox 98 05/25/24 15:25 Oxygen Delivery Method Room Air 05/25/24 15:25 BMI result Body Mass Index 67.2 Const General: healthy appearing and no acute distress Resp Effort & Inspection: normal respiratory effort Auscultation: clear to auscultation bilaterally Cardio Rate: regular rate Rhythm: regular rhythm GI Auscultation: normal bowel sounds Extrem General: Yes normal to inspection Assessment & Plan Assessment & Plan (1) Morbid obesity: Code(s): E66.01 - Morbid (severe) obesity due to excess calories Category: Medical Plan: Patient is going to get back on track. He was recently hospitalized and has now recovered. Encouraged to return to the gym as he is able, continue to follow the meal plan. We will have him return to the office in approximately 4-6 weeks.
[2024-05-25 15:25] VITALS: PULSE 76; TEMP 36.1; O2SAT 98; BMI 67.2
== END 2024-05-25 15:50 | disposition home or self-care (01) ==
PROVIDERS: PCP Internal Medicine; Visit Provider Physician Assistant Surgical
DX: E66.01 Morbid (severe) obesity due to excess calories (principal)
CPT/HCPCS: 99213; G2211

== ENCOUNTER → 2024-05-25 15:15 | Outpatient (BNVA) | payer OTHER, SELFPAY | PROVIDERS: PCP Internal Medicine; Visit Provider Physician Assistant Surgical | DX: E66.01 Morbid (severe) obesity due to excess calories (principal); Z68.44 Body mass index [BMI] 60.0-69.9, adult | CPT/HCPCS: 99212 ==

== ENCOUNTER → 2024-06-01 15:28 | Outpatient (BNVA) | payer OTHER, SELFPAY | PROVIDERS: PCP Internal Medicine; Visit Provider Nurse Practitioner Family | DX: Z01.30 Encounter for examination of blood pressure without abnormal findings (principal) | CPT/HCPCS: 99211 ==

== ENCOUNTER 2024-06-14 00:56 | Inpatient (IN) | payer OTHER, SELFPAY ==
[2024-06-14] VITALS (9 sets, daily range): BP systolic 107–158; BP diastolic 53–77; PULSE 89–120; RESP 16–24; TEMP 37.1–38.4; O2SAT 95–99; BMI 68.3; BMI 68.1
--- NOTE | ~2024-06-14 | XR_ITS ---
EXAMINATION: XR CHEST CLINICAL INFORMATION: SOB COMPARISON: 05/10/2024. TECHNIQUE: 2 views of the chest were obtained. FINDINGS: Exam mildly limited due to habitus and low lung volumes. The cardiac, hilar, and mediastinal contours are normal. Low lung volumes. The lungs are clear bilaterally. There is no pneumothorax or pleural effusion. There is no focal osseous or soft tissue abnormality. XR/XR chest 2V IMPRESSION: Mildly limited exam due to habitus. No active pulmonary disease. Electronically signed by: Contreras Cid MD 06/14/2024 09:48 AM [facility]
--- NOTE | ~2024-06-14 | CT_ITS ---
EXAMINATION: CT ABDOMEN AND PELVIS WITH CONTRAST CLINICAL INFORMATION: Abdominal swelling, cellulitis COMPARISON: CT abdomen and pelvis 08/30/2023 TECHNIQUE: Multidetector volumetric images were obtained from the superior aspect of the liver through the pubic symphysis following administration 100 mL of Omnipaque 350 intravenous contrast. Sagittal and coronal reformatted images were obtained on the technologist's workstation. Oral contrast: No This CT examination was performed using dose optimization techniques as appropriate, variously including the following: *Automated exposure control *Adjustment of mA and/or kV according to patient size (this includes techniques or standardized protocols for targeted exams where dose is matched to indication/reason for exam; i.e. extremities or head) *Use of iterative reconstruction technique FINDINGS: LUNG BASES: The visualized lung bases are unremarkable. LIVER, GALLBLADDER, AND BILIARY TREE: The liver is normal in size, shape, and attenuation. No focal hepatic lesion or biliary ductal dilatation is present. The gallbladder is unremarkable with no evidence of radiopaque gallstones, gallbladder wall thickening, or obvious pericholecystic inflammatory changes. PANCREAS: Unremarkable. SPLEEN: Unremarkable. ADRENAL GLANDS: Unremarkable. KIDNEYS AND URETERS: The kidneys are normal in size, shape, and attenuation. No hydronephrosis, hydroureter, or calculi seen. No perinephric stranding. BLADDER: The bladder is nondistended and appears unremarkable. GASTROINTESTINAL TRACT: There is scattered stool and gas in colon without distention. The small bowel loops are normal caliber. Appendix is not visualized with certainty. ABDOMINAL WALL: There is lower anterior abdominal wall midline hernia containing mesenteric fat and small bowel loops. There is adjacent diffuse fatty infiltration of abdominal wall suggestive of cellulitis or edema with moderate anterior skin thickening. LYMPH NODES: Normal. VASCULAR: Unremarkable. PELVIC VISCERA: Unremarkable. OSSEOUS STRUCTURES: No lytic or sclerotic process seen. There is mild degenerative disc changes L5-S1 disc level. CT/CT abdomen pelvis w IV con IMPRESSION: Line anterior abdominal wall hernia repair with small bowel loops and mesenteric fat within. There is adjacent fatty infiltration wall with skin thickening likely cellulitis. Fleischner guidelines were followed. Electronically signed by: Pablo West MD 06/14/2024 02:40 PM [facility] [place]
[2024-06-14 02:07] LABS: MANUAL DIFF FLAG NO
[2024-06-14 02:09] LABS: Basophils Absolute Auto 0.1 X10*3/uL (0.0-0.2); Basophils Percent Auto 0.3 % (0-2); Eosinophils Absolute Auto 0.2 X10*3/uL (0.0-0.4); Eosinophils Percent Auto 1.4 % (0-4); Hematocrit 42.2 % (42.0-52.0); Imm Gran Abs Auto 0.08 X10*3/uL (0.00-0.03); Imm Gran Pct Auto 0.5 % (0.0-0.4); Lymphocytes Absolute Auto 1.5 X10*3/uL (1.2-4.9); Lymphocytes Percent Auto 9.6 % (20-40); Mean Corpuscular HGB Conc 33.2 g/dl (31.0-36.0); Mean Corpuscular Volume 87.6 fL (80.0-98.0); Mean Platelet Volume 9.2 fL (9.4-12.4); Monocytes Absolute Auto 0.6 X10*3/uL (0.1-1.2); Monocytes Percent Auto 4.1 % (2-11); Neutrophils Absolute Auto 12.9 x10*3/uL (2.0-8.3); Neutrophils Percent Auto 84.1 % (45-73); Platelet Count 334 X10*3/uL (160-400); Red Blood Count 4.82 X10*6/uL (4.60-5.80); Red Cell Distribution Width 14.2 % (11.0-16.0); White Blood Count 15.3 X10*3/uL (4.8-10.8)
[2024-06-14 02:29] LABS: Alanine Aminotransferase 27 U/L (0-40); Alkaline Phosphatase 68 U/L (39-117); Anion Gap 15 (12-20); Aspartate Amino Transferase 31 U/L (5-37); Bilirubin Total 0.4 mg/dL (0.0-1.0); Blood Urea Nitrogen 19 mg/dL (9-16); Calcium 9.7 mg/dL (8.4-10.2); Carbon Dioxide 25 mmol/L (22-29); Chloride 102 mmol/L (96-108); Creatinine Clr Calc Pharmacy 211.7; Estimated Glomerular Filt Rate > 60; Glucose Random 97 mg/dL (60-115); Potassium 3.9 mmol/L (3.3-5.1); Sodium 138 mmol/L (135-145); Total Protein 9.3 g/dL (6.5-8.0)
[2024-06-14 02:45] LABS: Influenza A PCR NEGATIVE (Negative); Influenza B PCR NEGATIVE (Negative); Resp Syncy Virus RNA Qual PCR NEGATIVE (Negative); SARS COV2 PCR INHOUSE NEGATIVE (Negative)
[2024-06-14] MEDS: Acetaminophen 325 MG TABLET 975 MG PO (08:01)
--- NOTE | 2024-06-14 08:40 | PC.NURSE ---
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 pt medicated w tylenol for pain.
[2024-06-14 09:00] LABS: Lactic Acid 1.1 mmol/L (0.5-2.0)
--- NOTE | 2024-06-14 09:09 | ED.GENADULT ---
HPI - General Adult General Chief complaint: General Medical Stated complaint: cellulitis Time Seen by Provider: 06/14/24 09:08 Source: patient and RN notes reviewed Mode of arrival: ambulatory Limitations: no limitations History of Present Illness ED Provider: Anu Son PA-C [facility] narrative: This is a 34-year-old male, significant for morbid obesity, RAMIRO, GERD, GERD, umbilical hernia, anxiety, depression, MRSA+, who presents emergency department for evaluation of abdominal wall cellulitis. Patient reports that in April he was admitted for abdominal wall cellulitis, which improved up until he believes yesterday. Patient reports that he has had nausea, vomiting, cough congestion, headaches and body aches for the last several days, he states that last night he felt as though his symptoms worsened, and stated to have warmth sensation in his mid abdomen, which he felt when he had the abdominal wall cellulitis. He did take cold and flu medication last night. He also states that he has had some shortness of breath. He denies any chest pain. He is not on antibiotics. MD complaint: Abdominal wall cellulitis Relieving factors: none Exacerbating factors: none Associated symptoms: cough, fever/chills and nausea/vomiting Related Data Home Medications ?Medication ?Instructions ?Recorded ?Confirmed melatonin 10 mg tablet 10 mg PO BEDTIME PRN Sleep 06/14/24 06/14/24 Previous Rx's ?Medication ?Instructions ?Recorded albuterol sulfate 2.5 mg/0.5 mL 5 mg inhalation QID PRN shortness 04/21/24 solution for nebulization of breath or wheezing #30 ea Allergies Allergy/AdvReac Type Severity Reaction Status Date / Time diphenhydramine Allergy Intermediate UNKNOWN Verified 06/14/24 01:01 [From Benadryl] doxycycline Allergy Itching Verified 06/14/24 01:01 Review of Systems Review of Systems: Yes all other systems are reviewed and are negative Constitutional: Constitutional: Reports as per [facility] Past Medical History Attestation statement: The following information was validated with the patient. Medical History Morbid obesity with BMI of 60.0-69.9, adult Depression Anxiety Obstructive sleep apnea (~2012) Morbid obesity Asthma GERD (gastroesophageal reflux disease) SARIKA (generalized anxiety disorder) Surgical History History of dental surgery (~1998) Family History Family History Mother FH: mental illness Cancer Father Diabetes Maternal Grandmother Alcohol abuse Cancer Sister FH: mental illness Diabetes Social History Social History Household Members: Significant Other Housing: Apartment Do you presently have visiting nurse or other home services: No Alcohol intake: current Alcohol intake frequency: holidays/special occasions only Alcohol type: hard liquor Patient Tobacco Use Status: Never used Tobacco Smoked in Last 30 Days: No e-Cigarette/Vaping Use: Former Use Second Hand Smoke Exposure: No Use of substances other than those prescribed or required for medical reasons: No Substance Use Type: Marijuana Advance Directives: No Advance Directives Information Provided: Yes Do you have a plan to hurt others: No Plan Nutrition Risks: No Nutritional Risk service: No Cognitive needs: No Hearing needs: No Vision needs: No Physical Exam ED Vital Signs: Vital Signs - 24 hr 06/14/24 11:23 06/14/24 11:43 06/14/24 11:57 Temperature 98.9 F 98.7 F Pulse Rate 106 H 102 H 99 Respiratory Rate 17 16 18 Blood Pressure 136/60 138/64 139/65 Pulse Oximetry 98 98 99 Oxygen Delivery Method Room Air Room Air Room Air 06/14/24 14:52 Temperature 99.8 F Pulse Rate 89 Respiratory Rate 19 Blood Pressure 149/75 H Pulse Oximetry 98 Oxygen Delivery Method Room Air BMI result Body Mass Index 68.1 Const General: cooperative, comfortable and no acute distress Orientation/consciousness: patient oriented x3 Limitations: no limitations [facility] Head: Yes normal to inspection, Yes normocephalic and Yes atraumatic Ears: hearing grossly normal bilaterally General nose exam: Normal external nose present Face and sinus: Yes normal facial exam Mouth: Normal oral and palatal mucosa present, oropharynx normal and moist mucous membranes Throat: Yes posterior oropharynx normal Eyes General: appearance normal, both eyes and all related structures Eyelids: Yes eyelids normal Conjunctivae: conjunctivae normal Sclerae: sclerae normal Pupils: Equal, round and reactive pupils present EOM: EOMs intact bilaterally Neck Neck: Yes normal visual inspection, Yes full ROM and Yes no lymphadenopathy Lymphatic: no lymphadenopathy noted Chest Chest palpation & inspection: normal inspection of the chest Resp Effort & Inspection: normal respiratory effort and able to speak in complete sentences Auscultation: clear to auscultation bilaterally, no crackles, no rales, no rhonchi and no wheezes Cardio Rate: regular rate Rhythm: regular rhythm Heart sounds: S1 normal heart sound present and S2 normal heart sound present GI Inspection: Yes normal to inspection Skin Other: Abdomen is soft, nontender. Obese abdomen, lower half of abdomen is red, indurated, and warm. Mild tenderness. Large umbilical hernia seen, is reducible. Neuro General: patient oriented x3 and moves all extremities Cranial nerves: Yes Equal, round and reactive pupils present Extrem General: Yes normal to inspection Right upper extremity: normal to inspection Left upper extremity: normal to inspection Right lower extremity: normal to inspection Left lower extremity: normal to inspection Course Reevaluation(s) Reevaluation #1: CT scan revealing line anterior abdominal wall hernia repair with small bowel loops and mesenteric fat within. There is adjacent fatty infiltration while with slight thickening likely cellulitis. Patient requiring hospitalization for IV antibiotics and management of abdominal wall cellulitis. Discussed case with hospitalist, transfer of care initiated. Time: 14:55 Medications Administered Generic Name Dose Route Start Last Admin Trade Name Freq PRN Reason Stop Dose Admin Acetaminophen 650 mg 06/14/24 16:35 06/15/24 05:05 Acetaminophen 325 Mg Tablet PO 650 mg Q6H PRN Administration Pain, Mild 1-3,fever,headache Enoxaparin Sodium 40 mg 06/14/24 18:00 06/14/24 17:24 Enoxaparin Sodium 40 Mg/0.4 Ml Syringe SUBCUT 40 mg Q24H MIGDALIA Administration Piperacillin Sod/Tazobactam 100 mls @ 200 mls/hr 06/14/24 17:00 06/15/24 06:24 Sod 4.5 gm/ Sodium Chloride IV Infused Q6H MIGDALIA Infusion Vancomycin HCl 1,500 mg/ 500 mls @ 333.333 mls/hr 06/14/24 18:00 06/15/24 09:22 Sodium Chloride IV 333.33 mls/hr Q8H MIGDALIA Administration Sodium Chloride 3 ml 06/15/24 00:00 06/15/24 09:18 0.9 % Sodium Chloride Flush 3 Ml Syringe IVFLUSH 3 ml QSHIFT MIGDALIA Administration Discontinued Medications Generic Name Dose Route Start Last Admin Trade Name Lila PRN Reason Stop Dose Admin Acetaminophen 975 mg 06/14/24 07:59 06/14/24 08:01 Acetaminophen 325 Mg Tablet PO 06/14/24 08:00 975 mg ONCE ONE Administration Vancomycin HCl 2,000 mg in 500 mls @ 250 mls/hr 06/14/24 09:22 06/14/24 12:28 Vancomycin/Ns IV 06/14/24 11:21 Infused ONCE ONE Infusion Piperacillin Sod/Tazobactam 50 mls @ 100 mls/hr 06/14/24 09:22 06/14/24 10:30 Sod 3.375 gm/ Sodium Chloride IV 06/14/24 09:51 Infused ONCE ONE Infusion Sodium Chloride 1,000 mls @ 999 mls/hr 06/14/24 09:24 06/14/24 10:56 Ns IVCONT 06/14/24 10:24 Infused .Q1H1M ONE Infusion Acetaminophen 1,000 mg in 100 mls @ 400 mls/hr 06/14/24 15:05 06/14/24 15:31 Ofirmev IV 06/14/24 15:19 Infused ONCE ONE Infusion Fluconazole 200 mg in 100 mls @ 100 mls/hr 06/14/24 16:38 06/14/24 18:40 Diflucan IV 06/14/24 17:37 Infused ONCE ONE Infusion Iohexol 100 ml 06/14/24 14:08 06/14/24 14:08 Iohexol 350 Mg/Ml 100 Ml Infus..Btl IV 06/14/24 14:09 100 ml ONCE ONE Administration Medical Decision Making Medical Decision Making MDM Narrative: This is a 34-year-old male who presents emergency department with complaints of abdominal wall redness starting last night. He states that over the last several days he has felt as though he has had a cold. Patient initially arrived to the emergency room at 1:00 a.m., with a blood pressure of 158/77, pulse 120, with a temperature of 99.9?. I assessed patient at 09:20AM this morning, and reported a sepsis alert. Patient with leukocytosis at 15.3, chemistry revealing no significant electrolyte derangement. BNP 25. Troponin less than 2.7. I did order a BNP, and troponin as well as EKG and chest x-ray given patient's reported shortness for breath which he has had with the cold-like symptoms he has been experiencing. Abdomen concerning for abdominal wall cellulitis, extensive. Patient was recently admitted for this. I ordered vanco and Zosyn for coverage of this. I also administered 2 L of normal saline. Patient did not initially have CT scan of his abdomen upon initial hospitalization, given induration of the abdominal wall, I would like to have CT scan obtained to rule out any peritoneal abscess vs intraabdominal process complicating patient's current presentataion. Patient likely requiring hospitalization for management of abdominal wall cellulitis. We will continue to closely monitor. Differential Diagnosis Differential Diagnoses: The differential diagnosis associated with the presentation includes Cellulitis, abscess, Admission/Observation Consideration of admission/observation: Escalation of care including admission/observation considered Lab Data MDM Lab Attestation statement: I reviewed the patient's lab results. Patient with leukocytosis at 15.3, with left shift. Chemistry with no significant electrolyte derangement. BNP 25. Troponin less than 2.7. 06/15/24 04:53 06/15/24 04:53 Labs: Lab Results 06/14/24 06/14/24 06/14/24 Range/Units 02:03 08:37 09:55 WBC 15.3 H (4.8-10.8) X10*3/uL RBC 4.82 (4.60-5.80) X10*6/uL Hgb 14.0 (14.0-18.0) g/dl Hct 42.2 (42.0-52.0) % MCV 87.6 (80.0-98.0) fL MCH 29.0 (27.0-33.0) pg MCHC 33.2 (31.0-36.0) g/dl RDW 14.2 (11.0-16.0) % Plt Count 334 (160-400) X10*3/uL MPV 9.2 L (9.4-12.4) fL Immature Gran % (Auto) 0.5 H (0.0-0.4) % Neut % (Auto) 84.1 H (45-73) % Lymph % (Auto) 9.6 L (20-40) % Curry % (Auto) 4.1 (2-11) % Eos % (Auto) 1.4 (0-4) % Baso % (Auto) 0.3 (0-2) % Lymph # (Auto) 1.5 (1.2-4.9) X10*3/uL Curry # (Auto) 0.6 (0.1-1.2) X10*3/uL Eos # (Auto) 0.2 (0.0-0.4) X10*3/uL Baso # (Auto) 0.1 (0.0-0.2) X10*3/uL Abs Immat Gran (auto) 0.08 H (0.00-0.03) X10*3/uL Absolute Neuts (auto) 12.9 H (2.0-8.3) x10*3/uL Absolute Nucleated RBC 0.000 (0.0-0.012) X10*3/uL Nucleated RBC % (auto) 0.0 (0.0-0.2) /100WBC Sodium 138 (135-145) mmol/L Potassium 3.9 (3.3-5.1) mmol/L Chloride 102 (96-108) mmol/L Carbon Dioxide 25 (22-29) mmol/L Anion Gap 15 (12-20) BUN 19 H (9-16) mg/dL Creatinine 0.95 (0.5-1.4) mg/dL Estim Creat Clear Calc 211.7 Estimated GFR > 60 Random Glucose 97 (60-115) mg/dL Lactic Acid 1.1 (0.5-2.0) mmol/L Calcium 9.7 (8.4-10.2) mg/dL Total Bilirubin 0.4 (0.0-1.0) mg/dL AST 31 (5-37) U/L ALT 27 (0-40) U/L Alkaline Phosphatase 68 (39-117) U/L Troponin I High Sens < 2.7 (<3.5-35.0) ng/L B-Natriuretic Peptide 25 (<100) pg/mL Total Protein 9.3 H (6.5-8.0) g/dL Albumin 4.0 (3.5-5.0) g/dL Influenza Type A (PCR) NEGATIVE (Negative) Influenza Type B (PCR) NEGATIVE (Negative) RSV RNA Qual (PCR) NEGATIVE (Negative) SARS-CoV-2 RNA (RT-PCR) NEGATIVE (Negative) 06/14/24 Range/Units 13:05 WBC (4.8-10.8) X10*3/uL RBC (4.60-5.80) X10*6/uL Hgb (14.0-18.0) g/dl Hct (42.0-52.0) % MCV (80.0-98.0) fL MCH (27.0-33.0) pg MCHC (31.0-36.0) g/dl RDW (11.0-16.0) % Plt Count (160-400) X10*3/uL MPV (9.4-12.4) fL Immature Gran % (Auto) (0.0-0.4) % Neut % (Auto) (45-73) % Lymph % (Auto) (20-40) % Curry % (Auto) (2-11) % Eos % (Auto) (0-4) % Baso % (Auto) (0-2) % Lymph # (Auto) (1.2-4.9) X10*3/uL Curry # (Auto) (0.1-1.2) X10*3/uL Eos # (Auto) (0.0-0.4) X10*3/uL Baso # (Auto) (0.0-0.2) X10*3/uL Abs Immat Gran (auto) (0.00-0.03) X10*3/uL Absolute Neuts (auto) (2.0-8.3) x10*3/uL Absolute Nucleated RBC (0.0-0.012) X10*3/uL Nucleated RBC % (auto) (0.0-0.2) /100WBC Sodium (135-145) mmol/L Potassium (3.3-5.1) mmol/L Chloride (96-108) mmol/L Carbon Dioxide (22-29) mmol/L Anion Gap (12-20) BUN (9-16) mg/dL Creatinine (0.5-1.4) mg/dL Estim Creat Clear Calc Estimated GFR Random Glucose (60-115) mg/dL Lactic Acid (0.5-2.0) mmol/L Calcium (8.4-10.2) mg/dL Total Bilirubin (0.0-1.0) mg/dL AST (5-37) U/L ALT (0-40) U/L Alkaline Phosphatase (39-117) U/L Troponin I High Sens < 2.7 (<3.5-35.0) ng/L B-Natriuretic Peptide (<100) pg/mL Total Protein (6.5-8.0) g/dL Albumin (3.5-5.0) g/dL Influenza Type A (PCR) (Negative) Influenza Type B (PCR) (Negative) RSV RNA Qual (PCR) (Negative) SARS-CoV-2 RNA (RT-PCR) (Negative) Independent Interpretation I performed an independent interpretation of an: EKG Interpretation: First EKG done at 11:21 a.m., revealing sinus tach with prolonged QTC at 5:02 a.m. Radiology Impression Discussion of test interpretation with radiology: I have reviewed the radiologist's reading. Radiologist Impression: Report Number: [id number]: Total DLP = 3274.00 mGy-cm EXAMINATION: CT ABDOMEN AND PELVIS WITH CONTRAST CLINICAL INFORMATION: Abdominal swelling, cellulitis COMPARISON: CT abdomen and pelvis 08/30/2023 TECHNIQUE: Multidetector volumetric images were obtained from the superior aspect of the liver through the pubic symphysis following administration 100 mL of Omnipaque 350 intravenous contrast. Sagittal and coronal reformatted images were obtained on the technologist's workstation. Oral contrast: No This CT examination was performed using dose optimization techniques as appropriate, variously including the following: *Automated exposure control *Adjustment of mA and/or kV according to patient size (this includes techniques or standardized protocols for targeted exams where dose is matched to indication/reason for exam; i.e. extremities or head) *Use of iterative reconstruction technique FINDINGS: LUNG BASES: The visualized lung bases are unremarkable. LIVER, GALLBLADDER, AND BILIARY TREE: The liver is normal in size, shape, and attenuation. No focal hepatic lesion or biliary ductal dilatation is present. The gallbladder is unremarkable with no evidence of radiopaque gallstones, gallbladder wall thickening, or obvious pericholecystic inflammatory changes. PANCREAS: Unremarkable. SPLEEN: Unremarkable. ADRENAL GLANDS: Unremarkable. KIDNEYS AND URETERS: The kidneys are normal in size, shape, and attenuation. No hydronephrosis, hydroureter, or calculi seen. No perinephric stranding. BLADDER: The bladder is nondistended and appears unremarkable. GASTROINTESTINAL TRACT: There is scattered stool and gas in colon without distention. The small bowel loops are normal caliber. Appendix is not visualized with certainty. ABDOMINAL WALL: There is lower anterior abdominal wall midline hernia containing mesenteric fat and small bowel loops. There is adjacent diffuse fatty infiltration of abdominal wall suggestive of cellulitis or edema with moderate anterior skin thickening. LYMPH NODES: Normal. VASCULAR: Unremarkable. PELVIC VISCERA: Unremarkable. OSSEOUS STRUCTURES: No lytic or sclerotic process seen. There is mild degenerative disc changes L5-S1 disc level. CT/CT abdomen pelvis w IV con IMPRESSION: Line anterior abdominal wall hernia repair with small bowel loops and mesenteric fat within. There is adjacent fatty infiltration wall with skin thickening likely cellulitis. Fleischner guidelines were followed. Electronically signed by: Pablo West MD 06/14/2024 02:40 PM [facility] Dictated By: Pablo West MD Discharge Plan Discharge Clinical Impression: Abdominal wall cellulitis Patient Disposition: Admitted As Inpatient
--- NOTE | 2024-06-14 09:27 | ECG_ITS ---
Test Reason : SEPSIS Blood Pressure : */* mmHG Vent. Rate : 104 BPM Atrial Rate : 104 BPM P-R Int : 174 ms QRS Dur : 90 ms QT Int : 382 ms P-R-T Axes : * -3 215 degrees QTcB Int : 502 ms Baseline wander Sinus tachycardia Difficult to comment on ST T waves Abnormal ECG When compared with ECG of 10-May-2024 18:52, Repeat EKG Referred By: Anu Son Electronically Signed By: PARISH CARDONA MD
[2024-06-14 09:51] LABS: Troponin-I High Sensitivity < 2.7 ng/L (<3.5-35.0)
[2024-06-14] MEDS: 0.9 % Sodium Chloride 1,000 ML 999 ML IVCONT (09:56)
[2024-06-14] MEDS: Piperacillin Sodium/Tazobactam 3.375 GM in 0.9 % Sodium Chloride 50 ML IV (10:00)
[2024-06-14 10:24] LABS: B Type Natriuretic Peptide 25 pg/mL (<100)
[2024-06-14] MEDS: vancomycin/NS 2,000 MG/500 ML PLAST..BAG 250 MG IV (10:28)
--- NOTE | 2024-06-14 11:34 | ECG_ITS ---
Test Reason : SEPSIS Blood Pressure : */* mmHG Vent. Rate : 104 BPM Atrial Rate : 104 BPM P-R Int : 130 ms QRS Dur : 90 ms QT Int : 328 ms P-R-T Axes : 61 3 23 degrees QTcB Int : 431 ms Sinus tachycardia Otherwise normal ECG When compared with ECG of 14-Jun-2024 11:21, T wave inversion no longer evident in Inferior leads T wave inversion no longer evident in Lateral leads QT has shortened Referred By: Catalina Núñez Electronically Signed By: PARISH CARDONA MD
[2024-06-14 13:33] LABS: Troponin-I High Sensitivity < 2.7 ng/L (<3.5-35.0)
[2024-06-14] MEDS: iohexoL 350 MG/ML 100 ML INFUS..BTL IV (14:08)
[2024-06-14] MEDS: Acetaminophen 1,000 MG/100 ML PIGGYBACK 400 MG IV (15:16)
--- NOTE | 2024-06-14 16:39 | PM.IMHP ---
History of Present Illness Date of Service: 06/14/24 Chief Complaint: Abdominal wall infection 34-year-old male, significant for morbid obesity, RAMIRO, GERD, GERD, umbilical hernia, anxiety, depression, MRSA+, who presents emergency department for evaluation of abdominal wall cellulitis. Patient reports that in April he was admitted for abdominal wall cellulitis, which improved up until he believes yesterday. Patient reports that he has had nausea, vomiting, cough congestion, headaches and body aches for the last several days, he states that last night he felt as though his symptoms worsened, and stated to have warmth sensation in his mid abdomen, which he felt when he had the abdominal wall cellulitis Review of Systems Review of Systems: Denies chest pain Denies shortness of breath Denies nausea vomiting diarrhea Denies fever chills [facility] Medical History Morbid obesity with BMI of 60.0-69.9, adult Depression Anxiety Obstructive sleep apnea (~2012) Morbid obesity Asthma GERD (gastroesophageal reflux disease) SARIKA (generalized anxiety disorder) Family History Mother FH: mental illness Cancer Father Diabetes Maternal Grandmother Alcohol abuse Cancer Sister FH: mental illness Diabetes Surgical History History of dental surgery (~1998) Social History Household Members: Significant Other Housing: Apartment Do you presently have visiting nurse or other home services: No Alcohol intake: current Alcohol intake frequency: a few times a month Alcohol type: hard liquor Patient Tobacco Use Status: Never used Tobacco e-Cigarette/Vaping Use: Former Use Second Hand Smoke Exposure: No Substance Use Type: Marijuana Advance Directives: No Advance Directives Information Provided: Yes Do you have a plan to hurt others: No Plan service: No Cognitive needs: No Hearing needs: No Vision needs: No Meds Allergies Allergy/AdvReac Type Severity Reaction Status Date / Time diphenhydramine Allergy Intermediate UNKNOWN Verified 06/14/24 01:01 [From Benadryl] doxycycline Allergy Itching Verified 06/14/24 01:01 Active Medications: Current Medications Acetaminophen (Acetaminophen 325 Mg Tablet) 650 mg PO Q6H PRN PRN Reason: Pain, Mild 1-3,fever,headache Calcium Carbonate (Calcium Carbonate 750 Mg Tab.Chew) 750 mg PO Q4H PRN PRN Reason: Heartburn Enoxaparin Sodium (Enoxaparin Sodium 40 Mg/0.4 Ml Syringe) 40 mg SUBCUT Q24H [facility] Piperacillin Sod/Tazobactam (Sod 4.5 gm/ Sodium Chloride) 100 mls @ 200 mls/hr IV Q6H [facility] Fluconazole (Diflucan) 200 mg in 100 mls @ 100 mls/hr IV ONCE ONE Stop: 06/14/24 17:37 Magnesium Hydroxide (Milk Of Magnesia 30 Ml Oral.Susp) 30 ml PO DAILY PRN PRN Reason: Constipation Melatonin (Melatonin 3 Mg Tablet) 6 mg PO BEDTIME PRN PRN Reason: Insomnia Ondansetron HCl (Ondansetron Hcl 4 Mg/2 Ml Vial) 4 mg IVPUSH Q8H PRN PRN Reason: Nausea and Vomiting Oxycodone HCl (Oxycodone Hcl Immed Release 5 Mg Tablet) 10 mg PO Q6H PRN PRN Reason: Pain, Severe (Pain Scale 7-10) Pharmacy Consult (Consult Rx Vancomycin Dosing) 1 each MISCELLANE DAILY PRN PRN Reason: Consult order Sodium Chloride (0.9 % Sodium Chloride Flush 3 Ml Syringe) 3 ml IVFLUSH [facility] Home Medications ?Medication ?Instructions ?Recorded ?Confirmed ?Last Taken ?Type ondansetron 4 mg disintegrating 4 mg PO Q8H PRN Nausea And Vomiting 04/28/24 05/15/24 Unknown History tablet Physical Exam Vital Signs and Narrative: Vital Signs: Last Vital Signs Temp 99.8 F 06/14/24 14:52 Pulse 89 06/14/24 14:52 Resp 19 06/14/24 14:52 BP 149/75 H 06/14/24 14:52 Pulse Ox 98 06/14/24 14:52 O2 Del Method Room Air 06/14/24 14:52 BMI result Body Mass Index 68.1 Const: Other: Awake alert no acute distress Resp: Other: Clear to auscultation bilaterally no rales rhonchi or wheezes Cardio: Other: No S4; positive S1-S2; no S3 murmurs rubs or gallops GI: Other: Soft nontender nondistended normoactive bowel sounds. Diffuse erythema from mid epigastrium down distal to the umbilicus warmth to touch Results Labs 06/14/24 02:03 06/14/24 02:03 Labs: Laboratory Results - last 24 hr 06/14/24 06/14/24 06/14/24 02:03 08:37 09:55 MCV 87.6 MCH 29.0 MCHC 33.2 RDW 14.2 Plt Count 334 MPV 9.2 L Immature Gran % (Auto) 0.5 H Neut % (Auto) 84.1 H Lymph % (Auto) 9.6 L Hendry % (Auto) 4.1 Eos % (Auto) 1.4 Baso % (Auto) 0.3 Lymph # (Auto) 1.5 Hendry # (Auto) 0.6 Eos # (Auto) 0.2 Baso # (Auto) 0.1 Abs Immat Gran (auto) 0.08 H Absolute Neuts (auto) 12.9 H Absolute Nucleated RBC 0.000 Nucleated RBC % (auto) 0.0 Anion Gap 15 Estim Creat Clear Calc 211.7 Estimated GFR > 60 Random Glucose 97 Lactic Acid 1.1 Calcium 9.7 Total Bilirubin 0.4 AST 31 ALT 27 Alkaline Phosphatase 68 Troponin I High Sens < 2.7 B-Natriuretic Peptide 25 Total Protein 9.3 H Albumin 4.0 Influenza Type A (PCR) NEGATIVE Influenza Type B (PCR) NEGATIVE RSV RNA Qual (PCR) NEGATIVE SARS-CoV-2 RNA (RT-PCR) NEGATIVE 06/14/24 13:05 MCV MCH MCHC RDW Plt Count MPV Immature Gran % (Auto) Neut % (Auto) Lymph % (Auto) Hendry % (Auto) Eos % (Auto) Baso % (Auto) Lymph # (Auto) Hendry # (Auto) Eos # (Auto) Baso # (Auto) Abs Immat Gran (auto) Absolute Neuts (auto) Absolute Nucleated RBC Nucleated RBC % (auto) Anion Gap Estim Creat Clear Calc Estimated GFR Random Glucose Lactic Acid Calcium Total Bilirubin AST ALT Alkaline Phosphatase Troponin I High Sens < 2.7 B-Natriuretic Peptide Total Protein Albumin Influenza Type A (PCR) Influenza Type B (PCR) RSV RNA Qual (PCR) SARS-CoV-2 RNA (RT-PCR) Imaging Radiologist's Impressions: Impressions Chest X-Ray 06/14/24 09:25 IMPRESSION: Mildly limited exam due to habitus. No active pulmonary disease. Electronically signed by: Contreras Cid MD 06/14/2024 09:48 AM EST RP Abdomen/Pelvis CT 06/14/24 13:53 IMPRESSION: Line anterior abdominal wall hernia repair with small bowel loops and mesenteric fat within. There is adjacent fatty infiltration wall with skin thickening likely cellulitis. Fleischner guidelines were followed. Electronically signed by: Pablo West MD 06/14/2024 02:40 PM EST RP Assessment and Plan (1) Abdominal wall cellulitis: Status: Acute Plan 34-year-old male with a history of abdominal wall cellulitis recently admitted here in April. States it resolved however over the last several days. States feels similar to last admission. 1. Abdominal wall cellulitis (recurrent) -vancomycin/Zosyn (1) -Diflucan 200 mg IV x1. . . Noted to have groin candidiasis question port of entry for cellulitis -complete or close Diflucan; clinical follow up in a.m. 2. Asthma (mild intermittent) -stable and well compensated ... No acute issues this admission -continue outpatient therapies Full code Lovenox Patient will require at least 2 midnights going forward of inpatient hospitalization for IV antibiotics to treat a abdominal wall cellulitis. This is a recurrent cellulitis that has failed outpatient therapy. This can not be achieved a lesser acute setting Quality Stroke Does the patient have a stroke diagnosis?: No VTE Prior VTE?: No VTE Risk Level:: Medical - moderate - high VTE Device Contraindication: Treatment Not Indicated VTE Drug Contraindication: N/A - Med Ordered
--- NOTE | 2024-06-14 16:49 | PHA.MEDREC ---
Addendum entered by Marty rFost RPh 06/14/24 16:52: Med rec was reviewed by [facility]. Original Note: Pharmacy Consult ? Medication Reconciliation Pharmacy has completed the medication reconciliation. Spoke to patient to confirm med list.
[2024-06-14] MEDS: Piperacillin Sodium/Tazobactam 4.5 GM in 0.9 % Sodium Chloride 100 ML IV ×2 (17:21→23:03)
[2024-06-14] MEDS: Enoxaparin Sodium 40 MG/0.4 ML SYRINGE SUBCUT (17:24)
[2024-06-14] MEDS: Fluconazole in NaCl,Iso-Osm 200 MG/100 ML PIGGYBACK 100 MG IV (17:40)
[2024-06-14] MEDS: vancomycin HCL 1,500 MG in 0.9 % Sodium Chloride 500 ML 333.33 MG IV (18:48)
--- NOTE | 2024-06-14 22:29 | PC.NURSE ---
report given to Sandhya Kelley RN pt to be transferred to ED 8
--- NOTE | 2024-06-14 22:50 | PC.NURSE ---
report from Denice JUAN
[2024-06-14] MEDS: 0.9 % Sodium Chloride Flush 3 ML SYRINGE IVFLUSH (23:03)
[2024-06-14] MEDS: Acetaminophen 325 MG TABLET 650 MG PO (23:09)
--- NOTE | 2024-06-14 23:11 | PC.NURSE ---
Patient awake and alert. skin flush, warm, dry. tachypneic, pt also reports having chills and a headache. pt noted to be febrile at 101.2, medicated w/ tylenol per order
[2024-06-15 02:23] VITALS: BP 130/70; PULSE 97; RESP 16; TEMP 37.6; O2SAT 96
[2024-06-15] MEDS: vancomycin HCL 1,500 MG in 0.9 % Sodium Chloride 500 ML 333.33 MG IV ×3 (02:24→17:35)
[2024-06-15] MEDS: Acetaminophen 325 MG TABLET 650 MG PO ×2 (05:05→16:31)
[2024-06-15 05:06] VITALS: BP 134/111; PULSE 118; RESP 18; TEMP 37.2; O2SAT 95
[2024-06-15] MEDS: Piperacillin Sodium/Tazobactam 4.5 GM in 0.9 % Sodium Chloride 100 ML IV ×4 (05:06→23:27)
[2024-06-15 05:37] LABS: MANUAL DIFF FLAG NO
[2024-06-15 05:40] LABS: Basophils Percent Auto 0.3 % (0-2); Hematocrit 34.9 % (42.0-52.0); Hemoglobin 11.4 g/dl (14.0-18.0); Imm Gran Abs Auto 0.09 X10*3/uL (0.00-0.03); Imm Gran Pct Auto 0.8 % (0.0-0.4); Lymphocytes Absolute Auto 1.7 X10*3/uL (1.2-4.9); Lymphocytes Percent Auto 14.9 % (20-40); Mean Corpuscular HGB Conc 32.7 g/dl (31.0-36.0); Mean Corpuscular Hemoglobin 28.8 pg (27.0-33.0); Mean Corpuscular Volume 88.1 fL (80.0-98.0); Mean Platelet Volume 9.6 fL (9.4-12.4); Monocytes Absolute Auto 0.8 X10*3/uL (0.1-1.2); Neutrophils Absolute Auto 8.9 x10*3/uL (2.0-8.3); Platelet Count 264 X10*3/uL (160-400); Red Blood Count 3.96 X10*6/uL (4.60-5.80); White Blood Count 11.6 X10*3/uL (4.8-10.8)
[2024-06-15 05:54] LABS: Alanine Aminotransferase 15 U/L (0-40); Albumin Level 3.1 g/dL (3.5-5.0); Alkaline Phosphatase 51 U/L (39-117); Anion Gap 13 (12-20); Aspartate Amino Transferase 24 U/L (5-37); Bilirubin Total 0.9 mg/dL (0.0-1.0); Blood Urea Nitrogen 14 mg/dL (9-16); Calcium 8.8 mg/dL (8.4-10.2); Carbon Dioxide 23 mmol/L (22-29); Chloride 104 mmol/L (96-108); Creatinine Clr Calc Pharmacy 278.6; Estimated Glomerular Filt Rate > 60; Glucose Random 88 mg/dL (60-115); Potassium 3.5 mmol/L (3.3-5.1); Sodium 136 mmol/L (135-145); Total Protein 7.2 g/dL (6.5-8.0)
--- NOTE | 2024-06-15 08:34 | ECG_ITS ---
Test Reason : ABNORMAL EKG Blood Pressure : */* mmHG Vent. Rate : 87 BPM Atrial Rate : 87 BPM P-R Int : 142 ms QRS Dur : 98 ms QT Int : 368 ms P-R-T Axes : 40 9 19 degrees QTcB Int : 442 ms Normal sinus rhythm Normal ECG When compared with ECG of 14-Jun-2024 11:34, No significant change was found Referred By: Coleman Lemon Electronically Signed By: PARISH CARDONA MD
[2024-06-15 08:48] VITALS: BP 108/57; PULSE 86; RESP 16; TEMP 36.9; O2SAT 95
[2024-06-15] MEDS: 0.9 % Sodium Chloride Flush 3 ML SYRINGE IVFLUSH ×3 (09:18→23:27)
--- NOTE | 2024-06-15 13:08 | P.PNIM_ITS ---
Subjective Subjective Date of Service: 06/15/24 Interval History: Minimal improvement overnight however patient states feels subjectively better Review of Systems Denies chest pain Denies shortness of breath Denies nausea vomiting diarrhea Denies fever chills Physical Exam 2 Vital Signs: Vital Signs: Last Vital Signs Temp 98.4 F 06/15/24 08:48 Pulse 86 06/15/24 08:48 Resp 16 06/15/24 08:48 BP 108/57 L 06/15/24 08:48 Pulse Ox 95 06/15/24 08:48 O2 Del Method Room Air 06/15/24 08:48 BMI result Body Mass Index 68.1 Const: Other: Awake alert no acute distress Resp: Other: Clear to auscultation bilaterally no rales rhonchi or wheezes Cardio: Other: No S4; positive S1-S2; no S3 murmurs rubs or gallops GI: Other: Soft nontender nondistended normoactive bowel sounds. Diffuse erythema from mid epigastrium down distal to the umbilicus warmth to touch Objective Data Active Medications Acetaminophen (Acetaminophen 325 Mg Tablet) 650 mg PO Q6H PRN PRN Reason: Pain, Mild 1-3,fever,headache Last Admin: 06/15/24 05:05 Dose: 650 mg Documented By: DEBBI Calcium Carbonate (Calcium Carbonate 750 Mg Tab.Chew) 750 mg PO Q4H PRN PRN Reason: Heartburn Enoxaparin Sodium (Enoxaparin Sodium 40 Mg/0.4 Ml Syringe) 40 mg SUBCUT Q24H [facility] Last Admin: 06/14/24 17:24 Dose: 40 mg Documented By: LAISHA Fluconazole (Fluconazole 100 Mg Tablet) 100 mg PO DAILY [facility] Stop: 06/23/24 09:01 Piperacillin Sod/Tazobactam (Sod 4.5 gm/ Sodium Chloride) 100 mls @ 200 mls/hr IV Q6H [facility] Last Infusion: 06/15/24 12:22 Dose: Infused Documented By: CAMACHO Vancomycin HCl 1,500 mg/ (Sodium Chloride) 500 mls @ 333.333 mls/hr IV Q8H [facility] Last Infusion: 06/15/24 11:01 Dose: Infused Documented By: CAMACHO Magnesium Hydroxide (Milk Of Magnesia 30 Ml Oral.Susp) 30 ml PO DAILY PRN PRN Reason: Constipation Melatonin (Melatonin 3 Mg Tablet) 6 mg PO BEDTIME PRN PRN Reason: Insomnia Ondansetron HCl (Ondansetron Hcl 4 Mg/2 Ml Vial) 4 mg IVPUSH Q8H PRN PRN Reason: Nausea and Vomiting Oxycodone HCl (Oxycodone Hcl Immed Release 5 Mg Tablet) 10 mg PO Q6H PRN PRN Reason: Pain, Severe (Pain Scale 7-10) Pharmacy Consult (Consult Rx Vancomycin Dosing) 1 each MISCELLANE DAILY PRN PRN Reason: Consult order Sodium Chloride (0.9 % Sodium Chloride Flush 3 Ml Syringe) 3 ml IVFLUSH QSHIFT [facility] Last Admin: 06/15/24 09:18 Dose: 3 ml Documented By: CAMACHO Labs 06/15/24 04:53 06/15/24 04:53 Labs: Laboratory Results - last 24 hr 06/14/24 06/15/24 13:05 04:53 MCV 88.1 MCH 28.8 MCHC 32.7 RDW 15.0 Plt Count 264 MPV 9.6 Immature Gran % (Auto) 0.8 H Neut % (Auto) 77.0 H Lymph % (Auto) 14.9 L [place] % (Auto) 7.0 Eos % (Auto) 0.0 Baso % (Auto) 0.3 Lymph # (Auto) 1.7 [place] # (Auto) 0.8 Eos # (Auto) 0.0 Baso # (Auto) 0.0 Abs Immat Gran (auto) 0.09 H Absolute Neuts (auto) 8.9 H Absolute Nucleated RBC 0.000 Nucleated RBC % (auto) 0.0 Anion Gap 13 Estim Creat Clear Calc 278.6 Estimated GFR > 60 Random Glucose 88 Calcium 8.8 D Total Bilirubin 0.9 AST 24 ALT 15 Alkaline Phosphatase 51 Troponin I High Sens < 2.7 Total Protein 7.2 Albumin 3.1 L Microbiology Microbiology Results: Microbiology 06/14/24 08:37 Blood Culture - Preliminary Blood - Venous No growth after 24 hours. 06/14/24 08:37 Blood Culture - Preliminary Blood - Venous No growth after 24 hours. Assessment and Plan (1) Abdominal wall cellulitis: Status: Acute Plan 34-year-old male with a history of abdominal wall cellulitis recently admitted here in April. States it resolved however over the last several days. States feels similar to last admission. 1. Abdominal wall cellulitis (recurrent) -vancomycin/Zosyn (2) -Diflucan 200 mg IV x1 given; complete course orally with 100 mg daily -ID consult 2. Asthma (mild intermittent) -stable and well compensated ... No acute issues this admission -continue outpatient therapies Full code Lovenox Patient will require ongoing hospitalization hospitalization for IV antibiotics to treat a abdominal wall cellulitis. This is a recurrent cellulitis that has failed outpatient therapy. Quality Stroke Does the patient have a stroke diagnosis?: No VTE Prior VTE?: No VTE Risk Level:: Medical - moderate - high VTE Device Contraindication: Treatment Not Indicated VTE Drug Contraindication: N/A - Med Ordered
[2024-06-15 14:47] VITALS: BP 129/81; PULSE 102; RESP 18; TEMP 37.2; O2SAT 96
[2024-06-15 16:00] VITALS: BP 139/86; PULSE 94; RESP 18; TEMP 36.6; O2SAT 95
[2024-06-15] MEDS: Fluconazole 100 MG TABLET PO (16:31)
[2024-06-15] MEDS: Enoxaparin Sodium 40 MG/0.4 ML SYRINGE SUBCUT (16:33)
--- NOTE | 2024-06-15 16:44 | HE.PHANOTE ---
RE: VANCO DOSING Trough came back as 12 mg/L. Dose is continued as 1500 mg q8h, next trough is scheduled for 06/16/24 @0800.
[2024-06-15 18:56] VITALS: BP 128/65; PULSE 86; RESP 18; TEMP 36.1; O2SAT 96
[2024-06-16] MEDS: Melatonin 3 MG TABLET 6 MG PO ×2 (00:08→23:25)
[2024-06-16 02:01] VITALS: BP 139/82; PULSE 89; RESP 18; TEMP 37.7; O2SAT 96
[2024-06-16] MEDS: vancomycin HCL 1,500 MG in 0.9 % Sodium Chloride 500 ML 333.33 MG IV ×3 (02:15→17:16)
[2024-06-16] MEDS: Piperacillin Sodium/Tazobactam 4.5 GM in 0.9 % Sodium Chloride 100 ML IV (03:56)
[2024-06-16 06:03] LABS: MANUAL DIFF FLAG NO
[2024-06-16 06:10] LABS: Basophils Percent Auto 0.4 % (0-2); Eosinophils Absolute Auto 0.1 X10*3/uL (0.0-0.4); Hematocrit 33.1 % (42.0-52.0); Hemoglobin 10.7 g/dl (14.0-18.0); Imm Gran Abs Auto 0.02 X10*3/uL (0.00-0.03); Imm Gran Pct Auto 0.3 % (0.0-0.4); Lymphocytes Absolute Auto 1.6 X10*3/uL (1.2-4.9); Lymphocytes Percent Auto 21.7 % (20-40); Mean Corpuscular HGB Conc 32.3 g/dl (31.0-36.0); Mean Corpuscular Hemoglobin 28.6 pg (27.0-33.0); Mean Corpuscular Volume 88.5 fL (80.0-98.0); Mean Platelet Volume 9.7 fL (9.4-12.4); Monocytes Absolute Auto 0.6 X10*3/uL (0.1-1.2); Monocytes Percent Auto 8.7 % (2-11); Neutrophils Absolute Auto 4.8 x10*3/uL (2.0-8.3); Neutrophils Percent Auto 66.9 % (45-73); Platelet Count 255 X10*3/uL (160-400); Red Blood Count 3.74 X10*6/uL (4.60-5.80); Red Cell Distribution Width 14.6 % (11.0-16.0); White Blood Count 7.2 X10*3/uL (4.8-10.8)
[2024-06-16 06:24] LABS: Alanine Aminotransferase 13 U/L (0-40); Alkaline Phosphatase 51 U/L (39-117); Anion Gap 10 (12-20); Aspartate Amino Transferase 19 U/L (5-37); Bilirubin Total 0.5 mg/dL (0.0-1.0); Blood Urea Nitrogen 11 mg/dL (9-16); Calcium 8.5 mg/dL (8.4-10.2); Carbon Dioxide 24 mmol/L (22-29); Chloride 107 mmol/L (96-108); Creatinine Clr Calc Pharmacy 308.6; Estimated Glomerular Filt Rate > 60; Glucose Fasting 107 mg/dL (60-99); Potassium 3.3 mmol/L (3.3-5.1); Sodium 138 mmol/L (135-145); Total Protein 7.1 g/dL (6.5-8.0)
[2024-06-16 07:07] VITALS: BP 144/84; PULSE 87; RESP 12; TEMP 36.3; O2SAT 96
[2024-06-16] MEDS: 0.9 % Sodium Chloride Flush 3 ML SYRINGE IVFLUSH ×3 (07:53→21:44)
[2024-06-16] MEDS: Fluconazole 100 MG TABLET PO (07:53)
[2024-06-16] MEDS: cefTRIAXone sodium 1 GM VIAL IVPUSH (09:02)
[2024-06-16 09:20] LABS: Vancomycin Random 14.6 mcg/mL (15-20)
--- NOTE | 2024-06-16 09:24 | HE.PHANOTE ---
Re: Mariyao Renal function has improved, good renal function. Trough returned at 14.6. Pt is therapeutic. continue dose of 1500 q8h, with predicted AUC 428, predicted trough 12.2. Next trough 06/17 @ 0800.
--- NOTE | 2024-06-16 14:17 | HO.PM.IMPN ---
Subjective Subjective Date of Service: 06/16/24 Interval History: Markedly improved with current therapies. No acute issues overnight Review of Systems Denies chest pain Denies shortness of breath Denies nausea vomiting diarrhea Denies fever chills Physical Exam Vital Signs: Vital Signs: Last Vital Signs Temp 97.3 F 06/16/24 07:07 Pulse 87 06/16/24 07:07 Resp 12 06/16/24 07:07 BP 144/84 H 06/16/24 07:07 Pulse Ox 96 06/16/24 07:07 O2 Del Method Room Air 06/16/24 07:07 BMI result Body Mass Index 68.1 Const: Other: Awake alert no acute distress Resp: Other: Clear to auscultation bilaterally no rales rhonchi or wheezes Cardio: Other: No S4; positive S1-S2; no S3 murmurs rubs or gallops GI: Other: Soft nontender nondistended normoactive bowel sounds. Diffuse erythema from mid epigastrium down distal to the umbilicus warmth to touch Objective Data Active Medications Acetaminophen (Acetaminophen 325 Mg Tablet) 650 mg PO Q6H PRN PRN Reason: Pain, Mild 1-3,fever,headache Last Admin: 06/15/24 16:31 Dose: 650 mg Documented By: IMAN Calcium Carbonate (Calcium Carbonate 750 Mg Tab.Chew) 750 mg PO Q4H PRN PRN Reason: Heartburn Ceftriaxone Sodium (Ceftriaxone Sodium 1 Gm Vial) 1 gm IVPUSH Q24H [facility] Last Admin: 06/16/24 09:02 Dose: 1 gm Documented By: MANDEEP Enoxaparin Sodium (Enoxaparin Sodium 40 Mg/0.4 Ml Syringe) 40 mg SUBCUT Q24H [facility] Last Admin: 06/15/24 16:33 Dose: 40 mg Documented By: IMAN Fluconazole (Fluconazole 100 Mg Tablet) 100 mg PO DAILY [facility] Stop: 06/23/24 09:01 Last Admin: 06/16/24 07:53 Dose: 100 mg Documented By: MANDEEP Vancomycin HCl 1,500 mg/ (Sodium Chloride) 500 mls @ 333.333 mls/hr IV Q8H [facility] Last Infusion: 06/16/24 11:17 Dose: Infused Documented By: MANDEEP Magnesium Hydroxide (Milk Of Magnesia 30 Ml Oral.Susp) 30 ml PO DAILY PRN PRN Reason: Constipation Melatonin (Melatonin 3 Mg Tablet) 6 mg PO BEDTIME PRN PRN Reason: Insomnia Last Admin: 06/16/24 00:08 Dose: 6 mg Documented By: KIKE Ondansetron HCl (Ondansetron Hcl 4 Mg/2 Ml Vial) 4 mg IVPUSH Q8H PRN PRN Reason: Nausea and Vomiting Oxycodone HCl (Oxycodone Hcl Immed Release 5 Mg Tablet) 10 mg PO Q6H PRN PRN Reason: Pain, Severe (Pain Scale 7-10) Pharmacy Consult (Consult Rx Vancomycin Dosing) 1 each MISCELLANE DAILY PRN PRN Reason: Consult order Sodium Chloride (0.9 % Sodium Chloride Flush 3 Ml Syringe) [facility] Last Admin: 06/16/24 07:53 Dose: 3 ml Documented By: MANDEEP Labs 06/16/24 05:17 06/16/24 05:17 Labs: Laboratory Results - last 24 hr 06/15/24 06/16/24 06/16/24 15:44 05:17 07:54 MCV 88.5 MCH 28.6 MCHC 32.3 RDW 14.6 Plt Count 255 MPV 9.7 Immature Gran % (Auto) 0.3 Neut % (Auto) 66.9 Lymph % (Auto) 21.7 [place] % (Auto) 8.7 Eos % (Auto) 2.0 Baso % (Auto) 0.4 Lymph # (Auto) 1.6 [place] # (Auto) 0.6 Eos # (Auto) 0.1 Baso # (Auto) 0.0 Abs Immat Gran (auto) 0.02 Absolute Neuts (auto) 4.8 Absolute Nucleated RBC 0.000 Nucleated RBC % (auto) 0.0 Anion Gap 10 L Estim Creat Clear Calc 308.6 Estimated GFR > 60 Fasting Glucose 107 H Calcium 8.5 Total Bilirubin 0.5 AST 19 ALT 13 Alkaline Phosphatase 51 Total Protein 7.1 Albumin 3.0 L Random Vancomycin 12.0 L 14.6 L Microbiology Microbiology Results: Microbiology 06/14/24 08:37 Blood Culture - Preliminary Blood - Venous No growth after 48 hours. 06/14/24 08:37 Blood Culture - Preliminary Blood - Venous No growth after 48 hours. Assessment and Plan (1) Abdominal wall cellulitis: Status: Acute Plan 34-year-old male with a history of abdominal wall cellulitis recently admitted here in April. States it resolved however over the last several days. States feels similar to last admission. 1. Abdominal wall cellulitis (recurrent) -vancomycin(3); switch to ceftriaxone 1 g daily -Diflucan 200 mg IV x1 given; complete course orally with 100 mg daily -ID consult 2. Asthma (mild intermittent) -stable and well compensated ... No acute issues this admission -continue outpatient therapies Full code Lovenox Patient will require ongoing hospitalization hospitalization for IV antibiotics to treat a abdominal wall cellulitis. This is a recurrent cellulitis that has failed outpatient therapy. Quality Stroke Does the patient have a stroke diagnosis?: No VTE Prior VTE?: No VTE Risk Level:: Medical - moderate - high VTE Device Contraindication: Treatment Not Indicated VTE Drug Contraindication: N/A - Med Ordered
--- NOTE | 2024-06-16 15:00 | MHC.CM.PN ---
Addendum entered by Paige Daley 06/17/24 09:01: PT LIVES WITH HIS MOTHER, S/O AND TWO YOUNG CHILDREN HE HAS A CPAP FOR DME S/O WILL TRANSPORT Original Note: PT LIVES WITH S/O IS INDEPENDENT HAS OWN RIDE HOME
[2024-06-16 15:06] VITALS: BP 144/97; PULSE 80; RESP 18; TEMP 36.2; O2SAT 97
[2024-06-16] MEDS: Enoxaparin Sodium 40 MG/0.4 ML SYRINGE SUBCUT (17:15)
--- NOTE | 2024-06-16 18:12 | HO.WOUND ---
Wound Consult: Initial 34yr old?male admitted to [facility] [place] on 06/14/24 16:35 - See progress notes and H&P for detailed history.? Wound consult placed for Abdominal Cellulitis.? Patient agreeable to assessment and photo documentation.? Patient is known to this copywriter from previous admission. He reports there are no open wounds and no weeping noted at this time. Patient instructed given swelling and cellulitis under the pannus concern for friction and skin stripping. We discussed Interdry he is agreeable to application. The patient reported left groin itching and rash - assessed and noted for Fungal dermatitis - recommend ointment based product with antifungal to treat this area as there is a lot of friction and the ointment will also act as a barrier to friction. Recommend twice daily application. Patient has the episodes of cellulitis recently discussed tea tree oil washes or antibacterial washes such as Dial to limit the microbacteria that may be living on his skin or with in his normal skin jay. We discussed keeping the area dry. The patient pannus is large and pendulum this is likely leading to a lot of friction that may be leading to small openings in his skin allowing for recurrent cellulitis. Unclear if this is the cause but may be contributing. Advised to clean skin with above style washes and to treat with antifungal for 10-14 days past clinical clearing. He and his report understanding. All questions asked and answered prior to leaving. Bariatric bed in use. Recommendations: 1. Pannus abdomen - Cleanse with Brad [place], pay dry with soft cloth.? Apply antifungal ointment to assist with fungal treatment.? Apply per provider orders. Tuck Interdry AG Sheet into skin fold to wick and translocate moisture away from skin fold.? Be sure to leave at least 2 inch of fabric exposed outside of skin fold.? Change after 5 days or when soiled. At time of D/C recommend Dial wash or over the counter wash that contains tea tree oil. Recommend barrier cream and antifungal ointment in one such as Medline Remedy or Coloplast Criticaid both available without prescription. Recommend use for 10-14 days past clinical clearing. Recommend patient to consider follow up with outpt Dermatology given the recurrent episodes he has had recently. Re-consult wound care Nurse for wound deterioration or wound changes.
[2024-06-16 20:00] VITALS: BP 136/74; PULSE 86; RESP 20; TEMP 36.6; O2SAT 96
[2024-06-16] MEDS: Nystatin Ointment 15 GM TUBE 1 APPL TOPICAL (21:43)
--- NOTE | 2024-06-16 22:53 | W.PM.IDCN ---
History of Present Illness Data of Consult Service Date: 06/16/24 Primary Care Provider: Loretta Dumont MD [facility] Reason for consult: recurrent abdominal pannus erythema He presents with abdominal discomfort last several days. He started with redness abdomen before and in April,treated both times with ora agenrs. He attends [facility] Bariatrics programs; He had chills when symptoms first started. Review of Systems Review of Systems: Yes all other systems are reviewed and are negative PMFSH Past Medical History Medical History Morbid obesity with BMI of 60.0-69.9, adult Depression Anxiety Obstructive sleep apnea (~2012) Morbid obesity Asthma GERD (gastroesophageal reflux disease) SARIKA (generalized anxiety disorder) Family History Family History Mother FH: mental illness Cancer Father Diabetes Maternal Grandmother Alcohol abuse Cancer Sister FH: mental illness Diabetes Family history: reviewed and not pertinent Surgical History Surgical History History of dental surgery (~1998) Social History Social History Household Members: Family Housing: Apartment Do you presently have visiting nurse or other home services: No Alcohol intake: current Alcohol intake frequency: holidays/special occasions only Alcohol type: hard liquor Patient Tobacco Use Status: Never used Tobacco e-Cigarette/Vaping Use: Former Use Second Hand Smoke Exposure: No Substance Use Type: Marijuana service: No Cognitive needs: No Hearing needs: No Vision needs: No Meds Allergies Allergy/AdvReac Type Severity Reaction Status Date / Time diphenhydramine Allergy Intermediate UNKNOWN Verified 06/14/24 01:01 [From Benadryl] doxycycline Allergy Itching Verified 06/14/24 01:01 Active Medications: Current Medications Acetaminophen (Acetaminophen 325 Mg Tablet) 650 mg PO Q6H PRN PRN Reason: Pain, Mild 1-3,fever,headache Last Admin: 06/15/24 16:31 Dose: 650 mg Calcium Carbonate (Calcium Carbonate 750 Mg Tab.Chew) 750 mg PO Q4H PRN PRN Reason: Heartburn Ceftriaxone Sodium (Ceftriaxone Sodium 1 Gm Vial) 1 gm IVPUSH Q24H [facility] Last Admin: 06/16/24 09:02 Dose: 1 gm Enoxaparin Sodium (Enoxaparin Sodium 40 Mg/0.4 Ml Syringe) 40 mg SUBCUT Q24H [facility] Last Admin: 06/16/24 17:15 Dose: 40 mg Fluconazole (Fluconazole 100 Mg Tablet) 100 mg PO DAILY [facility] Stop: 06/23/24 09:01 Last Admin: 06/16/24 07:53 Dose: 100 mg Vancomycin HCl 1,500 mg/ (Sodium Chloride) 500 mls @ 333.333 mls/hr IV Q8H [facility] Last Infusion: 06/16/24 19:41 Dose: Infused Magnesium Hydroxide (Milk Of Magnesia 30 Ml Oral.Susp) 30 ml PO DAILY PRN PRN Reason: Constipation Melatonin (Melatonin 3 Mg Tablet) 6 mg PO BEDTIME PRN PRN Reason: Insomnia Last Admin: 06/16/24 00:08 Dose: 6 mg Nystatin (Nystatin Ointment 15 Gm Tube) 1 appl TOPICAL BID [facility]; Protocol Last Admin: 06/16/24 21:43 Dose: 1 appl Ondansetron HCl (Ondansetron Hcl 4 Mg/2 Ml Vial) 4 mg IVPUSH Q8H PRN PRN Reason: Nausea and Vomiting Oxycodone HCl (Oxycodone Hcl Immed Release 5 Mg Tablet) 10 mg PO Q6H PRN PRN Reason: Pain, Severe (Pain Scale 7-10) Pharmacy Consult (Consult Rx Vancomycin Dosing) 1 each MISCELLANE DAILY PRN PRN Reason: Consult order Sodium Chloride (0.9 % Sodium Chloride Flush 3 Ml Syringe) 3 ml IVFLUSH QSHIFT [facility] Last Admin: 06/16/24 21:44 Dose: 3 ml Home Medications ?Medication ?Instructions ?Recorded ?Confirmed ?Last Taken ?Type melatonin 10 mg tablet 10 mg PO BEDTIME PRN Sleep 06/14/24 06/14/24 Unknown History Physical Exam Vital Signs: Vital Signs: Last Vital Signs Temp 98 F 06/16/24 20:00 Pulse 86 06/16/24 20:00 Resp 20 06/16/24 20:00 BP 136/74 06/16/24 20:00 Pulse Ox 96 06/16/24 20:00 O2 Del Method Room Air 06/16/24 20:00 BMI result Body Mass Index 68.1 Const: General: cooperative HEENT: Head: Yes normal to inspection Face and sinus: Yes normal facial exam Mouth: Normal oral and palatal mucosa present Teeth and gingiva: dentition normal Eyes: General: appearance normal, both eyes and all related structures Pupils: Equal, round and reactive pupils present Resp: Effort & Inspection: normal respiratory effort Cardio: Rate: regular rate Rhythm: regular rhythm GI: Other: 3 cm above and below pannus erythema no scarring or open skin Palpation (GI): Soft to palpation and nontender : General: Yes no CVA tenderness Back/Spine/Pelvis: Back: no CVA tenderness Skin: General skin exam: no rashes or lesions noted Neuro: General: moves all extremities Cranial nerves: Yes Equal, round and reactive pupils present Extrem: General: Yes normal to inspection Psych: Appearance: grossly normal Results Labs 06/16/24 05:17 06/16/24 05:17 Labs: Short CBC 06/16/24 Range/Units 05:17 WBC 7.2 (4.8-10.8) X10*3/uL Hgb 10.7 L (14.0-18.0) g/dl Hct 33.1 L (42.0-52.0) % Plt Count 255 (160-400) X10*3/uL BMP 06/16/24 05:17 Sodium 138 Potassium 3.3 Chloride 107 Carbon Dioxide 24 BUN 11 Creatinine 0.65 Calcium 8.5 Liver Function 06/16/24 Range/Units 05:17 Total Bilirubin 0.5 (0.0-1.0) mg/dL AST 19 (5-37) U/L ALT 13 (0-40) U/L Alkaline Phosphatase 51 (39-117) U/L Albumin 3.0 L (3.5-5.0) g/dL Microbiology Microbiology Results: Microbiology 06/14/24 08:37 Blood - Venous Blood Culture - Preliminary No growth after 48 hours. 06/14/24 08:37 Blood - Venous Blood Culture - Preliminary No growth after 48 hours. Assessment and Plan (1) Abdominal wall cellulitis: Status: Acute Plan Agree Vancomycin and Ceftriaxone. This is probable strep Would give one week po Linezolid on dischargeand then PCN 500 mg bid indefitinely suppression.
[2024-06-17] MEDS: vancomycin HCL 1,500 MG in 0.9 % Sodium Chloride 500 ML 333.33 MG IV ×3 (02:27→18:37)
[2024-06-17 03:32] VITALS: BP 130/56; PULSE 78; RESP 20; TEMP 37.3; O2SAT 94
[2024-06-17 06:56] LABS: Creatinine Clr Calc Pharmacy 318.4; Estimated Glomerular Filt Rate > 60
[2024-06-17 07:14] VITALS: BP 133/68; PULSE 78; RESP 16; TEMP 36.5; O2SAT 96
[2024-06-17] MEDS: 0.9 % Sodium Chloride Flush 3 ML SYRINGE IVFLUSH ×3 (08:08→20:18)
[2024-06-17] MEDS: cefTRIAXone sodium 1 GM VIAL IVPUSH (08:08)
[2024-06-17] MEDS: Fluconazole 100 MG TABLET PO (08:08)
[2024-06-17] MEDS: Nystatin Ointment 15 GM TUBE 1 APPL TOPICAL ×2 (08:09→20:20)
[2024-06-17 08:55] LABS: Vancomycin Random 15.5 mcg/mL (15-20)
--- NOTE | 2024-06-17 09:08 | HE.PHANOTE ---
RE [facility] Patients level came back this morning at 15.5 Will continue with current dose, random level to be pulled tomorrow to ensure safety vs efficacy as patients renal function continues to improve. Predicted AUC 427
--- NOTE | 2024-06-17 11:52 | HO.PM.IMPN ---
Subjective Subjective Date of Service: 06/17/24 Interval History: Markedly improved. Tolerating Diflucan orally Review of Systems Denies chest pain Denies shortness of breath Denies nausea vomiting diarrhea Denies fever chills Physical Exam Vital Signs: Vital Signs: Last Vital Signs Temp 97.7 F 06/17/24 07:14 Pulse 78 06/17/24 07:14 Resp 16 06/17/24 07:14 BP 133/68 06/17/24 07:14 Pulse Ox 96 06/17/24 07:14 O2 Del Method Room Air 06/17/24 07:14 BMI result Body Mass Index 68.1 Const: Other: Awake alert no acute distress Resp: Other: Clear to auscultation bilaterally no rales rhonchi or wheezes Cardio: Other: No S4; positive S1-S2; no S3 murmurs rubs or gallops GI: Other: Soft nontender nondistended normoactive bowel sounds. Diffuse erythema from mid epigastrium down distal to the umbilicus warmth to touch Objective Data Active Medications Acetaminophen (Acetaminophen 325 Mg Tablet) 650 mg PO Q6H PRN PRN Reason: Pain, Mild 1-3,fever,headache Last Admin: 06/15/24 16:31 Dose: 650 mg Documented By: IMAN Calcium Carbonate (Calcium Carbonate 750 Mg Tab.Chew) 750 mg PO Q4H PRN PRN Reason: Heartburn Ceftriaxone Sodium (Ceftriaxone Sodium 1 Gm Vial) 1 gm IVPUSH Q24H [facility] Last Admin: 06/17/24 08:08 Dose: 1 gm Documented By: VIDAL Enoxaparin Sodium (Enoxaparin Sodium 40 Mg/0.4 Ml Syringe) 40 mg SUBCUT Q24H [facility] Last Admin: 06/16/24 17:15 Dose: 40 mg Documented By: MANDEEP Fluconazole (Fluconazole 100 Mg Tablet) 100 mg PO DAILY [facility] Stop: 06/23/24 09:01 Last Admin: 06/17/24 08:08 Dose: 100 mg Documented By: VIDAL Vancomycin HCl 1,500 mg/ (Sodium Chloride) 500 mls @ 333.333 mls/hr IV Q8H [facility] Last Infusion: 06/17/24 11:12 Dose: Infused Documented By: VIDAL Magnesium Hydroxide (Milk Of Magnesia 30 Ml Oral.Susp) 30 ml PO DAILY PRN PRN Reason: Constipation Melatonin (Melatonin 3 Mg Tablet) 6 mg PO BEDTIME PRN PRN Reason: Insomnia Last Admin: 06/16/24 23:25 Dose: 6 mg Documented By: KIKE Nystatin (Nystatin Ointment 15 Gm Tube) 1 appl TOPICAL BID [facility]; Protocol Last Admin: 06/17/24 08:09 Dose: 1 appl Documented By: VIDAL Ondansetron HCl (Ondansetron Hcl 4 Mg/2 Ml Vial) 4 mg IVPUSH Q8H PRN PRN Reason: Nausea and Vomiting Oxycodone HCl (Oxycodone Hcl Immed Release 5 Mg Tablet) 10 mg PO Q6H PRN PRN Reason: Pain, Severe (Pain Scale 7-10) Pharmacy Consult (Consult Rx Vancomycin Dosing) 1 each MISCELLANE DAILY PRN PRN Reason: Consult order Sodium Chloride (0.9 % Sodium Chloride Flush 3 Ml Syringe) 3 ml IVFLUSH QSHIFT [facility] Last Admin: 06/17/24 08:08 Dose: 3 ml Documented By: VIDAL Labs 06/16/24 05:17 06/17/24 05:35 Labs: Laboratory Results - last 24 hr 06/17/24 06/17/24 05:35 08:02 Estim Creat Clear Calc 318.4 Estimated GFR > 60 Random Vancomycin 15.5 Microbiology Microbiology Results: Microbiology 06/14/24 08:37 Blood Culture - Preliminary Blood - Venous No growth after 48 hours. 06/14/24 08:37 Blood Culture - Preliminary Blood - Venous No growth after 48 hours. Assessment and Plan (1) Abdominal wall cellulitis: Status: Acute Plan 34-year-old male with a history of abdominal wall cellulitis recently admitted here in April. States it resolved however over the last several days. States feels similar to last admission. 1. Abdominal wall cellulitis (recurrent) -vancomycin(4); switch to ceftriaxone 1 g daily(2) -Diflucan 200 mg IV x1 given; complete course orally with 100 mg daily 2. Asthma (mild intermittent) -stable and well compensated ... No acute issues this admission -continue outpatient therapies Full code Lovenox Patient will require ongoing hospitalization hospitalization for IV antibiotics to treat a abdominal wall cellulitis. This is a recurrent cellulitis that has failed outpatient therapy. Quality Stroke Does the patient have a stroke diagnosis?: No VTE Prior VTE?: No VTE Risk Level:: Medical - moderate - high VTE Device Contraindication: Treatment Not Indicated VTE Drug Contraindication: N/A - Med Ordered
[2024-06-17 15:12] VITALS: BP 138/85; PULSE 71; RESP 18; TEMP 36.3; O2SAT 97
[2024-06-17] MEDS: Enoxaparin Sodium 40 MG/0.4 ML SYRINGE SUBCUT (18:37)
[2024-06-17 19:14] VITALS: BP 147/87; PULSE 73; RESP 18; TEMP 36.2; O2SAT 100
[2024-06-17] MEDS: Melatonin 3 MG TABLET 6 MG PO (22:36)
[2024-06-18] MEDS: vancomycin HCL 1,500 MG in 0.9 % Sodium Chloride 500 ML 333.33 MG IV ×2 (02:15→11:20)
[2024-06-18 03:38] VITALS: BP 133/63; PULSE 66; RESP 16; TEMP 36.6; O2SAT 94
[2024-06-18 07:00] LABS: Creatinine Clr Calc Pharmacy 303.9; Estimated Glomerular Filt Rate > 60
[2024-06-18 07:41] VITALS: BP 131/69; PULSE 74; RESP 16; TEMP 36.6; O2SAT 96
[2024-06-18] MEDS: Fluconazole 100 MG TABLET PO (08:09)
[2024-06-18] MEDS: 0.9 % Sodium Chloride Flush 3 ML SYRINGE IVFLUSH (08:09)
[2024-06-18] MEDS: cefTRIAXone sodium 1 GM VIAL IVPUSH (08:09)
[2024-06-18] MEDS: Nystatin Ointment 15 GM TUBE 1 APPL TOPICAL (08:14)
--- NOTE | 2024-06-18 12:53 | PM.DS ---
DS: Providers Provider Date of Service: 06/18/24 Date of admission: 06/14/24 16:35 Date of discharge: 06/18/24 Primary care physician: Loretta Dumont MD Consults: 06/15/24 13:11 Consult to Infectious Diseases Routine Consulting Provider: [facility] Reason for consultation: Abdominal wall cellulitis Has provider been notified: Yes 06/15/24 15:05 Consult to Wound Care Routine Reason for consultation: abd wall cellulitis DS: Diagnosis Discharge Diagnosis (1) Abdominal wall cellulitis: Status: Acute DS: Summary Hospital Course Hospital Course: 34-year-old male, significant for morbid obesity, RAMIRO, GERD, GERD, umbilical hernia, anxiety, depression, MRSA+, who presents emergency department for evaluation of abdominal wall cellulitis. Patient reports that in April he was admitted for abdominal wall cellulitis, which improved up until he believes yesterday. Patient reports that he has had nausea, vomiting, cough congestion, headaches and body aches for the last several days, he states that last night he felt as though his symptoms worsened, and stated to have warmth sensation in his mid abdomen, which he felt when he had the abdominal wall cellulitis Hospital Course Patient was admitted to general medical floor and started on vancomycin and ceftriaxone. He was also given 1 dose IV Diflucan followed by p.o. therapy daily. Over the course of the next 24-48 hours patient improved dramatically. He was seen in consultation by ID who recommended linezolid x1 week followed by pen VK 500 b.i.d. indefinitely. He will also put nystatin ointment underneath pannus. He will follow up with his PCP in decision can be made about ongoing pen VK Time Attestation Discharge Coordination Time (in mins): 35 Quality: Safe Use of Opioids Does Pt have an Active Cancer Diagnosis on the Problem List?: No Quality: Stroke Does the patient have a stroke diagnosis?: No Physical Exam Vital Signs: Vital Signs: Last Vital Signs Temp 97.8 F 06/18/24 07:41 Pulse 74 06/18/24 07:41 Resp 16 06/18/24 07:41 BP 131/69 06/18/24 07:41 Pulse Ox 96 06/18/24 07:41 O2 Del Method Room Air 06/18/24 07:41 BMI result Body Mass Index 68.1 Const: Other: Awake alert no acute distress Resp: Other: Clear to auscultation bilaterally no rales rhonchi or wheezes Cardio: Other: No S4; positive S1-S2; no S3 murmurs rubs or gallops GI: Other: Soft nontender nondistended normoactive bowel sounds. Diffuse erythema resolved DS: Data Data Completed and Pending Labs on day of discharge: Laboratory Results - last 24 hr 06/18/24 05:53 Creatinine 0.66 Estim Creat Clear Calc 303.9 Estimated GFR > 60 Preliminary micro results at discharge 06/14/24 08:37 Blood Culture - Preliminary Blood - Venous No growth after 48 hours. 06/14/24 08:37 Blood Culture - Preliminary Blood - Venous No growth after 48 hours. Discharge Plan Discharge Anticipated Discharge Date/Time: 06/18/24 12:42 Patient Disposition: Home, Self-Care Discharge Diagnosis: Abdominal wall cellulitis Referrals: Loretta Dumont MD [Primary Care Provider] - 1 Week Discharge Medications: New fluconazole 100 mg Tablet 100 mg PO DAILY Qty: 5 0RF nystatin 100,000 unit/gram Ointment 1 appl topical BID Qty: 60 3RF Protocol: Apply to: Apply to: left groin and panus area linezolid 600 mg tablet 600 mg PO BID Qty: 14 0RF penicillin V potassium 500 mg tablet 500 mg PO BID 30 Days Qty: 60 0RF Continued albuterol sulfate 2.5 mg/0.5 mL solution for nebulization 5 mg inhalation QID PRN (Reason: shortness of breath or wheezing) Qty: 30 1RF melatonin 10 mg Tablet 10 mg PO BEDTIME PRN (Reason: Sleep) Discharge Orders: Discharge Order (Routine); Ordered 06/18/24 Ordered By: Coleman Lemon Diet: Advance to usual diet Activity on Discharge: As tolerated Stand Alone Forms: Patient Portal Discharge page Print Language: Djiboutian Activity Restrictions/Additional Instructions: Topical Wound Care Recommendations: Tuck Interdry AG Sheet into skin fold to wick and translocate moisture away from skin fold.? Be sure to leave at least 2 inch of fabric exposed outside of skin fold.? Change after 5 days or when soiled. At time of D/C recommend Dial wash or over the counter wash that contains tea tree oil. Recommend barrier cream and antifungal ointment in one such as Medline Remedy or Coloplast Criticaid both available without prescription. Recommend use for 10-14 days past clinical clearing. Recommend patient to consider follow up with outpt Dermatology given the recurrent episodes he has had recently. Care Plan Goals: Resume all medicines as taken prior to hospitalization Health Concerns: Linezolid 600 mg twice daily for 1 week followed by penicillin 500 mg twice daily until seen by PCP. Use nystatin cream as directed Plan of Treatment: Follow up with PCP next available Assessment: See discharge summary
--- NOTE | 2024-06-18 13:01 | MHC.CM.PN ---
PT CLEARED TO DC HOME TODAY WITH NO SERVICES VIA PRIVATE TRANSPORT
== END 2024-06-18 13:35 | disposition home or self-care (01) | DRG 383 ==
LOC: HO.ED 10:30 → HO.EDOVER 17:00 → HO.S3 06-15 12:57
PROVIDERS: Physician Assistant Medical; Admitting Provider Hospitalist; Emergency Provider Emergency Medicine; PCP Internal Medicine; Visit Provider Hospitalist
DX: L03.311 Cellulitis of abdominal wall (principal); Z68.44 Body mass index [BMI] 60.0-69.9, adult; B37.2 Candidiasis of skin and nail; F41.1 Generalized anxiety disorder; J45.20 Mild intermittent asthma, uncomplicated; G47.33 Obstructive sleep apnea (adult) (pediatric); Z20.822 Contact with and (suspected) exposure to COVID-19; E66.01 Morbid (severe) obesity due to excess calories; Z71.3 Dietary counseling and surveillance; Z79.899 Other long term (current) drug therapy
CPT/HCPCS: 0241U; 36415; 71046; 74177; 80053; 80202; 82565; 83605; 83880; 84484; 85025; 87040; 93005; 99221; 99285; J0131; J0696; J1450; J1650; J2543; J3370; J3371; Q9967

== ENCOUNTER → 2024-06-14 09:18 | Outpatient (BNV) | payer OTHER, SELFPAY | PROVIDERS: Emergency Provider Emergency Medicine; PCP Internal Medicine; Visit Provider Hospitalist | DX: L03.311 Cellulitis of abdominal wall (principal) | CPT/HCPCS: 99222; 99232; 99239 ==

== ENCOUNTER → 2024-06-14 09:25 | Outpatient (BNV) | payer OTHER, SELFPAY | PROVIDERS: PCP Internal Medicine; Visit Provider Radiology Diagnostic Radiology | DX: K46.9 Unspecified abdominal hernia without obstruction or gangrene (principal); K65.4 Sclerosing mesenteritis; R06.02 Shortness of breath | CPT/HCPCS: 71046; 74177 ==

== ENCOUNTER → 2024-06-14 09:27 | Outpatient (BNV) | payer OTHER, SELFPAY | PROVIDERS: Emergency Provider Emergency Medicine; PCP Internal Medicine; Visit Provider Internal Medicine Cardiovascular Disease | DX: R00.0 Tachycardia, unspecified (principal) | CPT/HCPCS: 93010 ==

== ENCOUNTER 2024-06-14 16:35 | Outpatient (BNV) | payer OTHER, SELFPAY | END 2024-06-15 08:34 | PROVIDERS: Admitting Provider Hospitalist; Emergency Provider Emergency Medicine; PCP Internal Medicine; Visit Provider Internal Medicine Cardiovascular Disease | DX: R94.31 Abnormal electrocardiogram [ECG] [EKG] (principal); L03.311 Cellulitis of abdominal wall | CPT/HCPCS: 93010 ==

== ENCOUNTER 2024-07-06 16:23 | Outpatient (AMB) | payer OTHER, SELFPAY ==
--- NOTE | 2024-07-06 16:26 | A.OFFVIS_ITS ---
VS Expanded 07/06/24 16:29 Blood Pressure Location Rt brachial Blood Pressure Position Sitting Pulse 88 Pulse Source Pulse Oximeter Temp 97.7 F Temperature Source Temporal Artery Scan Pulse Oximetry 98 Oxygen Delivery Method Room Air Height 5 ft 11 in Weight 492 lb 6.4 oz BMI 68.7 Body Fat % 53.4 Body Fat Mass 262.8 Fat Free Mass 229.6 Visceral Fat Rating 48.0 Body Water % 37.3 Body Water Mass 183.6 Muscle Mass/Score 218.4 Basal Metabolic Rate/Score 2,184 Intake Visit Reasons: (OV) F/U SWL Perl Developer Required: No Allergies diphenhydramine [From Benadryl] Allergy (Intermediate, Verified 07/06/24 16:27) UNKNOWN doxycycline Allergy (Verified 07/06/24 16:27) Itching Medication List - Last Reconciled 07/06/24 by IRMA Price albuterol sulfate 5 mg inhalation QID PRN fluconazole 100 mg PO DAILY linezolid 600 mg PO BID melatonin 10 mg PO BEDTIME PRN nystatin 1 appl See Protocol topical BID penicillin V potassium 500 mg PO BID 30 days HPI Comments Details: Patient is a 34-year-old male who returns to the office today in follow-up. He began the surgical weight loss program 01/20/2023 with a weight of 618.1 lb and a BMI of 86.2. Weight today is 492.4 lb with a BMI of 68.7. He has lost 125.7 lb or 20.3 % total body weight. He states he has been much more consistent with his meal plan and going to the gym. Consistent with the meal plan over the last 10 days. He is completely committed and is excited about the progress he has made. He was hospitalized in March, , April and May. He had recurrent abdominal wall cellulitis. He is now on linezolid and pen VK Celebrate Rebuild protein shake with TWO scoops in 10oz low fat Fairlife milk at 8-10am, Celebrate protein bar 11am-1pm, lunch at 2pm (10 forks of meat and 10 forks of salad or vegetables) Celebrate bar at 4pm-6pm, dinner at 7pm (10 forks of meat and 10 forks of salad or vegetables) Celebrate Rebuild protein shake with TWO scoops in 10oz low fat Fairlife milk at 8-10pm drinking 80-96 oz water exercise plan: previously treadmill 15-20 min, 250-275 calories 3-4 days per week [facility] Medical History Morbid obesity with BMI of 60.0-69.9, adult Depression Anxiety Obstructive sleep apnea (~2012) Morbid obesity Asthma GERD (gastroesophageal reflux disease) SARIKA (generalized anxiety disorder) Surgical History History of dental surgery (~1998) Family History Mother FH: mental illness Cancer Father Diabetes Maternal Grandmother Alcohol abuse Cancer Sister FH: mental illness Diabetes Social History (Updated 07/06/24 @ 16:28 by Nighat Crandall CMA) Household Members: Family Housing: Apartment Do you presently have visiting nurse or other home services: No Alcohol intake: never Patient Tobacco Use Status: Never used Tobacco e-Cigarette/Vaping Use: Former Use Second Hand Smoke Exposure: No Substance Use Type: Marijuana service: No Cognitive needs: No Hearing needs: No Vision needs: No Physical Exam Vital Signs: Last Vital Signs Temp 97.7 F 07/06/24 16:29 Pulse 88 07/06/24 16:29 Pulse Ox 98 07/06/24 16:29 Oxygen Delivery Method Room Air 07/06/24 16:29 BMI result Body Mass Index 68.7 Const General: healthy appearing and no acute distress Resp Effort & Inspection: normal respiratory effort Auscultation: clear to auscultation bilaterally Cardio Rate: regular rate Rhythm: regular rhythm GI Auscultation: normal bowel sounds Assessment & Plan Assessment & Plan (1) Morbid obesity: Code(s): E66.01 - Morbid (severe) obesity due to excess calories Category: Medical Plan: Patient had another setback with hospitalization due to recurrent abdominal wall cellulitis. He is now on suppressive therapy and was seen by infectious disease. He remains dedicated and is resuming exercise at the gym. Slowly working his way back up to his previous routine of 500 calories daily 5-6 days per week. He is following his meal plan and will return to the office in approximately 4-6 weeks.
--- OUTSIDE RECORDS SUMMARY | 2024-07-06 16:26 | XMS_ITS | Clinical Summary ---
Author Organization [facility] Address [address] [place] [address] Care Team Providers Care Director Of Program Management Name Role Phone Gio Pacheco Primary Care Provider [phone] Allergies Active Allergy Reactions Criticality Noted Date Comments Diphenhydramine Hcl Hyperactivity 08/31/2023 Medications acetaminophen (TYLENOL) 325 mg tablet Take 2 tablets (650 mg total) by mouth every 6 hours as needed for pain. 08/31/2023 Active ibuprofen (MOTRIN) 600 mg tablet Take 1 tablet (600 mg total) by mouth every 6 hours as needed for pain. 09/01/2023 Active Active Problems Problem Noted Date Diagnosed Date Umbilical hernia without obstruction and without gangrene 08/31/2023 Recurrent major depressive episodes, moderate Anxiety disorder 11/16/2012 Depression 09/13/2012 Family History Medical History Relation Name Comments Other Mother Family history of Anxiety Other Other Grandmother Fam fletcher History of alcoholism Relation Name Status Comments Mother Other Social History Tobacco Use Types Packs/Day Years Used Date Smoking Tobacco: Some Days Comments:: Sex and Gender Information Value Date Recorded Sex Assigned at Male 08/31/2023 3:55 AM EDT Legal Sex Male 12:02 AM EDT Gender Identity Male 08/31/2023 3:55 AM EDT Sexual Orientation Not on file Last Filed Vital Signs Vital Sign Reading Time Taken Comments Blood Pressure 157/84 09/01/2023 3:55 PM EDT Pulse 69 09/01/2023 3:55 PM EDT Temperature 36.6 ??C (97.9 ??F) 09/01/2023 3:55 PM ED T Respiratory Rate 18 09/01/2023 3:55 PM EDT Oxygen Saturation 94% 09/01/2023 3:55 PM EDT Inhaled Oxygen Concentration - - Weight 225.9 kg (498 lb) 08/31/2023 2:30 AM EDT Height 180.3 cm (5' 11 ) 08/31/2023 2:30 AM EDT Body Mass Index 69.46 08/31/2023 2:30 AM EDT Plan of Treatment Health Maintenance Due Date Last Done Comments HIV Screening 1992 Pneumococcal Vaccine: Pediat caitlin (0-5 Years) and At-Risk Patients (6-50 Years) (1 of 2 - PCV) 01/19/1998 Varicella Vaccines (1 of 2 - 13+ 2-dose series) 2004 Hepatitis B Vaccines (1 of 3 - 19+ 3-dose series) 12/23 DTaP,Tdap,and Td Vaccines (1 - Tdap) 01/19/2014 COVID-19 Vaccine (1 - 2023- season) 2024 Influenza Vaccine (#1) 2024 Alcohol/Substance Use Screening 05/24/2024 RSV Vaccine (60+ years old a nd patients) (1 - 1-dose 75+ series) 01/19/2067 Insurance [employer] Care Teams Director Of Program Management Relationship Specialty Start Date End Date Gio Pacheco [address] [place] [id number] PCP - General Internal Medicine 08/31/23
--- OUTSIDE RECORDS SUMMARY | 2024-07-06 16:26 | XMS_ITS | Referral Summary ---
Author Organization [facility] Address [address] [place] [address] Care Team Providers Care Events Traffic Controller Name Role Phone Gio Pacheco Primary Care Provider [phone] Allergies Active Allergy Reactions Criticality Noted Date [...] episodes, moderate Anxiety disorder 11/16/2012 Depression 09/13/2012 Social History Tobacco Use Types Packs/Day Years [...] 08/31/2023 2:30 AM EDT Plan of Treatment Not on file [place] [address] [place] [address] MEDICAID Care Teams Events Traffic Controller Relationship Specialty Start Date End Date Gio Pacheco [address] [place] [id number] PCP - General Internal Medicine 08/31/23
[2024-07-06 16:29] VITALS: PULSE 88; TEMP 36.5; O2SAT 98; BMI 68.7
== END 2024-07-06 16:55 | disposition home or self-care (01) ==
LOC: HO.HBS 16:23
PROVIDERS: PCP Nurse Practitioner Family; Visit Provider Physician Assistant Surgical
DX: E66.01 Morbid (severe) obesity due to excess calories (principal)
CPT/HCPCS: 99213

== ENCOUNTER → 2024-07-06 16:23 | Outpatient (BNVA) | payer OTHER, SELFPAY | PROVIDERS: PCP Nurse Practitioner Family; Visit Provider Physician Assistant Surgical | DX: E66.01 Morbid (severe) obesity due to excess calories (principal); Z68.44 Body mass index [BMI] 60.0-69.9, adult | CPT/HCPCS: 99212 ==

== ENCOUNTER 2024-07-10 14:00 | Outpatient (AMB) | payer OTHER, SELFPAY ==
--- OUTSIDE RECORDS SUMMARY | 2024-07-10 14:03 | XMS_ITS | Clinical Summary ---
Author Organization [facility] Address [address] [place] [address] Care Team Providers Care Atomic Physics Professor Name Role Phone Gio Pacheco Primary Care Provider [phone] Allergies Active Allergy Reactions Criticality Noted Date [...] Date Last Done Comments HIV Screening 1992 Varicella Vaccines (1 of 2 - 13+ 2-dose series) 2004 Hepatitis B Vaccines (1 of 3 - 19+ 3-dose series) 12/23 Pneumococcal Vaccine: Pediat caitlin (0-5 Years) and At-Risk Patients (6-50 Years) (1 of 2 - PCV) 01/19/2011 DTaP,Tdap,and Td Vaccines (1 - Tdap) 01/19/2014 COVID-19 Vaccine (1 - 2023- season) 2024 Influenza Vaccine (#1) 2024 Alcohol/Substance Use Screening 05/24/2024 RSV Vaccine (60+ years old a nd patients) (1 - 1-dose 75+ series) 01/19/2067 Insurance [employer] Care Teams Atomic Physics Professor Relationship Specialty Start Date End Date Gio Pacheco [address] [place] [id number] PCP - General Internal Medicine 08/31/23
--- NOTE | 2024-07-10 14:25 | A.OFFPC_ITS ---
Vital Signs 07/10/24 14:29 07/10/24 15:09 Height 5 ft 11 in Weight 497 lb BMI 69.3 BP 134/90 H 134/84 Blood Pressure Location Rt brachial Rt brachial Position Sitting Sitting Respiration 15 Pulse 83 Pulse Source Pulse Oximeter Temp 97.6 F Temp Source Oral Pulse Oximetry (%) 98 Oxygen Delivery Method Room Air Intake Visit Reasons: HDF on 06/18 - From [facility] Process Machine Operator Required: No Allergies diphenhydramine [From Benadryl] Allergy (Intermediate, Verified 07/10/24 14:26) UNKNOWN doxycycline Allergy (Verified 07/10/24 14:26) Itching Medication List - Last Reconciled 07/10/24 by Tavon Yarbrough RN albuterol sulfate 5 mg inhalation QID PRN fluconazole 100 mg PO DAILY linezolid 600 mg PO BID melatonin 10 mg PO BEDTIME PRN nystatin 1 appl See Protocol topical BID penicillin V potassium 500 mg PO BID 30 days Tobacco use date assessed: 05/19/24 Dental Screening Dental Screen Date: 07/10/24 Did you have a dental visit in the last 12 months?: Yes Did you have a dental problem in the last 6 months where you did not have access to dental care?: No Was dental information given to patient?: No HPI HPI Comments History of Present Illness Details 34-year-old male presents for hospital d ischarge follow-up. He was hospitalized and treated for abdominal wall cellulitis at [facility] between 06/14/2024 and 06/18/2024. He notes that his cellulitis has completely resolved. He is followed by [facility] weight management and resumed treatment last . He offers no complaints and denies acute symptoms at this time. DS: Diagnosis Discharge Diagnosis (1) Abdominal wall cellulitis: Status: Acute DS: Summary Hospital Course Hospital Course: 34-year-old male, significant for morbid obesity, RAMIRO, GERD, GERD, umbilical hernia, anxiety, depression, MRSA+, who presents emergency department for evaluation of abdominal wall cellulitis. Patient reports that in April he was admitted for abdominal wall cellulitis, which improved up until he believes yesterday. Patient reports that he has had nausea, vomiting, cough congestion, headaches and body aches for the last several days, he states that last night he felt as though his symptoms worsened, and stated to have warmth sensation in his mid abdomen, which he felt when he had the abdominal wall cellulitis Hospital Course Patient was admitted to general medical floor and started on vancomycin and ceftriaxone. He was also given 1 dose IV Diflucan followed by p.o. therapy daily. Over the course of the next 24-48 hours patient improved dramatically. He was seen in consultation by ID who recommended linezolid x1 week followed by pen VK 500 b.i.d. indefinitely. He will also put nystatin ointment underneath pannus. He will follow up with his PCP in decision can be made about ongoing pen VK. [facility] Medical History Morbid obesity with BMI of 60.0-69.9, adult Depression Anxiety Obstructive sleep apnea (~2012) Morbid obesity Asthma GERD (gastroesophageal reflux disease) SARIKA (generalized anxiety disorder) Surgical History History of dental surgery (~1998) Family History Mother FH: mental illness Cancer Father Diabetes Maternal Grandmother Alcohol abuse Cancer Sister FH: mental illness Diabetes Social History (Updated 07/06/24 @ 16:28 by Nighat Crandall CMA) Household Members: Family Housing: Apartment Do you presently have visiting nurse or other home services: No Alcohol intake: never Patient Tobacco Use Status: Never used Tobacco e-Cigarette/Vaping Use: Former Use Second Hand Smoke Exposure: No Substance Use Type: Marijuana service: No Cognitive needs: No Hearing needs: No Vision needs: No Questionnaire PHQ-9 Over the last 2 weeks, how often have you been bothered by any of the following problems? 1. Little interest or pleasure in doing things: not at all 2. Feeling down, depressed, or hopeless: not at all 3. Trouble falling or staying asleep, or sleeping too much: not at all 4. Feeling tired or having little energy: not at all 5. Poor appetite or overeating: several days 6. Feeling bad about yourself - or that you are a failure or have let yourself or your family down: not at all 7. Trouble concentrating on things, such as reading the newspaper or watching television: not at all 8. Moving or speaking so slowly that other people could have noticed. Or the opposite - being so fidgety or restless that you have been moving around a lot more than usual: not at all 9. Thoughts that you would be better off or of hurting yourself in some way: not at all Total score: 1 Depression Screening Interpretation: Negative Depression Screening Done: Yes Source: Developed by Drs. Hayden Thayer, Liat Grace, Uriel Chavis and colleagues, with an educational lisa from [employer]. Thrive Questionnaire Date Thrive assessed: 06/16/24 I am a: Patient What is your living situation today?: I have a steady place to live Within the past 12 months, did the food you bought not last and you didn't have the money to get more?: Never true Within the past 12 months, did you worry whether your food would run out before you got money to buy more?: Never true Do you have trouble paying for medicines?: No Do you have trouble getting transportation to medical appointments?: No Do you have trouble paying your heating and electricity bill?: No Do you have trouble taking care of your child, family member or friend?: No Do you have trouble with day-to-day activities such as bathing, preparing meals, shopping, managing finances, etc.?: No Are you currently unemployed and looking for a job?: No Are you interested in more education?: No Please select the resources that you would like help with: None Currently or been in a relationship where the following occur: No concerns reported THRIVE Score: 0 AUDIT C Alcohol Use Questionnaire (AUDIT-C) 1. How often do you have a drink containing alcohol?: Monthly or less 2. How many drinks containing alcohol do you have on a typical day when you are drinking?: 3 or 4 3. How often do you have six or more drinks on one occasion?: Less than monthly Total Score: 3 SARIKA-7 AMB Questionnaire SARIKA-7 Date SARIKA - 7 assessed: 05/04/24 Feeling nervous, anxious, or on edge: 0 = Not at all Not being able to stop or control worryin = Not at all Worrying too much about different things: 1 = Several days Trouble relaxin = Not at all Being so restless that it is hard to sit still: 0 = Not at all Becoming easily annoyed or irritable: 0 = Not at all Feeling afraid as if something awful might happen: 0 = Not at all Total SARIKA-7 score (0-4 normal; 5-9 mild; 10-14 moderate; 15-21 severe): 1 Source: Developed by Drs. Hayden Thayer, Liat Grace, Uriel Chavis and colleagues, with an educational lisa from [employer]. Review of Systems Const Details: Const Denies chills, Denies fatigue, Denies fever(s), Denies headache(s) and Denies weakness ENT Denies dizziness and Denies headache(s) Card Denies chest pain, Denies lightheadedness, Denies dyspnea and Denies other (Palpitations) Resp Denies cough, Denies dyspnea, Denies wheezing and Denies other ( shortness of breath) GI Denies abdominal pain, Denies melena, Denies hematochezia, Denies change in bowel habits, Denies dyspepsia and Denies nausea Denies hematuria and Denies dysuria Musc Denies abnormal gait, Denies myalgias, Denies arthralgias, Denies numbness and Denies tingling Skin/Breast Denies rash, Denies unusual bruising and Denies wounds Neuro Denies abnormal gait, Denies dizziness, Denies headache(s), Denies memory loss, Denies numbness, Denies Sensory deficit (Neuro), Denies tingling and Denies weakness Psych Denies anxiety, Denies depression, Denies memory loss Endo Denies cold intolerance, Denies fatigue, Denies heat intolerance, Denies polydipsia and Denies polyuria Aller/Immun Denies wheezing Physical exam (Primary Care) Vital Signs: Last Vital Signs Temp 97.6 F 07/10/24 14:29 Pulse 83 07/10/24 14:29 Resp 15 07/10/24 14:29 BP 134/90 H 07/10/24 14:29 Pulse Ox 98 07/10/24 14:29 Oxygen Delivery Method Room Air 07/10/24 14:29 BMI result Body Mass Index 69.3 Tobacco/Smoking Status: Tobacco use Status Tobacco use date assessed 05/19/24 07/10/24 14:36 Patient Tobacco Use Status Never used Tobacco 07/10/24 14:36 e-Cigarette/Vaping Use Former Use 07/10/24 14:36 PHQ-9: PHQ-9 Score PHQ-9: Total score 1 07/10/24 14:36 Depression Screening Interpretation: Negative Thrive Assessment: Date of Thrive Assessment Date Thrive assessed 06/16/24 07/10/24 14:36 Currently or been in a relationship where the following occur: No concerns reported Const Other: General: no acute distress and well developed Nutritional Appearance: well nourished Orientation/consciousness: patient oriented x3 [facility] Head: Yes normocephalic and Yes atraumatic Eyes General: appearance normal, both eyes and all related structures Pupils: Equal, round and reactive pupils present EOM: EOMs intact bilaterally Resp Effort & Inspection: normal respiratory effort Auscultation: clear to auscultation bilaterally Cardio Rate: regular rate Rhythm: regular rhythm Heart sounds: S1 normal heart sound present, S2 normal heart sound present, no gallops, no murmurs and no rubs GI Palpation (GI): No Abdominal aortic bruit present, Soft to palpation, nontender, No hepatosplenomegaly present and No Rebound tenderness present Auscultation: normal bowel sounds General: Yes no CVA tenderness Back/Spine/Pelvis Back: no CVA tenderness Cervical Spine: cervical ROM normal and No Cervical spine tenderness Thoracic/Lumbar Spine: thoraco-lumbar ROM normal, No pain with thoraco-lumbar ROM, No thoracic spinal tenderness and No lumbar spinal tenderness Extrem General: Yes normal to inspection, No edema and No calf tenderness Skin General: warm and dry. Normal skin color. Normal skin turgor Neuro General: patient oriented x3, gait normal and no focal neuro deficit Cranial nerves: Yes Equal, round and reactive pupils present Cognition (Neuro): normal cognition Gait exam (Neuro): Normal gait present Sensory Exam: No Sensory deficit (Neuro) Psych Appearance: grossly normal Affect: normal affect Attitude: cooperative Thought process: Normal thought process present Coding Level of Care Code Est Pt Level 4 (13372) Diagnoses Abdominal wall cellulitis L03.311 Elevated fasting glucose R73.01 Anemia D64.9 Hypoalbuminemia E88.09 Morbid obesity E66.01 Assessment & Plan Assessment & Plan (1) Abdominal wall cellulitis: Code(s): L03.311 - Cellulitis of abdominal wall Category: Medical Plan: Resolved. Continue to take Penicillin VK 500 mg twice daily; refilled x 30 days. Follow-up as needed. Verbalized understanding and agreed with the plan. (2) Elevated fasting glucose: Code(s): R73.01 - Impaired fasting glucose Category: Medical Plan: Recent fasting glucose is slightly elevated, 107. Healthy diet and routine exercise encouraged. Will recheck fasting glucose and make changes as needed. Advised to fast for 10-12 hours, may drink water, before getting blood work done. (3) Anemia: Code(s): D64.9 - Anemia, unspecified Category: Medical Plan: Recent RBC, and H&H levels are low, 3.74 and 10.7/33.1 respectively. Normal MCV. Will recheck CBC and check iron profile, vitamin B12, and folate levels. Will make changes as needed. Verbalized understanding and agreed with treatment plan. (4) Hypoalbuminemia: Code(s): E88.09 - Other disorders of plasma-protein metabolism, not elsewhere classified Category: Medical Plan: Recent albumin level is low, 3.0. Encouraged to increase protein in his diet. Will recheck albumin level and make changes as needed. (5) Morbid obesity: Code(s): E66.01 - Morbid (severe) obesity due to excess calories Category: Medical Plan: He currently weighs 497 lb, BMI is 69.3. He was admitted for 5 days last month for abdominal wall cellulitis. He started weight management treatment last week. Healthy diet and routine exercise encouraged. Follow-up with weight management as planned. Verbalized understanding and agreed with treatment plan. Plan Encouraged to get fasting blood work done as planned. Will review results and make changes as needed. Follow-up as scheduled for an extended physical exam in 05/07/2025. Return sooner with symptoms or concerns. Verbalized understanding and agreed with treatment plan. Orders: Orders Albumin Level Today E88.09 - Other disorders of plasma-protein metabolism, not elsewhere classified Glucose Fasting Today R73.01 - Impaired fasting glucose Medications: Refilled penicillin V potassium 500 mg PO BID 30 days 60 tabs 1RF penicillin V potassium 500 mg PO BID 30 days 60 tabs 2RF
[2024-07-10 14:29] VITALS: BP 134/90; PULSE 83; RESP 15; TEMP 36.4; O2SAT 98; BMI 69.3
[2024-07-10 15:09] VITALS: BP 134/84
== END 2024-07-10 14:59 | disposition home or self-care (01) ==
PROVIDERS: PCP Nurse Practitioner Family; Visit Provider Nurse Practitioner Family
DX: L03.311 Cellulitis of abdominal wall (principal); E66.01 Morbid (severe) obesity due to excess calories; Z68.44 Body mass index [BMI] 60.0-69.9, adult; R73.01 Impaired fasting glucose; D64.9 Anemia, unspecified; E88.09 Other disorders of plasma-protein metabolism, not elsewhere classified

== ENCOUNTER → 2024-07-10 14:00 | Outpatient (BNVA) | payer OTHER, SELFPAY | PROVIDERS: PCP Nurse Practitioner Family; Visit Provider Nurse Practitioner Family | DX: L03.311 Cellulitis of abdominal wall (principal); R73.01 Impaired fasting glucose; D64.9 Anemia, unspecified; E88.09 Other disorders of plasma-protein metabolism, not elsewhere classified; E66.01 Morbid (severe) obesity due to excess calories | CPT/HCPCS: 99212 ==

== ENCOUNTER 2024-08-18 08:24 | Outpatient (AMB) | payer OTHER, SELFPAY ==
--- NOTE | 2024-08-18 08:27 | MHC.PC.OV ---
Vital Signs 08/18/24 08:33 Height 5 ft 11 in Weight 484 lb 6 oz BMI 67.5 BP 145/84 H Blood Pressure Location Rt brachial Position Sitting Respiration 16 Pulse 83 Pulse Source Pulse Oximeter Temp 97.9 F Temp Source Oral Pulse Oximetry (%) 96 Oxygen Delivery Method Room Air Intake Visit Reasons: body aches/congested Intake Note: patient here c/o body aches and congestion since wednesday night Intellectual Property Legal Assistant Required: No Allergies diphenhydramine [From Benadryl] Allergy (Intermediate, Verified 08/18/24 08:53) UNKNOWN doxycycline Allergy (Verified 08/18/24 08:53) Itching Medication List - Last Reconciled 08/18/24 by Sparkle Lawler CNP albuterol sulfate 5 mg inhalation QID PRN fluconazole 100 mg PO DAILY linezolid 600 mg PO BID melatonin 10 mg PO BEDTIME PRN nystatin 1 appl See Protocol topical BID penicillin V potassium 500 mg PO BID 30 days Tobacco use date assessed: 08/18/24 Dental Screening Dental Screen Date: 08/18/24 Did you have a dental visit in the last 12 months?: No Did you have a dental problem in the last 6 months where you did not have access to dental care?: No Was dental information given to patient?: Patient declined (no insurance for dental yet) HPI HPI Comments History of Present Illness Details 34-year-old male presents with complaints of intermittent headache, productive cough with occasional green and blood tinged mucous, and congestion for the past 4 days. No headache at this time. He had initial nausea, body aches, and chills that completely subsided. He has been using his his albuterol inhaler with significant improvement. He has been taking Ibuprofen as needed and took NyQuil last night. No body aches, fever, fatigue, or weakness. He is currently not taking antihistamine. He reports history of taking Zyrtec without adverse reaction. [facility] Medical History Morbid obesity with BMI of 60.0-69.9, adult Depression Anxiety Obstructive sleep apnea (~2012) Morbid obesity Asthma GERD (gastroesophageal reflux disease) SARIKA (generalized anxiety disorder) Surgical History History of dental surgery (~1998) Family History Mother FH: mental illness Cancer Father Diabetes Maternal Grandmother Alcohol abuse Cancer Sister FH: mental illness Diabetes Social History (Updated 07/06/24 @ 16:28 by Nighat Crandall [facility]) Household Members: Family Housing: Apartment Do you presently have visiting nurse or other home services: No Alcohol intake: never Patient Tobacco Use Status: Never used Tobacco e-Cigarette/Vaping Use: Former Use Second Hand Smoke Exposure: No Substance Use Type: Marijuana service: No Cognitive needs: No Hearing needs: No Vision needs: No Questionnaire Thrive Questionnaire Date Thrive assessed: 07/10/24 I am a: Patient What is your living situation today?: I have a steady place to live Within the past 12 months, did the food you bought not last and you didn't have the money to get more?: Never true Within the past 12 months, did you worry whether your food would run out before you got money to buy more?: Never true Do you have trouble paying for medicines?: No Do you have trouble getting transportation to medical appointments?: No Do you have trouble paying your heating and electricity bill?: No Do you have trouble taking care of your child, family member or friend?: No Do you have trouble with day-to-day activities such as bathing, preparing meals, shopping, managing finances, etc.?: No Are you currently unemployed and looking for a job?: No Are you interested in more education?: No Please select the resources that you would like help with: None Currently or been in a relationship where the following occur: No concerns reported THRIVE Score: 0 SARIKA-7 AMB Questionnaire SARIKA-7 Date SARIKA - 7 assessed: 05/04/24 Source: Developed by Drs. Hayden Thayer, Liat Grace, Uriel Chavis and colleagues, with an educational lisa from [employer]. ACT Questionnaire In the past 4 weeks, how much of the time did your asthma keep you from getting as much done at work, school or at home?: A little of the time During the past 4 weeks, how often have you had shortness of breath?: 1-2 times a week During the past 4 weeks, how often did your asthma symptoms wake you up at night or earlier than usual in the morning?: Once a week During the past 4 weeks, how often have you had to use your rescue inhaler or nebulizer medication?: Once a week or less How would you rate your asthma control during the past 4 weeks?: Well controlled ACT Interpretation: Positive Score: 19 Review of Systems Const Details: Const Denies chills, Denies fatigue, Denies fever(s), Denies headache(s) and Denies weakness ENT Denies dizziness and Denies headache(s) Card Denies chest pain, Denies lightheadedness, Denies dyspnea and Denies other (Palpitations) Resp Reports cough, Denies dyspnea, Denies wheezing and Denies other ( shortness of breath) GI Denies abdominal pain, Denies melena, Denies hematochezia, Denies change in bowel habits, Denies dyspepsia and Denies nausea Denies hematuria and Denies dysuria Musc Denies abnormal gait, Denies myalgias, Denies arthralgias, Denies numbness and Denies tingling Skin/Breast Denies rash, Denies unusual bruising and Denies wounds Neuro Denies abnormal gait, Denies dizziness, Denies headache(s), Denies memory loss, Denies numbness, Denies Sensory deficit (Neuro), Denies tingling and Denies weakness Psych Denies anxiety, Denies depression, Denies memory loss Endo Denies cold intolerance, Denies fatigue, Denies heat intolerance, Denies polydipsia and Denies polyuria Aller/Immun Denies wheezing Physical exam (Primary Care) Vital Signs: Last Vital Signs Temp 97.9 F 08/18/24 08:33 Pulse 83 08/18/24 08:33 Resp 16 08/18/24 08:33 BP 145/84 H 08/18/24 08:33 Pulse Ox 96 08/18/24 08:33 Oxygen Delivery Method Room Air 08/18/24 08:33 BMI result Body Mass Index 67.5 Tobacco/Smoking Status: Tobacco use Status Tobacco use date assessed 08/18/24 08/18/24 08:37 Patient Tobacco Use Status Never used Tobacco 08/18/24 08:30 e-Cigarette/Vaping Use Former Use 08/18/24 08:30 Thrive Assessment: Date of Thrive Assessment Date Thrive assessed 07/10/24 08/18/24 08:30 Currently or been in a relationship where the following occur: No concerns reported Const Other: General: no acute distress and well developed Nutritional Appearance: well nourished Orientation/consciousness: patient oriented x3 [facility] Head: Yes normocephalic and Yes atraumatic Eyes General: appearance normal, both eyes and all related structures Pupils: Equal, round and reactive pupils present EOM: EOMs intact bilaterally Resp Effort & Inspection: normal respiratory effort Auscultation: clear to auscultation bilaterally Cardio Rate: regular rate Rhythm: regular rhythm Heart sounds: S1 normal heart sound present, S2 normal heart sound present, no gallops, no murmurs and no rubs GI Palpation (GI): No Abdominal aortic bruit present, Soft to palpation, nontender, No hepatosplenomegaly present and No Rebound tenderness present Auscultation: normal bowel sounds General: Yes no CVA tenderness Back/Spine/Pelvis Back: no CVA tenderness Cervical Spine: cervical ROM normal and No Cervical spine tenderness Thoracic/Lumbar Spine: thoraco-lumbar ROM normal, No pain with thoraco-lumbar ROM, No thoracic spinal tenderness and No lumbar spinal tenderness Extrem General: Yes normal to inspection, No edema and No calf tenderness Skin General: warm and dry. Normal skin color. Normal skin turgor Neuro General: patient oriented x3, gait normal and no focal neuro deficit Cranial nerves: Yes Equal, round and reactive pupils present Cognition (Neuro): normal cognition Gait exam (Neuro): Normal gait present Sensory Exam: No Sensory deficit (Neuro) Psych Appearance: grossly normal Affect: normal affect Attitude: cooperative Thought process: Normal thought process present Coding Level of Care Code Est Pt Level 3 (63918) Diagnoses Viral upper respiratory illness J06.9 Additional Codes Asthma Control Questionnaire - ACT Interpretation: Positive ([id number]) Assessment & Plan Assessment & Plan (1) Viral upper respiratory illness: Code(s): J06.9 - Acute upper respiratory infection, unspecified Category: Medical Plan: Likely viral illness though possibly allergies Asthma exacerbation is also possible No exam evidence of bacterial infection Viral illness There is no antibiotic medication for viruses.? They must run their course.? Most average 5-7 days but 7-10 days is not uncommon and up to 14 days is still possible.? A cough is often the last symptom to resolve and this can last for weeks in some cases. Rest Hydrate well -? Drink plenty of fluids.? Especially water. Tylenol or ibuprofen for muscle aches, headache, fever/discomfort Albuterol inhaler as prescribed Zyrtec ordered; advised to take as prescribed Cannot rule out COVID-19/RSV/Flu infection Nasal swab acquired and will be sent to the lab Advised to perform fasting blood work and follow-up for telehealth visit for labs review in 2-3 weeks. Return for new or worsening symptoms Verbalized understanding and agreed with treatment plan. Orders: Orders SARS-CoV2/FLU/RSV Today J06.9 - Acute upper respiratory infection, unspecified Medications: New cetirizine 10 mg PO DAILY 30 days 30 tabs 3RF
[2024-08-18 08:33] VITALS: BP 145/84; PULSE 83; RESP 16; TEMP 36.6; O2SAT 96; BMI 67.5
== END 2024-08-18 09:10 | disposition home or self-care (01) ==
LOC: HO.HMCFM 08:25
PROVIDERS: PCP Nurse Practitioner Family; Visit Provider Nurse Practitioner Family
DX: J06.9 Acute upper respiratory infection, unspecified (principal)

== ENCOUNTER 2024-08-18 08:24 | Outpatient (REF) | payer OTHER, SELFPAY ==
[2024-08-18 12:18] LABS: Influenza A PCR NEGATIVE (Negative); Influenza B PCR NEGATIVE (Negative); Resp Syncy Virus RNA Qual PCR NEGATIVE (Negative); SARS COV2 PCR INHOUSE NEGATIVE (Negative)
== END 2024-08-18 08:25 | disposition home or self-care (01) ==
LOC: HO.LAB 08:24
PROVIDERS: PCP Nurse Practitioner Family; Visit Provider Nurse Practitioner Family
DX: J06.9 Acute upper respiratory infection, unspecified (principal)
CPT/HCPCS: 0241U; 96160; 99212

== ENCOUNTER 2024-08-18 09:27 | Outpatient (REF) | payer OTHER, SELFPAY ==
[2024-08-18 11:15] LABS: MANUAL DIFF FLAG NO
[2024-08-18 11:32] LABS: Basophils Percent Auto 0.8 % (0-2); Hematocrit 43.9 % (42.0-52.0); Hemoglobin 14.4 g/dl (14.0-18.0); Imm Gran Abs Auto 0.01 X10*3/uL (0.00-0.03); Imm Gran Pct Auto 0.3 % (0.0-0.4); Lymphocytes Absolute Auto 1.2 X10*3/uL (1.2-4.9); Lymphocytes Percent Auto 30.3 % (20-40); Mean Corpuscular HGB Conc 32.8 g/dl (31.0-36.0); Mean Corpuscular Hemoglobin 28.5 pg (27.0-33.0); Mean Corpuscular Volume 86.9 fL (80.0-98.0); Mean Platelet Volume 9.8 fL (9.4-12.4); Monocytes Absolute Auto 0.6 X10*3/uL (0.1-1.2); Monocytes Percent Auto 16.2 % (2-11); Neutrophils Percent Auto 51.4 % (45-73); Platelet Count 259 X10*3/uL (160-400); Red Blood Count 5.05 X10*6/uL (4.60-5.80); Red Cell Distribution Width 15.3 % (11.0-16.0); White Blood Count 3.9 X10*3/uL (4.8-10.8)
[2024-08-18 11:54] LABS: Albumin Level 3.7 g/dL (3.5-5.0); Glucose Fasting 95 mg/dL (60-99); Iron 22 mcg/dL (45-160); Percent Iron Saturation 10 % (15-50); Total Iron Binding Capacity 229 mcg/dL (228-428); Unsaturated Iron Binding 207 ug/dL
[2024-08-18 12:31] LABS: Vitamin B12 569 pg/mL (200-900)
== END 2024-08-18 09:28 | disposition home or self-care (01) ==
LOC: HO.WFDLDS 09:27
PROVIDERS: Visit Provider Nurse Practitioner Family
DX: D64.9 Anemia, unspecified (principal); E88.09 Other disorders of plasma-protein metabolism, not elsewhere classified; R73.01 Impaired fasting glucose; D75.839 Thrombocytosis, unspecified
CPT/HCPCS: 36415; 82040; 82607; 82746; 82947; 83540; 85025

== ENCOUNTER 2024-08-24 16:17 | Outpatient (AMB) | payer OTHER, SELFPAY ==
[2024-08-24 16:26] VITALS: BP 185/89; PULSE 73; O2SAT 98; BMI 68.6
--- NOTE | 2024-08-24 16:26 | MHC.OFFVISWM ---
VS Expanded 08/24/24 16:26 BP 185/89 H Blood Pressure Location Lt radial Blood Pressure Position Sitting Pulse 73 Pulse Source Pulse Oximeter Pulse Oximetry 98 Height 5 ft 11 in Weight 492 lb BMI 68.6 Body Fat % 53.5 Body Fat Mass 263.2 Fat Free Mass 228.6 Visceral Fat Rating 48.0 Body Water % 37.2 Body Water Mass 183.0 Muscle Mass/Score 217.6 Basal Metabolic Rate/Score 3,538 Intake Visit Reasons: (OV) F/U SWL Chief Executive Or Managing Director Required: No Allergies diphenhydramine [From Benadryl] Allergy (Intermediate, Verified 08/24/24 16:27) UNKNOWN doxycycline Allergy (Verified 08/24/24 16:27) Itching Medication List - Last Reconciled 08/24/24 by IRMA Price albuterol sulfate 5 mg inhalation QID PRN cetirizine 10 mg PO DAILY 30 days fluconazole 100 mg PO DAILY linezolid 600 mg PO BID melatonin 10 mg PO BEDTIME PRN nystatin 1 appl See Protocol topical BID penicillin V potassium 500 mg PO BID 30 days HPI Comments Details: Patient is a 34-year-old male who returns to the office today in follow-up. He began the surgical weight loss program 01/20/2023 with a weight of 618.1 lb and a BMI of 86.2. Weight today is 492 lb with a BMI of 68.7. He has lost 126.1 lb or 20.4 % total body weight. He states he has been much more consistent with his meal plan and going to the gym. Consistent with the meal plan over the last 10 days. He is completely committed and is excited about the progress he has made. He had respiratory illness since last being seen and as a result has been unable to use the treadmill. He feels as though he is recovering from this and should be able to return to the gym now. He continues to follow the meal plan Celebrate Rebuild protein shake with TWO scoops in 10oz low fat Fairlife milk at 8-10am, Celebrate protein bar 11am-1pm, lunch at 2pm (10 forks of meat and 10 forks of salad or vegetables) Celebrate bar at 4pm-6pm, dinner at 7pm (10 forks of meat and 10 forks of salad or vegetables) Celebrate Rebuild protein shake with TWO scoops in 10oz low fat Fairlife milk at 8-10pm drinking 80-96 oz water exercise plan: stopped about 2 weeks ago due to pulmonary compromise treadmill 15-25 min, 250-300 calories 3-4 days per week [facility] Medical History Morbid obesity with BMI of 60.0-69.9, adult Depression Anxiety Obstructive sleep apnea (~2012) Morbid obesity Asthma GERD (gastroesophageal reflux disease) SARIKA (generalized anxiety disorder) Surgical History History of dental surgery (~1998) Family History Mother FH: mental illness Cancer Father Diabetes Maternal Grandmother Alcohol abuse Cancer Sister FH: mental illness Diabetes Social History (Updated 07/06/24 @ 16:28 by Nighat Crandall CMA) Household Members: Family Housing: Apartment Do you presently have visiting nurse or other home services: No Alcohol intake: never Patient Tobacco Use Status: Never used Tobacco e-Cigarette/Vaping Use: Former Use Second Hand Smoke Exposure: No Substance Use Type: Marijuana service: No Cognitive needs: No Hearing needs: No Vision needs: No Physical Exam Vital Signs: Last Vital Signs Pulse 73 08/24/24 16:26 BP 185/89 H 08/24/24 16:26 Pulse Ox 98 08/24/24 16:26 Const General: healthy appearing and no acute distress Resp Effort & Inspection: normal respiratory effort Auscultation: clear to auscultation bilaterally Cardio Rate: regular rate Rhythm: regular rhythm GI Auscultation: normal bowel sounds Assessment & Plan Assessment & Plan (1) Morbid obesity: Code(s): E66.01 - Morbid (severe) obesity due to excess calories Category: Medical Plan: Patient has been encouraged to return to the gym as he is able. He has been encouraged to continue only strive to resume his goal of 500 calories per day. He will text with any questions or concerns. Continue meal plan as he has been doing. Follow-up in the office as scheduled.
--- OUTSIDE RECORDS SUMMARY | 2024-08-24 17:09 | XMS_ITS | Referral Summary ---
Author Organization [facility] Address [address] [place] [address] Care Team Providers Care Watch And Clock Maker And Repairer Name Role Phone Gio Pacheco Primary Care Provider [phone] Allergies Active Allergy Reactions Criticality Noted Date [...] Plan of Treatment Not on [place] [address] [address] [place] [address] MEDICAID Care Teams Watch And Clock Maker And Repairer Relationship Specialty Start Date End Date Gio Pacheco [address] [place] [id number] PCP - General Internal Medicine 08/31/23
--- OUTSIDE RECORDS SUMMARY | 2024-08-24 17:09 | XMS_ITS | Clinical Summary ---
Author Organization [facility] Address [address] [place] [address] Care Team Providers Care Manager Demand Name Role Phone Gio Pacheco Primary Care Provider [phone] Allergies Active Allergy Reactions Criticality Noted Date [...] series) 01/19/2067 Insurance [employer] MEDICAID Care Teams Manager Demand Relationship Specialty Start Date End Date Gio Pacheco [address] [place] [id number] PCP - General Internal Medicine 08/31/23
== END 2024-08-24 16:47 | disposition home or self-care (01) ==
LOC: HO.HBS 16:18
PROVIDERS: PCP Nurse Practitioner Family; Visit Provider Physician Assistant Surgical
DX: E66.01 Morbid (severe) obesity due to excess calories (principal)
CPT/HCPCS: 99213

== ENCOUNTER → 2024-08-24 16:17 | Outpatient (BNVA) | payer OTHER, SELFPAY | PROVIDERS: PCP Nurse Practitioner Family; Visit Provider Physician Assistant Surgical | DX: E66.01 Morbid (severe) obesity due to excess calories (principal); Z68.44 Body mass index [BMI] 60.0-69.9, adult | CPT/HCPCS: 99212 ==

== ENCOUNTER 2024-08-28 22:52 | Inpatient (IN) | payer OTHER, SELFPAY ==
[2024-08-28 22:55] VITALS: BP 148/79; PULSE 134; RESP 24; TEMP 37.8; O2SAT 99; BMI 68.3
[2024-08-28 23:31] LABS: MANUAL DIFF FLAG NO
[2024-08-28 23:34] LABS: Basophils Percent Auto 0.3 % (0-2); Eosinophils Absolute Auto 0.1 X10*3/uL (0.0-0.4); Eosinophils Percent Auto 1.1 % (0-4); Hematocrit 45.4 % (42.0-52.0); Hemoglobin 15.6 g/dl (14.0-18.0); Imm Gran Abs Auto 0.03 X10*3/uL (0.00-0.03); Imm Gran Pct Auto 0.3 % (0.0-0.4); Lymphocytes Absolute Auto 1.2 X10*3/uL (1.2-4.9); Lymphocytes Percent Auto 11.9 % (20-40); Mean Corpuscular HGB Conc 34.4 g/dl (31.0-36.0); Mean Corpuscular Hemoglobin 29.1 pg (27.0-33.0); Mean Corpuscular Volume 84.5 fL (80.0-98.0); Mean Platelet Volume 9.2 fL (9.4-12.4); Monocytes Absolute Auto 0.3 X10*3/uL (0.1-1.2); Monocytes Percent Auto 3.2 % (2-11); Neutrophils Absolute Auto 8.5 x10*3/uL (2.0-8.3); Neutrophils Percent Auto 83.2 % (45-73); Platelet Count 360 X10*3/uL (160-400); Red Blood Count 5.37 X10*6/uL (4.60-5.80); Red Cell Distribution Width 14.7 % (11.0-16.0); White Blood Count 10.3 X10*3/uL (4.8-10.8)
--- NOTE | 2024-08-28 23:35 | ED.GENADULT ---
HPI - General Adult General Chief complaint: Abdominal Pain Stated complaint: abd pain,vomiting Time Seen by Provider: 08/28/24 23:18 Source: patient Mode of arrival: ambulatory Limitations: no limitations History of Present Illness ED Provider: HPI narrative: 34-year-old male, significant for morbid obesity, RAMIRO, GERD, GERD, umbilical hernia, anxiety, depression, MRSA+, who presents emergency department for evaluation of abdominal wall cellulitis. Patient is admitted and discharged on 06/18 24 for similar presentation continued on penicillin V tablets for 2 months which she feels just finished 2 weeks ago now with noticed rash coming back again for last few days feeling hot and cold Related Data Home Medications ?Medication ?Instructions ?Recorded ?Confirmed melatonin 10 mg tablet 10 mg PO BEDTIME PRN Sleep 06/14/24 08/24/24 Previous Rx's ?Medication ?Instructions ?Recorded albuterol sulfate 2.5 mg/0.5 mL 5 mg inhalation QID PRN shortness 04/21/24 solution for nebulization of breath or wheezing #30 ea fluconazole 100 mg tablet 100 mg PO DAILY #5 tabs 06/18/24 linezolid 600 mg tablet 600 mg PO BID #14 tabs 06/18/24 nystatin 100,000 unit/gram topical 1 appl topical BID #60 grams 06/18/24 ointment penicillin V potassium 500 mg 500 mg PO BID 30 days #60 tabs 07/10/24 tablet cetirizine 10 mg tablet 10 mg PO DAILY 30 days #30 tabs 08/18/24 Allergies Allergy/AdvReac Type Severity Reaction Status Date / Time diphenhydramine Allergy Intermediate UNKNOWN Verified 08/28/24 23:04 [From Benadryl] doxycycline Allergy Itching Verified 08/28/24 23:04 Review of Systems Review of Systems: Yes all other systems are reviewed and are negative PMFSH Past Medical History Medical History Morbid obesity with BMI of 60.0-69.9, adult Depression Anxiety Obstructive sleep apnea (~2012) Morbid obesity Asthma GERD (gastroesophageal reflux disease) SARIKA (generalized anxiety disorder) Surgical History History of dental surgery (~1998) Family History Family History Mother FH: mental illness Cancer Father Diabetes Maternal Grandmother Alcohol abuse Cancer Sister FH: mental illness Diabetes Social History Social History Household Members: Family Housing: Apartment Do you presently have visiting nurse or other home services: No Alcohol intake: never Patient Tobacco Use Status: Never used Tobacco e-Cigarette/Vaping Use: Former Use Second Hand Smoke Exposure: No Substance Use Type: Marijuana Advance Directives: No Advance Directives Information Provided: Yes service: No Cognitive needs: No Hearing needs: No Vision needs: No Physical Exam ED Vital Signs: Vital Signs - 24 hr 08/28/24 22:55 08/28/24 23:48 08/29/24 00:32 Temperature 100.1 F 101.3 F H Pulse Rate 134 H Respiratory Rate 24 H Blood Pressure 148/79 H 125/58 L Pulse Oximetry 99 Oxygen Delivery Method Room Air 08/29/24 00:36 08/29/24 00:57 08/29/24 01:03 Temperature 99.3 F 97.3 F Pulse Rate 114 H Respiratory Rate 22 H Blood Pressure 120/50 L 114/45 L Pulse Oximetry 98 Oxygen Delivery Method Room Air BMI result Body Mass Index 68.3 Appearance: Alert. Oriented X3. No acute distress. Morbidly obese Eyes: PERRLA, No Nystagmus ENT: Pharynx normal. Oral Mucosa moist Neck: Normal inspection. Neck supple. CVS: Normal heart rate and rhythm. Pulses normal. Respiratory: No respiratory distress. Equal air entry bilateral, no wheezing/rales/rhonchi Abdomen: Soft and nontender. Bowel sounds are present, no mass palpable, no CVA tenderness Skin: Cellulitic change lower abdomen Extremities: No lower extremity edema. No calf tenderness Neuro: Oriented X 3. No motor deficit. No sensory deficit.No cerebellar signs , cranial nerves II-XII intact Medications Administered Generic Name Dose Route Start Last Admin Trade Name Freq PRN Reason Stop Dose Admin Vancomycin HCl 2,000 mg in 500 mls @ 250 mls/hr 08/28/24 23:39 08/28/24 23:44 Vancomycin/Ns IV 08/29/24 01:38 250 mls/hr ONCE ONE Administration Discontinued Medications Generic Name Dose Route Start Last Admin Trade Name Freq PRN Reason Stop Dose Admin Acetaminophen 650 mg 08/28/24 23:48 08/28/24 23:51 Acetaminophen 325 Mg Tablet PO 08/28/24 23:49 650 mg ONCE ONE Administration Sodium Chloride 1,000 mls @ 999 mls/hr 08/28/24 23:40 08/29/24 00:32 Ns IV 08/29/24 00:40 Infused .Q1H1M ONE Infusion Medical Decision Making Medical Decision Making [facility] Narrative: Patient with recurrent abdominal wall cellulitis obesity will admit patient for IV antibiotics Admission/Observation Consideration of admission/observation: Escalation of care including admission/observation considered Consult Healthcare Provider Management of the patient was discussed with: Hospitalist Lab Data [facility] Lab Attestation statement: I reviewed the patient's lab results. 08/28/24 23:27 08/28/24 23:27 Labs: Lab Results 08/28/24 Range/Units 23:27 WBC 10.3 (4.8-10.8) X10*3/uL RBC 5.37 (4.60-5.80) X10*6/uL Hgb 15.6 (14.0-18.0) g/dl Hct 45.4 (42.0-52.0) % MCV 84.5 (80.0-98.0) fL MCH 29.1 (27.0-33.0) pg MCHC 34.4 (31.0-36.0) g/dl RDW 14.7 (11.0-16.0) % Plt Count 360 D (160-400) X10*3/uL MPV 9.2 L (9.4-12.4) fL Immature Gran % (Auto) 0.3 (0.0-0.4) % Neut % (Auto) 83.2 H (45-73) % Lymph % (Auto) 11.9 L (20-40) % [place] % (Auto) 3.2 (2-11) % Eos % (Auto) 1.1 (0-4) % Baso % (Auto) 0.3 (0-2) % Lymph # (Auto) 1.2 (1.2-4.9) X10*3/uL [place] # (Auto) 0.3 (0.1-1.2) X10*3/uL Eos # (Auto) 0.1 (0.0-0.4) X10*3/uL Baso # (Auto) 0.0 (0.0-0.2) X10*3/uL Abs Immat Gran (auto) 0.03 (0.00-0.03) X10*3/uL Absolute Neuts (auto) 8.5 H (2.0-8.3) x10*3/uL Absolute Nucleated RBC 0.000 (0.0-0.012) X10*3/uL Nucleated RBC % (auto) 0.0 (0.0-0.2) /100WBC Sodium 140 (135-145) mmol/L Potassium 4.0 D (3.3-5.1) mmol/L Chloride 105 (96-108) mmol/L Carbon Dioxide 27 (22-29) mmol/L Anion Gap 12 (12-20) BUN 19 H (9-16) mg/dL Creatinine 1.13 (0.5-1.4) mg/dL Estim Creat Clear Calc 177.9 Estimated GFR > 60 Random Glucose 79 (60-115) mg/dL Lactic Acid 1.1 (0.5-2.0) mmol/L Calcium 9.7 D (8.4-10.2) mg/dL Total Bilirubin 0.5 (0.0-1.0) mg/dL AST 25 (5-37) U/L ALT 29 (0-40) U/L Alkaline Phosphatase 72 (39-117) U/L Total Protein 8.8 H (6.5-8.0) g/dL Albumin 4.3 (3.5-5.0) g/dL Lipase 22 (8-78) U/L Discharge Plan Discharge Clinical Impression: Abdominal wall cellulitis Patient Disposition: Admitted As Inpatient Print Language: Norwegian
[2024-08-28] MEDS: 0.9 % Sodium Chloride 1,000 ML 999 ML IV (23:43)
[2024-08-28] MEDS: vancomycin/NS 2,000 MG/500 ML PLAST..BAG 250 MG IV (23:44)
[2024-08-28 23:48] VITALS: TEMP 38.5
[2024-08-28] MEDS: Acetaminophen 325 MG TABLET 650 MG PO (23:51)
[2024-08-28 23:54] LABS: Lactic Acid 1.1 mmol/L (0.5-2.0)
[2024-08-28 23:57] LABS: Anion Gap 12 (12-20); Carbon Dioxide 27 mmol/L (22-29); Chloride 105 mmol/L (96-108); Sodium 140 mmol/L (135-145); Total Protein 8.8 g/dL (6.5-8.0)
[2024-08-29] VITALS (15 sets, daily range): BP systolic 101–128; BP diastolic 25–62; PULSE 101–131; RESP 14–30; TEMP 36.3–38.8; O2SAT 94–100
[2024-08-29] LABS: Alanine Aminotransferase 29 U/L (0-40); Albumin Level 4.3 g/dL (3.5-5.0); Alkaline Phosphatase 72 U/L (39-117); Aspartate Amino Transferase 25 U/L (5-37); Bilirubin Total 0.5 mg/dL (0.0-1.0); Blood Urea Nitrogen 19 mg/dL (9-16); Calcium 9.7 mg/dL (8.4-10.2); Creatinine Clr Calc Pharmacy 177.9; Estimated Glomerular Filt Rate > 60; Glucose Random 79 mg/dL (60-115); Lipase 22 U/L (8-78)
--- OUTSIDE RECORDS SUMMARY | 2024-08-29 01:08 | XMS_ITS | Clinical Summary ---
Author Organization [facility] Address [address] [place] [address] Care Team Providers Care Spinneret Cleaner Name Role Phone Gio Pacheco Primary Care Provider [phone] Allergies Active Allergy Reactions Criticality Noted Date [...] - Tdap) 01/19/2014 COVID-19 Vaccine (1 - season) 2024 Alcohol/Substance Use Screening 05/24/2024 Influenza Vaccine (Season Ended) 2025 RSV Vaccine (60+ years old a nd patients) (1 - 1-dose 75+ series) 01/19/2067 Insurance [employer] MEDICAID Care Teams Spinneret Cleaner Relationship Specialty Start Date End Date Gio Pacheco [address] [place] [id number] PCP - General Internal Medicine 08/31/23
--- OUTSIDE RECORDS SUMMARY | 2024-08-29 01:08 | XMS_ITS | Referral Summary ---
Author Organization [facility] Address [address] [place] [address] Care Team Providers Care Railcar Brake Operator Name Role Phone Gio Pacheco Primary Care Provider [phone] Allergies Active Allergy Reactions Criticality Noted Date [...] Plan of Treatment Not on file Insurance [place] [address] MEDICAID Care Teams Railcar Brake Operator Relationship Specialty Start Date End Date Gio Pacheco [address] [place] [id number] PCP - General Internal Medicine 08/31/23
--- NOTE | 2024-08-29 01:47 | PM.IMHP ---
History of Present Illness Date of Service: 08/29/24 Chief Complaint: lower abdominal pain and redness 34-year-old male with a past medical history of morbid obesity, anxiety, depression presented to the hospital today with a chief complaint of lower abdominal skin pain and redness. Patient mentioned that for about 2 months he has been on p.o. antibiotics. Has been taking antibiotics for his abdominal wall cellulitis since his last admission in the hospital. Today he had severe pain in the anterior abdomen hence presented to the ER for further evaluation. Denies any diarrhea. Denies any chest pain or palpitations. Reports subjective fevers. Mentions that his abdominal wall has been more red and painful over the past few days. Review of all other systems is negative except mentioned above ER course: For ER team, patient not have erythema and skin changes with a nodular cellulitis on the lower abdominal wall. Given vancomycin. CT abdomen pelvis showed anterior abdominal wall hernia the small bowel loops and fat within; fatty infiltration in the abdominal wall with skin thickening likely concerning for cellulitis. [facility] Medical History Morbid obesity with BMI of 60.0-69.9, adult Depression Anxiety Obstructive sleep apnea (~2012) Morbid obesity Asthma GERD (gastroesophageal reflux disease) SARIKA (generalized anxiety disorder) Family History Mother FH: mental illness Cancer Father Diabetes Maternal Grandmother Alcohol abuse Cancer Sister FH: mental illness Diabetes Surgical History History of dental surgery (~1998) Social History Household Members: Family Housing: Apartment Do you presently have visiting nurse or other home services: No Alcohol intake: never Patient Tobacco Use Status: Never used Tobacco e-Cigarette/Vaping Use: Former Use Second Hand Smoke Exposure: No Substance Use Type: Marijuana Advance Directives: No Advance Directives Information Provided: Yes service: No Cognitive needs: No Hearing needs: No Vision needs: No Meds Allergies Allergy/AdvReac Type Severity Reaction Status Date / Time diphenhydramine Allergy Intermediate UNKNOWN Verified 08/28/24 23:04 [From Benadryl] doxycycline Allergy Itching Verified 08/28/24 23:04 Active Medications: Current Medications Acetaminophen (Acetaminophen 325 Mg Tablet) 650 mg PO Q6H PRN PRN Reason: Pain, Mild 1-3,fever,headache Calcium Carbonate (Calcium Carbonate 750 Mg Tab.Chew) 750 mg PO Q4H PRN PRN Reason: Heartburn Enoxaparin Sodium (Enoxaparin Sodium 40 Mg/0.4 Ml Syringe) 40 mg SUBCUT Q12H MIGDALIA Hydromorphone HCl (Hydromorphone Hcl 0.5 Mg/0.5 Ml Syringe) 0.5 mg IVPUSH Q4H PRN; Protocol PRN Reason: Breakthrough Pain Lactated Ringer's (Lr) 1,000 mls @ 999 mls/hr IV .Q1H1M MIGDALIA Stop: 08/29/24 02:45 Magnesium Hydroxide (Milk Of Magnesia 30 Ml Oral.Susp) 30 ml PO DAILY PRN PRN Reason: Constipation Melatonin (Melatonin 3 Mg Tablet) 6 mg PO BEDTIME PRN PRN Reason: Insomnia Pharmacy Consult (Consult Rx Vancomycin Dosing) 1 each MISCELLANE DAILY PRN PRN Reason: Consult order Pharmacy Consult (Consult Rx Vancomycin Dosing) 1 each MISCELLANE DAILY PRN PRN Reason: Consult order Sodium Chloride (0.9 % Sodium Chloride Flush 3 Ml Syringe) 3 ml IVFLUSH QSHIFT [facility] Home Medications ?Medication ?Instructions ?Recorded ?Confirmed ?Last Taken ?Type melatonin 10 mg tablet 10 mg PO BEDTIME PRN Sleep 06/14/24 08/24/24 Unknown History Physical Exam Vital Signs and Narrative: Vital Signs: Last Vital Signs Temp 97.3 F 08/29/24 01:03 Pulse 114 H 08/29/24 00:36 Resp 22 H 08/29/24 00:36 BP 114/45 L 08/29/24 00:57 Pulse Ox 98 08/29/24 00:36 O2 Del Method Room Air 08/29/24 00:36 BMI result Body Mass Index 68.3 Gen: Appears be in no acute distress HEENT: NCAT, Moist mucosa. Pulmonary: Vesicular breath sounds, fair air entry CVS: Normal S1-S2 Abdomen: BS+, Soft, ; noted skin erythema with nodules, tenderness, warm on the lower abdomen throughout below the umbilicus. Extremities: Warm well perfused Neuro: Alert and awake. Results Labs 08/28/24 23:27 08/28/24 23:27 Labs: Laboratory Results - last 24 hr 08/28/24 23:27 MCV 84.5 MCH 29.1 MCHC 34.4 RDW 14.7 Plt Count 360 D MPV 9.2 L Immature Gran % (Auto) 0.3 Neut % (Auto) 83.2 H Lymph % (Auto) 11.9 L [place] % (Auto) 3.2 Eos % (Auto) 1.1 Baso % (Auto) 0.3 Lymph # (Auto) 1.2 [place] # (Auto) 0.3 Eos # (Auto) 0.1 Baso # (Auto) 0.0 Abs Immat Gran (auto) 0.03 Absolute Neuts (auto) 8.5 H Absolute Nucleated RBC 0.000 Nucleated RBC % (auto) 0.0 Anion Gap 12 Estim Creat Clear Calc 177.9 Estimated GFR > 60 Random Glucose 79 Lactic Acid 1.1 Calcium 9.7 D Total Bilirubin 0.5 AST 25 ALT 29 Alkaline Phosphatase 72 Total Protein 8.8 H Albumin 4.3 Lipase 22 Assessment and Plan (1) Abdominal wall cellulitis: Status: Acute Plan 34-year-old male with a past medical history of morbid obesity, RAMIRO, anxiety, depression presented to the hospital today with a chief complaint of lower abdominal skin pain and redness. Abdominal wall cellulitis: patient on p.o. linezolid as outpatient for 2 months per patient. Continue IV vancomycin ID consult pain control IV fluids HX RAMIRO: Patient reports that he does not use his CPAP. DVT prophylaxis: Lovenox Code status: Full code Quality Stroke Does the patient have a stroke diagnosis?: No VTE Prior VTE?: No VTE Risk Level:: Medical - moderate - high VTE Device Contraindication: Treatment Not Tolerated VTE Drug Contraindication: N/A - Med Ordered
[2024-08-29] MEDS: Lactated Ringers 1,000 ML 999 ML IV (01:50)
[2024-08-29] MEDS: Ketorolac Tromethamine 15 MG/ML VIAL IVPUSH (03:41)
[2024-08-29] MEDS: Piperacillin Sodium/Tazobactam 3.375 GM in 0.9 % Sodium Chloride 50 ML IV ×4 (03:41→21:17)
[2024-08-29 05:29] LABS: Basophils Percent Auto 0.3 % (0-2); Eosinophils Percent Auto 0.3 % (0-4); Hematocrit 42.5 % (42.0-52.0); Hemoglobin 14.2 g/dl (14.0-18.0); Imm Gran Abs Auto 0.05 X10*3/uL (0.00-0.03); Imm Gran Pct Auto 0.4 % (0.0-0.4); Lymphocytes Absolute Auto 0.4 X10*3/uL (1.2-4.9); Lymphocytes Percent Auto 3.4 % (20-40); MANUAL DIFF FLAG SCAN; Mean Corpuscular HGB Conc 33.4 g/dl (31.0-36.0); Mean Corpuscular Hemoglobin 28.6 pg (27.0-33.0); Mean Corpuscular Volume 85.5 fL (80.0-98.0); Mean Platelet Volume 9.8 fL (9.4-12.4); Monocytes Absolute Auto 0.3 X10*3/uL (0.1-1.2); Monocytes Percent Auto 2.7 % (2-11); Neutrophils Percent Auto 92.9 % (45-73); Platelet Count 305 X10*3/uL (160-400); Red Blood Count 4.97 X10*6/uL (4.60-5.80); Red Cell Distribution Width 14.8 % (11.0-16.0); SCAN SMEAR FLAG 1; White Blood Count 11.8 X10*3/uL (4.8-10.8)
[2024-08-29 05:50] LABS: Alanine Aminotransferase 19 U/L (0-40); Albumin Level 3.4 g/dL (3.5-5.0); Alkaline Phosphatase 57 U/L (39-117); Anion Gap 14 (12-20); Aspartate Amino Transferase 22 U/L (5-37); Blood Urea Nitrogen 19 mg/dL (9-16); Calcium 8.7 mg/dL (8.4-10.2); Carbon Dioxide 21 mmol/L (22-29); Chloride 106 mmol/L (96-108); Creatinine Clr Calc Pharmacy 225.9; Estimated Glomerular Filt Rate > 60; Glucose Random 87 mg/dL (60-115); Potassium 3.7 mmol/L (3.3-5.1); Sodium 137 mmol/L (135-145); Total Protein 7.3 g/dL (6.5-8.0)
[2024-08-29 07:27] LABS: SLIDE REVIEW VERIFIED
--- NOTE | 2024-08-29 07:59 | PHA.PROG ---
Admission Date/Time: August 29, 2024 01:05 Indication:Skin & SSI Weight in k.26 kg Serum Creatinine - Last 168 Hours 08/28/24 08/29/24 23:27 04:51 Creatinine 1.13 0.89 Estimated CrCl and GFR - Last 168 Hours 08/28/24 08/29/24 23:27 04:51 Estim Creat Clear Calc 177.9 225.9 Estimated GFR > 60 > 60 Vancomycin Loading Dose: 2,000 Current Vancomycin Dosing Regimen: 1250mg, q8h Vancomycin Monitoring using AUC goal of 400 - 600 range with trough as surrogate marker: 484, predicted trough 15.3 Date and Time for next Vancomycin Level to be drawn: 08/30 @ 0600 Pharmacist Comments on Vancomycin Plan: Vancomycin dosing will take advantage of [employer] as a clinical decision support tool that uses Bayesian modeling to calculate individual patient's pharmacokinetic parameters and forecast the patient's drug concentration time course with the target goal AUC 24 range of 400 - 600 mg/L/hr.
[2024-08-29] MEDS: vancomycin HCL 1,250 MG in 0.9 % Sodium Chloride 250 ML 166.67 MG IV ×3 (08:06→23:22)
--- NOTE | 2024-08-29 09:19 | PHA.MEDREC ---
Pharmacy Consult ? Medication Reconciliation Pharmacy has completed the medication reconciliation, spoke to patient at bedside who confirmed all medications, said he is not currently taking any antibiotics.
[2024-08-29] MEDS: Enoxaparin Sodium 40 MG/0.4 ML SYRINGE SUBCUT ×2 (09:21→21:16)
--- NOTE | 2024-08-29 09:32 | HO.PM.IMPN ---
Subjective Subjective Date of Service: 08/29/24 Interval History: seen and examined this AM reports pain around cellulitis area reports he has been on PCN prophylaxis since last admit reports symptoms started quickly Review of Systems Negative except HPI/interval history. Physical Exam Vital Signs: Vital Signs: Last Vital Signs Temp 99.4 F 08/29/24 07:52 Pulse 119 H 08/29/24 07:52 Resp 15 08/29/24 07:52 BP 124/62 08/29/24 07:52 Pulse Ox 100 08/29/24 07:52 O2 Del Method Room Air 08/29/24 07:52 BMI result Body Mass Index 68.3 Const: Other: General - no acute distress, appears comfortable Cardiovascular - regular rate and rhythm, S1-S2 Lungs - normal respiratory effort, clear to auscultation bilaterally, no wheezing Abdomen - entire lower abdominal region with significant erythema, induration without fluctuance; tenderness and warm to touch Extremities - no edema bilaterally Neuro - awake and alert, no focal deficits Objective Data Active Medications Acetaminophen (Acetaminophen 325 Mg Tablet) 650 mg PO Q6H PRN PRN Reason: Pain, Mild 1-3,fever,headache Calcium Carbonate (Calcium Carbonate 750 Mg Tab.Chew) 750 mg PO Q4H PRN PRN Reason: Heartburn Enoxaparin Sodium (Enoxaparin Sodium 40 Mg/0.4 Ml Syringe) [address] [facility] Last Admin: 08/29/24 09:21 Dose: 40 mg Documented By: CECE Hydromorphone HCl (Hydromorphone Hcl 0.5 Mg/0.5 Ml Syringe) 0.5 mg IVPUSH Q4H PRN; Protocol PRN Reason: Breakthrough Pain Piperacillin Sod/Tazobactam (Sod 3.375 gm/ Sodium Chloride) 50 mls @ 100 mls/hr IV Q6H [facility] Last Infusion: 08/29/24 04:14 Dose: Infused Documented By: VIVIENNE Vancomycin HCl 1,250 mg/ (Sodium Chloride) 250 mls @ 166.667 mls/hr IV Q8H [facility] Last Admin: 08/29/24 08:06 Dose: 166.67 mls/hr Documented By: CECE Magnesium Hydroxide (Milk Of Magnesia 30 Ml Oral.Susp) 30 ml PO DAILY PRN PRN Reason: Constipation Melatonin (Melatonin 3 Mg Tablet) 6 mg PO BEDTIME PRN PRN Reason: Insomnia Pharmacy Consult (Consult Rx Vancomycin Dosing) 1 each MISCELLANE DAILY PRN PRN Reason: Consult order Sodium Chloride (0.9 % Sodium Chloride Flush 3 Ml Syringe) 3 ml IVFLUSH QSHIFT MIGDALIA Last Admin: 08/29/24 06:52 Dose: Not Given Documented By: CECE Non-Admin Reason: See Note Labs 08/29/24 04:51 08/29/24 04:51 Labs: Laboratory Results - last 24 hr 08/28/24 08/29/24 23:27 04:51 MCV 84.5 85.5 MCH 29.1 28.6 MCHC 34.4 33.4 RDW 14.7 14.8 Plt Count 360 D 305 MPV 9.2 L 9.8 Immature Gran % (Auto) 0.3 0.4 Neut % (Auto) 83.2 H 92.9 H Lymph % (Auto) 11.9 L 3.4 L [place] % (Auto) 3.2 2.7 Eos % (Auto) 1.1 0.3 Baso % (Auto) 0.3 0.3 Lymph # (Auto) 1.2 0.4 L [place] # (Auto) 0.3 0.3 Eos # (Auto) 0.1 0.0 Baso # (Auto) 0.0 0.0 Abs Immat Gran (auto) 0.03 0.05 H Absolute Neuts (auto) 8.5 H 11.0 H Absolute Nucleated RBC 0.000 0.000 Nucleated RBC % (auto) 0.0 0.0 Smear Tech's Comments VERIFIED Anion Gap 12 14 Estim Creat Clear Calc 177.9 225.9 Estimated GFR > 60 > 60 Random Glucose 79 87 Lactic Acid 1.1 Calcium 9.7 D 8.7 D Total Bilirubin 0.5 1.0 AST 25 22 ALT 29 19 Alkaline Phosphatase 72 57 Total Protein 8.8 H 7.3 Albumin 4.3 3.4 L Lipase 22 Assessment and Plan (1) Abdominal wall cellulitis: Status: Acute Plan 34 yo M with morbid obesity who presents with sudden onset abdominal pain, erythema, fevers and chills. Found to have recurrent cellulitis of the lower abdominal wall. 1. Recurrent cellulitis In the same location as previously continue vacomycin and zosyn for the time being, add clinda ID input on PCN prophylaxis chronically 2. Morbid obesity likely playing a role in #1 follows up with outpatient Bariatric clinic 3. RAMIRO CPAP if pt willing -- previously documented to be non-compliant Full Code DVT pptx -- lovenox Quality Stroke Does the patient have a stroke diagnosis?: No VTE Prior VTE?: No VTE Risk Level:: Medical - moderate - high VTE Device Contraindication: Treatment Not Tolerated VTE Drug Contraindication: N/A - Med Ordered
[2024-08-29] MEDS: Clindamycin Phosphate/D5W 600 MG/50 ML PIGGYBACK 100 MG IV ×2 (10:31→18:16)
--- NOTE | 2024-08-29 14:55 | MHC.CM.PN ---
PT LIVES WITH FAMILY IS INDEPENDENT AND WORKING HAS OWN RIDE HOME DC PLAN HOME NO SERVICS
[2024-08-29] MEDS: ondansetron HCL 4 MG/2 ML VIAL IVPUSH (18:17)
--- NOTE | 2024-08-29 19:37 | PC.NURSE ---
Took over care from Abby Padilla, pt given ice and cranberry juice, pt did not eat his dinner, pt resting in bed at this time, no pain at this time, pt ambulated to rest room.
[2024-08-29] MEDS: Acetaminophen 325 MG TABLET 650 MG PO (20:06)
--- NOTE | 2024-08-29 20:07 | PC.NURSE ---
medicated for headache, pt awaiting transfer to room
[2024-08-29] MEDS: 0.9 % Sodium Chloride Flush 3 ML SYRINGE IVFLUSH (21:24)
--- NOTE | 2024-08-29 21:30 | PC.NURSE ---
This RN resumed care at 2100, on admission febrile at 100.9, received tylenol from ED, reports being diaphoretic, ice packs applied, and on reassessment temperature was 98.1. Pt tachycardic at 115 on admission, BP: 111/54, Dr. Villa made aware. Encourage to drink liquids, no new orders at this time.
[2024-08-29] MEDS: Melatonin 3 MG TABLET 9 MG PO (23:12)
[2024-08-30] VITALS (8 sets, daily range): BP systolic 105–131; BP diastolic 56–67; PULSE 79–107; RESP 12–22; TEMP 36.1–37.3; O2SAT 96–100
[2024-08-30] MEDS: Clindamycin Phosphate/D5W 600 MG/50 ML PIGGYBACK 100 MG IV ×3 (01:01→19:07)
[2024-08-30] MEDS: Piperacillin Sodium/Tazobactam 3.375 GM in 0.9 % Sodium Chloride 50 ML IV ×4 (04:53→21:23)
[2024-08-30 06:47] LABS: Vancomycin Trough 9.5 mcg/mL (10.0-20.0)
[2024-08-30 06:48] LABS: Creatinine Clr Calc Pharmacy 199.1; Estimated Glomerular Filt Rate > 60
--- NOTE | 2024-08-30 06:55 | HE.PHANOTE ---
Re Vanc First level is slightly subtherapeutic, but projected trough is 13mg/L with an AUC 413mg/L. Due to patient's BMI, will continue same regimen for now as opposed to increase, in case of accumulation once drug is distributed through body mass.
[2024-08-30] MEDS: Enoxaparin Sodium 40 MG/0.4 ML SYRINGE SUBCUT ×2 (07:32→21:16)
[2024-08-30] MEDS: Loratadine 10 MG TABLET PO (07:33)
[2024-08-30] MEDS: vancomycin HCL 1,250 MG in 0.9 % Sodium Chloride 250 ML 166.67 MG IV ×3 (07:33→23:16)
[2024-08-30] MEDS: Acetaminophen 325 MG TABLET 650 MG PO (07:35)
[2024-08-30] MEDS: 0.9 % Sodium Chloride Flush 3 ML SYRINGE IVFLUSH ×3 (07:36→21:24)
--- NOTE | 2024-08-30 09:52 | P.PNIM_ITS ---
Subjective Subjective Date of Service: 08/30/24 Interval History: seen and examined reports minimal improvements in overall symptoms reports lack of appetite reports abd wall pain Physical Exam 2 Vital Signs: Vital Signs: Last Vital Signs Temp 98.4 F 08/30/24 09:19 Pulse 107 H 08/30/24 07:51 Resp 18 08/30/24 07:51 BP 118/56 L 08/30/24 07:51 Pulse Ox 97 08/30/24 07:51 O2 Del Method Room Air 08/30/24 07:51 BMI result Body Mass Index 68.3 Const: Other: General - no acute distress, appears comfortable Cardiovascular - regular rate and rhythm, S1-S2 Lungs - normal respiratory effort, clear to auscultation bilaterally, no wheezing Abdomen -minimal improvement in erythema around the border, otherwise remains significantly erythematous and indurated with TTP Extremities - no edema bilaterally Neuro - awake and alert, no focal deficits Objective Data Active Medications Acetaminophen (Acetaminophen 325 Mg Tablet) 650 mg PO Q6H PRN PRN Reason: Pain, Mild 1-3,fever,headache Last Admin: 08/30/24 07:35 Dose: 650 mg Documented By: MALIA Albuterol Sulfate (Albuterol Sulfate (0.083%) 2.5 Mg/3 Ml Vial.Neb) 2.5 mg INHALE QID PRN PRN Reason: shortness of breath or wheezing Albuterol Sulfate (Albuterol Sulfate 90 Mcg 8 Gm Inhaler) 2 puff INHALE Q6H PRN PRN Reason: Shortness of Breath Calcium Carbonate (Calcium Carbonate 750 Mg Tab.Chew) 750 mg PO Q4H PRN PRN Reason: Heartburn Enoxaparin Sodium (Enoxaparin Sodium 40 Mg/0.4 Ml Syringe) 40 mg SUBCUT Q12H [facility] Last Admin: 08/30/24 07:32 Dose: 40 mg Documented By: MALIA Hydromorphone HCl (Hydromorphone Hcl 0.5 Mg/0.5 Ml Syringe) 0.5 mg IVPUSH Q4H PRN; Protocol PRN Reason: Breakthrough Pain Piperacillin Sod/Tazobactam (Sod 3.375 gm/ Sodium Chloride) 50 mls @ 100 mls/hr IV Q6H [facility] Last Admin: 08/30/24 09:40 Dose: 100 mls/hr Documented By: MALIA Vancomycin HCl 1,250 mg/ (Sodium Chloride) 250 mls @ 166.667 mls/hr IV Q8H [facility] Last Infusion: 08/30/24 09:03 Dose: Infused Documented By: MALIA Clindamycin Phosphate (Cleocin) 600 mg in 50 mls @ 100 mls/hr IV Q8H [facility] Last Infusion: 08/30/24 09:42 Dose: Infused Documented By: MALIA Loratadine (Loratadine 10 Mg Tablet) 10 mg PO DAILY [facility] Last Admin: 08/30/24 07:33 Dose: 10 mg Documented By: MALIA Magnesium Hydroxide (Milk Of Magnesia 30 Ml Oral.Susp) 30 ml PO DAILY PRN PRN Reason: Constipation Melatonin (Melatonin 3 Mg Tablet) 9 mg PO BEDTIME PRN PRN Reason: Sleep Last Admin: 08/29/24 23:12 Dose: 9 mg Documented By: LISA Pharmacy Consult (Consult Rx Vancomycin Dosing) 1 each MISCELLANE DAILY PRN PRN Reason: Consult order Sodium Chloride (0.9 % Sodium Chloride Flush 3 Ml Syringe) 3 ml IVFLUSH QSHIFT [facility] Last Admin: 08/30/24 07:36 Dose: 3 ml Documented By: MALIA Labs 08/29/24 04:51 08/30/24 06:04 Labs: Laboratory Results - last 24 hr 08/30/24 06:04 Estim Creat Clear Calc 199.1 Estimated GFR > 60 Vancomycin Trough 9.5 L Microbiology Microbiology Results: Microbiology 08/28/24 23:35 Blood Culture - Preliminary Blood - Venous No growth after 24 hours. 08/28/24 23:27 Blood Culture - Preliminary Blood - Venous No growth after 24 hours. Assessment and Plan (1) Abdominal wall cellulitis: Status: Acute Plan 34 yo M with morbid obesity who presents with sudden onset abdominal pain, erythema, fevers and chills. Found to have recurrent cellulitis of the lower abdominal wall. 1. Recurrent cellulitis In the same location as previously slow reponse (still febrile over last 24 hours)-- on vacomcyin/zosyn from admission; day #2 clinda f/u cultures ID input on PCN prophylaxis chronically 2. Morbid obesity likely playing a role in #1 follows up with outpatient Bariatric clinic 3. RAMIRO CPAP if pt willing -- previously documented to be non-compliant 4. Poor appetite due to underlying infection will give IVF today and re-eval tomorrow Full Code DVT pptx -- lovenox Quality Stroke Does the patient have a stroke diagnosis?: No VTE Prior VTE?: No VTE Risk Level:: Medical - moderate - high VTE Device Contraindication: Treatment Not Tolerated VTE Drug Contraindication: N/A - Med Ordered
[2024-08-30] MEDS: Lactated Ringers 1,000 ML 100 ML IVCONT (10:36)
--- NOTE | 2024-08-30 11:00 | MHC.CM.PN ---
Patient not medically cleared for dc at this time. Awaiting ID & wound RN consults. ? need for VNA on dc. CM will continue to follow.
[2024-08-30] MEDS: Ibuprofen 600 MG TABLET PO (11:33)
--- NOTE | 2024-08-30 17:21 | W.PM.IDCN ---
History of Present Illness Data of Consult Service Date: 08/30/24 Requesting physician: Tim Pace Primary Care Provider: Sparkle Lawler CNP HPI Reason for consult: abdominal wall cellulitis He presents with abdominal discomfort and redness. I had seen him in May for similar presentation and he left with PCN prophylaxis which he stopped. He has redness last 3-4 days. Review of Systems Review of Systems: Yes all other systems are reviewed and are negative [facility] Past Medical History Medical History Morbid obesity with BMI of 60.0-69.9, adult Depression Anxiety Obstructive sleep apnea (~2012) Morbid obesity Asthma GERD (gastroesophageal reflux disease) SARIKA (generalized anxiety disorder) Family History Family History Mother FH: mental illness Cancer Father Diabetes Maternal Grandmother Alcohol abuse Cancer Sister FH: mental illness Diabetes Surgical History Surgical History History of dental surgery (~1998) Social History Social History Household Members: Significant Other and Family Housing: Apartment Do you presently have visiting nurse or other home services: No Alcohol intake: never Patient Tobacco Use Status: Never used Tobacco e-Cigarette/Vaping Use: Never Used Second Hand Smoke Exposure: No Substance Use Type: Marijuana service: No Cognitive needs: No Hearing needs: No Vision needs: No Meds Allergies Allergy/AdvReac Type Severity Reaction Status Date / Time diphenhydramine Allergy Intermediate UNKNOWN Verified 08/28/24 23:04 [From Benadryl] doxycycline Allergy Itching Verified 08/28/24 23:04 Active Medications: Current Medications Acetaminophen (Acetaminophen 325 Mg Tablet) 650 mg PO Q6H PRN PRN Reason: Pain, Mild 1-3,fever,headache Last Admin: 08/30/24 07:35 Dose: 650 mg Albuterol Sulfate (Albuterol Sulfate (0.083%) 2.5 Mg/3 Ml Vial.Neb) 2.5 mg INHALE QID PRN PRN Reason: shortness of breath or wheezing Albuterol Sulfate (Albuterol Sulfate 90 Mcg 8 Gm Inhaler) 2 puff INHALE Q6H PRN PRN Reason: Shortness of Breath Calcium Carbonate (Calcium Carbonate 750 Mg Tab.Chew) 750 mg PO Q4H PRN PRN Reason: Heartburn Enoxaparin Sodium (Enoxaparin Sodium 40 Mg/0.4 Ml Syringe) 40 mg SUBCUT Q12H [facility] Last Admin: 08/30/24 07:32 Dose: 40 mg Famotidine (Famotidine 20 Mg Tablet) 20 mg PO DAILY [facility] Last Admin: 08/30/24 11:34 Dose: Not Given Hydromorphone HCl (Hydromorphone Hcl 0.5 Mg/0.5 Ml Syringe) 0.5 mg IVPUSH Q4H PRN; Protocol PRN Reason: Breakthrough Pain Piperacillin Sod/Tazobactam (Sod 3.375 gm/ Sodium Chloride) 50 mls @ 100 mls/hr IV Q6H [facility] Last Infusion: 08/30/24 17:16 Dose: Infused Vancomycin HCl 1,250 mg/ (Sodium Chloride) 250 mls @ 166.667 mls/hr IV Q8H [facility] Last Infusion: 08/30/24 09:03 Dose: Infused Clindamycin Phosphate (Cleocin) 600 mg in 50 mls @ 100 mls/hr IV Q8H [facility] Last Infusion: 08/30/24 09:42 Dose: Infused Lactated Ringer's (Lr) 1,000 mls @ 100 mls/hr IVCONT .Q10H [facility] Stop: 08/31/24 05:59 Last Admin: 08/30/24 10:36 Dose: 100 mls/hr Ibuprofen (Ibuprofen 600 Mg Tablet) 600 mg PO Q8H PRN PRN Reason: Pain, Moderate(Pain Scale 4-6) Last Admin: 08/30/24 11:33 Dose: 600 mg Loratadine (Loratadine 10 Mg Tablet) 10 mg PO DAILY [facility] Last Admin: 08/30/24 07:33 Dose: 10 mg Magnesium Hydroxide (Milk Of Magnesia 30 Ml Oral.Susp) 30 ml PO DAILY PRN PRN Reason: Constipation Melatonin (Melatonin 3 Mg Tablet) 9 mg PO BEDTIME PRN PRN Reason: Sleep Last Admin: 08/29/24 23:12 Dose: 9 mg Pharmacy Consult (Consult Rx Vancomycin Dosing) 1 each MISCELLANE DAILY PRN PRN Reason: Consult order Sodium Chloride (0.9 % Sodium Chloride Flush 3 Ml Syringe) 3 ml IVFLUSH QSHIFT [facility] Last Admin: 08/30/24 15:49 Dose: 3 ml Home Medications ?Medication ?Instructions ?Recorded ?Confirmed ?Last Taken ?Type melatonin 10 mg tablet 10 mg PO BEDTIME PRN Sleep 06/14/24 08/29/24 Unknown History albuterol sulfate 2.5 mg/0.5 mL 2.5 mg inhalation QID PRN 08/29/24 08/29/24 Unknown History solution for nebulization shortness of breath or wheezing albuterol sulfate 90 mcg/actuation 2 puff inhalation Q6H PRN SOB 08/29/24 08/29/24 Unknown History aerosol inhaler Physical Exam Vital Signs: Vital Signs: Last Vital Signs Temp 97.3 F 08/30/24 16:09 Pulse 79 08/30/24 16:09 Resp 12 08/30/24 16:09 BP 125/65 08/30/24 16:09 Pulse Ox 96 08/30/24 16:09 O2 Del Method Room Air 08/30/24 16:09 BMI result Body Mass Index 68.3 Const: General: cooperative HEENT: Head: Yes normal to inspection Face and sinus: Yes normal facial exam Mouth: Normal oral and palatal mucosa present Teeth and gingiva: dentition normal Eyes: General: appearance normal, both eyes and all related structures Pupils: Equal, round and reactive pupils present Resp: Effort & Inspection: normal respiratory effort Cardio: Rate: regular rate Rhythm: regular rhythm GI: Other: abdomen improving redness Palpation (GI): Soft to palpation and nontender : General: Yes no CVA tenderness Back/Spine/Pelvis: Back: no CVA tenderness Skin: General skin exam: no rashes or lesions noted Neuro: General: moves all extremities Cranial nerves: Yes Equal, round and reactive pupils present Extrem: General: Yes normal to inspection Psych: Appearance: grossly normal Results Labs 08/29/24 04:51 08/30/24 06:04 Labs: BMP 08/30/24 06:04 Creatinine 1.01 Microbiology Microbiology Results: Microbiology 08/28/24 23:35 Blood - Venous Blood Culture - Preliminary No growth after 24 hours. 08/28/24 23:27 Blood - Venous Blood Culture - Preliminary No growth after 24 hours. Assessment and Plan (1) Abdominal wall cellulitis: Status: Acute (2) Morbid obesity: Status: Chronic Plan He has improvement on multiple antibiotics. Clindamycin helps reduce toxin Stop Clindamycin tomorrow. Continue Vancomycin and Zosyn until better and then po linezolid for two weeks and resume PCN prophylaxis 500 bid indefinitely
--- NOTE | 2024-08-30 19:30 | HO.WOUND ---
Addendum entered by Yeimi Burt RN 09/01/24 15:22: 09/01/24 New consult placed - No new wounds noted - new consult placed from nursing due to cihqui of charting. No new topical recommendations needed at this time. Original Note: Wound Consult: Initial 34yr old?male admitted to [facility] on 08/29/24 - See progress notes and H&P for detailed history.? Wound consult placed for Abdominal Cellulitis.? Patient agreeable to assessment and photo documentation.? 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 He reports there are no open wounds and no weeping noted at this time. Skin assessed no open wounds noted. Patient instructed given swelling and cellulitis under the pannus concern for friction and skin stripping. We discussed Interdry he is agreeable to application. Patient has had episodes of cellulitis recently discussed tea tree oil washes or antibacterial washes such as Dial to limit the microbacteria that may be living on his skin or with in his normal skin jay. We discussed keeping the area dry. The patient pannus is large and pendulum this is likely leading to a lot of friction that may be leading to small openings in his skin allowing for recurrent cellulitis. Unclear if this is the cause but may be contributing. Advised to clean skin with above style washes. Recommend outpt followup with [facility] Admin as this recurrence is atypical for cellulitis and [facility] Admin may be able to provide greater benefit and etiology along with treatment. Bariatric bed in use. Recommendations: 1. Pannus abdomen - Cleanse with Brad Crowley, pay dry with soft cloth.? Tuck Interdry AG Sheet into skin fold to wick and translocate moisture away from skin fold.? Be sure to leave at least 2 inch of fabric exposed outside of skin fold.? Change after 5 days or when soiled. At time of D/C recommend Dial wash or over the counter wash that contains tea tree oil. Recommend patient to consider follow up with outpt Dermatology given the recurrent episodes he has had recently. Re-consult wound care Nurse for wound deterioration or wound changes.
[2024-08-30] MEDS: Melatonin 3 MG TABLET 9 MG PO (23:01)
[2024-08-31] MEDS: Piperacillin Sodium/Tazobactam 3.375 GM in 0.9 % Sodium Chloride 50 ML IV ×4 (01:05→21:59)
[2024-08-31] MEDS: Ibuprofen 600 MG TABLET PO (01:06)
[2024-08-31] MEDS: Clindamycin Phosphate/D5W 600 MG/50 ML PIGGYBACK 100 MG IV (01:45)
[2024-08-31 04:00] VITALS: BP 116/61; PULSE 81; RESP 18; TEMP 36.2; O2SAT 96
[2024-08-31] MEDS: Lactated Ringers 1,000 ML 100 ML IVCONT (05:29)
[2024-08-31 06:47] LABS: Creatinine Clr Calc Pharmacy 225.9; Estimated Glomerular Filt Rate > 60
[2024-08-31 06:49] LABS: Vancomycin Random 13.1 mcg/mL (15-20)
--- NOTE | 2024-08-31 07:02 | HE.PHANOTE ---
VANCO DOSE ADJUSTMENT BASED ON SCR AND TROUGH OF 13.1 DOSE CHANGED TO 1500 Q 8H TARGETING AN AUC OF 476. NEXT LEVEL 09/01 @ 1800
[2024-08-31] MEDS: vancomycin HCL 1,500 MG in 0.9 % Sodium Chloride 500 ML 333.33 MG IV ×2 (07:43→18:13)
[2024-08-31] MEDS: 0.9 % Sodium Chloride Flush 3 ML SYRINGE IVFLUSH ×2 (07:44→21:54)
[2024-08-31] MEDS: Famotidine 20 MG TABLET PO (07:48)
[2024-08-31] MEDS: Loratadine 10 MG TABLET PO (07:48)
[2024-08-31] MEDS: Enoxaparin Sodium 40 MG/0.4 ML SYRINGE SUBCUT ×2 (07:49→21:54)
[2024-08-31 07:51] VITALS: BP 113/61; PULSE 86; RESP 18; TEMP 36.9; O2SAT 98
[2024-08-31] MEDS: Acetaminophen 325 MG TABLET 650 MG PO (07:54)
--- NOTE | 2024-08-31 11:35 | HO.PM.IMPN ---
Subjective Subjective Date of Service: 08/31/24 Interval History: mild improvement Physical Exam Vital Signs: Vital Signs: Last Vital Signs Temp 98.5 F 08/31/24 07:51 Pulse 86 08/31/24 07:51 Resp 18 08/31/24 07:51 BP 113/61 08/31/24 07:51 Pulse Ox 98 08/31/24 07:51 O2 Del Method Room Air 08/31/24 07:51 BMI result Body Mass Index 68.3 General: AO X 3, no acute distress Resp: CTA bilateral, no accessory muscles used CVS: S1,S2,RRR GI: soft, non tender, non distended Neuro: motor grossly intact, alert Psych: appropriate affect, appropriate insight very large, erythematous panus Objective Data Active Medications Acetaminophen (Acetaminophen 325 Mg Tablet) 650 mg PO Q6H PRN PRN Reason: Pain, Mild 1-3,fever,headache Last Admin: 08/31/24 07:54 Dose: 650 mg Documented By: АЛЕКСАНДР Albuterol Sulfate (Albuterol Sulfate (0.083%) 2.5 Mg/3 Ml Vial.Neb) 2.5 mg INHALE QID PRN PRN Reason: shortness of breath or wheezing Albuterol Sulfate (Albuterol Sulfate 90 Mcg 8 Gm Inhaler) 2 puff INHALE Q6H PRN PRN Reason: Shortness of Breath Calcium Carbonate (Calcium Carbonate 750 Mg Tab.Chew) 750 mg PO Q4H PRN PRN Reason: Heartburn Enoxaparin Sodium (Enoxaparin Sodium 40 Mg/0.4 Ml Syringe) 40 mg SUBCUT Q12H [facility] Last Admin: 08/31/24 07:49 Dose: 40 mg Documented By: АЛЕКСАНДР Famotidine (Famotidine 20 Mg Tablet) 20 mg PO DAILY [facility] Last Admin: 08/31/24 07:48 Dose: 20 mg Documented By: АЛЕКСАНДР Hydromorphone HCl (Hydromorphone Hcl 0.5 Mg/0.5 Ml Syringe) 0.5 mg IVPUSH Q4H PRN; Protocol PRN Reason: Breakthrough Pain Piperacillin Sod/Tazobactam (Sod 3.375 gm/ Sodium Chloride) 50 mls @ 100 mls/hr IV Q6H [facility] Last Infusion: 08/31/24 09:52 Dose: Infused Documented By: АЛЕКСАНДР Vancomycin HCl 1,500 mg/ (Sodium Chloride) 500 mls @ 333.333 mls/hr IV Q8H [facility] Last Infusion: 08/31/24 09:34 Dose: Infused Documented By: АЛЕКСАНДР Ibuprofen (Ibuprofen 600 Mg Tablet) 600 mg PO Q8H PRN PRN Reason: Pain, Moderate(Pain Scale 4-6) Last Admin: 08/31/24 01:06 Dose: 600 mg Documented By: LISA Loratadine (Loratadine 10 Mg Tablet) 10 mg PO DAILY [facility] Last Admin: 08/31/24 07:48 Dose: 10 mg Documented By: АЛЕКСАНДР Magnesium Hydroxide (Milk Of Magnesia 30 Ml Oral.Susp) 30 ml PO DAILY PRN PRN Reason: Constipation Melatonin (Melatonin 3 Mg Tablet) 9 mg PO BEDTIME PRN PRN Reason: Sleep Last Admin: 08/30/24 23:01 Dose: 9 mg Documented By: LISA Pharmacy Consult (Consult Rx Vancomycin Dosing) 1 each MISCELLANE DAILY PRN PRN Reason: Consult order Sodium Chloride (0.9 % Sodium Chloride Flush 3 Ml Syringe) 3 ml IVFLUSH QSHIFT [facility] Last Admin: 08/31/24 07:44 Dose: 3 ml Documented By: АЛЕКСАНДР Labs 08/29/24 04:51 08/31/24 06:05 Labs: Laboratory Results - last 24 hr 08/31/24 06:05 Estim Creat Clear Calc 225.9 Estimated GFR > 60 Random Vancomycin 13.1 L Microbiology Microbiology Results: Microbiology 08/28/24 23:35 Blood Culture - Preliminary Blood - Venous No growth after 48 hours. 08/28/24 23:27 Blood Culture - Preliminary Blood - Venous No growth after 48 hours. Assessment and Plan (1) SARIKA (generalized anxiety disorder): Status: Acute Plan 34M PMH morbid obesity, recurrent cellulitis, RAMIRO presented with erythema fever and chills of the abdomen Recurrent cellulitis due to morbid obesity and enlarged pannus Infectious Disease appreciated, continue vanc Zosyn, stopped clindamycin, on discharge plan for Zyvox for 2 weeks and continue penicillin prophylaxis chronically Weight loss strongly encouraged for morbid obesity patient was following with bariatric Recommend mechanical support for pannus RAMIRO non complaint dvt prophylaxis - lovenox full code reason for continued hospitalization:iv abx Quality Stroke Does the patient have a stroke diagnosis?: No VTE Prior VTE?: No VTE Risk Level:: Medical - moderate - high VTE Device Contraindication: Treatment Not Tolerated VTE Drug Contraindication: N/A - Med Ordered
[2024-08-31 12:13] VITALS: BP 120/71; PULSE 77; RESP 18; TEMP 36.7; O2SAT 98
[2024-08-31 15:40] VITALS: BP 130/72; PULSE 82; RESP 18; TEMP 36.8; O2SAT 99
[2024-08-31 20:00] VITALS: BP 126/68; PULSE 91; RESP 18; TEMP 36.6; O2SAT 98
[2024-08-31] MEDS: Melatonin 3 MG TABLET 9 MG PO (21:59)
[2024-08-31] MEDS: Calcium Carbonate 750 MG TAB.CHEW PO (21:59)
[2024-08-31 23:21] VITALS: BP 111/55; PULSE 82; RESP 18; TEMP 36.2; O2SAT 99
[2024-09-01] MEDS: vancomycin HCL 1,500 MG in 0.9 % Sodium Chloride 500 ML 333.33 MG IV ×3 (00:11→16:20)
[2024-09-01 03:31] VITALS: BP 125/57; PULSE 83; RESP 16; TEMP 37.2; O2SAT 99
[2024-09-01] MEDS: Piperacillin Sodium/Tazobactam 3.375 GM in 0.9 % Sodium Chloride 50 ML IV ×4 (04:45→21:36)
[2024-09-01 07:35] LABS: Hematocrit 35.3 % (42.0-52.0); Hemoglobin 11.5 g/dl (14.0-18.0); Mean Corpuscular HGB Conc 32.6 g/dl (31.0-36.0); Mean Corpuscular Hemoglobin 28.4 pg (27.0-33.0); Mean Corpuscular Volume 87.2 fL (80.0-98.0); Mean Platelet Volume 9.8 fL (9.4-12.4); Platelet Count 262 X10*3/uL (160-400); Red Blood Count 4.05 X10*6/uL (4.60-5.80); Red Cell Distribution Width 14.9 % (11.0-16.0); White Blood Count 5.1 X10*3/uL (4.8-10.8)
[2024-09-01 07:37] VITALS: BP 119/60; PULSE 77; RESP 16; TEMP 36.9; O2SAT 95
[2024-09-01] MEDS: 0.9 % Sodium Chloride Flush 3 ML SYRINGE IVFLUSH ×3 (07:39→21:36)
[2024-09-01] MEDS: Enoxaparin Sodium 40 MG/0.4 ML SYRINGE SUBCUT ×2 (07:39→21:36)
[2024-09-01] MEDS: Famotidine 20 MG TABLET PO (07:39)
[2024-09-01] MEDS: Loratadine 10 MG TABLET PO (07:39)
[2024-09-01 07:46] LABS: Anion Gap 11 (12-20); Blood Urea Nitrogen 9 mg/dL (9-16); Calcium 8.3 mg/dL (8.4-10.2); Carbon Dioxide 25 mmol/L (22-29); Chloride 107 mmol/L (96-108); Creatinine Clr Calc Pharmacy 275.5; Estimated Glomerular Filt Rate > 60; Glucose Random 96 mg/dL (60-115); Potassium 3.6 mmol/L (3.3-5.1); Sodium 139 mmol/L (135-145)
--- NOTE | 2024-09-01 09:39 | P.PNIM_ITS ---
Subjective Subjective Date of Service: 09/01/24 Interval History: some drainage, erythema improving Physical Exam 2 Vital Signs: Vital Signs: Last Vital Signs Temp 98.5 F 09/01/24 07:37 Pulse 77 09/01/24 07:37 Resp 16 09/01/24 07:37 BP 119/60 09/01/24 07:37 Pulse Ox 95 09/01/24 07:37 O2 Del Method Room Air 09/01/24 07:37 BMI result Body Mass Index 68.3 General: AO X 3, no acute distress Resp: CTA bilateral, no accessory muscles used CVS: S1,S2,RRR GI: soft, non tender, non distended Neuro: motor grossly intact, alert Psych: appropriate affect, appropriate insight very large, erythematous panus - with drainage, but improved erythema Objective Data Active Medications Acetaminophen (Acetaminophen 325 Mg Tablet) 650 mg PO Q6H PRN PRN Reason: Pain, Mild 1-3,fever,headache Last Admin: 08/31/24 07:54 Dose: 650 mg Documented By: АЛЕКСАНДР Albuterol Sulfate (Albuterol Sulfate (0.083%) 2.5 Mg/3 Ml Vial.Neb) 2.5 mg INHALE QID PRN PRN Reason: shortness of breath or wheezing Albuterol Sulfate (Albuterol Sulfate 90 Mcg 8 Gm Inhaler) 2 puff INHALE Q6H PRN PRN Reason: Shortness of Breath Calcium Carbonate (Calcium Carbonate 750 Mg Tab.Chew) 750 mg PO Q4H PRN PRN Reason: Heartburn Last Admin: 08/31/24 21:59 Dose: 750 mg Documented By: ODALIS Enoxaparin Sodium (Enoxaparin Sodium 40 Mg/0.4 Ml Syringe) 40 mg SUBCUT Q12H [facility] Last Admin: 09/01/24 07:39 Dose: 40 mg Documented By: MALIA Famotidine (Famotidine 20 Mg Tablet) 20 mg PO DAILY [facility] Last Admin: 09/01/24 07:39 Dose: 20 mg Documented By: MALIA Hydromorphone HCl (Hydromorphone Hcl 0.5 Mg/0.5 Ml Syringe) 0.5 mg IVPUSH Q4H PRN; Protocol PRN Reason: Breakthrough Pain Piperacillin Sod/Tazobactam (Sod 3.375 gm/ Sodium Chloride) 50 mls @ 100 mls/hr IV Q6H [facility] Last Infusion: 09/01/24 05:32 Dose: Infused Documented By: ODALIS Vancomycin HCl 1,500 mg/ (Sodium Chloride) 500 mls @ 333.333 mls/hr IV Q8H [facility] Last Infusion: 09/01/24 09:22 Dose: Infused Documented By: MALIA Ibuprofen (Ibuprofen 600 Mg Tablet) 600 mg PO Q8H PRN PRN Reason: Pain, Moderate(Pain Scale 4-6) Last Admin: 08/31/24 01:06 Dose: 600 mg Documented By: LISA Loratadine (Loratadine 10 Mg Tablet) 10 mg PO DAILY [facility] Last Admin: 09/01/24 07:39 Dose: 10 mg Documented By: MALIA Magnesium Hydroxide (Milk Of Magnesia 30 Ml Oral.Susp) 30 ml PO DAILY PRN PRN Reason: Constipation Melatonin (Melatonin 3 Mg Tablet) 9 mg PO BEDTIME PRN PRN Reason: Sleep Last Admin: 08/31/24 21:59 Dose: 9 mg Documented By: ODALIS Pharmacy Consult (Consult Rx Vancomycin Dosing) 1 each MISCELLANE DAILY PRN PRN Reason: Consult order Sodium Chloride (0.9 % Sodium Chloride Flush 3 Ml Syringe) 3 ml IVFLUSH QSHIFT [facility] Last Admin: 09/01/24 07:39 Dose: 3 ml Documented By: MALIA Labs 09/01/24 07:15 09/01/24 07:15 Labs: Laboratory Results - last 24 hr 09/01/24 07:15 MCV 87.2 MCH 28.4 MCHC 32.6 RDW 14.9 Plt Count 262 MPV 9.8 Absolute Nucleated RBC 0.000 Nucleated RBC % (auto) 0.0 Anion Gap 11 L Estim Creat Clear Calc 275.5 Estimated GFR > 60 Random Glucose 96 Calcium 8.3 L Assessment and Plan (1) SARIKA (generalized anxiety disorder): Status: Acute Plan 34M PMH morbid obesity, recurrent cellulitis, RAMIRO presented with erythema fever and chills of the abdomen Recurrent cellulitis due to morbid obesity and enlarged pannus Infectious Disease appreciated, continue vanc Zosyn, stopped clindamycin, on discharge plan for Zyvox for 2 weeks and continue penicillin prophylaxis chronically Weight loss strongly encouraged for morbid obesity patient was following with bariatric Recommend mechanical support for pannus RAMIRO non complaint dvt prophylaxis - lovenox full code reason for continued hospitalization:iv abx Quality Stroke Does the patient have a stroke diagnosis?: No VTE Prior VTE?: No VTE Risk Level:: Medical - moderate - high VTE Device Contraindication: Treatment Not Tolerated VTE Drug Contraindication: N/A - Med Ordered
--- NOTE | 2024-09-01 11:22 | MHC.CM.PN ---
Per MD rounds not medically cleared for dc, potential dc over the weekend. Patient reports his girlfriend is a SHE[employer] HE[employer] HELPER and will assist w/ wound care. Not homebound, so unable to get VNA services. CM will continue to follow.
[2024-09-01 12:00] VITALS: BP 119/56; PULSE 77; RESP 18; TEMP 36.2; O2SAT 97
[2024-09-01 15:17] VITALS: BP 124/62; PULSE 80; RESP 18; TEMP 36.2; O2SAT 98
[2024-09-01 15:59] LABS: Vancomycin Random 14.6 mcg/mL (15-20)
--- NOTE | 2024-09-01 16:21 | HE.PHANOTE ---
RE: VANCO DOSING Trough came back as 14.6 and renal function is stable. Continue with dose of 1500 mg q8h, next trough is scheduled for 09/02/24 @1400.
[2024-09-01 19:30] VITALS: BP 141/55; PULSE 88; RESP 88; TEMP 36.6
[2024-09-01] MEDS: Melatonin 3 MG TABLET 9 MG PO (21:36)
[2024-09-01] MEDS: Calcium Carbonate 750 MG TAB.CHEW PO (21:36)
[2024-09-01] MEDS: Benzonatate 100 MG CAPSULE PO (22:15)
[2024-09-01 23:55] VITALS: BP 129/66; PULSE 67; RESP 19; TEMP 36.8; O2SAT 96
[2024-09-02] MEDS: vancomycin HCL 1,500 MG in 0.9 % Sodium Chloride 500 ML 333.33 MG IV ×2 (00:50→09:07)
[2024-09-02 03:37] VITALS: BP 126/66; PULSE 74; RESP 19; TEMP 36.7; O2SAT 95
[2024-09-02] MEDS: Piperacillin Sodium/Tazobactam 3.375 GM in 0.9 % Sodium Chloride 50 ML IV (04:51)
[2024-09-02 06:03] LABS: Anion Gap 11 (12-20); Blood Urea Nitrogen 8 mg/dL (9-16); Calcium 8.4 mg/dL (8.4-10.2); Carbon Dioxide 25 mmol/L (22-29); Chloride 109 mmol/L (96-108); Creatinine Clr Calc Pharmacy 275.5; Estimated Glomerular Filt Rate > 60; Glucose Random 105 mg/dL (60-115); Potassium 3.6 mmol/L (3.3-5.1); Sodium 141 mmol/L (135-145)
[2024-09-02 06:05] LABS: Hematocrit 35.6 % (42.0-52.0); Hemoglobin 11.6 g/dl (14.0-18.0); Mean Corpuscular HGB Conc 32.6 g/dl (31.0-36.0); Mean Corpuscular Hemoglobin 28.5 pg (27.0-33.0); Mean Corpuscular Volume 87.5 fL (80.0-98.0); Mean Platelet Volume 9.9 fL (9.4-12.4); Platelet Count 256 X10*3/uL (160-400); Red Blood Count 4.07 X10*6/uL (4.60-5.80)
[2024-09-02 06:58] VITALS: BP 142/85; PULSE 69; RESP 16; TEMP 37.1; O2SAT 96
--- NOTE | 2024-09-02 08:13 | PM.DS ---
DS: Providers Provider Date of Service: 09/02/24 Date of admission: 08/29/24 01:05 Date of discharge: 09/02/24 Primary care physician: Sparkle Lawler CNP Consults: 08/29/24 00:24 Consult to Infectious Diseases Routine Consulting Provider: [facility] Reason for consultation: abd wall cellulitis 08/29/24 21:08 Consult to Wound Care Routine Reason for consultation: cellulitis to lower abd wall 08/30/24 23:53 Consult to Wound Care Routine Reason for consultation: cellulitis to lower abd wall DS: Diagnosis Discharge Diagnosis (1) SARIKA (generalized anxiety disorder): Status: Acute DS: Summary Hospital Course Hospital Course: from initial hpi: 34-year-old male with a past medical history of morbid obesity, anxiety, depression presented to the hospital today with a chief complaint of lower abdominal skin pain and redness. Patient mentioned that for about 2 months he has been on p.o. antibiotics. Has been taking antibiotics for his abdominal wall cellulitis since his last admission in the hospital. Today he had severe pain in the anterior abdomen hence presented to the ER for further evaluation. Denies any diarrhea. Denies any chest pain or palpitations. Reports subjective fevers. Mentions that his abdominal wall has been more red and painful over the past few days. Review of all other systems is negative except mentioned above ER course: For ER team, patient not have erythema and skin changes with a nodular cellulitis on the lower abdominal wall. Given vancomycin. CT abdomen pelvis showed anterior abdominal wall hernia the small bowel loops and fat within; fatty infiltration in the abdominal wall with skin thickening likely concerning for cellulitis. hospital course: Patient was admitted for recurrent cellulitis due to morbid obesity and enlarged pannus. Was treated with vancomycin and Zosyn and clindamycin. Seen by infectious disease who recommended transitioning to Zyvox for 2 weeks on discharge and then restarting penicillin prophylaxis 500 mg b.i.d. indefinitely. Weight loss is strongly encouraged as well as mechanical support for pannus. Patient will follow up with bariatrics. For RAMIRO encouraged to use CPAP at night. Cellulitis significantly improved and patient will be discharged home. Time Attestation Discharge Coordination Time (in mins): 35 Quality: Safe Use of Opioids Does Pt have an Active Cancer Diagnosis on the Problem List?: No Quality: Stroke Does the patient have a stroke diagnosis?: No Physical Exam Vital Signs: Vital Signs: Last Vital Signs Temp 98.7 F 09/02/24 06:58 Pulse 69 09/02/24 06:58 Resp 16 09/02/24 06:58 BP 142/85 H 09/02/24 06:58 Pulse Ox 96 09/02/24 06:58 O2 Del Method Room Air 09/02/24 06:58 BMI result Body Mass Index 68.3 General: AO X 3, no acute distress Resp: CTA bilateral, no accessory muscles used CVS: S1,S2,RRR GI: soft, non tender, non distended Neuro: motor grossly intact, alert Psych: appropriate affect, appropriate insight enlarge pannus with much improved erythema, no obvious open ulcers, currently no active drainage DS: Data Data Completed and Pending Labs on day of discharge: Laboratory Results - last 24 hr 09/01/24 09/02/24 15:31 05:26 WBC 5.0 RBC 4.07 L Hgb 11.6 L Hct 35.6 L MCV 87.5 MCH 28.5 MCHC 32.6 RDW 15.0 Plt Count 256 MPV 9.9 Absolute Nucleated RBC 0.000 Nucleated RBC % (auto) 0.0 Sodium 141 Potassium 3.6 Chloride 109 H Carbon Dioxide 25 Anion Gap 11 L BUN 8 L Creatinine 0.73 Estim Creat Clear Calc 275.5 Estimated GFR > 60 Random Glucose 105 Calcium 8.4 Random Vancomycin 14.6 L Preliminary micro results at discharge 08/28/24 23:35 Blood Culture - Preliminary Blood - Venous No growth after 48 hours. 08/28/24 23:27 Blood Culture - Preliminary Blood - Venous No growth after 48 hours. Discharge Plan Discharge Anticipated Discharge Date/Time: 09/02/24 08:09 Patient Disposition: Home, Self-Care Discharge Diagnosis: cellulitis Referrals: Sparkle Lawler CNP [Primary Care Provider] - 1 Week Discharge Medications: New linezolid 600 mg tablet 600 mg PO Q12H Qty: 28 0RF penicillin V potassium 500 mg tablet 500 mg PO Q12H Qty: 180 0RF Continued melatonin 10 mg Tablet 10 mg PO BEDTIME PRN (Reason: Sleep) nystatin 100,000 unit/gram Ointment 1 appl topical BID Qty: 60 3RF Protocol: Apply to: Apply to: left groin and panus area albuterol sulfate 90 mcg/actuation Hfa Aerosol Inhaler 2 puff INHALATION Q6H PRN (Reason: SOB) albuterol sulfate 2.5 mg/0.5 mL solution for nebulization 2.5 mg inhalation QID PRN (Reason: shortness of breath or wheezing) cetirizine 10 mg tablet 10 mg PO DAILY 30 Days Qty: 30 3RF Discharge Orders: Discharge Order (Routine); Ordered 09/02/24 Ordered By: Gopal Marin Diet: Advance to usual diet Activity on Discharge: As tolerated Stand Alone Forms: Patient Portal Discharge page Print Language: Belarusian Care Plan Goals: recovery Health Concerns: morbid obesity, cellulitis Plan of Treatment: 2 weeks linezolid, then restart penicillin prophylaxis indefinitely weight loss - follow up with bariatrics can use gauze for navel drainage mechanical support for pannus Assessment: see above
[2024-09-02] MEDS: Famotidine 20 MG TABLET PO (09:10)
[2024-09-02] MEDS: Loratadine 10 MG TABLET PO (09:10)
[2024-09-02] MEDS: 0.9 % Sodium Chloride Flush 3 ML SYRINGE IVFLUSH (09:11)
--- NOTE | 2024-09-02 09:15 | MHC.CM.PN ---
PT TO DC HOME TODAY WITH NO SERVICES VIA PRIVATE TRANSPORT
== END 2024-09-02 11:05 | disposition home or self-care (01) | DRG 383 ==
LOC: HO.ED 08-29 01:28 → HO.EDOVER 08-29 01:47 → HO.S3 08-29 19:44
PROVIDERS: Admitting Provider Hospitalist; Emergency Provider Internal Medicine; PCP Nurse Practitioner Family; Visit Provider Internal Medicine
DX: L03.311 Cellulitis of abdominal wall (principal); Z68.44 Body mass index [BMI] 60.0-69.9, adult; F41.1 Generalized anxiety disorder; E66.01 Morbid (severe) obesity due to excess calories; G47.33 Obstructive sleep apnea (adult) (pediatric); Z71.3 Dietary counseling and surveillance; Z79.899 Other long term (current) drug therapy
CPT/HCPCS: 36415; 80048; 80053; 80202; 82565; 83605; 83690; 85025; 85027; 87040; 99285; J0736; J1650; J1885; J2405; J2543; J3370; J3371; J7120

== ENCOUNTER → 2024-08-29 01:05 | Outpatient (BNV) | payer OTHER, SELFPAY | PROVIDERS: Admitting Provider Hospitalist; Emergency Provider Internal Medicine; PCP Nurse Practitioner Family; Visit Provider Internal Medicine | DX: L03.311 Cellulitis of abdominal wall (principal); E66.01 Morbid (severe) obesity due to excess calories | CPT/HCPCS: 99222 ==

== ENCOUNTER → 2024-08-29 01:05 | Outpatient (BNV) | payer OTHER, SELFPAY | PROVIDERS: Admitting Provider Hospitalist; Emergency Provider Internal Medicine; PCP Nurse Practitioner Family; Visit Provider Family Medicine | DX: F41.1 Generalized anxiety disorder (principal) | CPT/HCPCS: 99232; 99233; 99239 ==

== ENCOUNTER → 2024-09-20 16:23 | Outpatient (BNVA) | payer OTHER, SELFPAY | PROVIDERS: PCP Nurse Practitioner Family ==

== ENCOUNTER 2024-09-25 15:00 | Outpatient (AMB) | payer OTHER, SELFPAY ==
--- NOTE | 2024-09-25 15:02 | A.OFFPC_ITS ---
Vital Signs 09/25/24 15:07 Height 5 ft 11 in Weight 502 lb 8 oz BMI 70.1 BP 143/94 H Blood Pressure Location Rt brachial Position Sitting Respiration 16 Pulse 73 Pulse Source Pulse Oximeter Temp 97.8 F Temp Source Oral Pulse Oximetry (%) 99 Oxygen Delivery Method Room Air Intake Visit Reasons: [facility] [place] ABDOMINAL WALL CELLULITIS Intake Note: patient here for [facility] [place] follow up for abdominal wall cellulitis. [employer] Specialist Required: No Allergies diphenhydramine [From Benadryl] Allergy (Intermediate, Verified 09/25/24 15:12) UNKNOWN doxycycline Allergy (Verified 09/25/24 15:12) Itching Medication List - Last Reconciled 09/25/24 by Sparkle Lawler CNP albuterol sulfate 2.5 mg inhalation QID PRN albuterol sulfate 90 mcg/actuation 2 puffs inhalation Q6H PRN cetirizine 10 mg PO DAILY 30 days melatonin 10 mg PO BEDTIME PRN nystatin 1 appl See Protocol topical BID penicillin V potassium 500 mg PO Q12H Tobacco use date assessed: 09/25/24 Dental Screening Dental Screen Date: 09/25/24 Did you have a dental visit in the last 12 months?: No Did you have a dental problem in the last 6 months where you did not have access to dental care?: No Was dental information given to patient?: Yes HPI HPI Comments History of Present Illness Details 34-year-old male presents for hospital d ischarge follow-up. He was hospitalized at [facility] between 08/28/2024 and 09/02/2024 for abdominal wall cellulitis. DS: Summary Hospital Course Hospital Course: from initial hpi: 34-year-old male with a past medical his tory of morbid obesity, anxiety, depression presented to the hospital today with a chief complaint of lower abdominal skin pain and redness. Patient mentioned that for about 2 months he has been on p.o. antibiotics. Has been taking antibiotics for his abdominal wall cellulitis since his last admission in the hospital. Today he had severe pain in the anterior abdomen hence presented to the ER for further evaluation. Denies any diarrhea. Denies any chest pain or palpitations. Reports subjective fevers. Mentions that his abdominal wall has been more red and painful over the past few days. Review of all other systems is negative except mentioned above ER course: For ER team, patient not have erythema and skin changes with a nodular cellulitis on the lower abdominal wall. Given vancomycin. CT abdomen pelvis showed anterior abdominal wall hernia the small bowel loops and fat within; fatty infiltration in the abdominal wall with skin thickening likely concerning for cellulitis. hospital course: Patient was admitted for recurrent cellulitis due to morbid obesity and enlarged pannus. Was treated with vancomycin and Zosyn and clindamycin. Seen by infectious disease who recommended transitioning to Zyvox for 2 weeks on discharge and then restarting penicillin prophylaxis 500 mg b.i.d. indefinitely. Weight loss is strongly encouraged as well as mechanical support for pannus. Patient will follow up with bariatrics. For RAMIRO encouraged to use CPAP at night. Cellulitis significantly improved and patient will be discharged home. He notes that he has been doing well since his recent hospital discharge. He completed the course of linezolid and currently on penicillin 500 mg twice daily. He has been making healthy dietary choices and exercising regularly; he goes to the gym 4 times weekly. He he is followed by [facility] bariatric surgery and has a follow-up appointment in 2 weeks; he will inquire with them about GLP1 for weight management. He notes that he has required to weight below 400 lb for surgery. No acute symptoms at this time. [facility] Medical History Morbid obesity with BMI of 60.0-69.9, adult Depression Anxiety Obstructive sleep apnea (~2012) Morbid obesity Asthma GERD (gastroesophageal reflux disease) SARIKA (generalized anxiety disorder) Surgical History History of dental surgery (~1998) Family History Mother FH: mental illness Cancer Father Diabetes Maternal Grandmother Alcohol abuse Cancer Sister FH: mental illness Diabetes Social History Household Members: Significant Other and Family Housing: Apartment Do you presently have visiting nurse or other home services: No Alcohol intake: never Patient Tobacco Use Status: Never used Tobacco e-Cigarette/Vaping Use: Never Used Second Hand Smoke Exposure: No Substance Use Type: Marijuana service: No Current occupational status: employed 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 Current occupational exposures/hazards: No Cognitive needs: No Hearing needs: No Vision needs: No Questionnaire Thrive Questionnaire Date Thrive assessed: 07/10/24 I am a: Patient What is your living situation today?: I have a steady place to live Within the past 12 months, did the food you bought not last and you didn't have the money to get more?: Never true Within the past 12 months, did you worry whether your food would run out before you got money to buy more?: Never true Do you have trouble paying for medicines?: No Do you have trouble getting transportation to medical appointments?: No Do you have trouble paying your heating and electricity bill?: No Do you have trouble taking care of your child, family member or friend?: No Do you have trouble with day-to-day activities such as bathing, preparing meals, shopping, managing finances, etc.?: No Are you currently unemployed and looking for a job?: No Are you interested in more education?: No Please select the resources that you would like help with: None Currently or been in a relationship where the following occur: No concerns reported THRIVE Score: 0 SARIKA-7 AMB Questionnaire SARIKA-7 Date SARIKA - 7 assessed: 05/04/24 Source: Developed by Drs. Hayden Thayer, Liat Grace, Uriel Chavis and colleagues, with an educational lisa from [employer]. Review of Systems Const Details: Const Denies chills, Denies fatigue, Denies fever(s), Denies headache(s) and Denies weakness ENT Denies dizziness and Denies headache(s) Card Denies chest pain, Denies lightheadedness, Denies dyspnea and Denies other (Palpitations) Resp Denies cough, Denies dyspnea, Denies wheezing and Denies other ( shortness of breath) GI Denies abdominal pain, Denies melena, Denies hematochezia, Denies change in bowel habits, Denies dyspepsia and Denies nausea Denies hematuria and Denies dysuria Musc Denies abnormal gait, Denies myalgias, Denies arthralgias, Denies numbness and Denies tingling Skin/Breast Denies rash, Denies unusual bruising and Denies wounds Neuro Denies abnormal gait, Denies dizziness, Denies headache(s), Denies memory loss, Denies numbness, Denies Sensory deficit (Neuro), Denies tingling and Denies weakness Psych Denies anxiety, Denies depression, Denies memory loss Endo Denies cold intolerance, Denies fatigue, Denies heat intolerance, Denies polydipsia and Denies polyuria Aller/Immun Denies wheezing Physical exam (Primary Care) Vital Signs: Last Vital Signs Temp 97.8 F 09/25/24 15:07 Pulse 73 09/25/24 15:07 Resp 16 09/25/24 15:07 BP 143/94 H 09/25/24 15:07 Pulse Ox 99 09/25/24 15:07 Oxygen Delivery Method Room Air 09/25/24 15:07 BMI result Body Mass Index 70.1 Tobacco/Smoking Status: Tobacco use Status Tobacco use date assessed 08/18/24 09/25/24 15:04 Patient Tobacco Use Status Never used Tobacco 09/25/24 15:04 e-Cigarette/Vaping Use Never Used 09/25/24 15:04 Thrive Assessment: Date of Thrive Assessment Date Thrive assessed 07/10/24 09/25/24 15:04 Currently or been in a relationship where the following occur: No concerns reported Const Other: General: no acute distress and well developed Nutritional Appearance: well nourished Orientation/consciousness: patient oriented x3 HENMT Head: Yes normocephalic and Yes atraumatic Eyes General: appearance normal, both eyes and all related structures Pupils: Equal, round and reactive pupils present EOM: EOMs intact bilaterally Resp Effort & Inspection: normal respiratory effort Auscultation: clear to auscultation bilaterally Cardio Rate: regular rate Rhythm: regular rhythm Heart sounds: S1 normal heart sound present, S2 normal heart sound present, no gallops, no murmurs and no rubs GI Palpation (GI): No Abdominal aortic bruit present, Soft to palpation, nontender, No hepatosplenomegaly present and No Rebound tenderness present Auscultation: normal bowel sounds General: Yes no CVA tenderness Back/Spine/Pelvis Back: no CVA tenderness Cervical Spine: cervical ROM normal and No Cervical spine tenderness Thoracic/Lumbar Spine: thoraco-lumbar ROM normal, No pain with thoraco-lumbar R OM, No thoracic spinal tenderness and No lumbar spinal tenderness Extrem General: Yes normal to inspection, No edema and No calf tenderness Skin General: warm and dry. Normal skin color. Normal skin turgor. Slight erythema to the skin of the lower abdomen. Skin is soft. No tenderness, overt infection/cellulitis noted. Lesions: no lesions Rashes: no rashes Trauma: no lacerations or abrasions Wounds: no wounds Nails: normal Neuro General: patient oriented x3, gait normal and no focal neuro deficit Cranial nerves: Yes Equal, round and reactive pupils present Cognition (Neuro): normal cognition Gait exam (Neuro): Normal gait present Sensory Exam: No Sensory deficit (Neuro) Psych Appearance: grossly normal Affect: normal affect Attitude: cooperative Thought process: Normal thought process present Coding Level of Care Code Est Pt Level 3 (11783) Diagnoses Abdominal wall cellulitis L03.311 Assessment & Plan Assessment & Plan (1) Abdominal wall cellulitis: Code(s): L03.311 - Cellulitis of abdominal wall Category: Medical Plan: Slight erythema to the skin of the lower abdomen. Skin is soft. No tenderness, overt infection/cellulitis noted. Continue current treatment regimen. Continue follow-up with bariatric surgery as planned. Follow-up with PCP as planned for an extended physical exam later this year. Return sooner with symptoms or concerns. PCP may start GLP1 treatment for weight management if bariatric surgery can not. Verbalized understanding and agreed with the plan.
[2024-09-25 15:07] VITALS: BP 143/94; PULSE 73; RESP 16; TEMP 36.6; O2SAT 99; BMI 70.1
--- OUTSIDE RECORDS SUMMARY | 2024-09-25 16:36 | XMS_ITS | Referral Summary ---
Author Organization [facility] Address [address] [place] [address] Care Team Providers Care Commercial Leasing Manager Name Role Phone Gio Pacheco Primary Care Provider [phone] Allergies Active Allergy Reactions Criticality Noted Date [...] Plan of Treatment Not on file [place] [address] [place] [address] MEDICAID Care Teams Commercial Leasing Manager Relationship Specialty Start Date End Date Gio Pacheco [address] [place] [id number] PCP - General Internal Medicine 08/31/23
--- OUTSIDE RECORDS SUMMARY | 2024-09-25 16:36 | XMS_ITS | Clinical Summary ---
Author Organization [facility] Address [address] [place] [address] Care Team Providers Care Supervisor Tank House Name Role Phone Gio Pacheco Primary Care Provider [phone] Allergies Active Allergy Reactions Criticality Noted Date [...] series) 01/19/2067 Insurance [employer] MEDICAID Care Teams Supervisor Tank House Relationship Specialty Start Date End Date Gio Pacheco [address] [place] [phone] PCP - General Internal Medicine 08/31/23
== END 2024-09-25 15:44 | disposition home or self-care (01) ==
LOC: HO.HMCFM 15:00
PROVIDERS: PCP Nurse Practitioner Family; Visit Provider Nurse Practitioner Family
DX: L03.311 Cellulitis of abdominal wall (principal)

== ENCOUNTER → 2024-09-25 15:00 | Outpatient (BNVA) | payer OTHER, SELFPAY | PROVIDERS: PCP Nurse Practitioner Family; Visit Provider Nurse Practitioner Family | DX: L03.311 Cellulitis of abdominal wall (principal) | CPT/HCPCS: 99212 ==

== ENCOUNTER 2024-10-12 14:28 | Outpatient (AMB) | payer OTHER, SELFPAY ==
--- OUTSIDE RECORDS SUMMARY | 2024-10-12 14:32 | XMS_ITS | Referral Summary ---
Author Organization [facility] Address [address] [place] [address] Care Team Providers Care Light Rail Transit Operator Name Role Phone Gio Pacheco Primary Care Provider [phone] Allergies Active Allergy Reactions Criticality Noted Date [...] Plan of Treatment Not on file [place] [address] [address] MEDICAID Care Teams Light Rail Transit Operator Relationship Specialty Start Date End Date Gio Pacheco [address] [place] [phone] PCP - General Internal Medicine 08/31/23
--- NOTE | 2024-10-12 14:37 | A.OFFVIS_ITS ---
VS Expanded 10/12/24 14:49 BP 176/107 H Blood Pressure Location Rt brachial Blood Pressure Position Sitting Pulse 78 Pulse Source Pulse Oximeter Temp 97.4 F Temperature Source Temporal Artery Scan Pulse Oximetry 97 Oxygen Delivery Method Room Air Height 5 ft 11 in Weight 499 lb 12.8 oz BMI 69.7 Body Fat % 50.5 Body Fat Mass 252.2 Fat Free Mass 247.6 Body Water % 0.5 Body Water Mass 177.4 Muscle Mass/Score 235.2 Basal Metabolic Rate/Score 3,830 Intake Visit Reasons: OV F/U SWL Allergies diphenhydramine [From Benadryl] Allergy (Intermediate, Verified 09/25/24 15:12) UNKNOWN doxycycline Allergy (Verified 09/25/24 15:12) Itching HPI Comments Details: Patient is a 34-year-old male who returns to the office today in follow-up. He began the surgical weight loss program 01/20/2023 with a weight of 618.1 lb and a BMI of 86.2. Weight today is 499.8 lb with a BMI of 69.7. He has lost 126.1 lb or 20.4 % total body weight. He states he has been much more consistent with his meal plan and going to the gym. Consistent with the meal plan over the last 10 days. He is completely committed and is excited about the progress he has made. After his last visit, he developed abdominal cellulitis again requiring hospitalization for several days. He has since been discharged, completed his outpatient oral antibiotic regimen and transition to penicillin to be taken indefinitely. He is now back on track with his meal plan. He is also back to exercising regularly. Celebrate Rebuild protein shake with TWO scoops in 10oz low fat Fairlife milk at 8-10am, Celebrate protein bar 11am-1pm, lunch at 2pm (10 forks of meat and 10 forks of salad or vegetables) Celebrate bar at 4pm-6pm, dinner at 7pm (10 forks of meat and 10 forks of salad or vegetables) Celebrate Rebuild protein shake with TWO scoops in 10oz low fat Fairlife milk at 8-10pm drinking 80-96 oz water exercise plan: treadmill, 350 calories 5-6 days per week [facility]LY [facility] Medical History Morbid obesity with BMI of 60.0-69.9, adult Depression Anxiety Obstructive sleep apnea (~2012) Morbid obesity Asthma GERD (gastroesophageal reflux disease) SARIKA (generalized anxiety disorder) Surgical History History of dental surgery (~1998) Family History Mother FH: mental illness Cancer Father Diabetes Maternal Grandmother Alcohol abuse Cancer Sister FH: mental illness Diabetes Social History Household Members: Significant Other and Family Housing: Apartment Do you presently have visiting nurse or other home services: No Alcohol intake: never Patient Tobacco Use Status: Never used Tobacco e-Cigarette/Vaping Use: Never Used Second Hand Smoke Exposure: No Substance Use Type: Marijuana service: No Current occupational status: employed 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 He does report that on the weekends he would deviate from the plan due to boredom. He additionally states that sometimes he is hungry and could have additional volume. He is exercising regularly and trying to do the best that he can. We will initiate GLP 1 medication, Zepbound in an attempt to accelerate his weight loss. He was made aware of potential side effects including constipation, nausea, vomiting, increased anxiety or depression. He will alert us to any issues he may have with side effects. Plan to follow-up in the office in 1 month. Medications: New tirzepatide (weight loss) (Zepbound) for 4 weeks 2.5 mg (0.5 mL) subcut QWEEK 2 mL 0RF
[2024-10-12 14:49] VITALS: BP 176/107; PULSE 78; TEMP 36.3; O2SAT 97; BMI 69.7
== END 2024-10-12 15:17 | disposition home or self-care (01) ==
LOC: HO.HBS 14:29
PROVIDERS: PCP Nurse Practitioner Family; Visit Provider Physician Assistant Surgical
DX: E66.01 Morbid (severe) obesity due to excess calories (principal)
CPT/HCPCS: 99213; G2211

== ENCOUNTER → 2024-10-12 14:28 | Outpatient (BNVA) | payer OTHER, SELFPAY | PROVIDERS: PCP Nurse Practitioner Family; Visit Provider Physician Assistant Surgical | DX: E66.01 Morbid (severe) obesity due to excess calories (principal); Z68.44 Body mass index [BMI] 60.0-69.9, adult | CPT/HCPCS: 99212 ==

== ENCOUNTER 2024-11-17 14:31 | Outpatient (AMB) | payer OTHER, SELFPAY ==
--- NOTE | 2024-11-17 14:34 | MHC.OFFVISWM ---
VS Expanded 11/17/24 14:45 BP 161/89 H Blood Pressure Location Rt brachial Blood Pressure Position Sitting Pulse 76 Pulse Source Pulse Oximeter Temp 97.4 F Temperature Source Temporal Artery Scan Pulse Oximetry 97 Oxygen Delivery Method Room Air Height 5 ft 11 in Weight 497 lb 6.4 oz BMI 69.4 Body Fat % 53.7 Body Fat Mass 267.0 Fat Free Mass 230.4 Visceral Fat Rating 49.0 Body Water % 37.1 Body Water Mass 184.4 Muscle Mass/Score 219.4 Basal Metabolic Rate/Score 3,573 Intake Visit Reasons: OV F/U SWL Allergies diphenhydramine (From Benadryl) Allergy (Intermediate, Verified 11/17/24 14:40) UNKNOWN doxycycline Allergy (Verified 11/17/24 14:40) Itching HPI Comments Details: Patient is a 34-year-old male who returns to the office today in follow-up. He began the surgical weight loss program 01/20/2023 with a weight of 618.1 lb and a BMI of 86.2. Weight today is 497.4 lb with a BMI of 69.4. He has lost 120.7 lb or 19.5 % total body weight. He states he has been much more consistent with his meal plan and going to the gym. Consistent with the meal plan over the last 10 days. He is completely committed and is excited about the progress he has made. After his last visit, he developed abdominal cellulitis again requiring hospitalization for several days. He has since been discharged, completed his outpatient oral antibiotic regimen and transition to penicillin to be taken indefinitely. He is now back on track with his meal plan. He is also back to exercising regularly. He was started on Zepbound 2.5 mg weekly, he had nausea x1 on the 1st night after the 1st injection otherwise he has tolerated the other injections without any difficulty whatsoever. Celebrate Rebuild protein shake with TWO scoops in 10oz low fat Fairlife milk at 8-10am, Celebrate protein bar 11am-1pm, lunch at 2pm (10 forks of meat and 10 forks of salad or vegetables) Celebrate bar at 4pm-6pm, dinner at 7pm (10 forks of meat and 10 forks of salad or vegetables) Celebrate Rebuild protein shake with TWO scoops in 10oz low fat Fairlife milk at 8-10pm drinking 80-96 oz water exercise plan: treadmill, 350-400 calories 5 days per week [facility] Medical History Morbid obesity with BMI of 60.0-69.9, adult Depression Anxiety Obstructive sleep apnea (~2012) Morbid obesity Asthma GERD (gastroesophageal reflux disease) SARIKA (generalized anxiety disorder) Surgical History History of dental surgery (~1998) Family History Mother FH: mental illness Cancer Father Diabetes Maternal Grandmother Alcohol abuse Cancer Sister FH: mental illness Diabetes Social History Household Members: Significant Other and Family Housing: Apartment Do you presently have visiting nurse or other home services: No Alcohol intake: never Patient Tobacco Use Status: Never used Tobacco e-Cigarette/Vaping Use: Never Used Second Hand Smoke Exposure: No Substance Use Type: Marijuana service: No Current occupational status: employed 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 Current occupational exposures/hazards: No Cognitive needs: No Hearing needs: No Vision needs: No Physical Exam Vital Signs: Last Vital Signs Temp 97.4 F 11/17/24 14:45 Pulse 76 11/17/24 14:45 BP 161/89 H 11/17/24 14:45 Pulse Ox 97 11/17/24 14:45 Oxygen Delivery Method Room Air 11/17/24 14:45 BMI result Body Mass Index 69.4 Const General: healthy appearing and no acute distress Resp Effort & Inspection: normal respiratory effort Auscultation: clear to auscultation bilaterally Cardio Rate: regular rate Rhythm: regular rhythm GI Auscultation: normal bowel sounds Assessment & Plan Assessment & Plan (1) Morbid obesity: Code(s): E66.01 - Morbid (severe) obesity due to excess calories Category: Medical Plan: Increase Zepbound to 5 mg daily as he is tolerating the medication without any difficulty Encouraged to increase calories burned at the gym to 400, ultimately 500 We will returned to the right BMI david to adjust meal plan Return to clinic 1 month Medications: New tirzepatide (weight loss) (Zepbound) 5 mg (0.5 mL) subcut QWEEK 2 mL 0RF Discontinued tirzepatide (weight loss) (Zepbound) for 4 weeks Discontinued Reason: Doctor's Order 2.5 mg (0.5 mL) subcut QWEEK 2 mL 0RF
[2024-11-17 14:45] VITALS: BP 161/89; PULSE 76; TEMP 36.3; O2SAT 97; BMI 69.4
--- OUTSIDE RECORDS SUMMARY | 2024-11-17 14:53 | XMS_ITS | Referral Summary ---
Author Organization [facility] Address [address] [place] [address] Care Team Providers Care Public Weigher Name Role Phone Gio Pacheco Primary Care Provider [phone] Allergies Active Allergy Reactions Criticality Noted Date [...] 69 09/01/2023 3:55 PM EDT Temperature 36.6 C (97.9 F) 09/01/2023 3:55 PM EDT Respiratory Rate 18 09/01/2023 3:55 PM EDT Oxygen Saturation 94% 09/01/2023 3:55 PM EDT Inhaled Oxygen Concentration - - Weight 225.9 kg (498 lb) 08/31/2023 2:30 AM EDT Height 180.3 cm (5' 11 ) 08/31/2023 2:30 AM EDT Body Mass Index 69.46 08/31/2023 2:30 AM EDT Plan of Treatment Not on file [place] [address] [place] [address] Care Teams Public Weigher Relationship Specialty Start Date End Date Gio Pacheco [address] [place] [id number] PCP - General Internal Medicine 08/31/23
== END 2024-11-17 15:18 | disposition home or self-care (01) ==
LOC: HO.HBS 14:32
PROVIDERS: PCP Nurse Practitioner Family; Visit Provider Physician Assistant Surgical
DX: E66.01 Morbid (severe) obesity due to excess calories (principal)
CPT/HCPCS: 99213

== ENCOUNTER → 2024-11-17 14:31 | Outpatient (BNVA) | payer OTHER, SELFPAY | PROVIDERS: PCP Nurse Practitioner Family; Visit Provider Physician Assistant Surgical | DX: E66.01 Morbid (severe) obesity due to excess calories (principal); L03.311 Cellulitis of abdominal wall; Z68.44 Body mass index [BMI] 60.0-69.9, adult | CPT/HCPCS: 99212 ==

== ENCOUNTER 2024-12-18 14:52 | Outpatient (AMB) | payer OTHER, SELFPAY ==
--- NOTE | 2024-12-18 14:57 | MHC.OFFVISWM ---
VS Expanded 12/18/24 15:05 BP 172/103 H Blood Pressure Location Rt brachial Blood Pressure Position Sitting Pulse 84 Pulse Source Pulse Oximeter Temp 96.5 F L Temperature Source Temporal Artery Scan Pulse Oximetry 96 Oxygen Delivery Method Room Air Height 5 ft 11 in Weight 488 lb 6.4 oz BMI 68.1 Body Fat % 53.4 Body Fat Mass 260.8 Fat Free Mass 227.6 Visceral Fat Rating 7.0 Body Water % 37.3 Body Water Mass 182.2 Muscle Mass/Score 216.4 Basal Metabolic Rate/Score 3,517 Intake Visit Reasons: OV F/U SWL Allergies diphenhydramine (From Benadryl) Allergy (Intermediate, Verified 12/18/24 14:59) UNKNOWN doxycycline Allergy (Verified 12/18/24 14:59) Itching HPI Comments Details: Patient is a 34-year-old male who returns to the office today in follow-up. He began the surgical weight loss program 01/20/2023 with a weight of 618.1 lb and a BMI of 86.2. Weight today is 488.4 lb with a BMI of 68.1. He has lost 129.7 lb or 20.9 % total body weight. He states he has been much more consistent with his meal plan and going to the gym. Consistent with the meal plan over the last 10 days. He is completely committed and is excited about the progress he has made. Patient has had multiple hospitalizations for recurrent abdominal cellulitis. Since his last visit, approximately 1 month ago, He is now back on track with his meal plan. He is also back to exercising regularly. He has just moved to a new house. He was started on Zepbound 2.5 mg weekly, he had nausea x1 on the 1st night after the 1st injection otherwise he has tolerated the other injections without any difficulty whatsoever. His dose has been increased to 5 mg weekly. He has been quite busy and has been unable to go to the gym as much as he wants to. He is tolerating the 5 mg dose of Zepbound and does not wish to increase it at this time. Celebrate Rebuild protein shake with TWO scoops in 10oz low fat Fairlife milk at 8-10am, Celebrate protein bar 11am-1pm, lunch at 2pm (10 forks of meat and 10 forks of salad or vegetables) Celebrate bar at 4pm-6pm, dinner at 7pm (10 forks of meat and 10 forks of salad or vegetables) Celebrate Rebuild protein shake with TWO scoops in 10oz low fat Fairlife milk at 8-10pm drinking 80-96 oz water exercise plan: treadmill, 350-400 calories 2-3 days per week [facility] Medical History Morbid obesity with BMI of 60.0-69.9, adult Depression Anxiety Obstructive sleep apnea (~2012) Morbid obesity Asthma GERD (gastroesophageal reflux disease) SARIKA (generalized anxiety disorder) Surgical History History of dental surgery (~1998) Family History Mother FH: mental illness Cancer Father Diabetes Maternal Grandmother Alcohol abuse Cancer Sister FH: mental illness Diabetes Social History Household Members: Significant Other and Family Housing: Apartment Do you presently have visiting nurse or other home services: No Alcohol intake: never Patient Tobacco Use Status: Never used Tobacco e-Cigarette/Vaping Use: Never Used Second Hand Smoke Exposure: No Substance Use Type: Marijuana service: No Current occupational status: employed 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 He has lost 129 lb to date. He did have multiple setbacks including multiple hospitalizations. He also recently moved and is now settling into his new home. He intends to improve his exercise frequency now that he is settling into house. We in approximately 1 month. Encouraged to text with any questions or concerns. He does not wish to increase Zepbound at this time. We will renew the 5 mg dose and continue to monitor for any side effects. Medications: Refilled tirzepatide (weight loss) (Zepbound) 5 mg (0.5 mL) subcut QWEEK 2 mL 0RF
[2024-12-18 15:05] VITALS: BP 172/103; PULSE 84; TEMP 35.8; O2SAT 96; BMI 68.1
--- OUTSIDE RECORDS SUMMARY | 2024-12-18 15:26 | XMS_ITS | Referral Summary ---
Author Organization [facility] Address [address] [place] [address] Care Team Providers Care Doll Wig Maker Name Role Phone Gio Pacheco Primary Care Provider [phone] Allergies Active Allergy Reactions Criticality Noted Date [...] Plan of Treatment Not on file [place] [address] [address] MEDICAID Care Teams Doll Wig Maker Relationship Specialty Start Date End Date Gio Pacheco [address] [place] [id number] PCP - General Internal Medicine 08/31/23
== END 2024-12-18 15:25 | disposition home or self-care (01) ==
LOC: HO.HBS 14:53
PROVIDERS: PCP Nurse Practitioner Family; Visit Provider Physician Assistant Surgical
DX: E66.01 Morbid (severe) obesity due to excess calories (principal)
CPT/HCPCS: 99213

== ENCOUNTER → 2024-12-18 14:52 | Outpatient (BNVA) | payer OTHER, SELFPAY | PROVIDERS: PCP Nurse Practitioner Family; Visit Provider Physician Assistant Surgical | DX: E66.01 Morbid (severe) obesity due to excess calories (principal); Z68.44 Body mass index [BMI] 60.0-69.9, adult | CPT/HCPCS: 99212 ==

== ENCOUNTER 2025-01-11 14:53 | Outpatient (AMB) | payer OTHER, SELFPAY ==
--- NOTE | 2025-01-11 14:55 | A.OFFVIS_ITS ---
VS Expanded 01/11/25 15:05 BP 179/98 H Blood Pressure Location Rt brachial Blood Pressure Position Sitting Pulse 74 Pulse Source Pulse Oximeter Temp 97.0 F Temperature Source Temporal Artery Scan Pulse Oximetry 98 Oxygen Delivery Method Room Air Height 5 ft 11 in Weight 484 lb 6.4 oz BMI 67.6 Body Fat % 52.8 Body Fat Mass 255.8 Fat Free Mass 228.6 Visceral Fat Rating 47.0 Body Water % 37.8 Body Water Mass 183.0 Muscle Mass/Score 217.6 Basal Metabolic Rate/Score 3,526 Intake Visit Reasons: OV F/U SWL Allergies diphenhydramine (From Benadryl) Allergy (Intermediate, Verified 12/18/24 14:59) UNKNOWN doxycycline Allergy (Verified 12/18/24 14:59) Itching HPI Comments Details: Patient is a 34-year-old male who returns to the office today in follow-up. He began the surgical weight loss program 01/20/2023 with a weight of 618.1 lb and a BMI of 86.2. Weight today is 484.4 lb with a BMI of 67.6. He has lost 133.7 lb or 21.6 % total body weight. He states he has been much more consistent with his meal plan and going to the gym. Consistent with the meal plan over the last 10 days. He is completely committed and is excited about the progress he has made. Patient has had multiple hospitalizations for recurrent abdominal cellulitis. Since his last visit, approximately 1 month ago, his grandmother . He was very close with her and this has been very traumatic. He has not been able to exercise as much in the last week or 2 due to his grandmother's however he has been following the meal plan as much as possible. He was started on Zepbound 2.5 mg weekly, he had nausea x1 on the 1st night after the 1st injection otherwise he has tolerated the other injections without any difficulty whatsoever. He is tolerating the 5 mg dose of Zepbound and does wish to increase it at this time. Celebrate Rebuild protein shake with TWO scoops in 10oz low fat Fairlife milk at 8-10 am, Celebrate protein bar 11 am-1pm, lunch at 2pm (10 forks of meat and 10 forks of salad or vegetables) Celebrate bar at 4pm-6pm, dinner at 7pm (10 forks of meat and 10 forks of salad or vegetables) Celebrate Rebuild protein shake with TWO scoops in 10oz low fat Fairlife milk at 8-10pm drinking 80-96 oz water exercise plan: none in the last 10 days due to his grandmothers walking outside 1.5 mi 2 days per week treadmill, 350-400 calories 3-4 days per week [facility] Medical History Morbid obesity with BMI of 60.0-69.9, adult Depression Anxiety Obstructive sleep apnea (~2012) Morbid obesity Asthma GERD (gastroesophageal reflux disease) SARIKA (generalized anxiety disorder) Surgical History History of dental surgery (~1998) Family History Mother FH: mental illness Cancer Father Diabetes Maternal Grandmother Alcohol abuse Cancer Sister FH: mental illness Diabetes Social History Household Members: Significant Other and Family Housing: Apartment Do you presently have visiting nurse or other home services: No Alcohol intake: never Patient Tobacco Use Status: Never used Tobacco e-Cigarette/Vaping Use: Never Used Second Hand Smoke Exposure: No Substance Use Type: Marijuana service: No Current occupational status: employed 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 He will now resume exercising regularly. Continue current meal plan. Zepbound was increased to 7.5 mg weekly. We will have him return to the office as scheduled. Medications: New tirzepatide (weight loss) (Zepbound) start one week after last dose of the 5 mg weekly injection 7.5 mg (0.5 mL) subcut QWEEK 2 mL 0RF
--- OUTSIDE RECORDS SUMMARY | 2025-01-11 14:58 | XMS_ITS | Clinical Summary ---
Author Organization [facility] Address [address] [place] [address] Care Team Providers Care Transit Authority Police Officer Name Role Phone Gio Pacheco Primary Care Provider [phone] Allergies Active Allergy Reactions Criticality Noted Date [...] COVID-19 Vaccine (1 - 2023- season) 2024 Alcohol/Substance Use Screening 05/24/2024 Influenza Vaccine (#1) 2025 RSV Vaccine (60+ years old a nd patients) (1 - 1-dose 75+ series) 01/19/2067 Insurance [employer] MEDICA[employer] Care Teams Transit Authority Police Officer Relationship Specialty Start Date End Date Gio Pacheco [address] [place] [id number] PCP - General Internal Medicine 08/31/23
[2025-01-11 15:05] VITALS: BP 179/98; PULSE 74; TEMP 36.1; O2SAT 98; BMI 67.6
== END 2025-01-11 15:18 | disposition home or self-care (01) ==
LOC: HO.HBS 14:54
PROVIDERS: PCP Nurse Practitioner Family; Visit Provider Physician Assistant Surgical
DX: E66.01 Morbid (severe) obesity due to excess calories (principal)
CPT/HCPCS: 99213

== ENCOUNTER → 2025-01-11 14:53 | Outpatient (BNVA) | payer OTHER, SELFPAY | PROVIDERS: PCP Nurse Practitioner Family; Visit Provider Physician Assistant Surgical | DX: E66.01 Morbid (severe) obesity due to excess calories (principal); Z68.44 Body mass index [BMI] 60.0-69.9, adult | CPT/HCPCS: 99212 ==

== ENCOUNTER 2025-03-06 19:06 | Inpatient (IN) | payer OTHER, SELFPAY ==
--- NOTE | ~2025-03-06 | XR_ITS ---
EXAMINATION: XR TIBIA AND FIBULA, RIGHT CLINICAL INFORMATION: rule out OM, internal issue COMPARISON: None available. TECHNIQUE: 3 views of of the right tibia and fibula were obtained. FINDINGS: Osseous mineralization is normal. No evidence of acute fracture or malalignment. No evidence of periostitis, erosive or destructive changes. No aggressive bony lesion is seen. Soft tissue swelling. No radiopaque foreign body or air in the soft tissues identified. Ankle articulation is maintained. XR/XR tibia fibula RT 2V IMPRESSION: No radiographic evidence of periostitis, erosive or destructive changes. Further workup/imaging as clinically indicated. Electronically signed by: Cem Rodriguez MD 03/07/2025 07:26 AM EDT RP
[2025-03-06 19:14] VITALS: BP 143/68; PULSE 91; RESP 16; TEMP 37.3; O2SAT 98; BMI 68.4
--- NOTE | 2025-03-06 19:14 | ED_ITS ---
HPI - General Adult General Chief complaint: Skin/Abscess/Foreign Body Stated complaint: ?Cellulitis on stomach Time Seen by Provider: 03/07/25 00:43 Source: patient, RN notes reviewed and old records reviewed Mode of arrival: ambulatory Limitations: no limitations History of Present Illness ED Provider: Smita HPI narrative: 35-year-old male past medical history significant for morbid obesity, asthma, depression, anxiety presents for evaluation of ?abdominal wall cellulitis. ? The patient reports that he woke up this morning with discomfort in his lower abdominal wall. He felt that it was warm to the touch and his girlfriend told that it was significantly red. He does have a history of abdominal wall cellulitis and he actually takes penicillin V potassium 500 mg twice daily for prophylaxis The patient denies any fevers or chills. He has been admitted for this is she had in the past He is currently in the weight loss program at this facility Related Data Home Medications ?Medication ?Instructions ?Recorded ?Confirmed melatonin 10 mg tablet 10 mg PO BEDTIME PRN Sleep 0 06/14/24 10/19/24 albuterol sulfate 2.5 mg/0.5 mL 2.5 mg inhalation QID PRN 08/29/24 10/19/24 solution for nebulization shortness of breath or wheez ing albuterol sulfate 90 mcg/actuation 2 puff inhalation Q 6H PRN SOB 08/29/24 10/19/24 aerosol inhaler Previous Rx's ?Medication ?Instructions ?Recorded nystatin 100,000 unit/gram topical 1 appl topical BID #60 grams 06/18/24 ointment cetirizine 10 mg tablet 10 mg PO DAILY 30 days #30 t abs 12/11/24 penicillin V potassium 500 mg 500 mg PO Q12H #180 tabs 02/15/25 tablet tirzepatide (weight loss) 7.5 7.5 mg (0.5 mL) subcut Q WEEK #2 mL 02/19/25 mg/0.5 mL subcutaneous pen injector (Zepbound) Allergies Allergy/AdvReac Type Severity Reaction Status Date / Time diphenhydramine (From Allergy Intermediate UNKNOWN Verified 03/06/25 19:17 Benadryl) doxycycline Allergy Itching Verified 03/06/25 19:17 Review of Systems 2 Constitutional: Constitutional: Denies body ache(s), Denies chills, Denies fatigue and Denies fever(s) Eyes: Eyes: Denies blurry vision ENT: Denies vertigo and Denies dizziness Cardiovascular: Cardiovascular: Denies chest pain Gastrointestinal: Gastrointestinal: Reports abdominal pain, Denies nausea and Denies vomiting Musculoskeletal: Musculoskeletal: Denies back pain Integumentary/Breasts: Skin/Breast: Reports erythema, Reports rash, Denies skin pain, Denies skin swelling and Denies wounds Neurologic: Denies vertigo and Denies dizziness Psychiatric: Psychiatric: Denies anxiety Endocrine: Endocrine: Denies fatigue PMFSH Past Medical History Medical History Morbid obesity with BMI of 60.0-69.9, adult Depression Anxiety Obstructive sleep apnea (~2012) Morbid obesity Asthma GERD (gastroesophageal reflux disease) SARIKA (generalized anxiety disorder) Surgical History History of dental surgery (~1998) Family History Family History Mother FH: mental illness Cancer Father Diabetes Maternal Grandmother Alcohol abuse Cancer Sister FH: mental illness Diabetes Social History Social History Household Members: Significant Other and Family Housing: Apartment Do you presently have visiting nurse or other home services: No Alcohol intake: never Patient Tobacco Use Status: Never used Tobacco e-Cigarette/Vaping Use: Never Used Second Hand Smoke Exposure: No Substance Use Type: Marijuana Do you have a plan to hurt others: No Plan service: No Current occupational status: employed 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 Current occupational exposures/hazards: No Cognitive needs: No Hearing needs: No Vision needs: No Physical Exam ED Vital Signs: Vital Signs - 24 hr 03/06/25 19:14 Temperature 99.2 F Pulse Rate 91 Respiratory Rate 16 Blood Pressure 143/68 H Pulse Oximetry 98 Oxygen Delivery Method Room Air BMI result Body Mass Index 68.4 Const General: healthy appearing, comfortable, no acute distress, alert and awake Nutritional Appearance: well nourished Orientation/consciousness: patient oriented x3 HENMT Head: Yes normocephalic and Yes atraumatic Eyes Eyelids: Yes eyelids normal Conjunctivae: conjunctivae normal Sclerae: sclerae normal Corneas: corneas normal Pupils: Equal, round and reactive pupils present EOM: EOMs intact bilaterally Neck Neck: Yes full ROM Resp Effort & Inspection: normal respiratory effort, able to speak in complete sentences and not labored Cardio Rate: regular rate Rhythm: regular rhythm GI Inspection: No distended Palpation (GI): Soft to palpation, not firm, nontender, no guarding and not rigid Skin Other: There was a large area of erythema to the lower abdominal wall, pannus. This is quite extensive stretching across most of the lower abdomen. No open wounds General skin exam: elasticity normal Neuro General: patient oriented x3 Cranial nerves: Yes Equal, round and reactive pupils present and Yes Bilaterally intact EOM present Cognition (Neuro): normal cognition Extrem Other: Moving all extremities well without any obvious deformities Course Course Course Narrative: This is a rapid medical exam performed by Sandhya Bowen NP: Additional HPI, ROS, PE not included below will be deferred to primary provider. Patient is a 35y/o M presenting to the ED with c/f cellulitis of abdomen. History of same in the past, currently on long-term abx (PCN?). Last episode was in Jun he thinks. Woke this am feeling unwell, abdomen warm to touch, chills. Plan: labs including blood cxs and lactic Medical Decision Making Medical Decision Making [facility] Narrative: 35-year-old male presents for evaluation of abdominal wall cellulitis. He has a history of this. He is morbidly obese and not diabetic. Denies any fever, chills. He does have a normal white count of 10.8. He has slightly elevated inflammatory markers. Given the extensive area of erythema/cellulitis we will discuss with the hospitalist for admission. I ordered vancomycin and ceftriaxone. The patient's vital signs are stable. He does not meet sepsis criteria Differential Diagnosis Differential Diagnoses: The differential diagnosis associated with the presentation includes Abdominal wall cellulitis Sepsis Dermatitis Panniculitis Admission/Observation Consideration of admission/observation: Escalation of care including admission/observation considered Lab Data [facility] Lab Attestation statement: I reviewed the patient's lab results. As above 03/06/25 19:32 03/06/25 19:32 Labs: Lab Results 03/06/25 Range/Units 19:32 WBC 10.8 (4.8-10.8) X10*3/uL RBC 5.30 D (4.60-5.80) X10*6/uL Hgb 15.2 D (14.0-18.0) g/dl Hct 46.2 D (42.0-52.0) % MCV 87.2 (80.0-98.0) fL MCH 28.7 (27.0-33.0) pg MCHC 32.9 (31.0-36.0) g/dl RDW 13.7 (11.0-16.0) % Plt Count 291 (160-400) X10*3/uL MPV 9.5 (9.4-12.4) fL Immature Gran % (Auto) 0.3 (0.0-0.4) % Neut % (Auto) 79.8 H (45-73) % Lymph % (Auto) 13.1 L (20-40) % Emanuel % (Auto) 4.3 (2-11) % Eos % (Auto) 2.1 (0-4) % Baso % (Auto) 0.4 (0-2) % Lymph # (Auto) 1.4 (1.2-4.9) X10*3/uL Emanuel # (Auto) 0.5 (0.1-1.2) X10*3/uL Eos # (Auto) 0.2 (0.0-0.4) X10*3/uL Baso # (Auto) 0.0 (0.0-0.2) X10*3/uL Abs Immat Gran (auto) 0.03 (0.00-0.03) X10*3/uL Absolute Neuts (auto) 8.6 H (2.0-8.3) x10*3/uL Absolute Nucleated RBC 0.000 (0.0-0.012) X10*3/uL Nucleated RBC % (auto) 0.0 (0.0-0.2) /100WBC ESR 37 H (0-15) MM/HR Sodium 140 (135-145) mmol/L Potassium 3.9 (3.3-5.1) mmol/L Chloride 106 (96-108) mmol/L Carbon Dioxide 26 (22-29) mmol/L Anion Gap 12 (12-20) BUN 16 (9-16) mg/dL Creatinine 0.77 (0.5-1.4) mg/dL Estim Creat Clear Calc 258.9 Estimated GFR > 60 Random Glucose 87 (60-115) mg/dL Lactic Acid 0.9 (0.5-2.0) mmol/L Calcium 9.5 D (8.4-10.2) mg/dL Total Bilirubin 0.7 (0.0-1.0) mg/dL AST 22 (5-37) U/L ALT 21 (0-40) U/L Alkaline Phosphatase 75 (39-117) U/L C-Reactive Protein 4.91 H (< or = 0.50) mg/dL Total Protein 8.6 H (6.5-8.0) g/dL Albumin 4.4 (3.5-5.0) g/dL Discharge Plan Discharge Clinical Impression: Abdominal wall cellulitis Patient Disposition: Admitted As Inpatient Print Language: Turkish
[2025-03-06 19:38] LABS: MANUAL DIFF FLAG NO
[2025-03-06 19:41] LABS: Hematocrit 46.2 % (42.0-52.0); Hemoglobin 15.2 g/dl (14.0-18.0); Imm Gran Abs Auto 0.03 X10*3/uL (0.00-0.03); Imm Gran Pct Auto 0.3 % (0.0-0.4); Lymphocytes Absolute Auto 1.4 X10*3/uL (1.2-4.9); Mean Corpuscular HGB Conc 32.9 g/dl (31.0-36.0); Mean Corpuscular Hemoglobin 28.7 pg (27.0-33.0); Mean Corpuscular Volume 87.2 fL (80.0-98.0); NRBC Abs Auto 0.000 X10*3/uL (0.0-0.012); NRBC Pct Auto 0.0 /100WBC (0.0-0.2); Platelet Count 291 X10*3/uL (160-400); Red Blood Count 5.30 X10*6/uL (4.60-5.80); White Blood Count 10.8 X10*3/uL (4.8-10.8)
[2025-03-06 19:52] LABS: Alanine Aminotransferase 21 U/L (0-40); Albumin Level 4.4 g/dL (3.5-5.0); Alkaline Phosphatase 75 U/L (39-117); Anion Gap 12 (12-20); Aspartate Amino Transferase 22 U/L (5-37); Blood Urea Nitrogen 16 mg/dL (9-16); Calcium 9.5 mg/dL (8.4-10.2); Carbon Dioxide 26 mmol/L (22-29); Chloride 106 mmol/L (96-108); Creatinine Clr Calc Pharmacy 258.9; Estimated Glomerular Filt Rate > 60; Potassium 3.9 mmol/L (3.3-5.1); Sodium 140 mmol/L (135-145); Total Protein 8.6 g/dL (6.5-8.0)
[2025-03-07] MEDS: vancomycin/NS 2,000 MG/500 ML PLAST..BAG 250 MG IV (01:39)
--- OUTSIDE RECORDS SUMMARY | 2025-03-07 02:17 | XMS_ITS | Clinical Summary ---
Author Organization [facility] Address [address] [place] [address] Care Team Providers Care Intelligence Group Supervisor Name Role Phone Gio Pacheco Primary Care Provider [phone] Allergies Active Allergy Reactions Criticality Noted Date [...] DTaP,Tdap,and Td Vaccines (1 - Tdap) 01/19/2014 Alcohol/Substance Use Screening 05/24/2024 COVID-19 Vaccine (1 - 2024- season) 2025 Influenza Vaccine (#1) 2025 RSV Vaccine (60+ years old a nd patients) (1 - 1-dose 75+ series) 01/19/2067 Insurance [employer] Care Teams Intelligence Group Supervisor Relationship Specialty Start Date End Date Gio Pacheco [address] [place] [id number] PCP - General Internal Medicine 08/31/23
[2025-03-07 02:45] VITALS: BP 119/66; PULSE 79; RESP 16; TEMP 36.9; O2SAT 98
--- NOTE | 2025-03-07 02:56 | P.HPHOSP_ITS ---
History of Present Illness Date of Service: 03/07/25 Attending physician on admission: Kimi Cadena Chief Complaint: abdominal cellulitis Patient is a 35-year-old male with past medical history abdominal cellulitis originated March 2024, umbilical hernia in need of repair, morbid obesity currently on tirzepatide awaiting bariatric surgery once under 400 lb, right lower leg cellulitis chronic from previous spider bite, MRSA, asthma, Depression/Anxiety, GERD, RAMIRO on CPAP, Insomnia reports new onset of left lower quadrant abdominal cellulitis but denies any fever, chills or night sweats. Patient states he was doing well after previous admission back in August of 2024. Patient had been on Zyvox as an outpatient and then started penicillin prophylactically per Infectious Disease. Patient does not currently follow with the wound care clinic. Patient has been placing a paper towel in his umbilicus due to copious drainage and does not use aseptic technique. Patient is on his appetite but only injects in the thighs in the arms. Patient currently denies any abdominal pain or nausea and vomiting. No indication for CT of the abdomen with emergency room evaluation. Currently right lower leg is reported as warm to the touch with minimum drainage. Patient often scratches the leg at night while sleeping and indicated that the wound was recently opened. Patient is planned for bariatric surgery once he is below 400 lb. Once patient a cheese in acceptable weight, patient's surgeon we will perform the umbilical hernia repair. Currently patient has no leukocytosis or blood loss. CRP elevated 4.91. Sed rate also elevated at 37. Patient did not require sepsis workup in the ED. Request for admission to treat abdominal cellulitis and patient accepted for inpatient admission. Review of Systems 2 Review of Systems: Patient currently denies any abdominal pain but states that the abdomen is very hot to the touch. Patient states he has been taking the penicillin empirically as prescribed. Patient has been using the paper towel in the umbilicus for many months now but does note that the drainage has increased. Patient denies any chest pain, shortness of breath at rest or with exertion and nausea or vomiting. Patient has not had any chills, fever or night sweats. Patient denies history of diabetes. Yes all other systems are reviewed and are negative [facility] Medical History Morbid obesity with BMI of 60.0-69.9, adult Depression Anxiety Obstructive sleep apnea (~2012) Morbid obesity Asthma GERD (gastroesophageal reflux disease) SARIKA (generalized anxiety disorder) Cognitive capacity: Alert and orientated x3 Functional capacity: independent ambulation Family History Mother FH: mental illness Cancer Father Diabetes Maternal Grandmother Alcohol abuse Cancer Sister FH: mental illness Diabetes Surgical History History of dental surgery (~1998) Social History Household Members: Significant Other and Family Housing: Apartment Do you presently have visiting nurse or other home services: No Alcohol intake: never Patient Tobacco Use Status: Never used Tobacco e-Cigarette/Vaping Use: Never Used Second Hand Smoke Exposure: No Substance Use Type: Marijuana Advance Directives: No Advance Directives Information Provided: Yes Do you have a plan to hurt others: No Plan service: No Current occupational status: employed 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 Current occupational exposures/hazards: No Cognitive needs: No Hearing needs: No Vision needs: No Ebola Risk: Travel/Contact With Anyone From Affected Area/s: No Has Patient Experienced Ebola Symptoms: No Meds Allergies Allergy/AdvReac Type Severity Reaction Status Date / Time diphenhydramine (From Allergy Intermediate UNKNOWN Verified 03/06/25 19:17 Benadryl) doxycycline Allergy Itching Verified 03/06/25 19:17 Active Medications: Current Medications Acetaminophen (Acetaminophen 325 Mg Tablet) 650 mg PO Q6H PRN PRN Reason: Pain, Mild 1-3,fever,headache Albuterol/Ipratropium (Albuterol/Iprat 2.5/0.5mg 3 Ml Ampul.Neb) 3 ml INHALE Q4H PRN PRN Reason: Shortness of Breath/Wheezing Calcium Carbonate (Calcium Carbonate 750 Mg Tab.Chew) 750 mg PO Q4H PRN PRN Reason: Heartburn Enoxaparin Sodium (Enoxaparin Sodium 40 Mg/0.4 Ml Syringe) 40 mg SUBCUT Q24H MIGDALIA Vancomycin HCl (Vancomycin/Ns) 2,000 mg in 500 mls @ 250 mls/hr IV ONCE ONE Stop: 03/07/25 03:10 Last Admin: 03/07/25 01:39 Dose: 250 mls/hr Magnesium Hydroxide (Milk Of Magnesia 30 Ml Oral.Susp) 30 ml PO DAILY PRN PRN Reason: Constipation Melatonin (Melatonin 3 Mg Tablet) 6 mg PO BEDTIME PRN PRN Reason: Insomnia Ondansetron HCl (Ondansetron Hcl 4 Mg/2 Ml Vial) 4 mg IVPUSH Q8H PRN PRN Reason: Nausea and Vomiting Polyethylene Glycol (Polyethylene Glycol 3350 17 Gm Powd.Pack) 17 gm PO DAILY PRN PRN Reason: Constipation Senna (Sennosides 8.6 Mg Tablet) 17.2 mg PO BEDTIME MIGDALIA Sodium Chloride (0.9 % Sodium Chloride Flush 3 Ml Syringe) 3 ml IVFLUSH QSHIFT MIGDALIA Home Medications ?Medication ?Instructions ?Recorded ?Confirmed ?Last Taken ?Type melatonin 10 mg tablet 10 mg PO BEDTIME PRN Sleep 0 06/14/24 10/19/24 Unknown History albuterol sulfate 2.5 mg/0.5 mL 2.5 mg inhalation QID PRN 08/29/24 10/19/24 Unknown History solution for nebulization shortness of breath or wheez ing albuterol sulfate 90 mcg/actuation 2 puff inhalation Q 6H PRN SOB 08/29/24 10/19/24 Unknown History aerosol inhaler Physical Exam 2 Vital Signs and Narrative: Vital Signs: Last Vital Signs Temp 98.4 F 03/07/25 02:45 Pulse 79 03/07/25 02:45 Resp 16 03/07/25 02:45 BP 119/66 03/07/25 02:45 Pulse Ox 98 03/07/25 02:45 O2 Del Method Room Air 03/07/25 02:45 BMI result Body Mass Index 68.4 Alert and orientated X3, able to give good history. Neuro: CN II-X11 intact, no deficits, visual acuity intact EYES: PERRLA, EOM intact, sclerae nonicteric, conjunctiva pink ENT: hearing intact, no issues with swallowing, uvula midline, lips moist, nares patent no epistaxis Cardiac: S1 S2 RRR, no murmur, no JVD, mild edema in Lower ext Pulmonary: lungs clear to auscultation B Abdominal: BS active in all 4 quadrants, no guarding, tenderness, rebounding, large pannus present no obvious openings except for the umbilicus area that is draining purulent dry fluid MSK: strength 4/5 upper and lower extremities : no CVA tenderness no bladder distension Extremities: Mild edema in lower extremities, PT and DP pulses palpable +2 Psych: mood stable, judgement and insight good Skin: Noted cellulitis left lower quadrant of the abdomen, pannus is quite large and the redness and heat radiates throughout the underlying aspect of the pannus with no obvious openings In addition there is an area of redness/cellulitis right lower extremity secondary to a spider bite that occurred many months ago, no obvious opening but excoriations are present Results Labs 03/06/25 19:32 03/06/25 19:32 Labs: Laboratory Results - last 24 hr 03/06/25 19:32 MCV 87.2 MCH 28.7 MCHC 32.9 RDW 13.7 Plt Count 291 MPV 9.5 Immature Gran % (Auto) 0.3 Neut % (Auto) 79.8 H Lymph % (Auto) 13.1 L Creek % (Auto) 4.3 Eos % (Auto) 2.1 Baso % (Auto) 0.4 Lymph # (Auto) 1.4 Creek # (Auto) 0.5 Eos # (Auto) 0.2 Baso # (Auto) 0.0 Abs Immat Gran (auto) 0.03 Absolute Neuts (auto) 8.6 H Absolute Nucleated RBC 0.000 Nucleated RBC % (auto) 0.0 ESR 37 H Anion Gap 12 Estim Creat Clear Calc 258.9 Estimated GFR > 60 Random Glucose 87 Lactic Acid 0.9 Calcium 9.5 D Total Bilirubin 0.7 AST 22 ALT 21 Alkaline Phosphatase 75 C-Reactive Protein 4.91 H Total Protein 8.6 H Albumin 4.4 ECG Prior ECG tracings: not available for review Assessment and Plan (1) Abdominal wall cellulitis: Status: Acute Plan Patient is a 35-year-old male with past medical history abdominal cellulitis originated March 2024, umbilical hernia in need of repair, morbid obesity currently on tirzepatide awaiting bariatric surgery once under 400 lb, right lower leg cellulitis chronic from previous spider bite, MRSA, asthma, Depression/Anxiety, GERD, RAMIRO on CPAP, Insomnia reports new onset of left lower quadrant abdominal cellulitis but denies any fever, chills or night sweats. Patient being admitted for treatment for abdominal cellulitis. Abdominal wall celluliits, chronic with reoccurrence Patient is started on ceftriaxone, vancomycin in the emergency department, changed to vancomycin, Zosyn and clindamycin as this was effective previous admission back in August of 2024 per ID note Patient has been compliant with empiric penicillin treatment Infectious disease consulted Wound care consulted as patient is using paper towel to absorb drainage from large umbilicus area (chronic from hernia). Patient could benefit from follow- up in the community with wound care and options to help with drainage from the umbilicus which may be contributing to patient's intermittent cellulitis. Overall plan includes bariatric surgery once patient reaches less than 400 lb and then umbilical hernia repair. RLE cellulitis Patient states this is chronic stemming from a previous spider bite with ongoing itching Right lower leg is warm to the touch X-ray of right tib-fib ordered Continue current antibiotics for abdominal wall cellulitis Morbid Obeisty on Tirzepatide Patient does not inject medication in the abdomen only in the thigh and upper arms. Patient continues to follow with bariatric surgery as an outpatient, patient will qualify for bariatric surgery once weight is 400 or below Nutritional consult ordered Asthma Currently asymptomatic Duo nebs p.r.n. RAMIRO CPAP ordered for HS Depression/ Anxiety Patient denies need for any prescription intervention Patient currently working and lives with his girlfriend Patient denies any worsening symptoms No indication for psychiatric consult DVT prophylaxis: Lovenox Med rec pending Full code status Quality Stroke Does the patient have a stroke diagnosis?: No Reason for No Anti-thrombotic by Day Two: N/A - Med Ordered VTE Prior VTE?: No VTE Risk Level:: Medical - moderate - high VTE Device Contraindication: N/A - Device Ordered VTE Drug Contraindication: N/A - Med Ordered
[2025-03-07 05:26] LABS: MANUAL DIFF FLAG NO
[2025-03-07 05:29] VITALS: BP 120/53; PULSE 86; RESP 20; TEMP 36.9; O2SAT 95
[2025-03-07 05:31] LABS: Hematocrit 37.5 % (42.0-52.0); Hemoglobin 12.4 g/dl (14.0-18.0); Imm Gran Abs Auto 0.09 X10*3/uL (0.00-0.03); Imm Gran Pct Auto 1.1 % (0.0-0.4); Lymphocytes Absolute Auto 1.8 X10*3/uL (1.2-4.9); Mean Corpuscular HGB Conc 33.1 g/dl (31.0-36.0); Mean Corpuscular Hemoglobin 29.1 pg (27.0-33.0); Mean Corpuscular Volume 88.0 fL (80.0-98.0); NRBC Abs Auto 0.000 X10*3/uL (0.0-0.012); NRBC Pct Auto 0.0 /100WBC (0.0-0.2); Platelet Count 245 X10*3/uL (160-400); Red Blood Count 4.26 X10*6/uL (4.60-5.80); White Blood Count 7.9 X10*3/uL (4.8-10.8)
--- NOTE | 2025-03-07 05:32 | PC.NURSE ---
T/w at bedside to assist with care as primary RN unable to at this time. IVF and ABX hung prior, noted to be infused at this time. VSS. Pt medicated per MAR, resting in bed, reporting 4/10 pain. Pt aware of plan for admission. Call barragan in reach, continue to monitor.
[2025-03-07 05:52] LABS: Anion Gap 11 (12-20); Blood Urea Nitrogen 15 mg/dL (9-16); Calcium 8.1 mg/dL (8.4-10.2); Carbon Dioxide 24 mmol/L (22-29); Chloride 107 mmol/L (96-108); Creatinine Clr Calc Pharmacy 306.7; Estimated Glomerular Filt Rate > 60; Potassium 3.1 mmol/L (3.3-5.1); Sodium 139 mmol/L (135-145)
--- NOTE | 2025-03-07 06:58 | PHA.PROG ---
Admission Date/Time: March 07, 2025 02:11 Indication: SSI Weight in k.5 kg Serum Creatinine - Last 168 Hours 03/06/25 03/07/25 19:32 04:35 Creatinine 0.77 0.65 Estimated CrCl and GFR - Last 168 Hours 03/06/25 03/07/25 19:32 04:35 Estim Creat Clear Calc 258.9 306.7 Estimated GFR > 60 > 60 Vancomycin Loading Dose: 2,000 MG Current Vancomycin Dosing Regimen: 1500 MG Q8H Vancomycin Monitoring using AUC goal of 400 - 600 range with trough as surrogate marker: 451, 13.1 Date and Time for next Vancomycin Level to be drawn: 03/08 @0 800 Pharmacist Comments on Vancomycin Plan: Vancomycin dosing will take advantage of [employer] as a clinical decision support tool that uses Bayesian modeling to calculate individual patient's pharmacokinetic parameters and forecast the patient's drug concentration time course with the target goal AUC 24 range of 400 - 600 mg/L/hr.
--- NOTE | 2025-03-07 08:21 | PC.RT ---
pt didier he doesnt wanna wear [facility] cpap while he is here. If he wants it, then he will get his own from home.
--- NOTE | 2025-03-07 08:28 | PHA.MEDREC ---
Addendum entered by Angelica WorleyD 03/07/25 08:38: reviewed Original Note: Pharmacy Consult ? Medication Reconciliation Pharmacy has completed the medication reconciliation. Patient confirmed he takes Zepbound 7.5 mg every Wednesday, last dose was yesterday, Penicillin VK 500 mg BID, and Melatonin 20 mg at bedtime. Patient last had his medications yesterday.
[2025-03-07] MEDS: 0.9 % Sodium Chloride Flush 3 ML SYRINGE IVFLUSH ×2 (08:43→15:26)
[2025-03-07 10:06] VITALS: BP 121/56; PULSE 81; RESP 18; TEMP 36.6; O2SAT 97
--- NOTE | 2025-03-07 11:56 | MHC.CM.PN ---
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 HCP ON FILE AND VERIFIED. DCP: RETURN HOME SELF-CARE, GIRLFRIEND TO TRANSPORT HIM HOME. PCP: TORIE MARTINEZ
--- NOTE | 2025-03-07 13:55 | HO.NURTONUR ---
PER MD: Patient is a 35-year-old male with past medical history abdominal cellulitis originated March 2024, umbilical hernia in need of repair, morbid obesity currently on tirzepatide awaiting bariatric surgery once under 400 lb, right lower leg cellulitis chronic from previous spider bite, MRSA, asthma, Depression/Anxiety, GERD, RAMIRO on CPAP, Insomnia reports new onset of left lower quadrant abdominal cellulitis but denies any fever, chills or night sweats. Patient states he was doing well after previous admission back in August of 2024. Patient had been on Zyvox as an outpatient and then started penicillin prophylactically per Infectious Disease. Patient does not currently follow with the wound care clinic. Patient has been placing a paper towel in his umbilicus due to copious drainage and does not use aseptic technique. Patient is on his appetite but only injects in the thighs in the arms. Patient currently denies any abdominal pain or nausea and vomiting. No indication for CT of the abdomen with emergency room evaluation. Currently right lower leg is reported as warm to the touch with minimum drainage. Patient often scratches the leg at night while sleeping and indicated that the wound was recently opened. Patient is planned for bariatric surgery once he is below 400 lb. Once patient a cheese in acceptable weight, patient's surgeon we will perform the umbilical hernia repair. Currently patient has no leukocytosis or blood loss. CRP elevated 4.91. Sed rate also elevated at 37. Patient did not require sepsis workup in the ED. Request for admission to treat abdominal cellulitis and patient accepted for inpatient admission. PER RN: Alert and oriented Ambulatory and independent IV: 20G in right hand, 20G in right AC Nothing running at this time VSS No pain today
--- NOTE | 2025-03-07 14:39 | HO.WOUND ---
Wound Consult: Initial 35 yr old male admitted to [facility] on 03/07/25 - See progress notes and H&P for detailed history. Wound consult placed for abdomen. Patient agreeable to assessment and photo documentation. Patient with history of recurrent abdominal cellulitis, reports taking prophylactic penicillin. Reports having a draining area to umbilicus for over 1 year, he washes area daily and uses toilet paper and paper towels to contain drainage, changing about twice per day. Also reports using inderdry to abdominal fold to wick moisture. Umbilicus Etiology: Wound to umbilical area Measurements: 1cm x 2cm x 0.1cm Wound Bed: moist red Drainage / Odor: serous/serosang small Edges: ? open Sharon wound: ? No Induration, Fluctuance or Warmth noted Pain: none Goals of Treatment: ? moist healing and drainage absorption with durafiber Abdomen - reddened, firm, swollen no open wounds Right anterior leg: intact dry adherent scab - pt reports scratching area - no topical treatment at this time Recommendations: 1. Turn and Reposition every 2 hours and as needed for patient comfort. Use pillows or wedges to support off loading positions. 2. Off Load all bony prominences with use of pillows and heel boots if needed. Apply Preventative foams where needed. 3. Monitor for incontinence and moisture control, use barrier creams when needed for prevention and treatment. 4. Provide adequate and supplemental nutrition. 5. Order or Continue low air loss mattress. 6. When applicable maintain blood glucose levels per Providers order. Umbilicus: cleanse with normal saline, pat dry, apply durafiber to open wound, cover with foam dressing, change daily and PRN Re-consult wound care Nurse for wound deterioration or wound changes.
[2025-03-07 14:47] VITALS: BMI 68.4
[2025-03-07 14:58] VITALS: BP 129/66; PULSE 75; RESP 20; TEMP 36.4; O2SAT 96
[2025-03-07 15:49] VITALS: BP 138/73; PULSE 78; RESP 14; TEMP 36.1; O2SAT 95
--- NOTE | 2025-03-07 15:55 | PM.EVENT ---
Event Note Date of Service: 03/07/25 Event Note: Pt seen/examined, admitted this morning for abdominal wall cellulitis, improving on current Abx, continue current care and likely transition to PO tomorrow and discharge Time Spent With Patient Time: Total time managing care of this patient today ____ minutes.
[2025-03-07 20:00] VITALS: BP 147/70; PULSE 81; RESP 18; TEMP 36.4; O2SAT 96
[2025-03-08 04:00] VITALS: BP 138/73; PULSE 69; RESP 18; TEMP 36.8; O2SAT 95
[2025-03-08] MEDS: 0.9 % Sodium Chloride Flush 3 ML SYRINGE IVFLUSH ×2 (07:23)
[2025-03-08 07:34] VITALS: BP 124/74; PULSE 76; RESP 14; TEMP 36.4; O2SAT 96
[2025-03-08 09:19] LABS: Creatinine Clr Calc Pharmacy 302.1; Estimated Glomerular Filt Rate > 60
--- NOTE | 2025-03-08 09:26 | HE.PHANOTE ---
RE: VANCO Trough returned @13.8. Renal function is stable. Continuing dose of 1500 mg Q8H with predicted AUC 469 and trough 13.8. Next trough due 03/09 @0800. Will continue to monitor.
--- NOTE | 2025-03-08 10:22 | PM.DS ---
DS: Providers Provider Date of Service: 03/08/25 Date of admission: 03/07/25 02:11 Date of discharge: 03/08/25 Primary care physician: Sparkle Lawler CNP Consults: 03/07/25 03:34 Consult to Infectious Diseases Routine Consulting Provider: [facility] Reason for consultation: abdominal wall celluliits, drainage from umbilicus Has provider been notified: No Consult to Wound Care Routine Reason for consultation: abd wall celluliits, UMB opened draining, pt using papertowel, recurring is 03/08/25 01:13 Consult to Wound Care Routine Reason for consultation: abd wall cellulitis DS: Diagnosis Discharge Diagnosis (1) Abdominal wall cellulitis: Status: Acute DS: Summary Hospital Course Hospital Course: Chief Complaint: abdominal cellulitis Patient is a 35-year-old male with past medical history abdominal cellulitis originated March 2024, umbilical hernia in need of repair, morbid obesity currently on tirzepatide awaiting bariatric surgery once under 400 lb, right lower leg cellulitis chronic from previous spider bite, MRSA, asthma, Depression/Anxiety, GERD, RAMIRO on CPAP, Insomnia reports new onset of left lower quadrant abdominal cellulitis but denies any fever, chills or night sweats. Patient states he was doing well after previous admission back in August of 2024. Patient had been on Zyvox as an outpatient and then started penicillin prophylactically per Infectious Disease. Patient does not currently follow with the wound care clinic. Patient has been placing a paper towel in his umbilicus due to copious drainage and does not use aseptic technique. Patient is on his appetite but only injects in the thighs in the arms. Patient currently denies any abdominal pain or nausea and vomiting. No indication for CT of the abdomen with emergency room evaluation. Currently right lower leg is reported as warm to the touch with minimum drainage. Patient often scratches the leg at night while sleeping and indicated that the wound was recently opened. Patient is planned for bariatric surgery once he is below 400 lb. Once patient a cheese in acceptable weight, patient's surgeon we will perform the umbilical hernia repair. Currently patient has no leukocytosis or blood loss. CRP elevated 4.91. Sed rate also elevated at 37. Patient did not require sepsis workup in the ED. Request for admission to treat abdominal cellulitis and patient accepted for inpatient admission. Hospital course: Patient was admitted and treated with IV antibiotic (Zosyn and vancomycin in mid and rather rapid recovery with cellulitis covering most of the lower abdominal wall happen faded away. He is having no fever or chills at this point and will be transitioned to oral clindamycin for an additional 5 days. Time Attestation Discharge Coordination Time (in mins): 40 Quality: Safe Use of Opioids Does Pt have an Active Cancer Diagnosis on the Problem List?: No Quality: Stroke Does the patient have a stroke diagnosis?: No Physical Exam Vital Signs: Vital Signs: Last Vital Signs Temp 97.6 F 03/08/25 07:34 Pulse 76 03/08/25 07:34 Resp 14 03/08/25 07:34 BP 124/74 03/08/25 07:34 Pulse Ox 96 03/08/25 07:34 O2 Del Method Room Air 03/08/25 07:34 BMI result Body Mass Index 68.4 DS: Data Data Completed and Pending Labs on day of discharge: Laboratory Results - last 24 hr 03/08/25 08:31 Hold Purple Top SEE NOTE Creatinine 0.66 Estim Creat Clear Calc 302.1 Estimated GFR > 60 Vancomycin Trough 13.8 Preliminary micro results at discharge 03/07/25 02:43 Blood Culture - Preliminary Blood - Venous No growth after 24 hours. 03/06/25 19:32 Blood Culture - Preliminary Blood - Venous No growth after 24 hours. Discharge Plan Discharge Anticipated Discharge Date/Time: 03/08/25 09:56 Patient Disposition: Home, Self-Care Discharge Diagnosis: abdominal wall cellulitis Referrals: Sparkle Lawler CNP [Primary Care Provider, Internal Medicine] - 1 Week Discharge Medications: New clindamycin HCl [Cleocin HCl] 150 mg capsule 450 mg PO TID 5 Days Qty: 45 0RF Continued melatonin 10 mg Tablet 20 mg PO BEDTIME PRN (Reason: Sleep) Zepbound 7.5 mg/0.5 mL pen injector 7.5 mg subcut TU Rx Instructions: start one week after last dose of the 5 mg weekly injection Discontinued penicillin V potassium 500 mg tablet 500 mg PO Q12H Qty: 180 0RF Discharge Orders: Discharge Order (Routine); Ordered 03/08/25 Ordered By: Steven Miller Diet: Advance to usual diet Activity on Discharge: As tolerated Stand Alone Forms: Patient Portal Discharge page Print Language: Belizean Care Plan Goals: recovery from cellulitis fo abdominal wall Health Concerns: abdominal wall cellulitis Plan of Treatment: Medicine as recommended and follow up with your primary care doctor within a week, call for appointment. Assessment: See above
--- NOTE | 2025-03-08 10:50 | MHC.CM.PN ---
Patient discharged to home today self care. He has arranged for transportation home.
--- NOTE | 2025-03-08 11:37 | HO.WOUND ---
Wound consult placed by overnight RN - Spoke to direct care nurse - no new concners in patients wound or care recommendations. This appears to have been a consult off of a trigger assessment. Patient is set for d/c may continue topical recommendations for home care.
[2025-03-08 15:50] VITALS: BP 145/78; PULSE 70; RESP 18; TEMP 36.1; O2SAT 96
== END 2025-03-08 15:51 | disposition home or self-care (01) | DRG 383 ==
LOC: HO.ED 03-07 02:14 → HO.EDOVER 03-07 02:22 → HO.S3 03-07 13:54
PROVIDERS: Nurse Practitioner Family; Registered Nurse Emergency; Admitting Provider Internal Medicine; Emergency Provider Emergency Medicine; PCP Nurse Practitioner Family; Visit Provider Internal Medicine
DX: L03.311 Cellulitis of abdominal wall (principal); Z68.44 Body mass index [BMI] 60.0-69.9, adult; L03.115 Cellulitis of right lower limb; G47.33 Obstructive sleep apnea (adult) (pediatric); K42.9 Umbilical hernia without obstruction or gangrene; J45.909 Unspecified asthma, uncomplicated; T63.301S Toxic effect of unspecified spider venom, accidental (unintentional), sequela; Z71.3 Dietary counseling and surveillance; E66.01 Morbid (severe) obesity due to excess calories; Z86.14 Personal history of Methicillin resistant Staphylococcus aureus infection; Z79.899 Other long term (current) drug therapy
CPT/HCPCS: 36415; 73590; 80048; 80053; 80202; 82565; 83605; 85025; 85652; 86140; 87040; 99285; J0696; J0736; J1650; J2543; J3373; J3374

== ENCOUNTER 2025-03-07 02:11 | Outpatient (BNV) | payer OTHER, SELFPAY | END 2025-03-07 05:08 | PROVIDERS: Admitting Provider Internal Medicine; Emergency Provider Emergency Medicine; PCP Nurse Practitioner Family; Visit Provider Radiology Diagnostic Ultrasound | DX: L03.115 Cellulitis of right lower limb (principal) | CPT/HCPCS: 73590 ==

== ENCOUNTER → 2025-03-07 02:11 | Outpatient (BNV) | payer OTHER, SELFPAY | PROVIDERS: Admitting Provider Internal Medicine; Emergency Provider Emergency Medicine; PCP Nurse Practitioner Family; Visit Provider Internal Medicine | DX: L03.311 Cellulitis of abdominal wall (principal) | CPT/HCPCS: 99223; 99499 ==

== ENCOUNTER 2025-03-20 12:28 | Outpatient (AMB) | payer OTHER, SELFPAY ==
--- NOTE | 2025-03-20 12:30 | A.OFFPC_ITS ---
Vital Signs 03/20/25 12:36 Height 5 ft 11 in Weight 493 lb 4 oz BMI 68.8 BP 136/71 Blood Pressure Location Rt brachial Position Sitting Respiration 16 Pulse 70 Pulse Source Pulse Oximeter Temp 97.7 F Temp Source Oral Pulse Oximetry (%) 97 Oxygen Delivery Method Room Air Intake Visit Reasons: abdominal wall cellulitis Intake Note: patient here for HDF for abdominal wall cellulitis Heavy Equipment Mechanic Required: No Allergies diphenhydramine (From Benadryl) Allergy (Intermediate, Verified 03/20/25 12:44) UNKNOWN doxycycline Allergy (Verified 03/20/25 12:44) Itching Medication List - Last Reconciled 03/20/25 by Sparkle Lawler CNP melatonin 20 mg PO BEDTIME PRN tirzepatide (weight loss) (Zepbound) 7.5 mg subcut TU Tobacco use date assessed: 03/20/25 Dental Screening Dental Screen Date: 03/20/25 Did you have a dental visit in the last 12 months?: No Did you have a dental problem in the last 6 months where you did not have access to dental care?: No Was dental information given to patient?: No HPI HPI Comments History of Present Illness Details 35-year-old male presents for hospital d ischarge follow-up. He was hospitalized at [facility] between 03/06/2025 and 03/08/2025 for abdominal wall cellulitis. DS: Summary Hospital Course Hospital Course: Chief Complaint: abdominal cellulitis Patient is a 35-year-old male with past medical history abdominal cellulitis originated March 2024, umbilical hernia in need of repair, morbid obesity currently on tirzepatide awaiting bariatric surgery once under 400 lb, right lower leg cellulitis chronic from previous spider bite, MRSA, asthma, Depression/Anxiety, GERD, RAMIRO on CPAP, Insomnia reports new onset of left lower quadrant abdominal cellulitis but denies any fever, chills or night sweats. Patient states he was doing well after previous admission back in August of 2024. Patient had been on Zyvox as an outpatient and then started penicillin prophylactically per Infectious Disease. Patient does not currently follow with the wound care clinic. Patient has been placing a paper towel in his umbilicus due to copious drainage and does not use aseptic technique. Patient is on his appetite but only injects in the thighs in the arms. Patient currently denies a ny abdominal pain or nausea and vomiting. No indication for CT of the abdomen with emergency room evaluation. Currently right lower leg is reported as warm to the touch with minimum drainage. Patient often scratches the leg at night while sleeping and indicated that the wound was recently opened. Patient is planned for bariatric surgery once he is below 400 lb. Once patient a cheese in acceptable weight, patient's surgeon we will perform the umbilical hernia repair. Currently patient has no leukocytosis or blood loss. CRP elevated 4.91. Sed rate also elevated at 37. Patient did not require sepsis workup in the ED. Request for admission to treat abdominal cellulitis and patient accepted for inpatient admission. Hospital course: Patient was admitted and treated with IV antibiotic (Zosyn and vancomycin in mid and rather rapid recovery with cellulitis covering most of the lower abdominal wall happen faded away. He is having no fever or chills at this point and will be transitioned to oral clindamycin for an additional 5 days. He was discharged home on clindamycin 450 mg 3 times daily. Penicillin V potassium 500 mg every 12 hours was discontinued. He is doing better since discharged. He completed course of clindamycin and started take Penicillin he has left. He notes that the cellulitis to his abdomen has completely resolved. However, the drainage from his umbilicus continues. He states that he has been experiencing drainage with odor from the umbilicus with a past 2 years. He describes current drainage as flores. He presents with a bunch of napkins in his umbilicus. [facility] Medical History Morbid obesity with BMI of 60.0-69.9, adult Depression Anxiety Obstructive sleep apnea (~2012) Morbid obesity Asthma GERD (gastroesophageal reflux disease) SARIKA (generalized anxiety disorder) Surgical History History of dental surgery (~1998) Family History Mother FH: mental illness Cancer Father Diabetes Maternal Grandmother Alcohol abuse Cancer Sister FH: mental illness Diabetes Social History Household Members: Spouse and Children Housing: House Do you presently have visiting nurse or other home services: No Alcohol intake: never Patient Tobacco Use Status: Never used Tobacco e-Cigarette/Vaping Use: Never Used Second Hand Smoke Exposure: No Substance Use Type: Marijuana service: No Current occupational status: employed 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 Current occupational exposures/hazards: No Cognitive needs: No Hearing needs: No Vision needs: No Questionnaire Thrive Questionnaire Date Thrive assessed: 07/10/24 I am a: Patient What is your living situation today?: I have a steady place to live Within the past 12 months, did the food you bought not last and you didn't have the money to get more?: Never true Within the past 12 months, did you worry whether your food would run out before you got money to buy more?: Never true Do you have trouble paying for medicines?: No Do you have trouble getting transportation to medical appointments?: No Do you have trouble paying your heating and electricity bill?: No Do you have trouble taking care of your child, family member or friend?: No Do you have trouble with day-to-day activities such as bathing, preparing meals, shopping, managing finances, etc.?: No Are you currently unemployed and looking for a job?: No Are you interested in more education?: No Please select the resources that you would like help with: None Currently or been in a relationship where the following occur: No concerns reported THRIVE Score: 0 SARIKA-7 AMB Questionnaire SARIKA-7 Date SARIKA - 7 assessed: 05/04/24 Source: Developed by Drs. Hayden Thayer, Liat Grace, Uriel Chavis and colleagues, with an educational lisa from [employer]. Review of Systems Const Details: Const Denies chills, Denies fatigue, Denies fever(s), Denies headache(s) and Denies weakness ENT Denies dizziness and Denies headache(s) Card Denies chest pain, Denies lightheadedness, Denies dyspnea and Denies other (Palpitations) Resp Denies cough, Denies dyspnea, Denies wheezing and Denies other ( shortness of breath) GI Denies abdominal pain, Denies melena, Denies hematochezia, Denies change in bowel habits, Denies dyspepsia and Denies nausea Denies hematuria and Denies dysuria Musc Denies abnormal gait, Denies myalgias, Denies arthralgias, Denies numbness and Denies tingling Skin/Breast Reports as per HPI Neuro Denies abnormal gait, Denies dizziness, Denies headache(s), Denies memory loss, Denies numbness, Denies Sensory deficit (Neuro), Denies tingling and Denies weakness Psych Denies anxiety, Denies depression, Denies memory loss Endo Denies cold intolerance, Denies fatigue, Denies heat intolerance, Denies polydipsia and Denies polyuria Aller/Immun Denies wheezing Physical exam (Primary Care) Vital Signs: Last Vital Signs Temp 97.7 F 03/20/25 12:36 Pulse 70 03/20/25 12:36 Resp 16 03/20/25 12:36 BP 136/71 03/20/25 12:36 Pulse Ox 97 03/20/25 12:36 Oxygen Delivery Method Room Air 03/20/25 12:36 BMI result Body Mass Index 68.8 Tobacco/Smoking Status: Tobacco use Status Tobacco use date assessed 03/20/25 03/20/25 12:39 Patient Tobacco Use Status Never used Tobacco 03/20/25 12:39 e-Cigarette/Vaping Use Never Used 03/20/25 12:39 Thrive Assessment: Date of Thrive Assessment Date Thrive assessed 07/10/24 03/20/25 12:39 Currently or been in a relationship where the following occur: No concerns reported Const Other: General: no acute distress and well developed Nutritional Appearance: well nourished Orientation/consciousness: patient oriented x3 HENMT Head: Yes normocephalic and Yes atraumatic Eyes General: appearance normal, both eyes and all related structures Pupils: Equal, round and reactive pupils present EOM: EOMs intact bilaterally Resp Effort & Inspection: normal respiratory effort Auscultation: clear to auscultation bilaterally Cardio Rate: regular rate Rhythm: regular rhythm Heart sounds: S1 normal heart sound present, S2 normal heart sound present, no gallops, no murmurs and no rubs GI Palpation (GI): No Abdominal aortic bruit present, Soft to palpation, nontender, No hepatosplenomegaly present and No Rebound tenderness present Auscultation: normal bowel sounds General: Yes no CVA tenderness Back/Spine/Pelvis Back: no CVA tenderness Cervical Spine: cervical ROM normal and No Cervical spine tenderness Thoracic/Lumbar Spine: thoraco-lumbar ROM normal, No pain with thoraco-lumbar ROM, No thoracic spinal tenderness and No lumbar spinal tenderness Extrem General: Yes normal to inspection, No edema and No calf tenderness Skin General: warm and dry. Normal skin color. Normal skin turgor Lesions: no lesions Rashes: no rashes Trauma: no lacerations or abrasions Wounds: Moderate amount of light yellow drainage on napkins from umbilicus, no active drainage, umbilical area is pink and dry, no odor or overt wound/infection Nails: normal Neuro General: patient oriented x3, gait normal and no focal neuro deficit Cranial nerves: Yes Equal, round and reactive pupils present Cognition (Neuro): normal cognition Gait exam (Neuro): Normal gait present Sensory Exam: No Sensory deficit (Neuro) Psych Appearance: grossly normal Affect: normal affect Attitude: cooperative Thought process: Normal thought process present Coding Level of Care Code Est Pt Level 4 (10533) Diagnoses Abdominal wall cellulitis L03.311 Laboratory tests ordered as part of a complete physical exam (CPE) Z00.00 Assessment & Plan Assessment & Plan (1) Abdominal wall cellulitis: Code(s): L03.311 - Cellulitis of abdominal wall Category: Medical Plan: He is doing better since discharged. He completed course of clindamycin and started take Penicillin he has left. He notes that the cellulitis to his abdomen has completely resolved. However, the drainage from his umbilicus continues. He states that he has been experiencing drainage with odor from the umbilicus with a past 2 years. He describes current drainage as flores. He presents with a bunch of napkins in his umbilicus. Moderate amount of light yellow drainage on napkins from umbilicus, no active drainage, umbilical area is pink and dry, no odor or overt wound/infection. Wound care performed with dry sterile dressing applied to the umbilicus at this visit. Advised to avoid using napkins/paper towels to absorb drainage from his umbilicus. Instructed on proper wound care and advised to apply dry sterile dressing to the umbilicus as needed. Advised to stop taking penicillin as it was discontinued upon discharged at the hospital following treatment for abdominal cellulitis. Will repeat abnormal labs and check routine labs in preparation for his physical exam. Encouraged to perform lab work before his next visit. Follow-up as scheduled for an extended physical exam and labs review. Return sooner with symptoms or concerns. Verbalized understanding and agreed with the plan. (2) Laboratory tests ordered as part of a complete physical exam (CPE): Code(s): Z00.00 - Encounter for general adult medical examination without abnormal findings Category: Medical Plan: Fasting labs ordered as part of a complete physical exam. Advised to fast for at least 10 hours before getting labs drawn. May drink water Verbalized understanding and agreed with treatment plan. Orders: Orders Basic Metabolic Panel Today L03.311 - Cellulitis of abdominal wall, Z00.00 - Encounter for general adult medical examination without abnormal findings Lipid Panel Today Z00.00 - Encounter for general adult medical examination without abnormal findings Vitamin D 25-OH Total Today Z00.00 - Encounter for general adult medical examination without abnormal findings Erythrocyte Sedimentation Rate Today L03.311 - Cellulitis of abdominal wall Complete Blood Count no Diff Today L03.311 - Cellulitis of abdominal wall, Z00.00 - Encounter for general adult medical examination without abnormal findings Microalbumin, Random (w Creat) Today Z00.00 - Encounter for general adult medical examination without abnormal findings TSH reflex Free T4 Today Z00.00 - Encounter for general adult medical examination without abnormal findings UA CC w/rflx Micro + Cult Today Z00.00 - Encounter for general adult medical examination without abnormal findings CRP High Sensitivity Today L03.311 - Cellulitis of abdominal wall
[2025-03-20 12:36] VITALS: BP 136/71; PULSE 70; RESP 16; TEMP 36.5; O2SAT 97; BMI 68.8
--- OUTSIDE RECORDS SUMMARY | 2025-03-20 15:45 | XMS_ITS | Clinical Summary ---
Author Organization [facility] Address [address] [place] [address] Care Team Providers Care Yardage Estimator Name Role Phone Gio Pacheco Primary Care Provider [phone] Allergies Active Allergy Reactions Criticality Noted Date [...] series) 01/19/2067 Insurance [employer] Care Teams Yardage Estimator Relationship Specialty Start Date End Date Gio Pacheco [address] [place] [id number] PCP - General Internal Medicine 08/31/23
== END 2025-03-20 13:10 | disposition home or self-care (01) ==
LOC: HO.HMCFM 12:29
PROVIDERS: PCP Nurse Practitioner Family; Visit Provider Nurse Practitioner Family
DX: L03.311 Cellulitis of abdominal wall (principal); Z00.00 Encounter for general adult medical examination without abnormal findings

== ENCOUNTER → 2025-03-20 12:28 | Outpatient (BNVA) | payer OTHER, SELFPAY | PROVIDERS: PCP Nurse Practitioner Family; Visit Provider Nurse Practitioner Family | DX: Z00.00 Encounter for general adult medical examination without abnormal findings (principal); E66.01 Morbid (severe) obesity due to excess calories; K42.9 Umbilical hernia without obstruction or gangrene; L03.311 Cellulitis of abdominal wall; Z68.44 Body mass index [BMI] 60.0-69.9, adult | CPT/HCPCS: 99212 ==

== ENCOUNTER 2025-03-21 12:50 | Outpatient (AMB) | payer OTHER, SELFPAY ==
--- NOTE | 2025-03-21 12:52 | A.OFFVIS_ITS ---
VS Expanded 03/21/25 13:00 BP 139/80 Blood Pressure Location Rt brachial Blood Pressure Position Sitting Pulse 85 Pulse Source Pulse Oximeter Temp 96.5 F L Temperature Source Temporal Artery Scan Pulse Oximetry 98 Oxygen Delivery Method Room Air Height 5 ft 11 in Weight 488 lb 6.4 oz BMI 68.1 Body Fat % 53.5 Body Fat Mass 261.2 Fat Free Mass 227.0 Visceral Fat Rating 48.0 Body Water % 37.2 Body Water Mass 181.6 Muscle Mass/Score 216.0 Basal Metabolic Rate/Score 3,508 Intake Visit Reasons: OV F/U SWL Allergies diphenhydramine (From Benadryl) Allergy (Intermediate, Verified 03/21/25 13:03) UNKNOWN doxycycline Allergy (Verified 03/21/25 13:03) Itching Medication List - Last Reconciled 03/21/25 by IRMA Ruiz melatonin 20 mg PO BEDTIME PRN tirzepatide (weight loss) (Zepbound) 10 mg (0.5 mL) subcut QWEEK HPI Comments Details: Patient is a 34-year-old male who returns to the office today in follow-up. He began the surgical weight loss program 01/20/2023 with a weight of 618.1 lb and a BMI of 86.2. Weight today is 488.4 lb with a BMI of 68.1. Patient has had multiple hospitalizations for recurrent abdominal cellulitis. He was just hospitalized for another episode and was hospitalized for 3 days. He continues on penicillin for many months now. Prior to his last visit in December his grandmother . He was very sherlyn se with her and this has been very traumatic. He has been following the meal plan as much as possible. He was started on Zepbound 2.5 mg weekly, he had nausea x1 on the 1st night after the 1st injection otherwise he has tolerated the other injections without any difficulty whatsoever. He is tolerating the 7.5 mg dose of Zepbound and does wish to increase it at this time. Celebrate Rebuild protein shake with TWO scoops in 10oz low fat Fairlife milk at 8-10 am, Celebrate protein bar 11 am-1pm, lunch at 2pm (10 forks of meat and 10 forks of salad or vegetables) Celebrate bar at 4pm-6pm, dinner at 7pm (10 forks of meat and 10 forks of salad or vegetables) Celebrate Rebuild protein shake with TWO scoops in 10oz low fat Fairlife milk at 8-10pm drinking 80-96 oz water exercise plan: walking outside 1.5 mi 2 days per week treadmill, 350-400 calories 3-4 days per week sometimes can get up to 400-500 micheal on treadmill [facility] Medical History Morbid obesity with BMI of 60.0-69.9, adult Depression Anxiety Obstructive sleep apnea (~2012) Morbid obesity Asthma GERD (gastroesophageal reflux disease) SARIKA (generalized anxiety disorder) Surgical History History of dental surgery (~1998) Family History Mother FH: mental illness Cancer Father Diabetes Maternal Grandmother Alcohol abuse Cancer Sister FH: mental illness Diabetes Social History Household Members: Spouse and Children Housing: House Do you presently have visiting nurse or other home services: No Alcohol intake: never Patient Tobacco Use Status: Never used Tobacco e-Cigarette/Vaping Use: Never Used Second Hand Smoke Exposure: No Substance Use Type: Marijuana service: No Current occupational status: employed 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 He will try to resume exercising regularly. Zepbound was increased to 10 mg weekly. We will have him return to the office in 3 months. Medications: New tirzepatide (weight loss) (Zepbound) 10 mg (0.5 mL) subcut QWEEK 2 mL 0RF
[2025-03-21 13:00] VITALS: BP 139/80; PULSE 85; TEMP 35.8; O2SAT 98; BMI 68.1
--- OUTSIDE RECORDS SUMMARY | 2025-03-21 16:11 | XMS_ITS | Clinical Summary ---
Author Organization [facility] Address [address] [place] [address] Care Team Providers Care Business Loan Processor Name Role Phone Gio Pacheco Primary Care Provider [phone] Allergies Active Allergy Reactions Criticality Noted Date [...] series) 01/19/2067 Insurance [employer] Care Teams Business Loan Processor Relationship Specialty Start Date End Date Gio Pacheco [address] [place] [id number] PCP - General Internal Medicine 08/31/23
== END 2025-03-21 13:42 | disposition home or self-care (01) ==
LOC: HO.HBS 12:51
PROVIDERS: PCP Nurse Practitioner Family; Visit Provider Physician Assistant Surgical
DX: E66.01 Morbid (severe) obesity due to excess calories (principal)
CPT/HCPCS: 99214

== ENCOUNTER → 2025-03-21 12:50 | Outpatient (BNVA) | payer OTHER, SELFPAY | PROVIDERS: PCP Nurse Practitioner Family; Visit Provider Physician Assistant Surgical | DX: E66.01 Morbid (severe) obesity due to excess calories (principal); Z68.44 Body mass index [BMI] 60.0-69.9, adult | CPT/HCPCS: 99212 ==

== ENCOUNTER 2025-05-07 10:09 | Outpatient (AMB) | payer OTHER, SELFPAY ==
--- NOTE | 2025-05-07 10:12 | MHC.PC.OV ---
Vital Signs 05/07/25 10:16 Height 5 ft 11 in Weight 506 lb 4 oz BMI 70.6 BP 120/66 Blood Pressure Location Lt radial Position Sitting Respiration 17 Pulse 67 Pulse Source Pulse Oximeter Temp 98 F Temp Source Temporal Artery Scan Pulse Oximetry (%) 100 Oxygen Delivery Method Room Air Intake Visit Reasons: CPE Intake Note: Garo presents in the office today for his annual physical. Clinical Trials Systems Administrator Required: No Allergies diphenhydramine (From Benadryl) Allergy (Intermediate, Verified 05/07/25 10:25) UNKNOWN doxycycline Allergy (Verified 05/07/25 10:25) Itching Medication List - Last Reconciled 05/07/25 by Sparkle Lawler CNP melatonin 20 mg PO BEDTIME PRN tirzepatide (weight loss) (Zepbound) 10 mg (0.5 mL) subcut QWEEK Tobacco use date assessed: 05/07/25 Dental Screening Dental Screen Date: 05/07/25 Did you have a dental visit in the last 12 months?: No Did you have a dental problem in the last 6 months where you did not have access to dental care?: No Was dental information given to patient?: Patient declined HPI HPI Comments History of Present Illness Details 35-year-old male presents for an extended physical exam. He is on tirzepatide for weight management. He is [place] [facility]. He did not perform fasting lab work for this visit as planned. Acute issue(s) - None Past Medical History - Asthma, DIAN, hypokalemia, RAMIRO (on cpap), GERD, morbid obesity, skin tags, insomnia, anxiety, and depression Social History - Nonsmoker. Does not vape. Drinks alcohol occasionally, has not drink in the past 6 months. Denies recreational drug use - Has been making unhealthy dietary choices in the past 1 month. Walks 4 times weekly. Generally sleep well Health maintenance - Last eye exam was 3-4 years ago. Referred to Ophthalmology for routine eye exam - Last dental visit was over over a year ago; encouraged to schedule an appointment with his dentist for routine dental care - Last Tdap vaccine was about 3-4 years ago - Has not been vaccinated for the flu this season; receives vaccination today Specialists - [facility] Medical History Morbid obesity with BMI of 60.0-69.9, adult Depression Anxiety Obstructive sleep apnea (~2012) Morbid obesity Asthma GERD (gastroesophageal reflux disease) SARIKA (generalized anxiety disorder) Surgical History History of dental surgery (~1998) Family History Mother FH: mental illness Cancer Father Diabetes Maternal Grandmother Alcohol abuse Cancer Sister FH: mental illness Diabetes Social History (Updated 05/07/25 @ 10:16 by Erica Alford [facility]) Household Members: Spouse and Children Housing: House Do you presently have visiting nurse or other home services: No Alcohol intake: never Patient Tobacco Use Status: Never used Tobacco e-Cigarette/Vaping Use: Never Used Second Hand Smoke Exposure: No Use of substances other than those prescribed or required for medical reasons: No Substance Use Type: Marijuana service: No Current occupational status: employed 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 1. Little interest or pleasure in doing things: not at all 2. Feeling down, depressed, or hopeless: several days 3. Trouble falling or staying asleep, or sleeping too much: several days 4. Feeling tired or having little energy: several days 5. Poor appetite or overeating: several days 6. Feeling bad about yourself - or that you are a failure or have let yourself or your family down: several days 7. Trouble concentrating on things, such as reading the newspaper or watching television: not at all 8. Moving or speaking so slowly that other people could have noticed. Or the opposite - being so fidgety or restless that you have been moving around a lot more than usual: not at all 9. Thoughts that you would be better off or of hurting yourself in some way: not at all Total score: 5 Depression Screening Interpretation: Positive Depression Screening Follow-up: Existing condition Depression Screening Done: Yes 09231 - PHQ-9 Billing: Yes Source: Developed by Drs. Hayden Thayer, Liat Grace, Uriel Chavis and colleagues, with an educational lisa from [employer]. Thrive Questionnaire Date Thrive assessed: 05/07/25 I am a: Patient What is your living situation today?: I have a steady place to live Within the past 12 months, did the food you bought not last and you didn't have the money to get more?: Never true Within the past 12 months, did you worry whether your food would run out before you got money to buy more?: Never true Do you have trouble paying for medicines?: No Do you have trouble getting transportation to medical appointments?: No Do you have trouble paying your heating and electricity bill?: No Do you have trouble taking care of your child, family member or friend?: No Do you have trouble with day-to-day activities such as bathing, preparing meals, shopping, managing finances, etc.?: No Are you currently unemployed and looking for a job?: No Are you interested in more education?: No Please select the resources that you would like help with: None Currently or been in a relationship where the following occur: No concerns reported THRIVE Score: 0 AUDIT C Alcohol Use Questionnaire (AUDIT-C) 1. How often do you have a drink containing alcohol?: Never 3. How often do you have six or more drinks on one occasion?: Never Total Score: 0 SARIKA-7 AMB Questionnaire SARIKA-7 Date SARIKA - 7 assessed: 05/07/25 Feeling nervous, anxious, or on edge: 0 = Not at all Not being able to stop or control worryin = Not at all Worrying too much about different things: 0 = Not at all Trouble relaxin = Not at all Being so restless that it is hard to sit still: 0 = Not at all Becoming easily annoyed or irritable: 1 = Several days Feeling afraid as if something awful might happen: 0 = Not at all Total SARIKA-7 score (0-4 normal; 5-9 mild; 10-14 moderate; 15-21 severe): 1 Source: Developed by Drs. Hayden Thayer, Liat Grace, Uriel Chavis and colleagues, with an educational lisa from [employer]. SARIKA-7 Assessment Billing SARIKA-7 Assessment Tool: SARIKA-7 Assessment 42010 Review of Systems Const Details: Denies chills, Denies fatigue, Denies fever(s), Denies headache(s) and Denies weakness HEENT Denies change in vision, Denies dizziness, Denies headache(s), Denies hearing loss, Denies nasal congestion, Denies sinus pain, Denies sinus pressure and Denies sore throat Card Denies chest pain, Denies lightheadedness, Denies dyspnea and Denies other (palpitations) Resp Denies cough, Denies dyspnea and Denies wheezing GI Denies abdominal pain, Denies melena, Denies hematochezia, Denies change in bowel habits, Denies dyspepsia and Denies nausea Denies hematuria and Denies dysuria Musc Denies abnormal gait, Denies myalgias, Denies arthralgias, Denies numbness and Denies tingling Skin/Breast Denies rash, Denies unusual bruising and Denies wounds Neuro Denies abnormal gait, Denies dizziness, Denies headache(s), Denies memory loss, Denies numbness, Denies Sensory deficit (Neuro), Denies tingling and Denies weakness Psych Denies anxiety, Denies depression and Denies memory loss Endo Denies cold intolerance, Denies fatigue, Denies heat intolerance, Denies polydipsia and Denies polyuria Singh/Lymph Denies easy bleeding and Denies easy bruising Aller/Immun Denies wheezing Physical exam (Primary Care) Vital Signs: Last Vital Signs Temp 98 F 05/07/25 10:16 Pulse 67 05/07/25 10:16 Resp 17 05/07/25 10:16 BP 120/66 05/07/25 10:16 Pulse Ox 100 05/07/25 10:16 Oxygen Delivery Method Room Air 05/07/25 10:16 BMI result Body Mass Index 70.6 Tobacco/Smoking Status: Tobacco use Status Tobacco use date assessed 05/07/25 05/07/25 10:18 Patient Tobacco Use Status Never used Tobacco 05/07/25 10:16 e-Cigarette/Vaping Use Never Used 05/07/25 10:16 PHQ-9: PHQ-9 Score PHQ-9: Total score 5 05/07/25 10:27 Depression Screening Interpretation: Positive Depression Screening Follow-up: Existing condition Thrive Assessment: Date of Thrive Assessment Date Thrive assessed 05/07/25 05/07/25 10:22 Currently or been in a relationship where the following occur: No concerns reported Const Other: General: no acute distress, well developed, alert and awake Nutritional Appearance: well nourished Orientation/consciousness: patient oriented x3 [facility] Head: Yes normocephalic and Yes atraumatic Ears: hearing grossly normal bilaterally and TM's normal bilaterally General nose exam: Normal external nose present and Normal nares present Mouth: Normal oral and palatal mucosa present and moist mucous membranes Teeth and gingiva: dentition normal Throat: Yes oropharynx normal Eyes Pupils: Equal, round and reactive pupils present and Pupil accommodation reflex normal EOM: EOMs intact bilaterally Neck Neck: Yes normal visual inspection, Yes no lymphadenopathy and Yes trachea midline Thyroid: Thyroid normal Carotids: no bruits Lymphatic: no lymphadenopathy noted Chest Chest palpation & inspection: normal inspection of the chest Resp Effort & Inspection: normal respiratory effort Auscultation: clear to auscultation bilaterally Cardio Rate: regular rate Rhythm: regular rhythm Heart sounds: S1 normal heart sound present, S2 normal heart sound present, no gallops, no murmurs and no rubs Bruits: no abdominal aortic bruits and no carotid bruits GI Palpation (GI): No Abdominal aortic bruit present, Soft to palpation, nontender, No hepatosplenomegaly present and No Rebound tenderness present Auscultation: normal bowel sounds General: Yes no CVA tenderness Back/Spine/Pelvis Back: no CVA tenderness Cervical Spine: cervical ROM normal and No Cervical spine tenderness Thoracic/Lumbar Spine: thoraco-lumbar ROM normal, No pain with thoraco-lumbar ROM, No thoracic spinal tenderness and No lumbar spinal tenderness Skin General: warm and dry. Normal skin color. Normal skin turgor Lesions: Skin tags to neck and back Rashes: no rashes Trauma: no lacerations or abrasions Wounds: no wounds Nails: normal Neuro General: patient oriented x3, gait normal and CN's II-XI intact bilaterally Cranial nerves: Yes Equal, round and reactive pupils present Cognition (Neuro): normal cognition Gait exam (Neuro): Normal gait present Motor exam (neuro): 5/5 motor strength present throughout Sensory Exam: No Sensory deficit (Neuro) Deep tendon reflexes (DTR's): Right patellar reflex intensity grade: 2+ and Left patellar reflex intensity grade: 2+ Extrem General: Yes normal to inspection, No edema and No calf tenderness Psych Appearance: grossly normal Affect: normal affect Attitude: cooperative Thought process: Normal thought process present Office Procedures Flu Questionnaire Does the patient have a severe egg allergy?: No Does the patient have severe life threatening allergies?: No Does the patient have a fever or illness today?: No Has the patient ever had Guillain-[place] Syndrome?: No Has the patient ever had any past reaction to a flu shot?: No Immunizations Fluarix [id number] (PF) 45 mcg (15 mcg x 3)/0.5 mL IM syringe Performing Provider: Sparkle Lawler CNP Performing Location: [facility] Administered by: Denice Wilson RN on 05/07/25 10:49 Dose Route Admin Location Dispensed Lot Number Expiration Date [facility] Caustic Strength Inspector 0.5 mL IM Left Deltoid 0.5 mL [id number] 11/20/25 73932-858-67 [facility] VIS Given Date VIS Provided VIS Publication Date 05/07/25 Single Vaccine 24 Eligibility Eligibility Date Funding Source Not [facility] Eligible 05/07/25 Private Coding Level of Care Code Est Pt Prev Care 18-39y(22805) Diagnoses Normal physical examination, routine Z00.00 Morbid obesity E66.01 Additional Codes SARIKA-7 Assessment Billing - SARIKA-7 Assessment Tool: SARIKA-7 Assessment 77890 ([id number]) PHQ-9 - 29948 - PHQ-9 Billing: Yes ([id number]) Assessment & Plan Assessment & Plan (1) Normal physical examination, routine: Code(s): Z00.00 - Encounter for general adult medical examination without abnormal findings Category: Medical Plan: No significant functional limitations noted. Healthy diet and routine exercise encouraged. Perform fasting lab work and follow-up transfer of care with [facility], as scheduled next month. Return sooner with symptoms or concerns. Verbalized understanding and agreed with the plan. (2) Morbid obesity: Code(s): E66.01 - Morbid (severe) obesity due to excess calories Category: Medical Plan: He currently weighs 506 lb, BMI is 70.6. He has been making unhealthy dietary choices in the past 1 month. Continue current treatment regimen. Healthy diet and routine exercise encouraged. Follow-up with [facility] as planned. Verbalized understanding and agreed with the plan. Orders: Orders Influenza [id number] Immunization Today Z23 - Encounter for immunization
[2025-05-07 10:16] VITALS: BP 120/66; PULSE 67; RESP 17; TEMP 36.6; O2SAT 100; BMI 70.6
== END 2025-05-07 11:09 | disposition home or self-care (01) ==
LOC: HO.HMCFM 10:09
PROVIDERS: PCP Nurse Practitioner Family; Visit Provider Nurse Practitioner Family
DX: Z00.00 Encounter for general adult medical examination without abnormal findings (principal); E66.01 Morbid (severe) obesity due to excess calories; Z68.45 Body mass index [BMI] 70 or greater, adult; Z23 Encounter for immunization

== ENCOUNTER → 2025-05-07 10:09 | Outpatient (BNVA) | payer OTHER, SELFPAY | PROVIDERS: PCP Nurse Practitioner Family; Visit Provider Nurse Practitioner Family | DX: Z23 Encounter for immunization (principal); Z00.00 Encounter for general adult medical examination without abnormal findings; E66.01 Morbid (severe) obesity due to excess calories; Z68.45 Body mass index [BMI] 70 or greater, adult | CPT/HCPCS: 90471; 90656; 96127; 99395 ==

== ENCOUNTER → 2025-05-21 23:22 | Outpatient (BNV) | payer OTHER, SELFPAY | PROVIDERS: Emergency Provider Emergency Medicine; PCP Nurse Practitioner Family; Visit Provider Surgery | DX: K56.609 Unspecified intestinal obstruction, unspecified as to partial versus complete obstruction (principal); K42.0 Umbilical hernia with obstruction, without gangrene; E66.01 Morbid (severe) obesity due to excess calories | CPT/HCPCS: 49594; 99222 ==

== ENCOUNTER → 2025-05-21 23:42 | Outpatient (BNV) | payer OTHER, SELFPAY | PROVIDERS: Emergency Provider Emergency Medicine; PCP Nurse Practitioner Family; Visit Provider Radiology Diagnostic Radiology | DX: K42.9 Umbilical hernia without obstruction or gangrene (principal); R60.0 Localized edema | CPT/HCPCS: 74176 ==

== ENCOUNTER → 2025-05-22 07:56 | Outpatient (BNV) | payer OTHER, SELFPAY | PROVIDERS: Admitting Provider Surgery; Emergency Provider Emergency Medicine; PCP Nurse Practitioner Family; Visit Provider Internal Medicine Critical Care Medicine | DX: K46.0 Unspecified abdominal hernia with obstruction, without gangrene (principal) | CPT/HCPCS: 99223; 99499 ==